=== PATIENT | female | born 1995 | race Caucasian/White ===

== ENCOUNTER 2020-03-05 17:43 | Emergency (ER) | payer OTHER, SELFPAY ==
[2020-03-05 18:19] VITALS: BP 173/94; PULSE 113; RESP 18; TEMP 36.6; O2SAT 99; BMI 39.9
--- NOTE | 2020-03-05 20:12 | US_ITS ---
EXAMINATION: US ABDOMEN LIMITED CLINICAL INFORMATION: Right upper quadrant pain. COMPARISON: 05/07/2019. TECHNIQUE: Real-time imaging of the right upper quadrant abdominal viscera. FINDINGS: PANCREAS: Normal. LIVER: Normal. The liver is normal in size. The liver contour is normal. Parenchymal echogenicity is normal. No focal hepatic lesion. There is no intrahepatic biliary duct dilatation seen. GALLBLADDER: Normal. The gallbladder is physiologically distended without evidence of stones, sludge, polyps, wall thickening or pericholecystic fluid. Sonographic Raphael sign is positive. COMMON BILE DUCT: Normal in caliber measuring 0.4-0.6 cm in diameter. RIGHT KIDNEY: Normal. No hydronephrosis. No renal calculi or focal parenchymal lesions. The kidney measures 10.4 cm in maximum dimension. FREE FLUID: None. US/US abdomen limited IMPRESSION: No acute findings evident within the right upper quadrant. The presence of a positive sonographic Raphael sign in the absence of additional sonographic findings of cholecystitis is nonspecific.
--- NOTE | 2020-03-05 20:12 | XR_ITS ---
EXAMINATION: XR CHEST CLINICAL INFORMATION: Right upper quadrant pain COMPARISON: 12/23/2016 TECHNIQUE: Frontal view of the chest was obtained. FINDINGS: No significant abnormality is noted involving the heart, lungs, mediastinum, bony thorax or soft tissues. Again noted is a mild thoracic scoliosis convex to the right. XR/XR chest 1V IMPRESSION: No acute intrathoracic disease
--- NOTE | 2020-03-05 20:12 | ECG_ITS ---
Test Reason : ABD PAIN Blood Pressure : / mmHG Vent. Rate : 090 BPM Atrial Rate : 090 BPM P-R Int : 158 ms QRS Dur : 094 ms QT Int : 376 ms P-R-T Axes : 069 020 046 degrees QTc Int : 459 ms Normal sinus rhythm Normal ECG No previous ECGs available Referred By: Wanda Fonseca Electronically Signed By:JUAN C TOWNSEND
[2020-03-05 20:23] VITALS: BP 108/53; PULSE 91; RESP 16; O2SAT 100
[2020-03-05 20:26] LABS: MANUAL DIFF FLAG NO
[2020-03-05 20:28] LABS: Basophils Percent Auto 0.3 % (0-2); Eosinophils Absolute Auto 0.4 X10*3/uL (0.0-0.4); Eosinophils Percent Auto 4.3 % (0-4); Hematocrit 40.7 % (37-47); Hemoglobin 13.7 g/dl (12.0-16.0); Imm Gran Abs Auto 0.04 X10*3/uL (0.00-0.03); Imm Gran Pct Auto 0.4 % (0.0-0.4); Lymphocytes Absolute Auto 2.1 X10*3/uL (1.2-4.9); Mean Corpuscular HGB Conc 33.7 g/dl (31.0-35.0); Mean Corpuscular Hemoglobin 27.7 pg (27.0-33.0); Mean Corpuscular Volume 82.2 fL (80-98); Mean Platelet Volume 8.5 fL (9.4-12.3); Monocytes Absolute Auto 0.6 X10*3/uL (0.1-1.2); Monocytes Percent Auto 6.1 % (2-11); Neutrophils Absolute Auto 6.5 X10*3/uL (2.0-8.3); Neutrophils Percent Auto 66.9 % (45-73); Platelet Count 308 X10*3/uL (160-400); Red Blood Count 4.95 X10*6/uL (4.20-5.50); Red Cell Distribution Width 12.8 % (11.0-16.0); White Blood Count 9.7 X10*3/uL (4.8-10.8)
[2020-03-05] MEDS: Morphine Sulfate 4 MG/ML CARTRIDGE IVPUSH (20:40)
[2020-03-05] MEDS: ondansetron HCL 4 MG/2 ML VIAL IVPUSH (20:40)
[2020-03-05] MEDS: 0.9 % Sodium Chloride 1,000 ML 999 ML IVCONT (20:41)
[2020-03-05 20:46] LABS: Lactic Acid 1.3 mmol/L (0.5-2.0)
--- NOTE | 2020-03-05 20:46 | PC.NURSE ---
patient a&ox3, iv inserted, labs drawn, vss, urine obtained, pt medicated per order, will continue to monitor.
[2020-03-05 20:47] LABS: Glucose Urine UA NEG (NEG); Leukocyte Esterase Urine TRACE (NEG); Nitrite Urine NEG (NEG); PH 6.5 (5.0-8.0); Specific Gravity - Urine <= 1.005 (1.005-1.025); Urine Blood NEG (NEG); Urine Ketones NEG (NEG); Urine Protein NEG (NEG-TRACE)
[2020-03-05 20:49] LABS: Appearance Urine CLEAR; Color Urine YELLOW; UPreg QC Valid YES; Urine Pregnancy NEGATIVE (NEGATIVE)
[2020-03-05 20:54] LABS: Bacteria Urine TRACE /LPF; RBC Urine 0 /HPF (0); Squamous Epithelial Cell Urine 2+ /LPF
[2020-03-05 20:54] LABS: Alanine Aminotransferase 26 U/L (0-31); Albumin Level 4.4 g/dL (3.5-5.0); Alkaline Phosphatase 74 U/L (39-117); Anion Gap 16 (12-20); Aspartate Amino Transferase 15 U/L (5-31); Bilirubin Total 0.3 mg/dL (0.0-1.0); Blood Urea Nitrogen 11 mg/dL (9-16); Calcium 8.9 mg/dL (8.4-10.2); Carbon Dioxide 22 mmol/L (22-29); Chloride 105 mmol/L (96-108); Creatinine Clr Calc Pharmacy 142.5; Estimated Glomerular Filt Rate > 60; Glucose Random 88 mg/dL (60-115); Lipase 27 U/L (8-78); Sodium 139 mmol/L (135-145); Total Protein 7.3 g/dL (6.5-8.0)
[2020-03-05 20:57] LABS: Magnesium 1.9 mg/dL (1.6-2.6)
--- NOTE | 2020-03-05 21:25 | ED.ABDPAIN ---
HPI - Abdominal Pain General Chief Complaint: Abdominal Pain Stated Complaint: ABD PAIN Time Seen by Provider: 03/05/20 20:12 Source: patient Mode of arrival: ambulatory Limitations: no limitations History of Present Illness HPI narrative: 24-year-old with no significant past medical history presents with 11 days of right upper quadrant abdominal pain. States that the pain started right after Thanksgiving dinner, and has not been alleviated. She has had light orange diarrhea, pain after eating, and abdominal tenderness. She does not report any chest pain or pressure, palpitations, shortness breath, abdominal distention, fevers or chills. MD elicited complaint: abdominal pain Onset (ago): day(s) (11) Pain Consistency: constant Location: RUQ Severity: severe Pain scale (0-10): 10 Quality: stabbing and aching Exacerbating factors: eating Relieving factors: nothing Associated symptoms: nausea Treatments prior to arrival: NSAIDs Related Data Previous Rx's Medication Instructions Recorded ondansetron HCl [Zofran] 4 mg PO Q8H PRN #14 tab 03/06/20 Allergies Allergy/AdvReac Type Severity Reaction Status Date / Time No Known Allergies Allergy Verified 03/05/20 18:19 [No Known Allergies*] Review of Systems Review of Systems Constitutional: No Weight loss, No Fever, No Chills, No Night Sweats, No Fatigue, No Malaise ENT/Mouth: No Hearing loss, No Ear Pain, No Nasal Congestion, No Sinus Pain, No Hoarseness, No sore throat, No Rhinorrhea, No Swallowing Difficulty Eyes: No Eye Pain, No Swelling, No Redness, No Foreign Body, No Discharge, No Vision Changes Cardiovascular: No Chest Pain, No SOB, No Dyspnea on Exertion, No Orthopnea, No Edema, No Palpitations Respiratory: No Cough, No Sputum, No Wheezing, No Smoke Exposure, No Dyspnea Gastrointestinal: Positive Nausea, Positive Vomiting, positive Diarrhea, positive abdominal Pain, No Hematochezia, No Melena Genitourinary: no irregular bleeding, No Dysuria, No Urinary Frequency, No Hematuria, No Urinary Incontinence, No Urgency, No Flank Pain, No Urinary Flow Changes, No Hesitancy Musculoskeletal: No joint pain, No Myalgias, No Joint Swelling Skin: No Skin Lesions, No rash Neuro: No Weakness, No Numbness, No Paresthesias, No Loss of Consciousness, No Dizziness, No Headache Psych: No Anxiety/Panic, No Depression, No SI/HI/AH/VH, No Social Issues Heme/Lymph: No Bruising, No Bleeding,No Lymphadenopathy Endocrine: No Polyuria, No Polydipsia, No Temperature Intolerance Yes all other systems are reviewed and are negative Physical Exam Vital Signs: Vital Signs: Last Vital Signs Temp 97.9 F 03/05/20 18:19 Pulse 85 03/06/20 00:40 Resp 16 03/06/20 01:32 BP 110/40 L 03/06/20 00:40 Pulse Ox 94 03/06/20 00:40 Body Mass Index 39.9 Appearance: Alert. Oriented X3. Moderate distress. Eyes: Pupils equal, round and reactive to light. ENT: Pharynx normal. Neck: Normal inspection. Neck supple. CVS: tachycardic heart rate and rhythm. Pulses normal. Respiratory: No respiratory distress. Breath sounds normal. Abdomen: Soft and positive Raphael's. Skin: Skin warm and dry. Normal skin color. Normal skin turgor. Extremities: No lower extremity edema. Neuro: No motor deficit. No sensory deficit. Course Course Course Narrative: 24-year-old female presents with 11 days of right upper quadrant pain. Started after Thanksgiving dinner, worsens when she eats, and has had diarrhea since. She does have a positive Raphael sign on physical exam. We will order abdominal ultrasound, CBC, Chem 7, lactic and cultures as she is mildly at 109, and has had this ailment for 11 days. We will treat with fluids and pain management. Ultrasound shows enlarged gallbladder, discussion with surgical PA at 10:00 p.m.. Requests HIDA scan however it is not available at this time, we will order CT scan of the abdomen to rule out other abdominal concerns. CT scan negative. Attempted to reach on-call PA, he could possibly be in surgery at this time. Consult with surgical PA, at 2:04 a.m. patient likely has biliary dyskinesia plan is for her to follow-up with him in the office later this week. Detailed description with patient regarding plan of care, patient verbalized understanding of and agrees to plan of care to discharge home and follow-up with surgery. Consultations Consultation #1: Hema Time: 20:00 MDM - Abdominal Pain Differential Diagnosis Differential diagnosis: Likely abdominal pain, acute appendicitis, calculus of kidney, diverticulitis, gastroenteritis, mesenteric ischemia, pancreatitis, peptic ulcer disease and small bowel obstruction Medical Records Attestation: I reviewed the patient's medical records. Lab Data Attestation: I reviewed the patient's lab results. Result diagrams: 03/05/20 20:13 03/05/20 20:13 Labs: Lab Results 03/05/20 03/05/20 03/05/20 Range/Units 20:13 20:13 20:13 WBC 9.7 (4.8-10.8) X10*3/uL RBC 4.95 (4.20-5.50) X10*6/uL Hgb 13.7 (12.0-16.0) g/dl Hct 40.7 (37-47) % MCV 82.2 (80-98) fL MCH 27.7 (27.0-33.0) pg MCHC 33.7 (31.0-35.0) g/dl RDW 12.8 (11.0-16.0) % Plt Count 308 (160-400) X10*3/uL MPV 8.5 L (9.4-12.3) fL Immature Gran % (Auto) 0.4 (0.0-0.4) % Neut % (Auto) 66.9 (45-73) % Lymph % (Auto) 22.0 (20-40) % [place] % (Auto) 6.1 (2-11) % Eos % (Auto) 4.3 H (0-4) % Baso % (Auto) 0.3 (0-2) % Lymph # (Auto) 2.1 (1.2-4.9) X10*3/uL [place] # (Auto) 0.6 (0.1-1.2) X10*3/uL Eos # (Auto) 0.4 (0.0-0.4) X10*3/uL Baso # (Auto) 0.0 (0.0-0.2) X10*3/uL Abs Immat Gran (auto) 0.04 H (0.00-0.03) X10*3/uL Absolute Neuts (auto) 6.5 (2.0-8.3) X10*3/uL Absolute Nucleated RBC 0.000 (0.0-0.012) X10*3/uL Nucleated RBC % (auto) 0.0 (0.0-0.2) /100WBC Hold Blue Top SEE NOTE Sodium 139 (135-145) mmol/L Potassium 4.0 (3.3-5.1) mmol/l Chloride 105 (96-108) mmol/L Carbon Dioxide 22 (22-29) mmol/L Anion Gap 16 (12-20) BUN 11 (9-16) mg/dL Creatinine 0.68 (0.5-1.4) mg/dL Estim Creat Clear Calc 142.5 Estimated GFR > 60 Random Glucose 88 (60-115) mg/dL Lactic Acid (0.5-2.0) mmol/L Calcium 8.9 (8.4-10.2) mg/dL Magnesium 1.9 (1.6-2.6) mg/dL Total Bilirubin 0.3 (0.0-1.0) mg/dL AST 15 (5-31) U/L ALT 26 (0-31) U/L Alkaline Phosphatase 74 (39-117) U/L Total Protein 7.3 (6.5-8.0) g/dL Albumin 4.4 (3.5-5.0) g/dL Lipase 27 (8-78) U/L Urine Color Urine Appearance Urine pH (5.0-8.0) Ur Specific Mcallen (1.005-1.025) Urine Protein (NEG-TRACE) MG/DL Urine Glucose (UA) (NEG) MG/DL Urine Ketones (NEG) MG/DL Urine Blood (NEG) Urine Nitrite (NEG) Ur Leukocyte Esterase (NEG) Urine RBC (0) /HPF Urine WBC (0-4) /HPF Ur Squamous Epith Cells /LPF Urine Bacteria /LPF Urine Test (NEGATIVE) 03/05/20 03/05/20 03/05/20 Range/Units 20:22 20:38 20:38 WBC (4.8-10.8) X10*3/uL RBC (4.20-5.50) X10*6/uL Hgb (12.0-16.0) g/dl Hct (37-47) % MCV (80-98) fL MCH (27.0-33.0) pg MCHC (31.0-35.0) g/dl RDW (11.0-16.0) % Plt Count (160-400) X10*3/uL MPV (9.4-12.3) fL Immature Gran % (Auto) (0.0-0.4) % Neut % (Auto) (45-73) % Lymph % (Auto) (20-40) % [place] % (Auto) (2-11) % Eos % (Auto) (0-4) % Baso % (Auto) (0-2) % Lymph # (Auto) (1.2-4.9) X10*3/uL [place] # (Auto) (0.1-1.2) X10*3/uL Eos # (Auto) (0.0-0.4) X10*3/uL Baso # (Auto) (0.0-0.2) X10*3/uL Abs Immat Gran (auto) (0.00-0.03) X10*3/uL Absolute Neuts (auto) (2.0-8.3) X10*3/uL Absolute Nucleated RBC (0.0-0.012) X10*3/uL Nucleated RBC % (auto) (0.0-0.2) /100WBC Hold Blue Top Sodium (135-145) mmol/L Potassium (3.3-5.1) mmol/l Chloride (96-108) mmol/L Carbon Dioxide (22-29) mmol/L Anion Gap (12-20) BUN (9-16) mg/dL Creatinine (0.5-1.4) mg/dL Estim Creat Clear Calc Estimated GFR Random Glucose (60-115) mg/dL Lactic Acid 1.3 (0.5-2.0) mmol/L Calcium (8.4-10.2) mg/dL Magnesium (1.6-2.6) mg/dL Total Bilirubin (0.0-1.0) mg/dL AST (5-31) U/L ALT (0-31) U/L Alkaline Phosphatase (39-117) U/L Total Protein (6.5-8.0) g/dL Albumin (3.5-5.0) g/dL Lipase (8-78) U/L Urine Color YELLOW Urine Appearance CLEAR Urine pH 6.5 (5.0-8.0) Ur Specific Mc[place]en <= 1.005 (1.005-1.025) Urine Protein NEG (NEG-TRACE) MG/DL Urine Glucose (UA) NEG (NEG) MG/DL Urine Ketones NEG (NEG) MG/DL Urine Blood NEG (NEG) Urine Nitrite NEG (NEG) Ur Leukocyte Esterase TRACE H (NEG) Urine RBC 0 (0) /HPF Urine WBC 10-14 H (0-4) /HPF Ur Squamous Epith Cells 2+ /LPF Urine Bacteria TRACE /LPF Urine Test NEGATIVE (NEGATIVE) Imaging Data CT scan - abdomen: Attestation: I personally reviewed and interpreted this imaging study as follows: Radiologist's impression: EXAMINATION: CT ABDOMEN AND PELVIS WITH CONTRAST CLINICAL INFORMATION: Distended gallbladder on ultrasound COMPARISON: Ultrasound from earlier today TECHNIQUE: Multidetector volumetric images were obtained from the superior aspect of the liver through the pubic symphysis following administration 85 mL of Omnipaque 350 intravenous contrast. Sagittal and coronal reformatted images were obtained on the technologist's workstation. Oral contrast: No This CT examination was performed using dose optimization techniques as appropriate, variously including the following: *Automated exposure control *Adjustment of mA and/or kV according to patient size (this includes techniques or standardized protocols for targeted exams where dose is matched to indication/reason for exam; i.e. extremities or head) *Use of iterative reconstruction technique DLP: 842 mGy-cm FINDINGS: LUNG BASES: The visualized lung bases are unremarkable. LIVER, GALLBLADDER, AND BILIARY TREE: The liver is normal in size, shape, and attenuation. No focal hepatic lesion or biliary ductal dilatation is present. The gallbladder is unremarkable with no evidence of radiopaque gallstones, gallbladder wall thickening, or obvious pericholecystic inflammatory changes. PANCREAS: Unremarkable. SPLEEN: Borderline enlarged, measuring approximately 13.7 cm in craniocaudal dimension. ADRENAL GLANDS: Unremarkable. KIDNEYS AND URETERS: The kidneys are normal in size, shape, and attenuation. No hydronephrosis, hydroureter, or obstructing calculi seen. No perinephric stranding. BLADDER: Unremarkable. GASTROINTESTINAL TRACT: The small and large bowel are unremarkable. The appendix is unremarkable. No free air is seen. ABDOMINAL WALL: No significant hernia is appreciated. LYMPH NODES: Normal. VASCULAR: Unremarkable. PELVIC VISCERA: Unremarkable. Trace nonspecific pelvic free fluid. OSSEOUS STRUCTURES: Unremarkable. CT/CT abdomen pelvis w con IMPRESSION: Trace nonspecific pelvic free fluid, which may be physiologic. Borderline splenomegaly. No additional acute findings identified in the abdomen/pelvis. US - abdomen: Attestation: I personally reviewed and interpreted this imaging study as follows: Radiologist's impression: EXAMINATION: US ABDOMEN LIMITED CLINICAL INFORMATION: Right upper quadrant pain. COMPARISON: 05/07/2019. TECHNIQUE: Real-time imaging of the right upper quadrant abdominal viscera. FINDINGS: PANCREAS: Normal. LIVER: Normal. The liver is normal in size. The liver contour is normal. Parenchymal echogenicity is normal. No focal hepatic lesion. There is no intrahepatic biliary duct dilatation seen. GALLBLADDER: Normal. The gallbladder is physiologically distended without evidence of stones, sludge, polyps, wall thickening or pericholecystic fluid. Sonographic Rahpael sign is positive. COMMON BILE DUCT: Normal in caliber measuring 0.4-0.6 cm in diameter. RIGHT KIDNEY: Normal. No hydronephrosis. No renal calculi or focal parenchymal lesions. The kidney measures 10.4 cm in maximum dimension. FREE FLUID: None. US/US abdomen limited IMPRESSION: No acute findings evident within the right upper quadrant. The presence of a positive sonographic Raphael sign in the absence of additional sonographic findings of cholecystitis is nonspecific. Chest x-ray: Attestation: I personally reviewed and interpreted this imaging study as follows: Radiologist's impression: EXAMINATION: XR CHEST CLINICAL INFORMATION: Right upper quadrant pain COMPARISON: 12/23/2016 TECHNIQUE: Frontal view of the chest was obtained. FINDINGS: No significant abnormality is noted involving the heart, lungs, mediastinum, bony thorax or soft tissues. Again noted is a mild thoracic scoliosis convex to the right. XR/XR chest 1V IMPRESSION: No acute intrathoracic disease ECG Data Attestation: I personally reviewed and interpreted this ECG as follows: ECG interpretation date: 03/05/20 ECG interpretation time: 20:27 Prior ECG tracings: not available for review Interpretation: Vent. Rate : 090 BPM Atrial Rate : 090 BPM P-R Int : 158 ms QRS Dur : 094 ms QT Int : 376 ms P-R-T Axes : 069 020 046 degrees QTc Int : 459 ms Normal sinus rhythm Normal ECG No previous ECGs available Critical Care Time Critical Care Time Critical Care Time: Yes Total Critical Care Time: 60 Attestation: I have personally provided critical care time exclusive of time spent on separately billable procedures. Time includes review of laboratory data, radiology results, discussion with consultants, and monitoring for potential decompensation. Interventions were performed as documented. Discharge Plan Discharge Clinical Impression: Biliary dyskinesia Patient Disposition: Home, Self-Care Instructions: Biliary Dyskinesia (DC) Additional Instructions: you were evaluated for right upper quadrant abdominal pain. Abdominal ultrasound shows enlarged gallbladder, does not show any indication of infection. CT scan of the abdomen was normal. Lab values are within normal limits. Please call surgeon for appointment for follow-up. If pain persists or get worse please return to the emergency department. you may take Tylenol and Motrin as needed for pain management. Thank you for choosing this emergency department for evaluation. Please follow-up with primary care physician as needed. Return to the emergency department for any new, concerning, or worsening symptoms. Prescriptions: New ondansetron HCl [Zofran] 4 mg tablet 4 mg PO Q8H PRN (Reason: nausea and vomiting) Qty: 14 RF: 0 Referrals: Josh Thayer MD [Physician] - 2 days ( biliary dyskinesia) [facility] Past Medical History Attestation statement: The following information was validated with the patient. Medical History Asthma Social History Social History Alcohol intake: never Smoked in Last 30 Days: No Use of substances other than those prescribed or required for medical reasons: No Advance Directives: No Advance Directives Information Provided: Yes
--- NOTE | 2020-03-05 22:15 | CT_ITS ---
EXAMINATION: CT ABDOMEN AND PELVIS WITH CONTRAST CLINICAL INFORMATION: Distended gallbladder on ultrasound COMPARISON: Ultrasound from earlier today TECHNIQUE: Multidetector volumetric images were obtained from the superior aspect of the liver through the pubic symphysis following administration 85 mL of Omnipaque 350 intravenous contrast. Sagittal and coronal reformatted images were obtained on the technologist's workstation. Oral contrast: No This CT examination was performed using dose optimization techniques as appropriate, variously including the following: *Automated exposure control *Adjustment of mA and/or kV according to patient size (this includes techniques or standardized protocols for targeted exams where dose is matched to indication/reason for exam; i.e. extremities or head) *Use of iterative reconstruction technique DLP: 842 mGy-cm FINDINGS: LUNG BASES: The visualized lung bases are unremarkable. LIVER, GALLBLADDER, AND BILIARY TREE: The liver is normal in size, shape, and attenuation. No focal hepatic lesion or biliary ductal dilatation is present. The gallbladder is unremarkable with no evidence of radiopaque gallstones, gallbladder wall thickening, or obvious pericholecystic inflammatory changes. PANCREAS: Unremarkable. SPLEEN: Borderline enlarged, measuring approximately 13.7 cm in craniocaudal dimension. ADRENAL GLANDS: Unremarkable. KIDNEYS AND URETERS: The kidneys are normal in size, shape, and attenuation. No hydronephrosis, hydroureter, or obstructing calculi seen. No perinephric stranding. BLADDER: Unremarkable. GASTROINTESTINAL TRACT: The small and large bowel are unremarkable. The appendix is unremarkable. No free air is seen. ABDOMINAL WALL: No significant hernia is appreciated. LYMPH NODES: Normal. VASCULAR: Unremarkable. PELVIC VISCERA: Unremarkable. Trace nonspecific pelvic free fluid. OSSEOUS STRUCTURES: Unremarkable. CT/CT abdomen pelvis w con IMPRESSION: Trace nonspecific pelvic free fluid, which may be physiologic. Borderline splenomegaly. No additional acute findings identified in the abdomen/pelvis.
[2020-03-05 22:30] VITALS: BP 121/54; PULSE 85; RESP 16; O2SAT 99
[2020-03-05] MEDS: iohexoL 350 MG/ML 100 ML INFUS..BTL 85 ML IV (23:22)
[2020-03-06 00:40] VITALS: BP 110/40; PULSE 85; RESP 16; O2SAT 94
--- NOTE | 2020-03-06 00:41 | PC.NURSE ---
pt awake, resting and reports that her pain is starting to return. pt understands that the provider will be in soon for an update on what the plan will be.
[2020-03-06 01:32] VITALS: RESP 16
[2020-03-06] MEDS: Morphine Sulfate 4 MG/ML CARTRIDGE IVPUSH (01:32)
[2020-03-06 02:00] VITALS: BP 115/62; PULSE 82; RESP 18; TEMP 36.6; O2SAT 98
[2020-03-06 02:18] VITALS: BP 115/50; PULSE 82; RESP 18; O2SAT 98
== END 2020-03-06 02:44 | disposition home or self-care (01) ==
PROVIDERS: Nurse Practitioner Family; Emergency Provider Emergency Medicine; PCP Nurse Practitioner Family
DX: K82.8 Other specified diseases of gallbladder (principal); R10.11 Right upper quadrant pain; Z79.899 Other long term (current) drug therapy
CPT/HCPCS: 36415; 71045; 74177; 76705; 80053; 81001; 81025; 83605; 83690; 83735; 85025; 87040; 87086; 93005; 96361; 96374; 96375; 96376; 99284; 99291; J2270; J2405; Q9967

== ENCOUNTER → 2020-03-06 09:44 | Outpatient (BNVA) | payer OTHER, SELFPAY | PROVIDERS: PCP Nurse Practitioner Family; Visit Provider Surgery | DX: R10.11 Right upper quadrant pain (principal) | CPT/HCPCS: 99202 ==

== ENCOUNTER → 2020-03-07 08:25 | Outpatient (REF) | payer OTHER, SELFPAY ==
--- NOTE | 2020-03-07 | NM_ITS ---
EXAMINATION: BILIARY TRACT IMAGING STUDY WITH CCK CLINICAL INFORMATION: Right upper quadrant pain.. COMPARISON: No previous biliary scan is available for comparison. Abdominal ultrasound and CT scan of the abdomen and pelvis, both dated 03/05/2020 are available for comparison.. TECHNIQUE: Serial gamma scintillation camera images were obtained over the abdomen for a total observation period of 96 minutes following the intravenous administration of 5.0 mCi Tc-99m Mebrofenin. FINDINGS: There is good concentration of activity in the liver by 5 minutes post injection. Biliary activity is visualized by 20 minutes. The gallbladder is well visualized by 30 minutes. Small bowel is well visualized by 70 minutes. At 60 minutes post radiopharmaceutical injection, a 30-minute infusion of 1.9 micrograms Sincalide was then begun and an additional 40 minutes of images were obtained. There is good emptying of the gallbladder. By the end of the study there is good clearance of activity from the liver and visualization of diffuse small bowel activity. The calculated gallbladder ejection fraction is 82% (normal gallbladder ejection fraction is greater than 35%). NM/NM hepatobiliary wo pharm IMPRESSION: Visualization of the gallbladder is evidence of a patent cystic duct and strong evidence against the diagnosis of acute cholecystitis. The common bile duct is patent. Gallbladder emptying and ejection fraction are normal. Liver function appears normal.
--- NOTE | 2020-03-07 16:29 | P.EN_ITS ---
Event Note Date of Service: 03/07/20 Event Note: talked to pt about her HIDA scan- no signs of cholecystitis - cys tic duct patent good ejection fraction I had prescribed her Bactrim as her UA in the ED suggested a UTI She has not picked this up she says she feels better, but says she has not eaten much as she was anxious about getting the pain again I advised her to take her Bactrim She has a scheduled ffup on - she will will again if she decides not to ffup, as her imaging studies do not suggest a GB pathology
== END ==
LOC: HO.NUCMED 08:25
PROVIDERS: PCP Nurse Practitioner Family; Visit Provider Surgery
DX: R10.11 Right upper quadrant pain (principal)
CPT/HCPCS: 78226; A9537; J2805

== ENCOUNTER 2020-06-08 08:18 | Outpatient (REF) | payer OTHER, SELFPAY ==
[2020-06-08 14:20] LABS: CT PCR NOT DETECTED (Not Detect.); NG PCR NOT DETECTED (Not Detect.)
== END 2020-06-08 08:19 | disposition home or self-care (01) ==
LOC: HO.LAB 08:18
PROVIDERS: PCP Nurse Practitioner Family; Visit Provider Advanced Practice Midwife
DX: Z01.419 Encounter for gynecological examination (general) (routine) without abnormal findings (principal); Z20.2 Contact with and (suspected) exposure to infections with a predominantly sexual mode of transmission
CPT/HCPCS: 87491; 87591

== ENCOUNTER 2020-12-14 16:24 | Emergency (ER) | payer OTHER, SELFPAY ==
--- NOTE | ~2020-12-14 | XR_ITS ---
EXAMINATION: RIGHT HAND CLINICAL INFORMATION: Right hand swelling COMPARISON: None TECHNIQUE: 4 views right hand FINDINGS: No bone, joint or soft tissue abnormality is seen XR/XR hand wrist RT IMPRESSION: Negative radiographs
[2020-12-14 16:58] VITALS: BP 156/79; PULSE 98; RESP 18; TEMP 36; O2SAT 100; BMI 39.4
--- NOTE | 2020-12-14 20:31 | ED_ITS ---
HPI - Extremity Problem General Chief complaint: Extremity Injury, Upper Stated complaint: wrist inj due to boxing Time Seen by Provider: 12/14/20 20:13 Source: patient Mode of arrival: ambulatory Limitations: no limitations History of Present Illness HPI Narrative: 25-year-old female who has right hand pain after punching a punching bag 10 days ago. The pain is not resolving. Patient is right handed. She has tingling on the tips of all of her fingertips. She has been using a Velcro splint, she is concerned because the pain is not resolving. MD Complaint: extremity pain Onset (ago): day(s) (10) Pain Consistency: constant Location: right Severity scale (1-10): 3 Quality: aching Radiation: none Relieving factors: immobilization Exacerbating factors: range of motion Associated symptoms: denies other symptoms Related Data Home Medications Medication Instructions Recorded Confirmed levonorgestrel-ethinyl estradiol 1 tab PO DAILY 03/06/20 06/08/20 0.1 mg-20 mcg tablet (Lutera (28)) Previous Rx's Medication Instructions Recorded prednisone 20 mg tablet 40 mg PO DAILY 5 Days #10 tab 12/14/20 Allergies Allergy/AdvReac Type Severity Reaction Status Date / Time No Known Allergies Allergy Verified 12/14/20 16:57 [No Known Allergies*] Review of Systems Review of Systems: Constitutional : No Weight loss, No Fever, No Chills, No Ni ght Sweats,No Fatigue, No Malaise ENT/Mouth : No Hearing loss, No Ear Pain, No Nasal Congestion, NoSinus Pain, No Hoarseness, No sore throat, No Rhinorrhea, NoSwallowing Difficulty Eyes: No Eye Pain, No Swelling, No Redness, No Foreign Body, NoDischarge, No Vision Changes Cardiovascular : No Chest Pain, No SOB, No Dyspnea on Exertion, NoOrthopnea, No Edema, No Palpitations Respiratory : No Cough, No Sputum, No Wheezing, No Smoke Exposure, No Dyspnea Musculoskeletal : right hand pain Skin : No Skin Lesions, No rash Neuro : No Weakness, No Numbness, No Paresthesias, No Loss ofConsciousness, No D izziness, No Headache PMFSH Past Medical History Medical History Asthma RUQ pain Surgical History History of wisdom tooth extraction Family History Family History Paternal Grandmother History of ovarian cancer Paternal Grandfather History of melanoma Social History Social History (Updated 06/08/20 @ 08:34 by XENA Bui) Alcohol intake: never Advance Directives: No Advance Directives Information Provided: No Patient : No Gender identity: Female Physical Exam Vital Signs: Vital Signs: Last Vital Signs Temp 96.8 F 12/14/20 16:58 Pulse 98 12/14/20 16:58 Resp 18 12/14/20 16:58 BP 156/79 H 12/14/20 16:58 Pulse Ox 100 12/14/20 16:58 Body Mass Index 39.4 Const: General: cooperative, no acute distress, well developed, alert and awake Nutritional Appearance: well nourished Orientation/consciousness: patient oriented x3 Limitations: no limitations Eyes: Conjunctivae: conjunctivae normal Pupils: Equal, round and reactive pupils present EOM: EOMs intact bilaterally Neck: Neck: Yes full ROM, Yes no lymphadenopathy and Yes supple Resp: Effort & Inspection: normal respiratory effort and able to speak in com plete sentences Auscultation: clear to auscultation bilaterally, no crackles, no rales, no rhonchi and no wheezes Cardio: Rate: regular rate Rhythm: regular rhythm Heart sounds: S1 normal heart sound present and S2 normal heart sound present Skin: General skin exam: no rashes or lesions noted Neuro: General: patient oriented x3, tone normal and moves all extremities Cranial nerves: Yes Equal, round and reactive pupils present Extrem: Right upper extremity: full ROM, normal capillary refill and Extremity exam: right hand Details: normal to inspection, normal capillary refill, neuromotor exam normal, neurosensory exam normal, tendon exam normal and normal ROM of fingers; No no edema and joint enlargement noted Psych: Appearance: grossly normal Affect: normal affect Attitude: cooperative Thought process: Normal thought process present Course Course Course Narrative: 25-year-old female presents for right hand pain after punching a punching bag 10 days ago. Patient has tenderness when she flexes her rest, is very tender when she flexes against the resistance of my hand. I suspected tendonitis. Will give patient volar splint, prednisone, follow up with Orthopedics. Discharge Plan Discharge Clinical Impression: Right wrist tendinitis Patient Disposition: Home, Self-Care Instructions: Splint Care (ED), Tendinitis (ED) Additional Instructions: Please call Orthopedics. I have referred you to them but if you do not hear from them by tomorrow afternoon please call them at the number [phone] Please fill your prescription for prednisone. Please leave the wrist splint on until you are seen and released by Orthopedics. Prescriptions: New prednisone 20 mg tablet 40 mg PO DAILY 5 Days Qty: 10 RF: 0 No Action levonorgestrel-ethinyl estrad [Lutera (28)] 0.1-20 mg-mcg tablet 1 tab PO DAILY RF: 0 Referrals: Joi Gallego MD [Physician] - 2 days (pain in forearm with right wrist flexion s/p 10 days of using a punching bag)
--- NOTE | 2020-12-14 20:51 | PC.NURSE ---
ANASTACIO FULLER PLACED TO [facility] THAND/WRIST AREA +CMS CHECKED BY RAUL MENDES.
== END 2020-12-14 21:09 | disposition home or self-care (01) ==
PROVIDERS: Emergency Provider Emergency Medicine; PCP Nurse Practitioner Family
DX: M65.231 Calcific tendinitis, right forearm (principal); M79.641 Pain in right hand; Z79.899 Other long term (current) drug therapy
CPT/HCPCS: 29125; 73110; 73130; 99283

== ENCOUNTER 2020-12-25 08:50 | Outpatient (REF) | payer OTHER, SELFPAY ==
--- NOTE | ~2020-12-25 | XR_ITS ---
EXAMINATION: XR WRIST, RIGHT CLINICAL INFORMATION: Pain in the right wrist. COMPARISON: None TECHNIQUE: Four views of the right wrist. FINDINGS: The bones and soft tissues are normal. No fracture. Alignment is anatomic with normal joint spaces. No erosions or abnormal soft tissue calcifications. XR/XR wrist RT min 3V IMPRESSION: Normal right wrist.
== END 2020-12-25 08:51 | disposition home or self-care (01) ==
LOC: HO.HOSX 08:50
PROVIDERS: PCP Nurse Practitioner Family; Visit Provider Physician Assistant
DX: S63.511A Sprain of carpal joint of right wrist, initial encounter (principal)
CPT/HCPCS: 73110; 99202

== ENCOUNTER 2021-01-15 08:49 | Outpatient (REF) | payer OTHER, SELFPAY ==
--- NOTE | ~2021-01-15 | XR_ITS ---
EXAMINATION: XR WRIST, RIGHT CLINICAL INFORMATION: Right wrist pain. COMPARISON: None TECHNIQUE: PA, lateral, and oblique views of the right wrist. An arrow points to the distal ulna. FINDINGS: The bones and soft tissues are normal. No fracture. Alignment is anatomic with normal joint spaces. No erosions or abnormal soft tissue calcifications. XR/XR wrist RT min 3V IMPRESSION: Unremarkable right wrist.
== END 2021-01-15 08:50 | disposition home or self-care (01) ==
LOC: HO.HOSX 08:49
PROVIDERS: Visit Provider Physician Assistant
DX: S63.519 Sprain of carpal joint of unspecified wrist (principal)
CPT/HCPCS: 73110; 99212

== ENCOUNTER 2021-01-30 11:01 | Outpatient (REF) | payer OTHER, SELFPAY ==
--- NOTE | ~2021-01-30 | FL_ITS ---
EXAMINATION: FL FLUOROSCOPIC GUIDED WRIST ARTHROGRAM, RIGHT CLINICAL INFORMATION: Chronic right wrist pain. Arthrogram for MR. COMPARISON: Radiographs right breast 01/15/2021 TECHNIQUE: Proper informed consent is obtained from the patient after discussion of the procedure, potential risks and complications, and alternatives including declining the procedure today. Patient was given an opportunity for questions. The patient appeared to understand. The patient consented to the procedure and signed the consent form. Skin is prepped and draped. Local anesthesia is provided using 1 mL 1% lidocaine. Under fluoroscopic guidance, a 23-gauge butterfly needle was positioned into the radiocarpal compartment from a dorsal approach at the level of the mid navicular. Needle tip position is validated with injection of 0.5 mL Omnipaque 300. Subsequently, the patient received a 2.5 mL injection of diluted gadolinium (0.08 mL Gadavist in 10 mL saline). The patient tolerated the procedure well and had no immediate complication. Sterile dressing was placed and home instructions reviewed with the patient. Fluoroscopy time: 0.8 minutes DAP: 0.286 Gycm2 Images: 6 FL/FL arthrogram wrist RT IMPRESSION: 1. Status post fluoroscopic guided right wrist injection dilute gadolinium contrast. 2. See post-arthrography MRI report for further information.
--- NOTE | ~2021-01-30 | MR_ITS ---
EXAMINATION: MR WRIST WITH CONTRAST, RIGHT CLINICAL INFORMATION: Right wrist pain and numbness. Ulnar-sided numbness and tingling. Weakness and stiffness. COMPARISON: Fluoroscopic arthrography done earlier the same day. Most recent right wrist radiographs dated 01/15/2021. TECHNIQUE: MRI of the wrist was performed following the intra-articular administration of a dilute gadolinium-containing solution (arthrogram) on a high-field scanner. FINDINGS: TRIANGULAR FIBROCARTILAGE: Intact. No contrast extending through the triangular fibrocartilage complex into the distal radioulnar joint to suggest full-thickness tearing. INTRINSIC LIGAMENTS: There is contrast extending into the intrasubstance of the scapholunate ligament with mild widening of the scapholunate articulation, consistent with incomplete full-thickness partial tearing. TENDONS/MEDIAN NERVE: Mild extensor carpi ulnaris tendinosis without a measurable tendon defect. ARTICULAR CARTILAGE/BONE: Intact articular cartilage. No evidence of acute osseous injury. JOINT FLUID/SOFT TISSUES: No abnormal soft tissue mass or fluid collection. MR/MR wrist RT w con IMPRESSION: 1. Full-thickness partial tearing of the scapholunate ligament with mild widening of the scapholunate articulation. 2. No measurable triangular fibrocartilage complex defect. 3. Mild extensor carpi ulnaris tendinosis without a measurable tendon defect.
== END 2021-01-30 11:02 | disposition home or self-care (01) ==
LOC: HO.XRAY 11:01
PROVIDERS: Visit Provider Physician Assistant
DX: S63.511A Sprain of carpal joint of right wrist, initial encounter (principal); X58.XXXA Exposure to other specified factors, initial encounter; Y93.9 Activity, unspecified; Y92.9 Unspecified place or not applicable; Y99.9 Unspecified external cause status
CPT/HCPCS: 25246; 73115; 73222; A9585

== ENCOUNTER 2021-02-09 14:00 | Outpatient (RCR) | payer OTHER, SELFPAY ==
--- NOTE | 2021-01-23 15:22 | MHC.OT.OEV ---
[address] [phone] F: [phone] Occupational Therapy Evaluation Diagnosis: Left Wrist Strain Date of Onset: 12/14/20 Attending Provider: Noe Dawn PA-C Prescribed Treatment: Eval and Treat MD Follow Up Appointment: History of Current Condition: Pt with history of pain and tingling in both hands over the past two years, she was seen in the ED and noted it may have been related to a boxing injury, but also reports increase in symtpoms w/ driving, moreso in right hand. She was seen by Noe at [facility] and placed in short arm cast for three weeks for management of possible SL ligament strain, just removed 01/15/21 and referred to OT to progress ROM. MRI scheduled 01/31/21. 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 Enjoys [employer] Living Situation, Family and/or Social Support: Lives w/ fiance and dog Current Level of Function and Occupation Self Care, Employment, Leisure: Difficulty opening doors and jars, not jewerly making Using non-dom left hand for most activities Sleep: Increased pain at night if overused during the day Trying to sleep on her back with arms resting on chest Driving: Uses left hand for driving Vision: Balance: Pain Assessment Pain Score: 3 Pain Scale Used: Numeric (0 - 10) Pain Location and Description: Numbness and tingling D4-D5 radiates to elbow Burning and stabbing over mid dorsal wrist Burning and pulling in mid volar wrist radiating Tenderness to palpate volar wrist and dorsal wrist -> mid dorsal forearm Pain to palpate over radial tunnel Aggravating Factors: Gripping, over use Alleviating Factors: NSAIDS PRN, no significant relief Skin and Soft Tissue Assessment Skin and Soft Tissue: Comments: Nerve assessment Ulnar Nerve: B/L Impaired Median Nerve: Right Impaired Radial Nerve: WFL Comments: Sensory Assessment Temperature: WFL Light Touch: B/L Impaired Proprioception: WFL Vibration: Comments: Diminished light touch B/L volar and dorsal hands Edema Assessment Upper Extremity: WNL Lower Extremity: Comments: Dexterity Assessment Dexterity: Comments: Nine Hole Peg Right 25 sec Left 18 sec Special Tests Comments: (-) Froment's (-) [place] (-) Phalen's (-) Scaphoid shift test Pain to palpate over radial and cubital tunnels (+) Tinels over ulnar nerve at elbow AROM(PROM) Strength Cervical Cervical Flexion: Cervical Extension: Cervical Lateral Flexion: Cervical Rotation: Comments: WFL Shoulder Flexion: Extension: Abduction: Internal Rotation: External Rotation: Comments: WFL Flexion: Extension: Abduction: Internal Rotation: External Rotation: Comments: Elbow Flexion: Extension: Pronation: Supination: Comments: WFL Flexion: Extension: Pronation: Supination: Comments: Wrist Flexion: R 70 L 76 Extension: R 60 L 60 Ulnar Deviation: Radial Deviation: Comments: Flexion: R 4-/5 L 4/5 Extension: R 4-/5 L 4/5 Ulnar Deviation: Radial Deviation: Comments: Thumb Thumb CMC Flexion: Thumb MCP Flexion: Thumb IP Flexion: Radial Abduction: Palmar Abduction: [place] (Kapandji 0-10): Comments: WFL Digits Index MCP: PIP: DIP: Long MCP: PIP: DIP: Ring MCP: PIP: DIP: Small MCP: PIP: DIP: Comments: WFL Gross Grasp: Lateral Pinch: Two-Point Pinch: Three-Jaw Alon: Comments: Patient Education Primary Language: German Magnetic Locater Required: No Current Knowledge: Understands information with skills for self-management Teaching Method: Demonstration Handouts Verbal Education Needs Identified on Evaluation: ADL's Disease Information Equipment Use Exercise Pain Safety How did patient/family demonstrate learning? Patient demonstrates Patient verbalizes Barriers to Learning: None Readiness for Learning: Accepting Who was educated? Patient Comments: Plan of Care Assessment: 25 yo female presents w/ persistent numbness and tingling in right hand at ulnar nerve distribution, also tender and painful at mid dorsal wrist radiating to forearm and mid volar wrist w/ less radiation into forearm. She was originally seen in ED after thinking it was an injury from boxing, but during this OT assessment, it seems her ulnar nerve symptoms have been fluctuating over the past couple years, she has altered the way she drives and sleeps. Further assessment shows ulnar and radial nerve weakness, with pain over radial tunnel and tinel's at cubital tunnel. She has diminished light touch both palms and dorsal hands. Assessment of carpal bones is (-) for scaphoid shift test and x-rays have been (-), but she is awaiting MRI 01/31/21 for further imaging of soft tissues and does have tenderness over mid-volar wrist. We will continue OT for education and exercise for treatment of ulnar nerve dysfunction and possible radial nerve or extensor overuse injury, and continue assessment for possible SL injury w/ focus on wrist stability and pain management. May benefit from EMG to rule out/in nerve compressions. STG Duration: 1 weeks Short Term Goals: Ind w/ isometric wrist exercises Pt to report nighttime ease w/ sleep modifications Ind w/ nighttime resting wrist orthosis wear 1/10 daytime pain w/ light use of right hand Pt to identify possible irritating factors of work station LTG Duration: 4 weeks Jail Goals: Pt to report decrease in right hand numbness and tingling w/ activity and sleep modifications B/L gross grasp >40lb Pt to report pain free in right wrist at rest Pt to report <3/10 pain w/ moderate bimanual daily activities Frequency and Duration: The patient will be seen 2x/wk for 4 weeks Treatment Plan: Therapeutic Exercise Therapeutic Activity Home Exercise Program Splinting Patient Education ADL Training Ultrasound Iontophoresis Paraffin Fluidotherapy MHP Cold Packs Soft Tissue Mobilization Kinesiotaping Electronically Signed By: Milagro Hanson OTR/L Reviewed/agree with student documentation: Yes Therapist: Please sign and return to therapist, Thank you for your referral.
--- NOTE | 2021-03-19 13:43 | MHC.OT.DC ---
[address] [phone] F: [phone] Occupational Therapy Discharge Note Provider: Noe Dawn PA-C Diagnosis: Right Wrist Strain; SL Tear Date of Evaluation: 01/23/21 Date of Discharge: 03/19/21 Treatments to Date: 4 Discharge Summary: Dimple was referred to OT for management s/p wrist injury w/ SL strain. She continued to have moderate pain and was referred to Dr Gallego 02/20. She is now post-op Right wrist scapholunate intercarpal ligament repair, 03/19/21 w/ Dr Gallego. Pt will likely require further OT, please re-order as appropriate for post-op management and therapy. Electronically Signed By: JESUS Lucas/Elise CHT Reviewed/agree with student documentation: Yes Therapist: Please Sign and return to therapist, thank you for your referral.
== END 2021-03-19 13:44 | disposition home or self-care (01) ==
LOC: HO.OT 14:00
PROVIDERS: PCP Nurse Practitioner Family; Visit Provider Physician Assistant
DX: S63.512D Sprain of carpal joint of left wrist, subsequent encounter (principal)
CPT/HCPCS: 97033; 97110; 97166

== ENCOUNTER → 2021-02-20 09:41 | Outpatient (BNVA) | payer OTHER, SELFPAY | PROVIDERS: PCP Nurse Practitioner Family; Visit Provider Orthopaedic Surgery | DX: S63.8X1D Sprain of other part of right wrist and hand, subsequent encounter (principal) | CPT/HCPCS: 99202 ==

== ENCOUNTER 2021-03-19 06:02 | Day surgery (SDC) | payer OTHER, SELFPAY ==
[2021-03-12 12:43] VITALS: BMI 39.4
[2021-03-19] VITALS (10 sets, daily range): BP systolic 107–141; BP diastolic 54–78; PULSE 74–103; RESP 16–22; TEMP 36.3; O2SAT 95–97
--- NOTE | ~2021-03-19 | FL_ITS ---
EXAMINATION: XR FLUOROSCOPY WITH IMAGES CLINICAL INFORMATION: Right wrist ligament repair. COMPARISON: Previous x-ray December 2020. TECHNIQUE: Fluoroscopy performed by Dr. Joi Gallego Fluoroscopy time: 1 minutes Dose: [id number] uGy-cm2 Images: 5 FINDINGS: Images demonstrate K wires or pins across the scapholunate and scaphocapitate regions. The scapholunate joint appears widened. No fracture is seen. FL/FL guidance in OR IMPRESSION: Fluoroscopy guidance for right wrist procedure.
[2021-03-19 06:36] LABS: UPreg QC Valid YES; Urine Pregnancy NEGATIVE (NEGATIVE)
--- NOTE | 2021-03-19 07:59 | MHC.SHP ---
Pre-Procedural Eval Section A Date of Service: 03/19/21 The patient is an INPATIENT: No Changes since office visit: No Cold of Flu in the past 2 weeks, No New Medical Problems, No Changes in Medication and No Patient answered all questions The History & Physical has been completed within 30 days and I have reviewed it.: Yes Section B Chief Complaint: right wrist ligament injury Allergies: Allergies Allergy/AdvReac Type Severity Reaction Status Date / Time No Known Allergies Allergy Verified 03/12/21 12:43 [No Known Allergies*] Plan I have reviewed the history and physical and performed a pertinent physical examination on my patient. No changes have occurred unless specified.
--- NOTE | 2021-03-19 08:00 | P.OP_ITS ---
Operative Note Operative Note Date of Service: 03/19/21 Narrative: Operative Note Narrative: Preop diagnosis: 1. Right wrist scapholunate intercarpal ligament tear Postop diagnosis: Same Procedure: Right wrist scapholunate intercarpal ligament repair Surgeon: Joi Gallego MD Anesthesia: General plus regional block Findings: Some widening of scapholunate interval seen on fluoroscopic images with axial loading. visually, this was a partial scapholunate intercarpal ligament tear Implants: none Tourniquet time: 60 minutes EBL: 5.0 ml Specimen: none Drains: None Complications: None Disposition: Brought to the recovery room in stable condition Plan: Follow-up in 10-14 days for wound check, suture removal and placement in a short-arm thumb spica cast anticipate K-wire removal at between 6 and 8 weeks. Casting until at least 8 weeks, with wrist gauntlet splint and limited use until 12 weeks. Indications: The patient is a 25 year old woman with a right wrist scapholunate intercarpal ligament injury . The risks and benefits of operative treatment, including but not limited to risk of damage to blood vessels, nerves, tendons, infection, recurrence, persistent pain or numbness, incomplete resolution of preoperative symptoms, or need for further surgery were discussed with the patient and they wished to proceed with surgery. Procedure: Once consent was obtained patient was brought back to the operating suite and placed in the operating table in a supine position. A regional block was performed by the anesthesia team. Perioperative antibiotics and anesthesia was administered by the anesthesia team. A tourniquet was applied to the proximal aspect of the right upper extremity and the limb was prepped and draped in a standard surgical fashion. The limb was elevated exsanguinated with Esmarch bandage and the tourniquet inflated to 250 mm of mercury for a total tourniquet time of 16 minutes. the FluoroScan was used during the case to assess the ligamentous injury and then to assess reduction and implant placement. Prior to making our incision I evaluated the scapholunate interval with tension and then compression across the wrist joint. We did see some widening Of the scapholunate interval with axial loading, but no scaphoid ring sign. An 8 cm dorsal longitudinal incision was made centered over the right wrist using a 15. Blade through the skin to the subcutaneous tissues. Tenotomy scissors were used to dissect down to the level of the extensor retinaculum. The extensor retinaculum was opened longitudinally over the radial aspect of the 4th dorsal compartment. The tendons of the 4th dorsal compartment were retracted ulnarly. a longitudinal incision in the dorsal right wrist capsule was made carefully using a 15. Blade and in line with the 3rd metacarpal from approximately the dorsal aspect of the capitate extending onto the dorsal aspect of the distal radius in the floor of the 4th dorsal compartment. Care was taken not to injure the underlying intercarpal ligaments. I was then able to evaluate our wrist joint. There was a partial injury of the scapholunate ligament. The more proximal aspect of the dorsal skin aspect of the scapholunate ligament was intact. At this point the scapholunate interval was reduced by applying some traction across the joint. I then placed a 0.054 K-wire transversely through the scaphoid, across the scapholunate interval and into the body of the lunate While holding the scapholunate interval in a reduced position. I was satisfied with the reduction and placement of this implant on fluoroscopic images. I then placed a 2nd K- wire, a 0.045 K-wire, through the scaphoid and into the capitate, thus preventing flexion of the scaphoid. Once satisfied with the placement of these K-wires under fluoroscopic images the pins were bent cut short had pin caps applied. The scapholunate intercarpal ligament was then repaired using some 3-0 Ethibond suture. The dorsal capsuloligamentous layer was repaired with 3-0 Vicryl suture. The tendons of the 4th dorsal compartment were then placed back within the 4th dorsal compartment and the extensor retinaculum was repaired using 3-0 Vicryl suture. At this point the tourniquet was deflated and hemostasis obtained with a brief period of local pressure and bipolar electrocautery. The wound was copiously irrigated with normal saline. The subcutaneous layer was closed with 4-0 Vicryl suture, and the skin edges were reapproximated A running 4-0 Monocryl subcuticular closure. Steri-Strips and Mastisol were applied. The wound was infiltrated with some 1% lidocaine with epinephrine for postop pain control and a sterile dressing And thumb spica splint was applied. The patient appears to have tolerated the procedure well and with no complications. All digits were well vascularized conclusion of the case.
--- NOTE | 2021-03-19 08:39 | P.CONAN_ITS ---
[facility] Active Problems Active Problems: All Active Problems (Updated 03/12/21 @ 14:24 by Leah hernandez, UZMA) Well woman exam with routine gynecological exam (Acute) Potential exposure to STD (Acute) Surveillance for control, oral contraceptives (Acute) Sprain of scapholunate ligament (Acute) Right scapholunate ligament tear (Acute) RUQ pain (Acute) Past Medical History Medical History (Updated 03/12/21 @ 14:24 by Leah Page RN) Asthma History of cardiac murmur as a child RUQ pain Family History Family History Paternal Grandmother History of ovarian cancer Paternal Grandfather History of melanoma Family history of problems with anesthesia: No Surgical History Surgical History History of wisdom tooth extraction History of Problems with Anesthesia: No Social History Social History Alcohol intake: never Patient Tobacco Use Status: Never used Tobacco Use of substances other than those prescribed or required for medical reasons: No Are you DNR?: No Advance Directives: No Advance Directives Information Provided: Yes Advance Directives on File: No Patient : No FDLMP: 02/20/2021 : No Poor oral hygiene: No Current occupational status: employed 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 Gender identity: Female Meds Allergies Allergy/AdvReac Type Severity Reaction Status Date / Time No Known Allergies Allergy Verified 03/12/21 12:43 [No Known Allergies*] Home Medications Medication Instructions Recorded Confirmed Last Taken Type levonorgestrel-ethinyl estradiol 1 tab PO DAILY 03/06/20 03/12/21 Unknown Histor y 0.1 mg-20 mcg tablet (Lutera (28)) acetaminophen 325 mg tablet 650 mg PO Q6H PRN 03/12/21 03/12/21 Unknown History albuterol sulfate 90 mcg/actuation 2 puff INHALATION Q4-6H PRN 03/12/21 03/12/21 Unknown History aerosol inhaler ibuprofen 200 mg tablet 400 mg PO Q8H PRN 03/12/21 03/12/21 Unknown History Exam Exam Date and Time: March 19, 2021 0839 Height,Weight and Vital Signs: Height 5 ft 2 in Weight 97.976 kg Last Vital Signs Temp 97.4 F 03/19/21 06:17 Pulse 74 03/19/21 06:17 Resp 16 03/19/21 06:17 BP 141/68 H 03/19/21 06:17 Pulse Ox 97 03/19/21 06:17 Pertinent Lab Results Pertinent Lab Results: Laboratory Tests 03/19/21 06:16 Urine Test NEGATIVE Airway Mallampati Class: II TM Dist: >3cm Neck ROM: Full Assessment and Plan Final Anesthetic Review Family History of Problems with Anesthesia: No History of Problems with Anesthesia: No NPO: Yes ASA Class: II Final Preanesthetic Review: No Changes in Pt Med Stat, Meds/Allgs Chart Reviewed, Consent Obtained/Reviewed and Anes Risks/Benef Reviewed Patient Risk: Low Procedure Risk: Low Anesthetic Plan Anesthetic Plan: GA and Regional Block Disposition: Standard PACU
[2021-03-19] MEDS: ondansetron HCL 4 MG/2 ML VIAL IVPUSH (10:50)
== END 2021-03-19 12:20 | disposition home or self-care (01) ==
PROVIDERS: Anesthesiology; PCP Nurse Practitioner Family; Visit Provider Orthopaedic Surgery
PROC: (CPT 25320; principal; 2021-03-19 07:30)
DX: S63.8X1A Sprain of other part of right wrist and hand, initial encounter (principal); M67.833 Other specified disorders of tendon, right wrist; X58.XXXA Exposure to other specified factors, initial encounter; Y93.9 Activity, unspecified; Y92.9 Unspecified place or not applicable; Y99.8 Other external cause status; J45.909 Unspecified asthma, uncomplicated; Z79.899 Other long term (current) drug therapy
CPT/HCPCS: 25320; 81025; J0690; J1100; J2250; J2405; J2765; J3010

== ENCOUNTER 2021-04-03 08:46 | Outpatient (REF) | payer OTHER, SELFPAY ==
--- NOTE | ~2021-04-03 | XR_ITS ---
EXAMINATION: XR WRIST, RIGHT CLINICAL INFORMATION: Pain COMPARISON: Previous x-ray most recent December 2020 and intraoperative fluoroscopic images February 2021 TECHNIQUE: 3 views of the right wrist. FINDINGS: There are 2 K wires or pins across the scapholunate and scaphocapitate joints. These appear unchanged from intraoperative images. No fracture or dislocation is seen. Joint spaces and soft tissues are normal. XR/XR wrist RT min 3V IMPRESSION: Stable appearance of the wrist from intraoperative images February 2021
== END 2021-04-03 08:47 | disposition home or self-care (01) ==
LOC: HO.HOSX 08:46
PROVIDERS: PCP Nurse Practitioner Family; Visit Provider Orthopaedic Surgery
DX: S63.8X1A Sprain of other part of right wrist and hand, initial encounter (principal); X58.XXXA Exposure to other specified factors, initial encounter; Y93.9 Activity, unspecified; Y92.9 Unspecified place or not applicable; Y99.9 Unspecified external cause status
CPT/HCPCS: 73110; 99212

== ENCOUNTER 2021-05-01 09:02 | Outpatient (REF) | payer OTHER, SELFPAY ==
--- NOTE | ~2021-05-01 | XR_ITS ---
EXAMINATION: XR WRIST, RIGHT CLINICAL INFORMATION: Pain COMPARISON: 04/03/2021 TECHNIQUE: PA, lateral, and oblique views of the right wrist. XR/XR wrist RT min 3V FINDINGS/IMPRESSION: Again seen are 2 Riki wires transfixing the scapholunate and scaphocapitate articulations from a lateral to medial approach. Alignment of both the wires in the osseous structures is unchanged from prior. 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
== END 2021-05-01 09:03 | disposition home or self-care (01) ==
LOC: HO.HOSX 09:02
PROVIDERS: Visit Provider Orthopaedic Surgery
DX: S63.8X1D Sprain of other part of right wrist and hand, subsequent encounter (principal)
CPT/HCPCS: 73110; 99212

== ENCOUNTER 2021-05-15 12:49 | Outpatient (REF) | payer OTHER, SELFPAY | END 2021-05-15 12:50 | disposition home or self-care (01) | LOC: HO.HOSX 12:49 | PROVIDERS: Visit Provider Physician Assistant | DX: S63.8X1D Sprain of other part of right wrist and hand, subsequent encounter (principal); X58.XXXD Exposure to other specified factors, subsequent encounter | CPT/HCPCS: 99212 ==

== ENCOUNTER → 2021-05-29 15:38 | Outpatient (BNVA) | payer OTHER, SELFPAY | PROVIDERS: Visit Provider Orthopaedic Surgery | DX: M25.532 Pain in left wrist (principal); S63.8X1D Sprain of other part of right wrist and hand, subsequent encounter | CPT/HCPCS: 99212 ==

== ENCOUNTER → 2021-06-12 11:16 | Outpatient (BNVA) | payer OTHER, SELFPAY | PROVIDERS: PCP Nurse Practitioner Family; Visit Provider Physician Assistant | DX: S63.8X1D Sprain of other part of right wrist and hand, subsequent encounter (principal) | CPT/HCPCS: 99212 ==

== ENCOUNTER → 2021-07-24 13:37 | Outpatient (BNVA) | payer OTHER, SELFPAY | PROVIDERS: PCP Nurse Practitioner Family; Visit Provider Physician Assistant | DX: S63.8X1D Sprain of other part of right wrist and hand, subsequent encounter (principal) | CPT/HCPCS: 99212 ==

== ENCOUNTER 2021-08-29 15:30 | Outpatient (RCR) | payer OTHER, SELFPAY ==
--- NOTE | 2021-08-29 16:19 | MHC.OT.DC ---
[address] [phone] F: [phone] Occupational Therapy Discharge Note Provider: Joi Gallego Diagnosis: Right SL ligament repair Date of Surgery: 03/19/21 Date of Evaluation: 05/31/21 Date of Discharge: 08/29/21 Treatments to Date: 9 Cancellations to Date: 0 No Shows to Date: 0 Discharge Status: Achieved Goals Improved Function Independent with HEP Discharge Summary: Pt 24 wks po. Inc wrist ROM . Wrist ext 50 deg at a plateau over the past two weeks. Passive ext with prolonged stretch to 60 deg. She may benefit from con't use of the dynamic ext orthosis fabricated today. Right wrist flex 55 deg and rad dev ,ulnar dev WFL Feed Weigher R 45 lb and lifting strength improving. Pt continuing 5 lb isotonic wrist ex and progressed to 8 lb biceps ex. She plans to return to the gym in two wks. Skilled OT is not needed at this time. Electronically Signed By: Susan Darby OT CHT CLT Reviewed/agree with student documentation: N/A Therapist: Please Sign and return to therapist, thank you for your referral.
== END 2021-08-29 16:19 | disposition home or self-care (01) ==
LOC: HO.OT 15:30
PROVIDERS: PCP Nurse Practitioner Family; Visit Provider Physician Assistant
DX: S63.8X1D Sprain of other part of right wrist and hand, subsequent encounter (principal)
CPT/HCPCS: 29126; 97110; 97140; 97166; 97530; 97760

== ENCOUNTER → 2021-09-04 15:28 | Outpatient (BNVA) | payer SELFPAY | PROVIDERS: PCP Nurse Practitioner Family; Visit Provider Orthopaedic Surgery | DX: Z09 Encounter for follow-up examination after completed treatment for conditions other than malignant neoplasm (principal); S63.8X1D Sprain of other part of right wrist and hand, subsequent encounter | CPT/HCPCS: 99212 ==

== ENCOUNTER 2022-04-24 12:10 | Outpatient (REF) | payer BC, SELFPAY ==
[2022-04-24 13:49] LABS: Appearance Urine Clear; Color Urine Yellow; Glucose Urine UA Negative (Negative); Leukocyte Esterase Urine Trace (Negative); Nitrite Urine Negative (Negative); UMIC TRIGGER UACC YES; Urine Blood Negative (Negative); Urine Ketones Negative (Negative); Urine Protein Negative (Neg-Trace)
[2022-04-24 13:52] LABS: Bacteria Urine None Seen (None Seen); Hyaline Casts Urine 0-2 /LPF (0-2); RBC Urine 0-2 /HPF (0-2); Squamous Epithelial Cell Urine 0-2 /HPF (0-2); WBC Urine 0-5 /HPF (0-5)
[2022-04-24 16:34] LABS: MANUAL DIFF FLAG NO
[2022-04-24 16:44] LABS: Basophils Percent Auto 0.4 % (0-2); Eosinophils Absolute Auto 0.1 X10*3/uL (0.0-0.4); Eosinophils Percent Auto 2.1 % (0-4); Hematocrit 40.7 % (37.0-47.0); Hemoglobin 13.6 g/dl (12.0-16.0); Imm Gran Abs Auto 0.02 X10*3/uL (0.00-0.03); Imm Gran Pct Auto 0.4 % (0.0-0.4); Lymphocytes Absolute Auto 1.7 X10*3/uL (1.2-4.9); Lymphocytes Percent Auto 32.6 % (20-40); Mean Corpuscular HGB Conc 33.4 g/dl (31.0-35.0); Mean Corpuscular Volume 83.7 fL (80.0-98.0); Mean Platelet Volume 8.8 fL (9.4-12.3); Monocytes Absolute Auto 0.3 X10*3/uL (0.1-1.2); Monocytes Percent Auto 6.4 % (2-11); Neutrophils Percent Auto 58.1 % (45-73); Platelet Count 318 X10*3/uL (160-400); Red Blood Count 4.86 X10*6/uL (4.20-5.50); Red Cell Distribution Width 12.8 % (11.0-16.0); White Blood Count 5.2 X10*3/uL (4.8-10.8)
[2022-04-24 17:00] LABS: Alanine Aminotransferase 31 U/L (0-31); Albumin Level 4.4 g/dL (3.5-5.0); Alkaline Phosphatase 79 U/L (39-117); Anion Gap 15 (12-20); Aspartate Amino Transferase 24 U/L (5-31); Bilirubin Total 0.6 mg/dL (0.0-1.0); Blood Urea Nitrogen 8 mg/dL (9-16); Calcium 9.2 mg/dL (8.4-10.2); Carbon Dioxide 23 mmol/L (22-29); Chloride 107 mmol/L (96-108); Cholesterol 142 mg/dL; Estimated Glomerular Filt Rate > 60; Glucose Fasting 94 mg/dL (60-99); HDL Cholesterol 36 mg/dL; LDL Cholesterol Calculated 88 mg/dl; Potassium 3.7 mmol/L (3.3-5.1); Sodium 141 mmol/L (135-145); Total Protein 7.3 g/dL (6.5-8.0); Triglycerides 93 mg/dL
[2022-04-24 17:16] LABS: TSH reflex Free T4 1.11 uIU/mL (0.32-4.0)
== END 2022-04-24 12:11 | disposition home or self-care (01) ==
LOC: HO.HMGCLDS 12:10
PROVIDERS: PCP Nurse Practitioner Family; Visit Provider Nurse Practitioner Family
DX: Z00.00 Encounter for general adult medical examination without abnormal findings (principal)
CPT/HCPCS: 36415; 80053; 80061; 81001; 84443; 85025

== ENCOUNTER 2022-11-19 12:33 | Outpatient (REF) | payer BC, SELFPAY ==
[2022-11-19 16:10] LABS: MANUAL DIFF FLAG NO
[2022-11-19 16:17] LABS: Basophils Percent Auto 0.5 % (0-2); Eosinophils Absolute Auto 0.4 X10*3/uL (0.0-0.4); Eosinophils Percent Auto 4.9 % (0-4); Hematocrit 44.5 % (37.0-47.0); Hemoglobin 14.8 g/dl (12.0-16.0); Imm Gran Abs Auto 0.03 X10*3/uL (0.00-0.03); Imm Gran Pct Auto 0.4 % (0.0-0.4); Lymphocytes Absolute Auto 1.9 X10*3/uL (1.2-4.9); Lymphocytes Percent Auto 24.2 % (20-40); Mean Corpuscular HGB Conc 33.3 g/dl (31.0-35.0); Mean Corpuscular Hemoglobin 27.8 pg (27.0-33.0); Mean Corpuscular Volume 83.5 fL (80.0-98.0); Mean Platelet Volume 8.9 fL (9.4-12.3); Monocytes Absolute Auto 0.4 X10*3/uL (0.1-1.2); Monocytes Percent Auto 4.6 % (2-11); Neutrophils Absolute Auto 5.1 x10*3/uL (2.0-8.3); Neutrophils Percent Auto 65.4 % (45-73); Platelet Count 330 X10*3/uL (160-400); Red Blood Count 5.33 X10*6/uL (4.20-5.50); White Blood Count 7.8 X10*3/uL (4.8-10.8)
[2022-11-19 17:01] LABS: Alanine Aminotransferase 17 U/L (0-31); Albumin Level 4.6 g/dL (3.5-5.0); Alkaline Phosphatase 86 U/L (39-117); Anion Gap 11 (12-20); Aspartate Amino Transferase 16 U/L (5-31); Bilirubin Total 0.4 mg/dL (0.0-1.0); Blood Urea Nitrogen 7 mg/dL (9-16); C Reactive Protein 1.54 mg/dL (< or = 0.50); Carbon Dioxide 23 mmol/L (22-29); Chloride 107 mmol/L (96-108); Estimated Glomerular Filt Rate > 60; Glucose Random 117 mg/dL (60-115); Potassium 3.3 mmol/L (3.3-5.1); Rheumatoid Factor < 13.0 IU/mL (<15.0); Sodium 138 mmol/L (135-145); Total Protein 7.9 g/dL (6.5-8.0)
[2022-11-19 17:18] LABS: TSH reflex Free T4 1.17 uIU/mL (0.32-4.0)
[2022-11-19 17:21] LABS: Erythrocyte Sedimentation Rate 10 MM/HR (0-20)
[2022-11-20 14:13] LABS: Cyclic Citrullinated Peptide <16 UNITS
[2022-11-20 23:04] LABS: Anti DNA DS Antibody 3 IU/mL; Antibody to SS-A Antigen <1.0 NEG AI (<1.0 NEG); Antibody to SS-B Antigen <1.0 NEG AI (<1.0 NEG)
[2022-11-21 00:24] LABS: A. Phagocytphilium DNA,RT-PCR NOT DETECTED (NOT DETECTED); Babesia Microti DNA, RT-PCR NOT DETECTED (NOT DETECTED); Borrelia Miyamotoi,DNA RT-PCR NOT DETECTED (NOT DETECTED); E.Chaffeensis DNA RT-PCR NOT DETECTED (NOT DETECTED); Lyme(Borrelia ssp)DNA RT-PCR NOT DETECTED (NOT DETECTED)
[2022-11-21 15:48] LABS: Anti Nuclear Antibody Screen NEGATIVE (NEGATIVE)
== END 2022-11-19 12:34 | disposition home or self-care (01) ==
LOC: HO.HMGCLDS 12:33
PROVIDERS: PCP Nurse Practitioner Family; Visit Provider Nurse Practitioner Family
DX: M25.50 Pain in unspecified joint (principal); R53.83 Other fatigue; R60.0 Localized edema; L30.9 Dermatitis, unspecified
CPT/HCPCS: 36415; 80053; 82550; 84443; 85025; 85652; 86038; 86140; 86200; 86225; 86235; 86431; 87798; 87801

== ENCOUNTER → 2022-12-24 13:23 | Outpatient (REF) | payer BC, SELFPAY ==
--- NOTE | 2022-12-24 13:27 | HM_ITS ---
Conclusion: 1. Patient was monitored for total period of 3 days 2. Baseline was normal sinus with average heart of 78 beats per minute 3. No significant pauses noted 4. Rare PACs noted 5. Patient reported total of 151 events with right if symptoms including headache, sweating, palpitations, dizziness, lightheadedness, shortness of breath, chest pain, pounding all of which correlated with sinus rhythm MTDD
== END ==
LOC: HO.CARD 13:23
PROVIDERS: PCP Nurse Practitioner Family; Visit Provider Nurse Practitioner Family
DX: R00.0 Tachycardia, unspecified (principal); R00.2 Palpitations; R42 Dizziness and giddiness
CPT/HCPCS: 93242

== ENCOUNTER → 2022-12-24 13:27 | Outpatient (BNV) | payer SELFPAY | PROVIDERS: PCP Nurse Practitioner Family; Visit Provider Internal Medicine Cardiovascular Disease | DX: I49.1 Atrial premature depolarization (principal) | CPT/HCPCS: 93244 ==

== ENCOUNTER 2022-12-27 20:33 | Emergency (ER) | payer BC, SELFPAY ==
--- NOTE | 2022-12-27 | ECG_ITS ---
Test Reason : CHEST TIGHTNESS Blood Pressure : / mmHG Vent. Rate : 134 BPM Atrial Rate : 134 BPM P-R Int : 128 ms QRS Dur : 092 ms QT Int : 376 ms P-R-T Axes : 060 064 079 degrees QTc Int : 561 ms Sinus tachycardia Nonspecific ST and T wave abnormality Abnormal ECG When compared with ECG of 05-MAR-2020 20:27, Vent. rate has increased BY [address] now depressed in Inferior leads Nonspecific T wave abnormality now evident in Inferior leads Nonspecific T wave abnormality now evident in Lateral leads Referred By: Generic ED Physician Electronically Signed By:PARKER FONSECA
--- NOTE | ~2022-12-27 | XR_ITS ---
EXAMINATION: XR CHEST CLINICAL INFORMATION: Chest pain COMPARISON: None available. TECHNIQUE: Frontal view of the chest was obtained. FINDINGS: The lungs are well-expanded and clear of acute process. The heart size and pulmonary vascularity is normal. There is mild dextroscoliosis of dorsal spine. No aggressive lytic or sclerotic process seen. XR/XR chest 1V IMPRESSION: No acute cardiopulmonary process seen. Mild dextroscoliosis dorsal spine.
[2022-12-27 20:48] VITALS: BP 145/89; PULSE 135; RESP 22; TEMP 37.3; O2SAT 96; BMI 39.0
[2022-12-27 20:58] VITALS: PULSE 116
--- NOTE | 2022-12-27 21:00 | PC.NURSE ---
Pt ambulated into room with steady gait, AOx3, pt speaking in full sentences, reporting intermittent sub-sternal chest pain, that radiates to left breast, and back, pt reports N/V/diaphoresis, Pt states i feel like i cant take a full breath. SpO2: 96, RR:22. IV placed, labs drawn and sent to lab, meds given per MAY. Pt aware of plan of care.
--- NOTE | 2022-12-27 21:12 | ED.CHESTPAIN ---
HPI - Chest Pain General Chief Complaint: Chest Pain Stated Complaint: Chest tightness Time Seen by Provider: 12/27/22 20:41 Source: patient and old records reviewed Mode of arrival: ambulatory Limitations: no limitations History of Present Illness HPI narrative: 27 yo female with PMH of anxiety/depression, tachycardia just handed in her holter monitor today, possible POTS here with c/o chest tightness all day today with dyspnea and feeling she cannot breathe. She is on progesterone only pill. No travel/procedures. She has no hx of clots. States a great grandfather of a heart attack in his 20s but no other fam hx of early CAD. She has had a recent URI but no vaccines. She has had this before in the past but the pain is usually when she stands today the pain is when she lays down complaint: chest pain Onset (ago): day(s) (all day) Timing of current episode: constant Prior episodes: Yes Onset: during rest Pain location: substernal Pain radiation: none Severity: moderate Quality: aching Relieving factors: nothing Exacerbating factors: inspiration and movement Context: recent illness Associated symptoms: dyspnea Treatment prior to arrival: none Related Data Home Medications Medication Instructions Recorded Confirmed levonorgestrel-ethinyl estradiol 1 tab PO DAILY 03/06/20 04/24/22 0.1 mg-20 mcg tablet (Lutera (28)) loratadine 10 mg tablet (Allergy 10 mg PO DAILY 04/24/22 04/24/22 Relief (loratadine)) multivitamin (Daily Multi-Vitamin 1 tab PO DAILY 04/24/22 04/24/22 tablet) Previous Rx's Medication Instructions Recorded prednisolone acetate 1 % eye 1 drp ophthalmic (eye) BID 20 days 04/24/22 drops,suspension #10 mL fluoxetine 10 mg tablet 10 mg PO DAILY #90 tabs 07/25/22 prednisone 50 mg tablet 50 mg PO DAILY 6 days #6 tabs 11/21/22 Allergies Allergy/AdvReac Type Severity Reaction Status Date / Time No Known Allergies Allergy Verified 12/27/22 20:48 [No Known Allergies*] Review of Systems Review of Systems: Constitutional : No Weight loss, No Fever, No Chills ENT/Mouth : No sore throat, No Rhinorrhea Eyes: No Eye Pain, No Swelling Cardiovascular : pos Chest Pain, pos SOB, no Dyspnea on Exertion, No Orthopnea, No Edema, No Palpitations Respiratory : No Cough, No Sputum Gastrointestinal : pos Nausea, No Vomiting, No Diarrhea, No abdominal Pain, No Hematochezia, No Melena Genitourinary : No Dysuria, No Urinary Frequency Musculoskeletal : No joint pain, No Myalgias, No Joint Swelling Skin : No Skin Lesions, No rash Neuro : No Weakness, No Numbness, No Dizziness, No Headache Psych : No Anxiety/Panic, No Depression Heme/Lymph: No Bruising, No Lymphadenopathy Endocrine : No Polyuria, No Polydipsia All other systems reviewed and are negative [facility] Past Medical History Attestation statement: The following information was validated with the patient. Source: old records reviewed Medical History History of cardiac murmur as a child RUQ pain Asthma Surgical History History of wisdom tooth extraction Family History Family History Paternal Grandmother History of ovarian cancer Mental health disorder Paternal Grandfather History of melanoma Father Mental health disorder Mother Mental health disorder Sister Mental health disorder Social History Social History Housing: Condominium Alcohol intake: never Patient Tobacco Use Status: Never used Tobacco Smoked in Last 30 Days: No e-Cigarette/Vaping Use: Never Used Second Hand Smoke Exposure: No Use of substances other than those prescribed or required for medical reasons: Yes Substance Use Type: Marijuana Advance Directives: No Advance Directives Information Provided: Yes Patient : No service: No Current occupational status: employed Current occupation: [employer] Current occupational exposures/hazards: No Gender identity: Female Cognitive needs: No Hearing needs: No Vision needs: No Physical Exam Vital Signs: Vital Signs: Last Vital Signs Temp 98.2 F 12/27/22 22:56 Pulse 96 12/27/22 22:56 Resp 13 12/27/22 22:56 BP 122/66 12/27/22 22:56 Pulse Ox 92 12/27/22 22:56 O2 Del Method Room Air 12/27/22 22:56 BMI result Body Mass Index 39.0 Appearance: Alert. Oriented X3. No acute distress. Anxious Eyes: Pupils equal, round and reactive to light. ENT: Pharynx normal. Neck: Normal inspection. Neck supple. CVS: tachycardic heart rate and rhythm. Pulses normal. Respiratory: No respiratory distress. Breath sounds normal. Abdomen: Soft and nontender. Skin: Skin warm and dry. Normal skin color. Normal skin turgor. Extremities: No lower extremity edema. No calf ttp Neuro: Oriented X 3. No motor deficit. No sensory deficit. Course Course Course Narrative: VS improved feels better stable for DC Medications Administered Generic Name Dose Route Start Last Admin Trade Name Freq PRN Reason Stop Dose Admin Potassium Chloride 10 meq in 100 mls @ 100 mls/hr 12/27/22 21:45 12/27/22 22:55 Potassium Chloride/H20 IV 12/27/22 23:44 100 mls/hr Q1H ARUN Administration Discontinued Medications Generic Name Dose Route Start Last Admin Trade Name Freq PRN Reason Stop Dose Admin Sodium Chloride 1,000 mls @ 999 mls/hr 12/27/22 21:15 12/27/22 22:43 Ns IVCONT 12/27/22 22:15 Infused .Q1H1M ARUN Infusion Lorazepam 1 mg 12/27/22 21:03 12/27/22 21:18 Lorazepam 2 Mg/Ml Vial IVPUSH 12/27/22 21:04 1 mg STAT STA Administration Potassium Chloride 40 meq 12/27/22 21:34 12/27/22 21:52 Potassium Chloride Packet 20 Meq Packet PO 12/27/22 21:35 40 meq ONCE ONE Administration Procedures Procedure Narrative Procedure Narrative: limited bedside cardiac US - apical subxiphoid parasternal no effusion and no GWMA Medical Decision Making Medical Decision Making [facility] Narrative: 27 yo female with PMH of anxiety/depression, tachycardia just handed in her holter monitor today, possible POTS here with atypical chest pain and appearing anxious at this time given tachycardia will obtain ddimer though only on progesterone pills. troponin x 1 given pain all day, COVID swab and CXR - bedside ECHO no obvious GWMA and no effusion. I have ordered lytes and she notes recent TSH normal. I have ordered fluids and IV ativan Differential Diagnosis Differential Diagnoses: The differential diagnosis associated with the presentation includes VTE, anxiety, dehydration, POTS Admission/Observation Consideration of admission/observation: Escalation of care including admission/observation considered repleted negative workup stable for DC Lab Data [facility] Lab Attestation statement: I reviewed the patient's lab results. 12/27/22 21:11 12/27/22 21:11 Labs: Lab Results 12/27/22 Range/Units 21:11 WBC 9.9 (4.8-10.8) X10*3/uL RBC 5.12 (4.20-5.50) X10*6/uL Hgb 14.6 (12.0-16.0) g/dl Hct 41.4 (37.0-47.0) % MCV 80.9 (80.0-98.0) fL MCH 28.5 (27.0-33.0) pg MCHC 35.3 H (31.0-35.0) g/dl RDW 13.5 (11.0-16.0) % Plt Count 282 (160-400) X10*3/uL MPV 8.5 L (9.4-12.3) fL Immature Gran % (Auto) 0.3 (0.0-0.4) % Neut % (Auto) 77.0 H (45-73) % Lymph % (Auto) 8.9 L (20-40) % [place] % (Auto) 8.1 (2-11) % Eos % (Auto) 5.2 H (0-4) % Baso % (Auto) 0.5 (0-2) % Lymph # (Auto) 0.9 L (1.2-4.9) X10*3/uL [place] # (Auto) 0.8 (0.1-1.2) X10*3/uL Eos # (Auto) 0.5 H (0.0-0.4) X10*3/uL Baso # (Auto) 0.1 (0.0-0.2) X10*3/uL Abs Immat Gran (auto) 0.03 (0.00-0.03) X10*3/uL Absolute Neuts (auto) 7.7 (2.0-8.3) x10*3/uL Absolute Nucleated RBC 0.000 (0.0-0.012) X10*3/uL Nucleated RBC % (auto) 0.0 (0.0-0.2) /100WBC D-Dimer High Sensitivty < 150 NG/ML Sodium 141 (135-145) mmol/L Potassium 2.9 L (3.3-5.1) mmol/L Chloride 106 (96-108) mmol/L Carbon Dioxide 19 L (22-29) mmol/L Anion Gap 19 (12-20) BUN 3 L (9-16) mg/dL Creatinine 0.70 (0.5-1.4) mg/dL Estim Creat Clear Calc 133.4 Estimated GFR > 60 Random Glucose 153 H (60-115) mg/dL Calcium 9.7 (8.4-10.2) mg/dL Magnesium 2.0 (1.6-2.6) mg/dL Total Bilirubin 0.8 (0.0-1.0) mg/dL Direct Bilirubin 0.4 (0.0-0.5) mg/dL AST 25 (5-31) U/L ALT 45 H (0-31) U/L Alkaline Phosphatase 88 (39-117) U/L Troponin I High Sens < 2.7 (<3.5-17.0) ng/L B-Natriuretic Peptide < 10 (<100) pg/mL Total Protein 8.2 H (6.5-8.0) g/dL Albumin 4.9 (3.5-5.0) g/dL COVID-19 (JAMEY) Negative (Negative) COVID-19 Clin Com See Note Independent Interpretation I performed an independent interpretation of an: EKG and Plain X-Ray (normal ) Interpretation: Rate: 134 Rhythm: sinus tachycardia [place]: normal Normal P waves. Normal JASMINA. Normal QRS complex. ST T wave : no ANGELIQUE, nonspecific ST T wave changes inf and lateral leads qTC: prolonged prior studies: The study has been interpreted contemporaneously by me. EKG #2 Rate: 100 Rhythm: NSR [place]: normal Normal P waves. Normal JASMINA. incomplete RBBB ST T wave : normal no ANGELIQUE, inverted t wave V1-2 qTC: normal prior studies: no acute ischemia The study has been interpreted contemporaneously by me. . Radiology Impression Discussion of test interpretation with radiology: I have reviewed the radiologist's reading. Independent Historian Clinical information obtained from an independent historian. History obtained from or confirmed by: Spouse External Record Review External record reviewed: Inpatient record Critical Care Time Critical Care Time Critical Care Time: Yes Total Critical Care Time: 35 Attestation: 2 runs of IV potassium for hypokalemia to prevent arrythmia I attest to this time spent taking care of the patient Discharge Plan Discharge Clinical Impression: Atypical chest pain, Acute hypokalemia Patient Disposition: Home, Self-Care Instructions: Chest Pain (ED), Hypokalemia (ED) Additional Instructions: return for worsening symptoms, fevers, increased pain, swelling, fainting, or any other concerns. follow up with your doctor as planned. Chest xray and covid swab normal labs normal, heart test and congestive heart failure test normal, blood clot test negative repleted your potassium in ED have your doctor recheck it by Friday or Friday Prescriptions: No Action fluoxetine 10 mg tablet 10 mg PO DAILY Qty: 90 2RF prednisone 50 mg tablet 50 mg PO DAILY 6 Days Qty: 6 0RF multivitamin [Daily Multi-Vitamin] Tablet 1 tab PO DAILY loratadine [Allergy Relief (loratadine)] 10 mg tablet 10 mg PO DAILY prednisolone acetate 1 % drops,suspension 1 drp ophthalmic (eye) BID 20 Days Qty: 10 0RF Rx Instructions: route: not eye but use for ear itching levonorgestrel-ethinyl estrad [Lutera (28)] 0.1-20 mg-mcg tablet 1 tab PO DAILY
[2022-12-27 21:15] LABS: MANUAL DIFF FLAG NO
[2022-12-27 21:17] LABS: Basophils Absolute Auto 0.1 X10*3/uL (0.0-0.2); Basophils Percent Auto 0.5 % (0-2); Eosinophils Absolute Auto 0.5 X10*3/uL (0.0-0.4); Eosinophils Percent Auto 5.2 % (0-4); Hematocrit 41.4 % (37.0-47.0); Hemoglobin 14.6 g/dl (12.0-16.0); Imm Gran Abs Auto 0.03 X10*3/uL (0.00-0.03); Imm Gran Pct Auto 0.3 % (0.0-0.4); Lymphocytes Absolute Auto 0.9 X10*3/uL (1.2-4.9); Lymphocytes Percent Auto 8.9 % (20-40); Mean Corpuscular HGB Conc 35.3 g/dl (31.0-35.0); Mean Corpuscular Hemoglobin 28.5 pg (27.0-33.0); Mean Corpuscular Volume 80.9 fL (80.0-98.0); Mean Platelet Volume 8.5 fL (9.4-12.3); Monocytes Absolute Auto 0.8 X10*3/uL (0.1-1.2); Monocytes Percent Auto 8.1 % (2-11); Neutrophils Absolute Auto 7.7 x10*3/uL (2.0-8.3); Platelet Count 282 X10*3/uL (160-400); Red Blood Count 5.12 X10*6/uL (4.20-5.50); Red Cell Distribution Width 13.5 % (11.0-16.0); White Blood Count 9.9 X10*3/uL (4.8-10.8)
[2022-12-27] MEDS: LORazepam 2 MG/ML VIAL 1 MG IVPUSH (21:18)
[2022-12-27 21:19] VITALS: BP 113/81; PULSE 103; RESP 14
[2022-12-27] MEDS: 0.9 % Sodium Chloride 1,000 ML 999 ML IVCONT (21:19)
[2022-12-27 21:30] LABS: COVID-19 Test Negative (Negative); IDNOW Serial# BCCEAD1C
[2022-12-27 21:31] LABS: Alanine Aminotransferase 45 U/L (0-31); Albumin Level 4.9 g/dL (3.5-5.0); Alkaline Phosphatase 88 U/L (39-117); Anion Gap 19 (12-20); Aspartate Amino Transferase 25 U/L (5-31); Bilirubin Direct 0.4 mg/dL (0.0-0.5); Bilirubin Total 0.8 mg/dL (0.0-1.0); Blood Urea Nitrogen 3 mg/dL (9-16); Calcium 9.7 mg/dL (8.4-10.2); Carbon Dioxide 19 mmol/L (22-29); Chloride 106 mmol/L (96-108); Creatinine Clr Calc Pharmacy 133.4; Estimated Glomerular Filt Rate > 60; Glucose Random 153 mg/dL (60-115); Potassium 2.9 mmol/L (3.3-5.1); Sodium 141 mmol/L (135-145); Total Protein 8.2 g/dL (6.5-8.0)
[2022-12-27 21:35] LABS: B Type Natriuretic Peptide < 10 pg/mL (<100)
[2022-12-27 21:36] LABS: D Dimer High Sensitivity < 150 NG/ML
[2022-12-27 21:38] LABS: Troponin-I High Sensitivity < 2.7 ng/L (<3.5-17.0)
[2022-12-27] MEDS: Potassium Chloride/H20 10 MEQ/100 ML PIGGYBACK 100 MEQ IV ×2 (21:52→22:55)
[2022-12-27] MEDS: Potassium Chloride Packet 20 MEQ PACKET 40 MEQ PO (21:52)
[2022-12-27 22:56] VITALS: BP 122/66; PULSE 96; RESP 13; TEMP 36.8; O2SAT 92
[2022-12-28] VITALS: BP 175/96; PULSE 114; RESP 18; TEMP 36.6; O2SAT 97
--- NOTE | 2022-12-28 | ECG_ITS ---
Test Reason : REPEAT Blood Pressure : / mmHG Vent. Rate : 100 BPM Atrial Rate : 100 BPM P-R Int : 158 ms QRS Dur : 096 ms QT Int : 368 ms P-R-T Axes : 068 047 065 degrees QTc Int : 474 ms Normal sinus rhythm Incomplete right bundle branch block Nonspecific T wave abnormality Abnormal ECG When compared with ECG of 27-DEC-2022 20:40, Nonspecific T wave abnormality now evident in Anterior leads Nonspecific T wave abnormality no longer evident in Lateral leads Heart rate has decreased Referred By: Yuly Dennis Electronically Signed By:PARKER FONSECA
== END 2022-12-28 00:24 | disposition home or self-care (01) ==
PROVIDERS: Emergency Provider Emergency Medicine; PCP Nurse Practitioner Family
DX: R07.89 Other chest pain (principal); R00.0 Tachycardia, unspecified; E87.6 Hypokalemia; R06.02 Shortness of breath; R11.2 Nausea with vomiting, unspecified; Z20.822 Contact with and (suspected) exposure to COVID-19; Z20.828 Contact with and (suspected) exposure to other viral communicable diseases; Z79.899 Other long term (current) drug therapy
CPT/HCPCS: 71045; 80048; 80076; 83735; 83880; 84484; 85025; 85379; 87635; 93005; 96361; 96365; 96374; 99284; 99285; J2060

== ENCOUNTER 2023-01-16 12:38 | Outpatient (REF) | payer BC, SELFPAY ==
--- NOTE | ~2023-01-16 | XR_ITS ---
STUDY: Lumbar spine and SI joints INDICATION: Low back and bilateral SI pain, right greater than left COMPARISON: None TECHNIQUE: 5 view lumbar spine and three-view SI series FINDINGS: Lumbar spine: Mild levoscoliosis. 5 lumbar type vertebral bodies are identified and are maintained in height. Disc spaces are preserved. No spondylolisthesis or lysis or listhesis. Pedicles are intact. No significant hip joint narrowings. SI series: SI joints are normal and symmetrical in appearance. XR/XR sacroiliac joint min 3V IMPRESSION: Mild levoscoliosis. No acute bony pathology lumbar spine and SI joints.
--- NOTE | ~2023-01-16 | XR_ITS ---
STUDY: Lumbar spine and SI joints INDICATION: Low back and bilateral SI pain, right greater than left COMPARISON: None TECHNIQUE: 5 view lumbar spine and three-view SI series FINDINGS: Lumbar spine: Mild levoscoliosis. 5 lumbar type vertebral bodies are identified and are maintained in height. Disc spaces are preserved. No spondylolisthesis or lysis or listhesis. Pedicles are intact. No significant hip joint narrowings. SI series: SI joints are normal and symmetrical in appearance. XR/XR lumbar spine 4V min IMPRESSION: Mild levoscoliosis. No acute bony pathology lumbar spine and SI joints.
[2023-01-16 14:05] LABS: MANUAL DIFF FLAG NO
[2023-01-16 14:28] LABS: Basophils Percent Auto 0.5 % (0-2); Eosinophils Absolute Auto 0.4 X10*3/uL (0.0-0.4); Hematocrit 40.4 % (37.0-47.0); Hemoglobin 13.7 g/dl (12.0-16.0); Imm Gran Abs Auto 0.02 X10*3/uL (0.00-0.03); Imm Gran Pct Auto 0.3 % (0.0-0.4); Lymphocytes Absolute Auto 1.7 X10*3/uL (1.2-4.9); Lymphocytes Percent Auto 29.1 % (20-40); Mean Corpuscular HGB Conc 33.9 g/dl (31.0-35.0); Mean Corpuscular Hemoglobin 28.2 pg (27.0-33.0); Mean Corpuscular Volume 83.3 fL (80.0-98.0); Mean Platelet Volume 8.7 fL (9.4-12.3); Monocytes Absolute Auto 0.4 X10*3/uL (0.1-1.2); Monocytes Percent Auto 6.7 % (2-11); Neutrophils Absolute Auto 3.4 x10*3/uL (2.0-8.3); Neutrophils Percent Auto 57.4 % (45-73); Platelet Count 293 X10*3/uL (160-400); Red Blood Count 4.85 X10*6/uL (4.20-5.50); Red Cell Distribution Width 13.3 % (11.0-16.0)
[2023-01-16 15:09] LABS: Erythrocyte Sedimentation Rate 8 MM/HR (0-20)
[2023-01-16 15:22] LABS: Alanine Aminotransferase 24 U/L (0-31); Albumin Level 4.3 g/dL (3.5-5.0); Alkaline Phosphatase 72 U/L (39-117); Anion Gap 11 (12-20); Aspartate Amino Transferase 15 U/L (5-31); Bilirubin Total 0.5 mg/dL (0.0-1.0); Blood Urea Nitrogen 8 mg/dL (9-16); C Reactive Protein 0.96 mg/dL (< or = 0.50); Calcium 9.4 mg/dL (8.4-10.2); Carbon Dioxide 23 mmol/L (22-29); Chloride 109 mmol/L (96-108); Estimated Glomerular Filt Rate > 60; Glucose Random 94 mg/dL (60-115); Potassium 3.4 mmol/L (3.3-5.1); Sodium 140 mmol/L (135-145); Total Protein 7.1 g/dL (6.5-8.0)
[2023-01-16 15:27] LABS: Appearance Urine Hazy; Glucose Urine UA Negative (Negative); Leukocyte Esterase Urine Small (1+) (Negative); Nitrite Urine Positive (Negative); UMIC TRIGGER UA YES; Urine Blood Large (3+) (Negative); Urine Ketones Negative (Negative); Urine Protein 100 (2+) mg/dL (Neg-Trace)
[2023-01-16 15:28] LABS: Color Urine RED
[2023-01-16 15:41] LABS: Bacteria Urine Trace (None Seen); Hyaline Casts Urine 0-2 /LPF (0-2); RBC Urine >20 /HPF (0-2); Squamous Epithelial Cell Urine 0-2 /HPF (0-2); WBC Urine 21-50 /HPF (0-5)
[2023-01-16 16:02] LABS: Creatinine Urine 50.48 mg/dL; Protein/Creatinine Ratio, Ur 0.97 (<0.2); Total Protein Urine Random 49 mg/dL (<12)
[2023-01-17 07:25] LABS: HBS Num1 0.29 mIU/mL (0-7.99); HBc Num1 0.07 S/CO (0.00-0.79); HBsAGNum1 0.35 S/CO (0.00-0.99); Hepatitis B Core Antibody Nonreactive (Nonreactive); Hepatitis B Surface Antigen Negative (Negative); ~HepC Num1 0.07 S/CO (0.00-0.79); ~Hepatitis A Antibody IgM Nonreactive (Nonreactive); ~Hepatitis B Surface Antibody NONREACTIVE (Nonreactive); ~Hepatitis C Antibody Nonreactive (Nonreactive)
[2023-01-17 12:54] LABS: Complement C3 141 mg/dL (83-193)
[2023-01-17 13:33] LABS: Anti DNA DS Antibody 4 IU/mL; Antibody to SS-A Antigen <1.0 NEG AI (<1.0 NEG); Antibody to SS-B Antigen <1.0 NEG AI (<1.0 NEG); SM/Ribonucleoprotein Ab <1.0 NEG AI (<1.0 NEG); Smith Protein <1.0 NEG AI (<1.0 NEG)
[2023-01-20 13:18] LABS: Prot Elec - Albumin 4.2 g/dL (3.8-4.8); Prot Elec - Alpha1 0.3 g/dL (0.2-0.3); Prot Elec - Alpha2 0.7 g/dL (0.5-0.9); Prot Elec - Beta 1 0.5 g/dL (0.4-0.6); Prot Elec - Beta 2 0.3 g/dL (0.2-0.5); Prot Elec - Gamma 0.8 g/dL (0.8-1.7); Prot Elec - Total Protein 6.8 g/dL (6.1-8.1)
[2023-01-21 11:02] LABS: HLA B27 Negative (Negative)
[2023-01-22 14:44] LABS: DNAds, Crithidia Antibody Negative (Negative)
[2023-01-25 10:13] LABS: IgA 220 mg/dL (47-310); IgG 936 mg/dL (600-1640); IgM 138 mg/dL (50-300)
== END 2023-01-16 12:39 | disposition home or self-care (01) ==
LOC: HO.LAB 12:38
PROVIDERS: PCP Nurse Practitioner Family; Referring Provider Nurse Practitioner Family; Visit Provider Student in an Organized Health Care Education/Training Program
DX: Z11.59 Encounter for screening for other viral diseases (principal); Z72.89 Other problems related to lifestyle; M41.86 Other forms of scoliosis, lumbar region
CPT/HCPCS: 36415; 72110; 72202; 80053; 81001; 82570; 82784; 84156; 84165; 85025; 85652; 86140; 86160; 86225; 86235; 86255; 86334; 86704; 86706; 86709; 86803; 86812; 87340

== ENCOUNTER 2023-01-16 12:38 | Outpatient (AMB) | payer BC, SELFPAY ==
--- NOTE | 2023-01-16 13:00 | A.OFFVIS_ITS ---
Intake Vital Signs 01/16/23 13:01 Height 5 ft 2 in Weight 213 lb 13.574 oz BMI 39.1 BP 126/72 Blood Pressure Location Rt brachial Position Sitting Pulse 94 Pulse Source Pulse Oximeter Temp 97.9 F Temp Source Skin Pulse Oximetry (%) 99 Intake Visit Reasons: Abnormal lab/Rash Intake Note: New pt presents today for consult to discuss abnormal lab. C/o pain in different sites, has fm hx of autoimmune disorders [employer] Worker Required: No Accompanied by: Spouse Allergies No Known Allergies [No Known Allergies*] Allergy (Verified 01/16/23 13:03) Medication List - Last Reconciled 01/16/23 by Aaron Mckeon MD cetirizine 10 mg PO DAILY PRN fluoxetine 10 mg PO DAILY norethindrone (contraceptive) 0.35 mg PO DAILY prednisolone acetate 1% 1 drp ophthalmic (eye) BID 20 days HPI HPI Comments History of Present Illness Details This is a 27-year-old female who presents for evaluation of diffuse pain. Per patient, since her teens she has had multiple joint pain. States that she had an episode of left knee pain and swelling, according to patient there was no inciting factor. She does not recall any joint arthrocentesis in the past. In 2020 patient was doing punching bag exercises, she developed right scapholunate ligament tear, she had surgical repair. States that she gets flare-ups of joint pain in different spots, hips, back, ankles, hands. States that her ankles sometimes swell up. Gets intermittent rashes on her arms. States that her mother has lupus paternal grandmother has RA. States that her symptoms improved by at least 50% with prednisone. She denies any history of DVT/PE. States that her fingers change color to pale and blue in the cold, she never developed any digital ulcers. Recently she has been getting evaluated by Cardiology, she had a tilt-table test done recently and was told she has POTS. [facility] Medical History History of cardiac murmur as a child RUQ pain Asthma Surgical History H/O hand surgery History of wisdom tooth extraction Family History Paternal Grandmother History of ovarian cancer Mental health disorder Paternal Grandfather History of melanoma Father Mental health disorder Mother Mental health disorder Sister Mental health disorder Other Family history of autoimmune disorder Social History Housing: Condominium Alcohol intake: never Patient Tobacco Use Status: Never used Tobacco e-Cigarette/Vaping Use: Never Used Second Hand Smoke Exposure: No Substance Use Type: Marijuana service: No Current occupational status: employed 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 Current occupational exposures/hazards: No Gender identity: Female Cognitive needs: No Hearing needs: No Vision needs: No Female Reproductive History Menstrual Age of Menarche: 13 Total pregnancies: 0 Review of Systems Const Reports fatigue, Reports fever(s), Reports headache(s), Reports weakness and Reports weight loss Eyes Reports blurry vision and Reports dry eyes ENT Details: mouth sores Reports dysphagia, Reports dizziness, Reports headache(s), Reports hoarseness and Reports tinnitus Card Reports chest pain and Reports dyspnea Resp Reports cough, Reports dyspnea and Reports wheezing GI Reports constipation, Reports dysphagia and Reports nausea Reports difficulty voiding Musc Reports back pain, Reports arthralgias, Reports joint swelling and Reports stiffness Skin/Breast Reports pruritus, Reports rash and Reports unusual bruising Neuro Reports dizziness, Reports headache(s), Reports memory loss and Reports weakness Psych Reports abnormal sleep pattern, Reports anxiety, Reports depression and Reports memory loss Endo Reports fatigue and Reports polydipsia Aller/Immun Reports wheezing Physical Exam Vital Signs: Last Vital Signs Temp 97.9 F 01/16/23 13:01 Pulse 94 01/16/23 13:01 BP 126/72 01/16/23 13:01 Pulse Ox 99 01/16/23 13:01 BMI result Body Mass Index 39.1 Const General: cooperative, healthy appearing and comfortable Nutritional Appearance: obese morbidly obese Orientation/consciousness: patient oriented x3 Limitations: no limitations HEENT Head: Yes normocephalic and Yes atraumatic Mouth: moist mucous membranes Resp Effort & Inspection: normal respiratory effort and able to speak in complete sentences Auscultation: clear to auscultation bilaterally Cardio Rate: regular rate Rhythm: regular rhythm GI Inspection: No distended Palpation (GI): Soft to palpation and nontender Skin Rashes: no rashes Neuro General: patient oriented x3 Extrem Other: No swollen joints on exam Left wrist pain with full flexion Multiple tender joints without a specific distribution, including few MCPs, PIP is in the DIPs bilaterally. Normal range of motion of both elbows and shoulders without pain Normal range of motion of both knees without pain No knee swelling warmth or tenderness Bilateral trochanteric bursa area tenderness with negative Sophie's test No ankle swelling warmth or tenderness Left 1st through 5th MTP tenderness Right 1st MTP tenderness Negative MTP squeeze test bilateral Anais test 10-15 cm Negative Fabere test bilaterally Assessment & Plan Assessment & Plan (1) Joint pain: Code(s): M25.50 - Pain in unspecified joint Qualifiers: Joint pain location: unspecified Qualified Code(s): M25.50 - Pain in unspecified joint Plan: This is a 27-year-old female who presents for evaluation of multiple joint pain. Starting since her teens, labs showed negative serologies with elevated inflammatory markers. Symptoms improved with prednisone. Will order comprehensive serology to screen for underlying autoimmune rheumatic disease Plan I spent 46 minutes reviewing patient's chart, evaluating patient, ordering diagnostic workup, counseling patient and documenting in the chart Orders: Orders Comprehensive Met. Panel Today M25.50 - Pain in unspecified joint Erythrocyte Sedimentation Rate Today M25.50 - Pain in unspecified joint Protein Electrophoresis, Serum Today M25.50 - Pain in unspecified joint Anti Extractable Nuclear Ag Today M25.50 - Pain in unspecified joint Anti DNA DS Antibody Today M25.50 - Pain in unspecified joint Complement C3 Today M25.50 - Pain in unspecified joint Protein Creatinine Ratio, Ur Today M25.50 - Pain in unspecified joint XR lumbar spine 4V min Today M25.50 - Pain in unspecified joint Complete Blood Count Auto Diff Today M25.50 - Pain in unspecified joint C Reactive Protein Today M25.50 - Pain in unspecified joint Hepatitis A,B,C Profile Today Z11.59 - Encounter for screening for other viral diseases Immunofixation Pnl, Serum Today M25.50 - Pain in unspecified joint DNA Double Stranded-Crithidia Today M25.50 - Pain in unspecified joint Sjogren's Antibodies Today M25.50 - Pain in unspecified joint UA w Microscopic Today M25.50 - Pain in unspecified joint XR sacroiliac joint min 3V Today M25.50 - Pain in unspecified joint HLA B27 Today M25.50 - Pain in unspecified joint Coding Level of Care Code Est Pt Level 4 (88589) Diagnoses Arthralgia, unspecified joint M25.50 Joint pain location: unspecified
[2023-01-16 13:01] VITALS: BP 126/72; PULSE 94; TEMP 36.6; O2SAT 99; BMI 39.1
== END 2023-01-16 13:40 | disposition home or self-care (01) ==
PROVIDERS: PCP Nurse Practitioner Family; Referring Provider Nurse Practitioner Family; Visit Provider Student in an Organized Health Care Education/Training Program
DX: M25.50 Pain in unspecified joint (principal)
CPT/HCPCS: 99214

== ENCOUNTER 2023-01-29 07:34 | Outpatient (AMB) | payer BC, SELFPAY ==
--- NOTE | 2023-01-29 07:11 | MHC.OFFVIS ---
Intake Intake Visit Reasons: FMLA paperwork Allergies No Known Allergies [No Known Allergies*] Allergy (Verified 01/16/23 13:03) Medication List - Last Reconciled 01/29/23 by Ian Bell [facility] cetirizine 10 mg PO DAILY PRN fluoxetine 10 mg PO DAILY 90 days metoprolol tartrate 12.5 mg (1/2 x 25 mg) PO BID 30 days montelukast 10 mg PO BEDTIME 90 days norethindrone (contraceptive) 0.35 mg PO DAILY prednisolone acetate 1% 1 drp ophthalmic (eye) BID 20 days HPI FMLA paperwork HPI Details Patient needs FMLA paperwork filled out. I will gladly do this. She was recently diagnosed with POTS, and started metoprolol 12.5 mg last week. She reports that this medication is starting to help a little bit. She does have a follow-up with cardiolog, and she is further being worked up by Rheumatology for possible autoimmune/rheumatological illnesses. He denies any recent shortness of breath, chest pain, fevers, chills. She still has joint pains and ongoing fatigue. I will continue to monitor documents from specialists. [facility] Medical History (Updated 01/22/23 @ 14:36 by [facility] Fibromyalgia History of cardiac murmur as a child RUQ pain Asthma Surgical History H/O hand surgery History of wisdom tooth extraction Family History Paternal Grandmother History of ovarian cancer Mental health disorder Paternal Grandfather History of melanoma Father Mental health disorder Mother Mental health disorder Sister Mental health disorder Other Family history of autoimmune disorder Social History Housing: Condominium Alcohol intake: never Patient Tobacco Use Status: Never used Tobacco e-Cigarette/Vaping Use: Never Used Second Hand Smoke Exposure: No Substance Use Type: Marijuana service: No Current occupational status: employed 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 Current occupational exposures/hazards: No Gender identity: Female Cognitive needs: No Hearing needs: No Vision needs: No Female Reproductive History Menstrual Age of Menarche: 13 Assessment & Plan Assessment & Plan (1) POTS (postural orthostatic tachycardia syndrome): Code(s): G90.A - Postural orthostatic tachycardia syndrome [POTS] Plan: started beta joao, follow up with cardiology (2) Elevated C-reactive protein (CRP): Code(s): R79.82 - Elevated C-reactive protein (CRP) (3) Joint pain: Code(s): M25.50 - Pain in unspecified joint Qualifiers: Joint pain location: unspecified Qualified Code(s): M25.50 - Pain in unspecified joint Plan: follow up with rheum (4) Fatigue: Code(s): R53.83 - Other fatigue Plan: follow up with rheum Telehealth Telehealth Location of provider rendering services: practice address Location of patient: address on file Patient Identification confirmed using: Name, : Yes Telehealth method: video Patient verbally consented to treatment: Yes Patient verbally consented to billing insurance company: Yes Patient informed of any privacy concerns related to visit: Yes Minutes spent on Phone/Video with Pt.: 15 Coding Level of Care Code Tele Est Pt Level 3 (79710) Diagnoses POTS (postural orthostatic tachycardia syndrome) G90.A Elevated C-reactive protein (CRP) R79.82 Arthralgia, unspecified joint M25.50 Joint pain location: unspecified Fatigue R53.83
== END 2023-01-29 09:47 | disposition home or self-care (01) ==
LOC: HO.HMGC 07:34
PROVIDERS: PCP Nurse Practitioner Family; Visit Provider Nurse Practitioner Family
DX: G90.A Postural orthostatic tachycardia syndrome [POTS] (principal); R79.82 Elevated C-reactive protein (CRP); M25.50 Pain in unspecified joint; R53.83 Other fatigue
CPT/HCPCS: 99213

== ENCOUNTER 2023-02-05 13:03 | Outpatient (AMB) | payer BC, SELFPAY ==
[2023-02-05 13:12] VITALS: BP 124/72; PULSE 95; TEMP 36.7; O2SAT 99; BMI 39.7
--- NOTE | 2023-02-05 13:12 | MHC.OFFVIS ---
Intake Vital Signs 02/05/23 13:12 Height 5 ft 2 in Weight 216 lb 14.958 oz BMI 39.7 BP 124/72 Blood Pressure Location Rt brachial Position Sitting Pulse 95 Pulse Source Pulse Oximeter Temp 98.1 F Temp Source Skin Pulse Oximetry (%) 99 Intake Visit Reasons: Intake Note: Pt last seen 01/16/23, presents today for follow up and test results. 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 Continues to feel about the same. Initial history: This is a 27-year-old female who presents for evaluation of diffuse pain. Per patient, since her teens she has had multiple joint pain. States that she had an episode of left knee pain and swelling, according to patient there was no inciting factor. She does not recall any joint arthrocentesis in the past. In 2020 patient was doing punching bag exercises, she developed right scapholunate ligament tear, she had surgical repair. States that she gets flare-ups of joint pain in different spots, hips, back, ankles, hands. States that her ankles sometimes swell up. Gets intermittent rashes on her arms. States that her mother has lupus paternal grandmother has RA. States that her symptoms improved by at least 50% with prednisone. She denies any history of DVT/PE. States that her fingers change color to pale and blue in the cold, she never developed any digital ulcers. Recently she has been getting evaluated by Cardiology, she had a tilt-table test done recently and was told she has POTS. [facility] Medical History (Updated 02/05/23 @ 13:36 by Aaron Mckeon MD) Fibromyalgia History of cardiac murmur as a child RUQ pain Asthma Surgical History H/O hand surgery History of wisdom tooth extraction Family History Paternal Grandmother History of ovarian cancer Mental health disorder Paternal Grandfather History of melanoma Father Mental health disorder Mother Mental health disorder Sister Mental health disorder Other Family history of autoimmune disorder Social History Housing: Condominium Alcohol intake: never Patient Tobacco Use Status: Never used Tobacco e-Cigarette/Vaping Use: Never Used Second Hand Smoke Exposure: No Substance Use Type: Marijuana service: No Current occupational status: employed 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 Current occupational exposures/hazards: No Gender identity: Female Cognitive needs: No Hearing needs: No Vision needs: No Female Reproductive History Menstrual Age of Menarche: 13 Review of Systems Const Reports weakness Musc Reports back pain, Reports arthralgias, Reports joint swelling and Reports stiffness Neuro Reports weakness Physical Exam Vital Signs: Last Vital Signs Temp 98.1 F 02/05/23 13:12 Pulse 95 02/05/23 13:12 BP 124/72 02/05/23 13:12 Pulse Ox 99 02/05/23 13:12 BMI result Body Mass Index 39.7 Const General: cooperative, healthy appearing and comfortable Nutritional Appearance: obese morbidly obese Orientation/consciousness: patient oriented x3 Limitations: no limitations HEENT Head: Yes normocephalic and Yes atraumatic Resp Effort & Inspection: normal respiratory effort and able to speak in complete sentences Skin Rashes: no rashes Neuro General: patient oriented x3 Extrem Other: Multiple fibromyalgia tender points Multiple tender joints without a specific distribution, including few MCPs, PIPs & DIPs bilaterally. Normal range of motion of both elbows and shoulders without pain Normal range of motion of both knees without pain No knee swelling warmth or tenderness Bilateral trochanteric bursa area tenderness with negative Sophie's test No ankle swelling warmth or tenderness Assessment & Plan Assessment & Plan (1) Joint pain: Code(s): M25.50 - Pain in unspecified joint Qualifiers: Joint pain location: unspecified Qualified Code(s): M25.50 - Pain in unspecified joint Plan: This is a 27-year-old female who presents for evaluation of multiple joint pain. Comprehensive serology is negative for underlying autoimmune rheumatic disease. I do not see any active synovitis on exam. She has elevated CRP which can be related to her weight. She has multiple myofascial tender points. Bilateral SI joint x-rays did not show any evidence of sacroiliitis. Follow-up as needed (2) Proteinuria: Code(s): R80.9 - Proteinuria, unspecified Qualifiers: Proteinuria type: other Qualified Code(s): R80.8 - Other proteinuria Plan: Incidentally urinalysis showed proteinuria. Patient was on her period and might have had a concurrent UTI. Advised patient to repeat urinalysis at a time when she is not menstruating and not having any symptoms of UTI. (3) Scoliosis: Code(s): M41.9 - Scoliosis, unspecified Plan: I suggested PT. patient stated that she has done PT since age 16, also goes to chiropractor. She is not interested in another PT referral (4) Trochanteric bursitis of both hips: Code(s): M70.61 - Trochanteric bursitis, right hip; M70.62 - Trochanteric bursitis, left hip Plan: I suggested PT referral. Patient was not interested at this point Plan I spent 26 minutes reviewing patient's chart, evaluating patient, counseling patient and documenting in the chart Orders: Orders Protein Creatinine Ratio, Ur Today R80.9 - Proteinuria, unspecified UA w Microscopic Today R80.9 - Proteinuria, unspecified Coding Level of Care Code Est Pt Level 4 (93312) Diagnoses Arthralgia, unspecified joint M25.50 Joint pain location: unspecified Other proteinuria R80.8 Proteinuria type: other Scoliosis M41.9 Trochanteric bursitis of both hips M70.61; M70.62
== END 2023-02-05 13:32 | disposition home or self-care (01) ==
PROVIDERS: PCP Nurse Practitioner Family; Visit Provider Student in an Organized Health Care Education/Training Program
DX: M25.50 Pain in unspecified joint (principal); R80.8 Other proteinuria; M41.9 Scoliosis, unspecified; M70.61 Trochanteric bursitis, right hip; M70.62 Trochanteric bursitis, left hip
CPT/HCPCS: 99214

== ENCOUNTER → 2023-02-05 13:03 | Outpatient (BNVA) | payer BC, SELFPAY | PROVIDERS: PCP Nurse Practitioner Family; Visit Provider Student in an Organized Health Care Education/Training Program ==

== ENCOUNTER 2023-04-25 10:18 | Outpatient (AMB) | payer BC, SELFPAY ==
[2023-04-25 10:25] VITALS: BP 144/69; PULSE 75; BMI 38.3
--- NOTE | 2023-04-25 10:25 | A.OFFVIS_ITS ---
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 Intake Note: New patient POTS was dx at [facility] c/o dizziness Applied Exercise Physiologist Required: No Benefits Processor: Benefits Processor Present Accompanied by: Spouse Allergies No Known Allergies [No Known Allergies*] Allergy (Verified 02/05/23 13:16) Medication List - Last Reconciled 04/25/23 by Atul Alcaraz MD cetirizine 10 mg PO DAILY PRN fluoxetine 10 mg PO DAILY 90 days metoprolol tartrate 12.5 mg PO BID montelukast 10 mg PO BEDTIME 90 days norethindrone (contraceptive) 0.35 mg PO DAILY prednisolone acetate 1% 1 drp ophthalmic (eye) BID 20 days HPI HPI Comments History of Present Illness Details Thank you for referring [facility] in cardiology consultation today for orthostatic tachycardia syndrome. Patient is a 28-year-old female, accompanied by her . Patient says she has had ever since childhood symptoms of passing out while she was in the shower. She consider this normal. They did not pursue any further workup. Patient would get feeling of lightheadedness and blurry/starting vision and would then seek sitting or supine position with improvement in symptoms. When she would pass out in the shower, she would then be awake and just go about her life. However the last 2 years since her risk surgery she says syndrome has accentuated. She continues to have symptoms where she notices the heart rate going fast and she would get dizzy unless she would sit down or lie down. Recently she had a tilt-table test done at [facility] which actually showed orthostatic tachycardia but also showed orthostatic hypertension. She was started on metoprolol therapy since then and says she has not tolerated this well and actually has had hypotension with blood pressure in the 80s. She would prefer to discontinue this. She drinks a lot of fluid about 128 oz and also drinks salt solution. She says she is while with us salt solution and the symptoms have been more pronounced. She is very frustrated and has very affected quality of life. She denies any exertional chest pain or shortness of breath. No orthopnea PND. She is wearing stockings up to the knee. [facility] Medical History Fibromyalgia History of cardiac murmur as a child RUQ pain Asthma Surgical History H/O hand surgery History of wisdom tooth extraction Family History Paternal Grandmother History of ovarian cancer Mental health disorder Paternal Grandfather History of melanoma Father Mental health disorder Mother Mental health disorder Sister Mental health disorder Other Family history of autoimmune disorder Social History Housing: Condominium Alcohol intake: never Patient Tobacco Use Status: Never used Tobacco e-Cigarette/Vaping Use: Never Used Second Hand Smoke Exposure: No Substance Use Type: Marijuana service: No Current occupational status: employed 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 Current occupational exposures/hazards: No Gender identity: Female Cognitive needs: No Hearing needs: No Vision needs: No Female Reproductive History Menstrual Age of Menarche: 13 Review of Systems Const Denies chills, Denies daytime sleepiness, Denies fatigue, Denies fever(s), Den ies frequent falls, Denies poor appetite, Denies snoring, Denies stops breathing during sleep, Denies weakness, Denies weight gain and Denies weight loss Eyes Denies loss of vision ENT Denies dizziness and Denies hearing loss Card Denies chest pain, Denies claudication, Denies leg edema, Denies lightheadedness, Denies palpitations, Denies dyspnea, Denies dyspnea on exertion and Denies orthopnea Resp Denies cough, Denies excessive phlegm production, Denies dyspnea, Denies dyspnea on exertion, Denies snoring and Denies wheezing GI Denies abdominal pain, Denies hematochezia, Denies change in bowel habits, Denies nausea and Denies vomiting Denies urinary frequency and Denies dysuria Musc Denies arthralgias, Denies muscle weakness, Denies numbness and Denies other (frequent falls) Skin/Breast Denies nail changes and Denies rash Neuro Denies Abnormal speech present, Denies dizziness, Denies frequent falls, Denies loss of vision, Denies memory loss, Denies numbness and Denies weakness Psych Denies depression and Denies memory loss Endo Denies fatigue and Denies palpitations Cj/Lymph Reports easy bruising and Reports other (anemia) Aller/Immun Denies wheezing Physical Exam Vital Signs: Last Vital Signs Pulse 107 H 04/25/23 10:39 BP 135/84 04/25/23 10:39 BMI result Body Mass Index 38.3 Const General: cooperative, comfortable, no acute distress, alert, awake and anxious Nutritional Appearance: obese Orientation/consciousness: patient oriented x3 Limitations: no limitations HEENT Head: Yes normocephalic and Yes atraumatic Neck Neck: Yes trachea midline, Yes supple and Yes no JVD Resp Effort & Inspection: normal respiratory effort Auscultation: clear to auscultation bilaterally Cardio Jugular venous distension: no JVD Palpation: normal PMI Rate: regular rate Rhythm: regular rhythm Heart sounds: S1 normal heart sound present, S2 normal heart sound present, no click, no gallops, no murmurs and no rubs GI Auscultation: normal bowel sounds Skin General skin exam: no rashes or lesions noted Neuro General: patient oriented x3 and no focal motor deficits Speech: No Abnormal speech present Extrem General: Yes no clubbing, cyanosis or edema Assessment & Plan Assessment & Plan (1) POTS (postural orthostatic tachycardia syndrome): Code(s): G90.A - Postural orthostatic tachycardia syndrome [POTS] Plan: Patient definitely has orthostatic tachycardia but surprisingly on tilt-table t est she had hypertensive blood pressure response which is unusual. However she is also has history of syncope and at home has had low blood pressure recorded on her machine. She has not tolerated metoprolol therapy. Whether this represents hormonal issues needs to be pursued. Would suggest a plasma metanephrine level as well as cortisol and aldosterone level to assess for any endocrine abnormality to explain her symptoms. A TSH was within normal limits. Will also suggest an echocardiogram to assess for cardiac structural abnormality. In absence of this I have advised her to continue maintain adequate hydration, and she likes her salt intake as well at this point time. Advised to maintain a detailed written log of her blood pressures including orthostatic blood pressure and blood pressure recording during her symptoms. I have advised her to bring this record at the next visit with her blood pressure monitoring to see if blood pressure monitor giving her accurate data. Further treatment based on the finding of the data and guidance will be provided. Meanwhile I have taken the liberty to prescribe with high length 15 mm compression stockings to be worn at all times especially when she is up and about 2 help with her symptoms. Difficult treatment and resolution of symptoms with medical therapy was discussed with her. Will follow up with her in 4 weeks time Orders: Orders Aldost/Renin Today G90.A - Postural orthostatic tachycardia syndrome [POTS] Metanephrines, Plasma Today G90.A - Postural orthostatic tachycardia syndrome [POTS] CA echo transthoracic complete Today G90.A - Postural orthostatic tachycardia syndrome [POTS] Cortisol Random Today G90.A - Postural orthostatic tachycardia syndrome [POTS] Aldosterone Today G90.A - Postural orthostatic tachycardia syndrome [POTS] Medications: New comp.stocking,thigh,long,large As directed 2 ea 0RF POTS Coding Level of Care Code New Pt Level 4 (73974) Diagnoses POTS (postural orthostatic tachycardia syndrome) G90.A
[2023-04-25 10:38] VITALS: BP 155/83; PULSE 73
[2023-04-25 10:39] VITALS: BP 135/84; PULSE 107
== END 2023-04-25 11:13 | disposition home or self-care (01) ==
PROVIDERS: PCP Nurse Practitioner Family; Visit Provider Internal Medicine Cardiovascular Disease
DX: G90.A Postural orthostatic tachycardia syndrome [POTS] (principal)
CPT/HCPCS: 99204

== ENCOUNTER → 2023-04-25 10:18 | Outpatient (BNVA) | payer BC, SELFPAY | PROVIDERS: PCP Nurse Practitioner Family; Visit Provider Internal Medicine Cardiovascular Disease ==

== ENCOUNTER 2023-04-30 07:28 | Outpatient (AMB) | payer BC, SELFPAY ==
[2023-04-30 07:35] VITALS: BP 138/66; PULSE 98; O2SAT 100; BMI 39.0
--- NOTE | 2023-04-30 07:35 | MHC.PC.OV ---
Vital Signs 04/30/23 07:35 Height 5 ft 2 in Weight 213 lb BMI 39.0 BP 138/66 Blood Pressure Location Lt brachial Position Sitting Pulse 98 Pulse Source Pulse Oximeter Pulse Oximetry (%) 100 Oxygen Delivery Method Room Air Intake Visit Reasons: Annual PE Intake Note: Pt is here today for her PE Is last menstrual period known: Yes Last menstrual period: 04/16/23 Allergies No Known Allergies [No Known Allergies*] Allergy (Verified 04/30/23 07:35) Medication List - Last Reconciled 04/30/23 by KARY Friend cetirizine 10 mg PO DAILY PRN comp.stocking,thigh,long,large As directed fluoxetine 10 mg PO DAILY 90 days montelukast 10 mg PO BEDTIME 90 days norethindrone (contraceptive) 0.35 mg PO DAILY prednisolone acetate 1% 1 drp ophthalmic (eye) BID 20 days Tobacco use date assessed: 04/30/23 Dental Screening Dental Screen Date: 04/30/23 Did you have a dental visit in the last 12 months?: No Was dental information given to patient?: Yes HPI Annual PE HPI Details Pt is here for a PE. Will order labs. pt sees cardiology, rheumatology, and an program eligibility specialist. Pt has a hx of TMJ. She reports popping and clicking of her jaw with some pain. Will refer to PT. Pt reports alternating constipation and diarrhea. Recommended OTC citrucel. Will refer to GI. [facility] Medical History Fibromyalgia History of cardiac murmur as a child RUQ pain Asthma Surgical History H/O hand surgery History of wisdom tooth extraction Family History Paternal Grandmother History of ovarian cancer Mental health disorder Paternal Grandfather History of melanoma Father Mental health disorder Mother Mental health disorder Sister Mental health disorder Other Family history of autoimmune disorder Social History Housing: Condominium Alcohol intake: never Patient Tobacco Use Status: Never used Tobacco e-Cigarette/Vaping Use: Never Used Second Hand Smoke Exposure: No Substance Use Type: Marijuana service: No Current occupational status: employed 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 1. Little interest or pleasure in doing things: several days 2. Feeling down, depressed, or hopeless: not at all 3. Trouble falling or staying asleep, or sleeping too much: nearly every day 4. Feeling tired or having little energy: more than half the days 5. Poor appetite or overeating: more than half the days 6. Feeling bad about yourself - or that you are a failure or have let yourself or your family down: not at all 7. Trouble concentrating on things, such as reading the newspaper or watching television: nearly every day 8. Moving or speaking so slowly that other people could have noticed. Or the opposite - being so fidgety or restless that you have been moving around a lot more than usual: more than half the days 9. Thoughts that you would be better off or of hurting yourself in some way: not at all Total score: 13 Depression Screening Interpretation: Positive Depression Screening Follow-up: Existing condition and Declines treatment Depression Screening Done: Yes 26080 - PHQ-9 Billing: Yes Source: Developed by Drs. Abel Muhammad, America Davies, Vini Esquivel and colleagues, with an educational jabari from [employer]. Thrive Questionnaire Date Thrive assessed: 04/30/23 I am a: Patient What is your living situation today?: I have a place to live, but I am worried about losing it in the future Within the past 12 months, did the food you bought not last and you didn't have the money to get more?: Sometimes True Within the past 12 months, did you worry whether your food would run out before you got money to buy more?: Sometimes True Do you have trouble paying for medicines?: Yes Do you have trouble getting transportation to medical appointments?: No Do you have trouble paying your heating and electricity bill?: No Do you have trouble taking care of your child, family member or friend?: No Do you have trouble with day-to-day activities such as bathing, preparing meals, shopping, managing finances, etc.?: Yes Are you currently unemployed and looking for a job?: No Are you interested in more education?: No Currently or been in a relationship where the following occur: no concerns reported THRIVE Score: 3 AUDIT C Alcohol Use Questionnaire (AUDIT-C) 1. How often do you have a drink containing alcohol?: Never Total Score: 0 Score Reviewed/Action Taken: Yes SEBASTIAN-7 AMB Questionnaire SEBASTIAN-7 Date SEBASTIAN - 7 assessed: 04/30/23 Feeling nervous, anxious, or on edge: 1 = Several days Not being able to stop or control worryin = Not at all Worrying too much about different things: 0 = Not at all Trouble relaxin = More than half the days Being so restless that it is hard to sit still: 2 = More than half the days Becoming easily annoyed or irritable: 1 = Several days Feeling afraid as if something awful might happen: 0 = Not at all Total SEBASTIAN-7 score (0-4 normal; 5-9 mild; 10-14 moderate; 15-21 severe): 6 Source: Developed by Drs. Abel Muhammad, America Davies, Vini Esquivel and colleagues, with an educational jabari from [employer]. SEBASTIAN-7 Assessment Billing SEBASTIAN-7 Assessment Tool: SEBASTIAN-7 Assessment 74084 Review of Systems Const Denies chills and Denies fever(s) Eyes Denies blurry vision ENT Denies vertigo, Denies dizziness and Denies sore throat Card Denies chest pain at rest, Denies chest pain with activity, Denies diaphoresis, Denies dyspnea and Denies dyspnea on exertion Resp Denies cough, Denies dyspnea, Denies dyspnea on exertion and Denies wheezing GI Denies abdominal pain, Denies melena, Denies hematochezia, Reports constipation, Reports diarrhea and Reports loose stools Denies hematuria Musc Denies numbness and Denies tingling Skin/Breast Denies lesions Neuro Denies vertigo, Denies dizziness, Denies numbness and Denies tingling Psych Denies anxiety, Denies depression, Denies homicidal ideation, Denies suicidal ideation and Denies other (substance abuse) Aller/Immun Denies wheezing Physical exam (Primary Care) Vital Signs: Last Vital Signs Pulse 98 04/30/23 07:35 BP 138/66 04/30/23 07:35 Pulse Ox 100 04/30/23 07:35 Oxygen Delivery Method Room Air 04/30/23 07:35 BMI result Body Mass Index 39.0 Tobacco/Smoking Status: Tobacco use Status Tobacco use date assessed 04/30/23 04/30/23 07:38 Patient Tobacco Use Status Never used Tobacco 04/30/23 07:38 e-Cigarette/Vaping Use Never Used 04/30/23 07:38 PHQ-9: PHQ-9 Score PHQ-9: Total score 13 04/30/23 07:47 Depression Screening Interpretation: Positive Depression Screening Follow-up: Existing condition and Declines treatment Thrive Assessment: Date of Thrive Assessment Date Thrive assessed 04/30/23 04/30/23 07:46 Currently or been in a relationship where the following occur: no concerns reported Const General: cooperative Nutritional Appearance: well nourished Orientation/consciousness: patient oriented x3 HENMT Other: right TMJ with severe popping and clicking with manipulation of mandible Head: Yes normal to inspection, Yes normocephalic and Yes atraumatic Ears: TM's normal bilaterally Eyes General: appearance normal, both eyes and all related structures Alignment and Position: alignment normal and position normal Neck Neck: Yes normal visual inspection and Yes no lymphadenopathy Thyroid: Thyroid normal Resp Effort & Inspection: normal respiratory effort Auscultation: clear to auscultation bilaterally Cardio Rate: tachycardic Rhythm: regular rhythm Heart sounds: S1 normal heart sound present, S2 normal heart sound present and no murmurs GI Palpation (GI): Soft to palpation and nontender Auscultation: normal bowel sounds Skin Rashes: no rashes Neuro General: patient oriented x3, moves all extremities, no focal motor deficits and deep tendon reflexes 2+ bilaterally Romberg Test: Negative Psych Appearance: grossly normal Mental Status: mental status grossly normal Speech and movement: Normal speech and movement present Affect: normal affect Attitude: cooperative Thought process: Normal thought process present Thought content: Normal thought content present Insight: Good insight present (Psych) Judgement: Good judgement present (Psych) Assessment and Plan Assessment & Plan (1) Physical exam: Code(s): Z00.00 - Encounter for general adult medical examination without abnormal findings Plan: Labs ordered (2) Alternating constipation and diarrhea: Code(s): R19.8 - Other specified symptoms and signs involving the digestive system and abdomen Plan: Referred to GI (3) TMJ (dislocation of temporomandibular joint): Code(s): S03.00XA - Dislocation of jaw, unspecified side, initial encounter Plan: Referred to PT Plan The patient agreed to the use of a medical services manager for this encounter. Scribed for CHYNA Iverson-ROSARIO by Olivia Zheng medical services manager, on 04/30/2023 at 07:55 EST. Orders: Orders Complete Blood Count Auto Diff Today Z00.00 - Encounter for general adult medical examination without abnormal findings Comprehensive [place]. Panel Fast Today Z00.00 - Encounter for general adult medical examination without abnormal findings UA CC w/rflx Micro + Cult Today Z00.00 - Encounter for general adult medical examination without abnormal findings Lipid Panel Today Z00.00 - Encounter for general adult medical examination without abnormal findings TSH reflex Free T4 Today Z00.00 - Encounter for general adult medical examination without abnormal findings PT Evaluation and Treatment Today S03.00XA - Dislocation of jaw, unspecified side, initial encounter Referrals Gastroenterology Referral R19.8 - Other specified symptoms and signs involving the digestive system and abdomen Coding Level of Care Code Est Pt Prev Care 18-39y(81456) Diagnoses Physical exam Z00.00 Alternating constipation and diarrhea R19.8 TMJ (dislocation of temporomandibular joint) S03.00XA Additional Codes SEBASTIAN-7 Assessment Billing - SEBASTIAN-7 Assessment Tool: SEBASTIAN-7 Assessment [id number] ([id number])
== END 2023-04-30 08:16 | disposition home or self-care (01) ==
PROVIDERS: Visit Provider Nurse Practitioner Family
DX: Z00.00 Encounter for general adult medical examination without abnormal findings (principal); R19.8 Other specified symptoms and signs involving the digestive system and abdomen; S03.00XA Dislocation of jaw, unspecified side, initial encounter
CPT/HCPCS: 99395

== ENCOUNTER → 2023-05-13 14:45 | Outpatient (REF) | payer BC, SELFPAY ==
--- NOTE | 2023-05-13 14:48 | CA_ITS ---
Transthoracic Echocardiogram Patient (Last, First, Middle): Dimple Stewart, Gender: Female Date of : 1995 Age: 28 Procedure Date: 05/13/2023 Procedure Type: Transthoracic Echocardiogram Location: OP Height: 157. cm Weight: 92.08 kg BSA: 1.92 m2 Heart Rate: 64 bpm BP: 140 / 80 mmHg Manager Business Process: MEKA Referring MD: Atul Alcaraz MD Symptoms: G90.A - Postural orthostatic tachycardia syndrome [POTS] Study Quality: Fair ECG Rhythm: Sinus Conclusions: - The left ventricular systolic function is normal. The calculated ejection fraction is 65% by biplane method. - No obvious valvular pathology seen on this study. Findings Left Ventricle Normal left ventricular cavity size. There is normal left ventricular wall thickness. The left ventricular systolic function is normal. The calculated ejection fraction is 65% by biplane method. There is no evidence of regional wall motion abnormalities. Diastolic function is normal for age. LV peak GLS -21.3%. Right Ventricle Normal right ventricular cavity size and systolic function. Atria Both atria are normal in size. Aortic Valve There is a normal trileaflet aortic valve. There is no aortic valve stenosis. There is no aortic valve regurgitation. Mitral Valve The mitral valve appears normal. There is trace mitral valve regurgitation. There is no mitral valve stenosis. Pulmonic Valve The pulmonic valve is likely normal. Tricuspid Valve Normal tricuspid valve structure. There is trace tricuspid valve regurgitation. There is no evidence of pulmonary hypertension. Great Vessels The asc aorta is normal in size. Venous The inferior vena cava is normal in size and collapses greater than 50% with inspiration. Pericardium/Pleural There is no evidence of pericardial effusion. Prior Study Comparison No prior study available for comparison. Recommendations, Care & Conclusions No obvious valvular pathology seen on this study. Measurements 2D Linear Measurements IVSd: 0.60 0.6-0.9/0.6-1.0 cm LVIDd: 4.40 3.9-5.3/4.2-5.9 cm LVIDd Index: 2.29 2.4-3.2/2.2-3.1 cm/m2 LVIDs: 2.49 2.0-3.6 cm LVPWd: 0.71 0.7-1.1 cm LA Diam: 3.30 2.7-3.8/3.0-4.0 cm LAIDs Index: 1.72 1.5-2.3 cm/m2 LV Mass: 105.33 67-162/88-224 g LV Mass Index: 54.86 43-95/49-115 g/m2 LVOT Diam: 2.00 3.0+(-)1.3 cm 2D Systolic Function EF 4C: 69.20 >55% EF 2C: 61.30 >55% EF BiP: 64.50 >55% Mitral Valve MV Pk E: 1.02 MV PK A: 0.90 MV Decel Time: 254.00 E/A: 1.10 E'Lateral: 18.60 E'Medial: 14.30 E/E' Med: 7.10 E/E' Lat: 5.50 PHT: 74.00 MVA PHT: 2.97 Decel [place]: 4.04 Aortic Valve AoV Pk Bill: 1.39 AoV Mn Bill: 0.97 AoV VTI: 0.28 AoV Pk Grad: 8.00 Aov Mn Grad: 4.00 MARYANN Cont.VTI: 2.63 LVOT LVOT Pk Bill: 1.17 LVOT Mn Bill: 0.80 LVOT VTI: 0.24 LVOT Pk Grad: 5.00 LVOT Mn Grad: 3.00 LVOT Diam: 2.00 LVOT Area: 3.14 Diastolic Function MV Pk E: 1.02 MV Pk A: 0.90 E/A: 1.10 E'Medial: 14.30 E/E' Med: 7.10 E' Laterial: 18.60 E/E' Lat: 5.50 Right Ventricle TAPSE (mm): 32.10 TVS' Bill: 16.10 Tricuspid Valve TR Pk Bill: 2.39 TR Pk Grad: 23.00 RA Press: 3.00 RVSP: 26.00 Great Vessels Aorta Sinus of Valsalva: 3.30 2.0-3.5 cm Ao Asc: 2.80 2.1-3.4 cm Pulmonary Valve PV Pk Bill: 1.07 Peak PV Grad: 5.00 Updated in Other Vendor System with Status of Final Billy Bose MD electronically signed on 05/14/2023 7:19:13 AM with status of Final
[2023-05-13 19:17] LABS: Cortisol Random 9.6 ug/dL
[2023-05-16 19:08] LABS: Metanephrine, Free 29 pg/mL (<=57); Normetanephrines, Free 65 pg/mL (<=148); Total Metanephrine, Free 94 pg/mL (<=205)
[2023-05-23 17:04] LABS: Plasma Renin Activity 0.31 ng/mL/h (0.25-5.82)
== END ==
LOC: HO.CARD 14:45
PROVIDERS: PCP Nurse Practitioner Family; Visit Provider Internal Medicine Cardiovascular Disease
DX: G90.A Postural orthostatic tachycardia syndrome [POTS] (principal)
CPT/HCPCS: 36415; 82088; 82533; 83835; 93306; 93356

== ENCOUNTER → 2023-05-13 14:48 | Outpatient (BNV) | payer BC, SELFPAY | PROVIDERS: PCP Nurse Practitioner Family; Visit Provider Internal Medicine | DX: G90.A Postural orthostatic tachycardia syndrome [POTS] (principal) | CPT/HCPCS: 93306 ==

== ENCOUNTER 2023-06-30 14:19 | Outpatient (AMB) | payer BC, SELFPAY ==
--- NOTE | 2023-06-30 14:23 | A.OFFVIS_ITS ---
Intake Vital Signs 06/30/23 14:24 Height 5 ft 2 in Weight 205 lb 0.478 oz BMI 37.5 BP 140/68 H Blood Pressure Location Lt brachial Position Sitting Pulse 78 Pulse Source Monitor Intake Visit Reasons: 4 week fu after echo & bw Intake Note: PT OV FOR FOLLOW UP AFTER ECHO AND BW PT FEELS CHEST PRESSURE Accompanied by: Spouse Allergies No Known Allergies [No Known Allergies*] Allergy (Verified 04/30/23 07:35) Medication List - Last Reconciled 06/30/23 by Atul Alcaraz MD cetirizine 10 mg PO DAILY PRN comp.stocking,thigh,long,large As directed fluoxetine 10 mg PO DAILY 90 days montelukast 10 mg PO BEDTIME 90 days norethindrone (contraceptive) 0.35 mg PO DAILY prednisolone acetate 1% 1 drp ophthalmic (eye) BID 20 days HPI HPI Comments History of Present Illness Details Dimple comes for follow-up. She underwent a recent echocardiogram which is within normal limits. Her endocrine/hormonal workup was within normal limits. She continues to have episodes of syncope as per the significant other she has had 2 syncopal episode both when she got up from a lying position. She was noted to be pale and then took about 5-15 seconds for her to come around with her phase color returning to normal. She continues to exercise although she continues to have symptoms. She also notices that heart rates are highly variable and can go up to 160 beats per minute sometimes without doing much and sometimes with exercise. She is very bothered by her symptoms. Most of her blood pressure recording which have been done objectively have been in the higher range although her blood pressure monitor at home gives highly variable blood pressure readings. She has been drinking a lot of water up to 120 oz. She has cut down her salt intake and says she feels weird about it. Her symptoms have increased since she is reduced her salt intake. She has not been able to get compression lead stockings as yet. [facility] Medical History Fibromyalgia History of cardiac murmur as a child RUQ pain Asthma Surgical History H/O hand surgery History of wisdom tooth extraction Family History Paternal Grandmother History of ovarian cancer Mental health disorder Paternal Grandfather History of melanoma Father Mental health disorder Mother Mental health disorder Sister Mental health disorder Other Family history of autoimmune disorder Social History Housing: Condominium Alcohol intake: never Patient Tobacco Use Status: Never used Tobacco e-Cigarette/Vaping Use: Never Used Second Hand Smoke Exposure: No Substance Use Type: Marijuana service: No Current occupational status: employed 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 Current occupational exposures/hazards: No Gender identity: Female Cognitive needs: No Hearing needs: No Vision needs: Yes Female Reproductive History Menstrual Age of Menarche: 13 Review of Systems Const Denies weakness ENT Denies dizziness Card Denies chest pain, Denies chest pain with activity, Denies syncope, Denies rapid heart rate, Denies pedal edema, Denies edema, Denies leg edema, Denies lightheadedness, Reports palpitations, Denies dyspnea, Denies dyspnea on exertion and Denies orthopnea Resp Denies cough, Denies dyspnea and Denies dyspnea on exertion GI Denies hematochezia and Denies change in stool character Musc Denies abnormal gait, Denies muscle cramps, Denies muscle weakness, Denies numbness, Denies radiating pain into limb and Denies tingling Neuro Denies Abnormal speech present, Denies abnormal gait, Denies dizziness, Denies syncope, Denies numbness, Denies tingling and Denies weakness Endo Reports palpitations Physical Exam Vital Signs: Last Vital Signs Pulse 78 06/30/23 14:24 BP 140/68 H 06/30/23 14:24 BMI result Body Mass Index 37.5 Const General: cooperative, comfortable, no acute distress, alert, awake and anxious Nutritional Appearance: obese Orientation/consciousness: patient oriented x3 Limitations: no limitations HEENT Head: Yes normocephalic and Yes atraumatic Neck Neck: Yes trachea midline, Yes supple and Yes no JVD Resp Effort & Inspection: normal respiratory effort Auscultation: clear to auscultation bilaterally Cardio Jugular venous distension: no JVD Palpation: normal PMI Rate: regular rate Rhythm: regular rhythm Heart sounds: S1 normal heart sound present, S2 normal heart sound present, no click, no gallops, no murmurs and no rubs GI Auscultation: normal bowel sounds Skin General skin exam: no rashes or lesions noted Neuro General: patient oriented x3 and no focal motor deficits Speech: No Abnormal speech present Extrem General: Yes no clubbing, cyanosis or edema Assessment & Plan Assessment & Plan (1) Dysautonomia: Code(s): 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 Patient has continued symptoms. She has cut down his salt intake due to elevated blood pressure. She continues to have episodes of syncope which are not explain. No blood pressure readings during those time. Her structural workup for the heart is within normal limits. Endocrine workup is within normal limits. We discussed about potentially long-term harmful effects of elevated blood pressure readings. Have therefore taken the liberty to start on verapamil 120 mg long-acting to be taken at suppertime. Continue maintain elevated water intake. Continue with compression venous stockings. Continue orthostatic precautions. Some her symptoms may be related to underlying anxiety. Discussed about anxiety management with stress mitigation strategies. Advised to invest in a new blood pressure monitor as her blood pressure reading on her machine and our manual blood pressure exam were different. Advised to calibrate with over office machine. Follow up in the clinic in 3 months time, sooner p.r.n.. Medications: New verapamil ER 120 mg PO QPM 30 tabs 5RF Coding Level of Care Code Est Pt Level 4 (99368) Diagnoses Dysautonomia G90.1
[2023-06-30 14:24] VITALS: BP 140/68; PULSE 78; BMI 37.5
== END 2023-06-30 15:02 | disposition home or self-care (01) ==
PROVIDERS: PCP Nurse Practitioner Family; Visit Provider Internal Medicine Cardiovascular Disease
DX: G90.1 Familial dysautonomia [Riley-Day] (principal)
CPT/HCPCS: 99214

== ENCOUNTER → 2023-06-30 14:19 | Outpatient (BNVA) | payer BC, SELFPAY | PROVIDERS: PCP Nurse Practitioner Family; Visit Provider Internal Medicine Cardiovascular Disease ==

== ENCOUNTER 2023-11-06 12:37 | Emergency (ER) | payer BC, SELFPAY ==
--- NOTE | ~2023-11-06 | US_ITS ---
EXAMINATION: US ABDOMEN LIMITED CLINICAL INFORMATION: Right upper quadrant pain. COMPARISON: Ultrasound abdomen 03/05/2020 TECHNIQUE: Real-time imaging of the right upper quadrant abdominal viscera. FINDINGS: PANCREAS: The visualized portions of pancreas appear unremarkable. LIVER: The liver is normal in size. The liver contour is normal. Parenchymal echogenicity is normal. No focal hepatic lesion. There is no intrahepatic biliary duct dilatation seen. GALLBLADDER: The gallbladder is physiologically distended without evidence of stones, sludge, polyps, wall thickening or pericholecystic fluid. Of note, sonographic Raphael's sign is positive. COMMON BILE DUCT: Normal in caliber measuring 0.3 cm in diameter. RIGHT KIDNEY: No hydronephrosis. No renal calculi or focal parenchymal lesions. The kidney measures 10.6 cm in maximum dimension. FREE FLUID: None. US/US abdomen limited IMPRESSION: As per technologist notes, positive sonographic Raphael's sign was noted. No cholelithiasis or sonographic evidence of acute cholecystitis.
[2023-11-06 12:40] VITALS: BP 156/76; PULSE 86; RESP 18; TEMP 36.8; O2SAT 100; BMI 33.9
--- NOTE | 2023-11-06 12:42 | ED.GENADULT ---
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 States she has seen her PCP with same complaint but was not prescribed any medications. She was referred to GI but they are scheduling a year out. States she has only been able to tolerate small bites of food and small sips of fluids. Has been trying to drink fluids with electrolytes. She has used omeprazole, Tums and Zofran without relief. States recently her symptoms have caused convulsions, of which she has video on her phone. Admits to daily cannabis use but denies other drugs or alcohol. MD complaint: abdominal pain, nausea, vomiting Onset (ago): year(s) Location: abdomen Quality: burning Pain Consistency: colicky Associated symptoms: nausea/vomiting Treatments prior to arrival: other Related Data Home Medications ?Medication ?Instructions ?Recorded ?Confirmed cetirizine 10 mg tablet 10 mg PO DAILY PRN 01/16/23 06/30/23 norethindrone (contraceptive) 0.35 0.35 mg PO DAILY 01/16/23 06/30/23 mg tablet Previous Rx's ?Medication ?Instructions ?Recorded prednisolone acetate 1 % eye 1 drp ophthalmic (eye) BID 20 days 04/24/22 drops,suspension #10 mL comp.stocking,thigh,long,large #2 ea 04/25/23 verapamil 120 mg tablet,extended 120 mg PO QPM #30 tabs 06/30/23 release fluoxetine 10 mg capsule 10 mg PO DAILY 90 days #90 caps 07/18/23 montelukast 10 mg tablet 10 mg PO BEDTIME 90 days #90 tabs 10/17/23 pantoprazole 20 mg tablet,delayed 20 mg PO DAILY #14 tabs 11/06/23 release sucralfate 1 gram tablet 1 g PO TID #15 tabs 11/06/23 Allergies Allergy/AdvReac Type Severity Reaction Status Date / Time No Known Allergies Allergy Verified 11/06/23 12:41 [No Known Allergies*] Review of Systems Review of Systems: As per HPI. Yes all other systems are reviewed and are negative Constitutional: Constitutional: Reports as per HPI [facility] Past Medical History Medical History Fibromyalgia History of cardiac murmur as a child RUQ pain Asthma Surgical History H/O hand surgery History of wisdom tooth extraction Family History Family History Paternal Grandmother History of ovarian cancer Mental health disorder Paternal Grandfather History of melanoma Father Mental health disorder Mother Mental health disorder Sister Mental health disorder Other Family history of autoimmune disorder Social History Social History Housing: Condominium Alcohol intake: never Patient Tobacco Use Status: Never used Tobacco Smoked in Last 30 Days: No e-Cigarette/Vaping Use: Never Used Second Hand Smoke Exposure: No Use of substances other than those prescribed or required for medical reasons: Yes Substance Use Type: Marijuana Advance Directives: No Do you have a plan to hurt others: No Plan Patient : No service: No Current occupational status: employed 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 Blood pressure normal. Heart rate normal. Respiratory rate normal. Temperature normal. Oxygen saturation normal. Const General: cooperative, healthy appearing and no acute distress Orientation/consciousness: oriented to person, oriented to place, oriented to time and patient oriented x3 Limitations: no limitations HENMT Head: Yes normocephalic and Yes atraumatic Ears: external ears normal General nose exam: Normal external nose present Face and sinus: Yes face symmetric Mouth: oropharynx normal and moist mucous membranes Throat: Yes uvula midline Eyes Pupils: Equal, round and reactive pupils present Neck Neck: Yes normal visual inspection and Yes supple Resp Effort & Inspection: normal respiratory effort and able to speak in complete sentences Auscultation: clear to auscultation bilaterally Cardio Rate: regular rate Rhythm: regular rhythm Heart sounds: S1 normal heart sound present and S2 normal heart sound present GI Palpation (GI): Soft to palpation and nontender Auscultation: normoactive bowel sounds General: Yes no CVA tenderness Back/Spine/Pelvis Back: no CVA tenderness Skin General skin exam: elasticity normal and turgor normal Neuro General: oriented to person, oriented to place, oriented to time, patient oriented x3, moves all extremities, no focal motor deficits and CN's II-XI intact bilaterally Cranial nerves: Yes Equal, round and reactive pupils present Cognition (Neuro): normal cognition Extrem General: Yes full ROM, Yes no pedal edema and Yes no calf tenderness Psych Mental Status: mental status grossly normal Affect: normal affect Thought process: Normal thought process present Course Course Course Narrative: This is a Rapid Medical Examination (RME) performed by Viet Cain PA-C in triage. Full HPI, ROS, assessment and treatment plan per primary provider in the Main ED. 28 yo female here for eval of RUQ abdominal pain radiating to epigastric region x5 days. assoc N/V/D, chills, decreased PO intake. PCP referred to GI. has not receive call to schedule appointment yet. no known sick contacts,. + odor of marijuana. ttp of RUQ. no rebound/ guarding. Plan: labs, viral serology, US Medications Administered Generic Name Dose Route Start Last Admin Trade Name Freq PRN Reason Stop Dose Admin Sodium Chloride 1,000 mls @ 999 mls/hr 11/06/23 22:15 11/06/23 22:16 Ns IV 11/06/23 23:15 999 mls/hr .Q1H1M ARUN Administration Discontinued Medications Generic Name Dose Route Start Last Admin Trade Name Freq PRN Reason Stop Dose Admin Haloperidol Lactate 2.5 mg 11/06/23 22:07 11/06/23 22:31 Haloperidol Lactate 5 Mg/Ml Vial IVPUSH 11/06/23 22:08 2.5 mg ONCE ONE Administration Medical Decision Making Medical Decision Making MDM Narrative: Patient is a 28-year-old female with history of POTS, 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 On exam patient is awake, A+Ox3, VS WNL, afebrile, normal neurological exam without focal deficits, physical exam findings as above. Given reported symptoms and physical exam findings, initial differential includes GERD, PUD, gastritis, cannabinoid hyperemesis syndrome, cholecystitis, choledocolithiasis. Labs unremarkable. Urine is without evidence of infection, negative . U/S RUQ notable for no evidence of cholecystitis, cholelithiasis, positive Raphael's sign. My interpretation is in agreement with the radiologist's interpretation. Video convulsive episode viewed on phone. Patient states during these episodes she has severe pain and she remembers the episodes and is aware when they are occurring. Feel these are likely related to pain/anxiety, do not appear seizure-like. Patient medicated in the emergency department with IV fluids and IV Haldol. Patient reports significant improvement in symptoms after these medications. Discussed with patient that her cannabis use may be a contributing factor to her symptoms and advised slowly decreasing her use if possible. Instructed patient to follow-up with PCP. Will send prescriptions for sucralfate and pantoprazole. Return precautions discussed at bedside. Patient verbalized understanding of and agreement plan. Differential Diagnosis Differential Diagnoses: The differential diagnosis associated with the presentation includes As per [facility] Admission/Observation Consideration of admission/observation: Escalation of care including admission/observation considered Patient would have been admitted to the hospital had their work up had any findings where hospital admission was appropriate and their clinical presentation warranted hospital admission. Lab Data [facility] Lab Attestation statement: I reviewed the patient's lab results. As per [facility] 11/06/23 13:50 11/06/23 13:50 Labs: Lab Results 11/06/23 11/06/23 Range/Units 13:47 13:50 WBC 8.7 (4.8-10.8) X10*3/uL RBC 4.97 (4.20-5.50) X10*6/uL Hgb 14.5 (12.0-16.0) g/dl Hct 43.3 (37.0-47.0) % MCV 87.1 (80.0-98.0) fL MCH 29.2 (27.0-33.0) pg MCHC 33.5 (31.0-35.0) g/dl RDW 13.3 (11.0-16.0) % Plt Count 322 (160-400) X10*3/uL MPV 8.5 L (9.4-12.3) fL Immature Gran % (Auto) 0.2 (0.0-0.4) % Neut % (Auto) 65.1 (45-73) % Lymph % (Auto) 18.9 L (20-40) % [place] % (Auto) 7.0 (2-11) % Eos % (Auto) 8.1 H (0-4) % Baso % (Auto) 0.7 (0-2) % Lymph # (Auto) 1.6 (1.2-4.9) X10*3/uL [place] # (Auto) 0.6 (0.1-1.2) X10*3/uL Eos # (Auto) 0.7 H (0.0-0.4) X10*3/uL Baso # (Auto) 0.1 (0.0-0.2) X10*3/uL Abs Immat Gran (auto) 0.02 (0.00-0.03) X10*3/uL Absolute Neuts (auto) 5.7 (2.0-8.3) x10*3/uL Absolute Nucleated RBC 0.000 (0.0-0.012) X10*3/uL Nucleated RBC % (auto) 0.0 (0.0-0.2) /100WBC Sodium 140 (135-145) mmol/L Potassium 3.7 (3.3-5.1) mmol/L Chloride 107 (96-108) mmol/L Carbon Dioxide 23 (22-29) mmol/L Anion Gap 14 (12-20) BUN 8 L (9-16) mg/dL Creatinine 0.72 (0.5-1.4) mg/dL Estim Creat Clear Calc 119.0 Estimated GFR > 60 Random Glucose 95 (60-115) mg/dL Calcium 9.5 (8.4-10.2) mg/dL Magnesium 2.1 (1.6-2.6) mg/dL Total Bilirubin 0.4 (0.0-1.0) mg/dL AST 12 (5-31) U/L ALT 12 (0-31) U/L Alkaline Phosphatase 68 (39-117) U/L Total Protein 7.3 (6.5-8.0) g/dL Albumin 4.5 (3.5-5.0) g/dL Lipase 23 (8-78) U/L Urine Color Yellow Urine Appearance Clear Urine pH 8.0 (5.0-9.0) Ur Specific [place] 1.020 (1.005-1.025) Urine Protein Trace (Neg-Trace) mg/dL Urine Glucose (UA) Negative (Negative) mg/dL Urine Ketones Negative (Negative) mg/dL Urine Blood Negative (Negative) Urine Nitrite Negative (Negative) Ur Leukocyte Esterase Trace H (Negative) Urine RBC 0-2 (0-2) /HPF Urine WBC 0-5 (0-5) /HPF Ur Squamous Epith Cells 0-2 (0-2) /HPF Urine Bacteria None Seen (None Seen) Hyaline Casts 0-2 (0-2) /LPF Urine Test NEGATIVE (NEGATIVE) Urine Opiates Screen Not Detected (Not Detect) Ur Buprenorphine Scrn Not Detected (Not Detect) ng/mL Ur Oxycodone Screen Not Detected (Not Detect) ng/mL Urine Methadone Screen Not Detected (Not Detect) ng/mL Urine Fentanyl Screen Not Detected (Not Detect) Ur Barbiturates Screen Not Detected (Not Detect) Ur Phencyclidine Scrn Not Detected (Not Detect) Ur Amphetamines Screen Not Detected (Not Detect) U Benzodiazepines Scrn Not Detected (Not Detect) Urine Cocaine Screen Not Detected (Not Detect) U Marijuana (THC) Screen POSITIVE H (Not Detect) Influenza Type A (PCR) NEGATIVE (Negative) Influenza Type B (PCR) NEGATIVE (Negative) RSV RNA Qual (PCR) NEGATIVE (Negative) SARS-CoV-2 RNA (RT-PCR) NEGATIVE (Negative) Independent Interpretation I performed an independent interpretation of an: Ultrasound Interpretation: U/S RUQ notable for no evidence of cholecystitis, cholelithiasis, positive Raphael's sign. Radiology Impression Discussion of test interpretation with radiology: I have reviewed the radiologist's reading. Radiologist Impression: US/US abdomen limited IMPRESSION: As per technologist notes, positive sonographic Raphael's sign was noted. No cholelithiasis or sonographic evidence of acute cholecystitis. External Record Review External record reviewed: Inpatient record, Office record and Outpatient record Prescription Management I considered prescription management with: Other Discharge Plan Discharge Clinical Impression: Abdominal pain, Nausea & vomiting Patient Disposition: Home, Self-Care Instructions: Acute Nausea and Vomiting (ED), Abdominal Pain (ED) Additional Instructions: You have been evaluated in the emergency department today for abdominal pain, nausea and vomiting. Your evaluation did not show evidence of medical conditions requiring emergent intervention at this time. You are being prescribed medications for your symptoms, take these as prescribed. Please schedule an appointment with your primary care physician within the next 2 days. Return to the emergency department if you experience worsening or uncontrolled pain, fevers 100.4? F or greater, recurrent vomiting, inability to tolerate food or fluids by mouth, bloody stools or vomit, black or tarry stools, or any other concerning symptoms. Prescriptions: New sucralfate 1 gram tablet 1 g PO TID Qty: 15 0RF Rx Instructions: Take one hour before meals pantoprazole 20 mg tablet,delayed release (DR/EC) 20 mg PO DAILY Qty: 14 0RF No Action fluoxetine 10 mg capsule 10 mg PO DAILY 90 Days Qty: 90 1RF montelukast 10 mg tablet 10 mg PO BEDTIME 90 Days Qty: 90 1RF prednisolone acetate 1 % drops,suspension 1 drp ophthalmic (eye) BID 20 Days Qty: 10 0RF Rx Instructions: route: not eye but use for ear itching cetirizine 10 mg tablet 10 mg PO DAILY PRN norethindrone (contraceptive) 0.35 mg tablet 0.35 mg PO DAILY verapamil 120 mg tablet extended release 120 mg PO QPM Qty: 30 5RF (DME) comp.stocking,thigh,long,large Misc See Rx Instructions .Route Qty: 2 0RF Rx Instructions: As directed Print Language: Yoruba
[2023-11-06 13:57] LABS: MANUAL DIFF FLAG NO
[2023-11-06 14:01] LABS: Basophils Absolute Auto 0.1 X10*3/uL (0.0-0.2); Basophils Percent Auto 0.7 % (0-2); Eosinophils Absolute Auto 0.7 X10*3/uL (0.0-0.4); Eosinophils Percent Auto 8.1 % (0-4); Hematocrit 43.3 % (37.0-47.0); Hemoglobin 14.5 g/dl (12.0-16.0); Imm Gran Abs Auto 0.02 X10*3/uL (0.00-0.03); Imm Gran Pct Auto 0.2 % (0.0-0.4); Lymphocytes Absolute Auto 1.6 X10*3/uL (1.2-4.9); Lymphocytes Percent Auto 18.9 % (20-40); Mean Corpuscular HGB Conc 33.5 g/dl (31.0-35.0); Mean Corpuscular Hemoglobin 29.2 pg (27.0-33.0); Mean Corpuscular Volume 87.1 fL (80.0-98.0); Mean Platelet Volume 8.5 fL (9.4-12.3); Monocytes Absolute Auto 0.6 X10*3/uL (0.1-1.2); Neutrophils Absolute Auto 5.7 x10*3/uL (2.0-8.3); Neutrophils Percent Auto 65.1 % (45-73); Platelet Count 322 X10*3/uL (160-400); Red Blood Count 4.97 X10*6/uL (4.20-5.50); Red Cell Distribution Width 13.3 % (11.0-16.0); White Blood Count 8.7 X10*3/uL (4.8-10.8)
[2023-11-06 14:01] LABS: Appearance Urine Clear; Color Urine Yellow; Glucose Urine UA Negative (Negative); Leukocyte Esterase Urine Trace (Negative); Nitrite Urine Negative (Negative); UMIC TRIGGER UACC YES; Urine Blood Negative (Negative); Urine Ketones Negative (Negative); Urine Protein Trace mg/dL (Neg-Trace)
[2023-11-06 14:03] LABS: Bacteria Urine None Seen (None Seen); Hyaline Casts Urine 0-2 /LPF (0-2); RBC Urine 0-2 /HPF (0-2); Squamous Epithelial Cell Urine 0-2 /HPF (0-2); UPreg QC Valid YES; Urine Pregnancy NEGATIVE (NEGATIVE); WBC Urine 0-5 /HPF (0-5)
[2023-11-06 14:10] LABS: Amphetamine Screen Urine Not Detected (Not Detect); Barbiturates, Urine Not Detected (Not Detect); Benzodiazepines Screen Urine Not Detected (Not Detect); Buprenorphine Scr Not Detected (Not Detect); Cannabinoid Screen Urine POSITIVE (Not Detect); Cocaine Screen Urine Not Detected (Not Detect); Fentanyl, urine Not Detected (Not Detect); Methadone Screen, Urine Not Detected (Not Detect); Opiate Screen Urine Not Detected (Not Detect); Oxycodone Screen Urine Not Detected (Not Detect); Phencyclidine Screen Urine Not Detected (Not Detect)
[2023-11-06 14:16] LABS: Alanine Aminotransferase 12 U/L (0-31); Albumin Level 4.5 g/dL (3.5-5.0); Alkaline Phosphatase 68 U/L (39-117); Anion Gap 14 (12-20); Aspartate Amino Transferase 12 U/L (5-31); Bilirubin Total 0.4 mg/dL (0.0-1.0); Blood Urea Nitrogen 8 mg/dL (9-16); Calcium 9.5 mg/dL (8.4-10.2); Carbon Dioxide 23 mmol/L (22-29); Chloride 107 mmol/L (96-108); Estimated Glomerular Filt Rate > 60; Glucose Random 95 mg/dL (60-115); Lipase 23 U/L (8-78); Magnesium 2.1 mg/dL (1.6-2.6); Potassium 3.7 mmol/L (3.3-5.1); Sodium 140 mmol/L (135-145); Total Protein 7.3 g/dL (6.5-8.0)
[2023-11-06 14:43] LABS: Influenza A PCR NEGATIVE (Negative); Influenza B PCR NEGATIVE (Negative); Resp Syncy Virus RNA Qual PCR NEGATIVE (Negative); SARS COV2 PCR INHOUSE NEGATIVE (Negative)
[2023-11-06 20:11] VITALS: BP 137/77; PULSE 64; RESP 20; TEMP 36.7; O2SAT 98
[2023-11-06] MEDS: 0.9 % Sodium Chloride 1,000 ML 999 ML IV (22:16)
[2023-11-06] MEDS: Haloperidol Lactate 5 MG/ML VIAL 2.5 MG IVPUSH (22:31)
--- NOTE | 2023-11-06 22:48 | PC.NURSE ---
pt medicated per MAR
--- NOTE | 2023-11-06 22:48 | PC.NURSE ---
20g IV placed in L-AC IVF infusing order - haldol given awaiting provider
[2023-11-06 23:23] VITALS: BP 118/76; PULSE 68; RESP 18; TEMP 36.8; O2SAT 98
== END 2023-11-06 23:24 | disposition home or self-care (01) ==
PROVIDERS: Physician Assistant Medical; Emergency Provider Emergency Medicine; PCP Nurse Practitioner Family
DX: R10.11 Right upper quadrant pain (principal); R11.2 Nausea with vomiting, unspecified; Z03.818 Encounter for observation for suspected exposure to other biological agents ruled out; G90.A Postural orthostatic tachycardia syndrome [POTS]; J45.909 Unspecified asthma, uncomplicated; F12.90 Cannabis use, unspecified, uncomplicated; Z79.899 Other long term (current) drug therapy
CPT/HCPCS: 0241U; 36415; 76705; 80053; 80307; 81001; 81003; 81025; 83690; 83735; 85025; 99284; 99285; J1630

== ENCOUNTER 2023-11-10 13:47 | Outpatient (AMB) | payer BC, SELFPAY ==
[2023-11-10 13:48] VITALS: BP 160/80; PULSE 101; O2SAT 100; BMI 34.4
--- NOTE | 2023-11-10 13:48 | A.OFFPC_ITS ---
Vital Signs 11/10/23 13:48 11/10/23 14:34 Height 5 ft 2 in Weight 188 lb 4 oz BMI 34.4 BP 160/80 H 120/70 Blood Pressure Location Lt brachial Lt brachial Position Sitting Sitting Pulse 101 H Pulse Source Pulse Oximeter Pulse Oximetry (%) 100 Oxygen Delivery Method Room Air Intake Visit Reasons: ED follow up - convulsions at [facility] Intake Note: pt is here for ED follow up Allergies No Known Allergies [No Known Allergies*] Allergy (Verified 11/10/23 13:49) Tobacco use date assessed: 04/30/23 Dental Screening Dental Screen Date: 04/30/23 HPI ED follow up - convulsions at [facility] HPI Details Pt was seen in the ER on 11/05 c/o abdominal pain and N/V. Pt reported that her symptoms were causing convulsions. Labs were unremarkable. Urine without evidence of infection, negative . US of RUQ showed no evidence of cholecystitis, cholelithiasis, though positive Raphael's sign. Differential diagnoses include cannabinoid hyperemesis syndrome as pt uses marijuana regularly. She was d/c with sucralfate and pantoprazole. Pt reports ongoing daily vomiting (undigested food) without smoking cannabis. She reports difficulty keeping food down. She also reports alternating constipation and diarrhea. Will order gastric emptying study and HIDA scan. She has been referred to GI, will resubmit this. There is possible EDS which has not been confirmed as of yet (hypermobility, gi issues). Pt also has a hx of POTS. She is taking verapamil. She reports that her blood pressure ranges from low to high. Denies fever, chills, and dizziness. Pt is requesting a different cardiologists who specializes with POTS [facility] Medical History Fibromyalgia History of cardiac murmur as a child RUQ pain Asthma Surgical History H/O hand surgery History of wisdom tooth extraction Family History Paternal Grandmother History of ovarian cancer Mental health disorder Paternal Grandfather History of melanoma Father Mental health disorder Mother Mental health disorder Sister Mental health disorder Other Family history of autoimmune disorder Social History Housing: Condominium Alcohol intake: never Patient Tobacco Use Status: Never used Tobacco e-Cigarette/Vaping Use: Never Used Second Hand Smoke Exposure: No Substance Use Type: Marijuana service: No Current occupational status: employed 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 [id number] - PHQ-9 Billing: Patient declined-do not bill Source: Developed by Drs. Abel Muhammad, America Davies, Vini Esquivel and colleagues, with an educational jabari from [employer]. Thrive Questionnaire Date Thrive assessed: 04/30/23 SEBASTIAN-7 AMB Questionnaire SEBASTIAN-7 Date SEBASTIAN - 7 assessed: 04/30/23 Source: Developed by Drs. Abel Muhammad, America Davies, Vini Esquivel and colleagues, with an educational jabari from [employer]. Review of Systems Const Reports as per HPI Physical exam (Primary Care) Vital Signs: Last Vital Signs Pulse 101 H 11/10/23 13:48 BP 120/70 11/10/23 14:34 Pulse Ox 100 11/10/23 13:48 Oxygen Delivery Method Room Air 11/10/23 13:48 BMI result Body Mass Index 34.4 Tobacco/Smoking Status: Tobacco use Status Tobacco use date assessed 04/30/23 11/10/23 13:55 Patient Tobacco Use Status Never used Tobacco 11/10/23 13:55 e-Cigarette/Vaping Use Never Used 11/10/23 13:55 Thrive Assessment: Date of Thrive Assessment Date Thrive assessed 04/30/23 11/10/23 13:55 Const General: cooperative Nutritional Appearance: obese Orientation/consciousness: patient oriented x3 Resp Effort & Inspection: normal respiratory effort Auscultation: clear to auscultation bilaterally Cardio Rate: tachycardic Rhythm: regular rhythm Heart sounds: S1 normal heart sound present and S2 normal heart sound present GI Palpation (GI): Tenderness to palpation present (GI) in the RUQ Neuro General: patient oriented x3 Psych Appearance: grossly normal Mental Status: mental status grossly normal Speech and movement: Normal speech and movement present Affect: normal affect Attitude: cooperative Thought process: Normal thought process present Thought content: Normal thought content present Insight: Good insight present (Psych) Judgement: Good judgement present (Psych) Assessment and Plan Assessment & Plan (1) Vomiting: Code(s): R11.10 - Vomiting, unspecified Plan: Gastric emptying study and HIDA scan ordered (2) Dysautonomia: Code(s): G90.1 - Familial dysautonomia [Chris-Day] Plan: Labs ordered (3) RUQ discomfort: Code(s): R10.11 - Right upper quadrant pain Plan: Gastric emptying study and HIDA scan ordered Plan The patient agreed to the use of a quality engineer medical device for this encounter. Scribed for KARY Iverson by Olivia Zheng quality engineer medical device, on 11/10/2023 at 14:10 EST. Orders: Orders NM gastric emptying study Today R11.10 - Vomiting, unspecified Complete Blood Count Auto Diff Today G90.1 - Familial dysautonomia [Chris-Day], R11.10 - Vomiting, unspecified Comprehensive Met. Panel Today G90.1 - Familial dysautonomia [Chris-Day], R11.10 - Vomiting, unspecified TSH reflex Free T4 Today G90.1 - Familial dysautonomia [Chris-Day], R11.10 - Vomiting, unspecified Magnesium Today G90.1 - Familial dysautonomia [Chris-Day], R11.10 - Vomiting, unspecified NM hepatobiliary w pharm Today R10.11 - Right upper quadrant pain Medications: New metoclopramide HCl (Reglan) 5 mg PO QIDACHS 20 tabs 0RF 5 days Coding Level of Care Code Est Pt Level 3 (15941) Diagnoses Vomiting R11.10 Dysautonomia G90.1 RUQ discomfort R10.11
[2023-11-10 14:34] VITALS: BP 120/70
== END 2023-11-10 14:41 | disposition home or self-care (01) ==
PROVIDERS: PCP Nurse Practitioner Family; Visit Provider Nurse Practitioner Family
DX: R11.10 Vomiting, unspecified (principal); G90.1 Familial dysautonomia [Riley-Day]; R10.11 Right upper quadrant pain
CPT/HCPCS: 99213

== ENCOUNTER → 2023-11-19 08:23 | Outpatient (REF) | payer BC, SELFPAY ==
--- NOTE | ~2023-11-19 | NM_ITS ---
EXAMINATION: MD RADIONUCLIDE SOLID FOOD GASTRIC EMPTYING 4-HOUR STUDY CLINICAL INFORMATION: Vomiting, unspecified. COMPARISON: None TECHNIQUE: A standard meal consisting of 4 oz of Egg Beaters brand tagged with 1000 microcuries Tc-99m Sulfur Colloid, 8 oz water and one slice of toast with jelly was administered orally to the patient. Images were obtained using a dual head gamma camera in the anterior and posterior projections over of the stomach immediately post ingestion and at hourly intervals up to 4 hours post ingestion. The anterior and posterior counts at each time interval were averaged using the geometric mean and expressed as percentage of the immediate post ingestion counts. FINDINGS: There is good visualization of activity in the stomach immediately post ingestion. As the study progresses, there is good clearance of activity from the stomach and visualization of progressively increasing small bowel activity. By the end of the study, there is almost no retention noted in the stomach. Retention in the stomach at each time interval was: 1 hour 80% (normal 37%-90%) 2 hours 35% (normal 30%-60%) 3 hours 18% 4 hours 5% (normal 0%-10%) MD/MD gastric emptying study IMPRESSION: Normal 4-hour solid food gastric emptying study. For solid meal, rapid gastric emptying is less than 30% at 60 minutes. Delayed gastric emptying criteria is more than 60% remaining at 120 minutes or more than 10% at 240 minutes. The 4-hour value is the best discriminator of a normal or abnormal result). Gastric emptying study grading per JNMT Consensus Recommendations in 2008 (https://tech.snmjournals.org/content/36/1/44) Grade 1 (mild retention): 11-20% at 4h Grade 2 (moderate retention): 21-35% at 4h Grade 3 (severe retention): 36-50% at 4h Grade 4 (very severe retention): >50% retention at 4h Electronically signed by: Barbie Peres MD 11/24/2023 08:45 AM EDT
== END ==
LOC: HO.NUCMED 08:23
PROVIDERS: PCP Nurse Practitioner Family; Visit Provider Nurse Practitioner Family
DX: R11.10 Vomiting, unspecified (principal)
CPT/HCPCS: 78264; A9541

== ENCOUNTER → 2023-11-28 11:06 | Outpatient (REF) | payer BC, SELFPAY ==
--- NOTE | ~2023-11-28 | NM_ITS ---
EXAMINATION: CELIA BILIARY TRACT HEPATOBILIARY IMAGING - CCK PREPARATION CLINICAL HISTORY: 28 years old Female with RUQ discomfort TECHNIQUE: 1.6 mcg Sincalide (CCK) was infused intravenously over 30 minutes due to fasting greater than 24 hours. 40 minutes later, 5 mCi Tc-99m Mebrofenin was injected intravenously, dynamic planar images of the abdomen were obtained in the anterior view for 60 minutes. (---) COMPARISON: None FINDINGS: There is prompt liver uptake of radiotracer and prompt excretion of radiotracer into bile ducts and small bowel. The gallbladder is visualized. The ejection fraction is 31%. NM/NM hepatobiliary w pharm IMPRESSION: Slightly low ejection fracture may indicate chronic cholecystitis. Electronically signed by: Iva Atkins MD 11/29/2023 08:47 AM EDT
== END ==
LOC: HO.NUCMED 11:06
PROVIDERS: PCP Nurse Practitioner Family; Visit Provider Nurse Practitioner Family
DX: R10.11 Right upper quadrant pain (principal)
CPT/HCPCS: 78227; A9537; J2805

== ENCOUNTER 2023-12-09 13:43 | Outpatient (AMB) | payer BC, SELFPAY ==
--- NOTE | 2023-12-09 13:45 | A.OFFVIS_ITS ---
Vital Signs 12/09/23 13:49 Height 5 ft 2 in Intake Visit Reasons: Chronic cholecystitis, RUQ pain Intake Note: Patient referred by pcp Ian CLEMENTE for chronic cholecystitis, RUQ pain. Patient c/o: reports RUQ pain, reports nausea, vomiting, reports constipation and diarrhea. NM Hepatobiliary w/pharm~ 11-28-2023. Psychologist Educational Required: No Accompanied by: Other Relationship Allergies No Known Allergies [No Known Allergies*] Allergy (Verified 12/09/23 13:50) HPI Comments Details: Patient presents here because of longstanding history of epigastric/right upper quadrant pain radiating around to her back after meals. Because of progression of symptoms, she presents here for further evaluation. Patient has had an extensive and exhaustive workup for this including a variety of scans, ultrasound, nuclear studies and HIDA scan of the latter of which is highly suggestive of biliary dyskinesia. Patient otherwise is having regular bowel habits. Never been jet yellow or jaundiced before. Because of her fear of eating secondary to the right upper quadrant pain, patient has lost a moderate amount of weight (25 lb) because of Chart was reviewed and patient evaluated; patient has a collection of comorbidities [facility] Medical History Fibromyalgia History of cardiac murmur as a child RUQ pain Asthma Surgical History H/O hand surgery History of wisdom tooth extraction Family History Paternal Grandmother History of ovarian cancer Mental health disorder Paternal Grandfather History of melanoma Father Mental health disorder Mother Mental health disorder Sister Mental health disorder Other Family history of autoimmune disorder Social History Housing: Condominium Alcohol intake: never Patient Tobacco Use Status: Never used Tobacco e-Cigarette/Vaping Use: Never Used Second Hand Smoke Exposure: No Substance Use Type: Marijuana service: No Current occupational status: employed 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 Current occupational exposures/hazards: No Gender identity: Female Cognitive needs: No Hearing needs: No Vision needs: Yes Female Reproductive History Menstrual Age of Menarche: 13 Physical Exam Eyes Other: Anicteric Chest Other: Chest breath sounds bilaterally, HS 1 in 2 GI Other: Abdomen moderately corpulent, soft, benign Assessment & Plan Assessment & Plan (1) Chronic cholecystitis: Code(s): K81.1 - Chronic cholecystitis Category: Surgical (2) Biliary dyskinesia: Code(s): K82.8 - Other specified diseases of gallbladder Category: Surgical Plan A lengthy discussion was had with the patient regarding the risks, benefits, and alternatives laparoscopic possible open cholecystectomy which included but not limited to bleeding, infection, recurrence of symptoms, numbness, pain, scarring and the patient wishes to proceed. All questions answered. Arrangements were made for this. Coding Level of Care Code New Pt Level 5 (86951) Diagnoses Chronic cholecystitis K81.1 Biliary dyskinesia K82.8
== END 2023-12-09 14:19 | disposition home or self-care (01) ==
PROVIDERS: PCP Nurse Practitioner Family; Visit Provider Surgery
DX: K81.1 Chronic cholecystitis (principal); K82.8 Other specified diseases of gallbladder
CPT/HCPCS: 99204

== ENCOUNTER → 2023-12-09 13:43 | Outpatient (BNVA) | payer BC, SELFPAY | PROVIDERS: PCP Nurse Practitioner Family; Visit Provider Surgery ==

== ENCOUNTER 2024-01-08 08:07 | Day surgery (SDC) | payer BC, SELFPAY ==
[2023-12-30 13:24] VITALS: BP 127/77; PULSE 62; RESP 18; O2SAT 97; BMI 33.8
--- NOTE | 2023-12-30 13:40 | HO.ANESPROP2 ---
Documented by User: Karlie Reno NP 01/07/24 08:41 HPI - Anesthesia Eval Consult details Narrative: 28yo F for Cholecystectomy Laparoscopic, possible open, 01/08/24 Pt reports vague episodes of convulsions/twitching. Pt states sometimes remembers episodes. Partner states whole body twitching. No incontinence. Started approx 6 months ago. Happens 1-3 x's weekly. Hasn't happened in ~ 3 weeks. Likely some psychosomatic involvement. EEG scheduled 01/22/24, MRI pending date POTS - propanolol BID (recent change by movement education specialist) Reports some nausea after hand surgery, no vomiting. Will avoid scop patch d/t side effect profile and pt conditions. Discussed unknown yolanda-op risk for exacerbation of convulsion/twitching without further work up. Pt and partner verbalized understanding and stated that priority is gallbladder. Willing to assume unknown risk. Case reviewed with Dr Blevins. [facility] Active Problems Active Problems: All Active Problems Seizure-like activity (Acute) Biliary dyskinesia (Acute) Chronic cholecystitis (Acute) RUQ discomfort (Acute) Vomiting (Acute) Dysautonomia (Acute) TMJ (dislocation of temporomandibular joint) (Acute) Alternating constipation and diarrhea (Acute) Trochanteric bursitis of both hips (Acute) Scoliosis (Acute) Proteinuria (Acute) POTS (postural orthostatic tachycardia syndrome) (Acute) Environmental allergies (Acute) Palpitations (Acute) Feeling faint (Acute) Tachycardia (Acute) Rash (Acute) Elevated C-reactive protein (CRP) (Acute) Joint pain (Acute) Fatigue (Acute) Mixed anxiety depressive disorder (Acute) Chest pain (Acute) Physical exam (Acute) Left wrist pain (Acute) Right scapholunate ligament tear (Acute) Sprain of scapholunate ligament (Acute) Surveillance for control, oral contraceptives (Acute) Potential exposure to STD (Acute) Well woman exam with routine gynecological exam (Acute) RUQ pain (Acute) Past Medical History Medical History COVID-19 Back pain Difficulty swallowing Vomiting and diarrhea History of headache Weakness Numbness Witnessed seizure-like activity Cough Chest pain HTN (hypertension) POTS (postural orthostatic tachycardia syndrome) Fibromyalgia History of cardiac murmur as a child RUQ pain Asthma Family History Family History Paternal Grandmother History of ovarian cancer Mental health disorder Paternal Grandfather History of melanoma Father Mental health disorder Mother Mental health disorder Sister Mental health disorder Other Family history of autoimmune disorder Family history of problems with anesthesia: No Surgical History Surgical History H/O hand surgery History of wisdom tooth extraction History of Problems with Anesthesia: No Social History Social History [facility] Are you a primary field care coordinator to a significant other at home: No Do you presently have visiting nurse or other home services: No Alcohol intake: never Patient Tobacco Use Status: Never used Tobacco e-Cigarette/Vaping Use: Never Used Second Hand Smoke Exposure: No Substance Use Type: Marijuana Substance Use Frequency: Daily Have you been hit, kicked, punched, or otherwise hurt by someone within the past year? 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 Current occupational exposures/hazards: No Gender identity: Female Cognitive needs: No Hearing needs: No Vision needs: Yes Meds Allergies Allergy/AdvReac Type Severity Reaction Status Date / Time No Known Allergies Allergy Verified 01/08/24 08:50 [No Known Allergies*] Home Medications ?Medication ?Instructions ?Recorded ?Confirmed ?Last Taken ?Type cetirizine 10 mg tablet 10 mg PO BEDTIME 01/16/23 01/08/24 Unknown History norethindrone (contraceptive) 0.35 0.35 mg PO DAILY 01/16/23 01/08/24 Unknown History mg tablet fluoxetine 10 mg capsule 10 mg PO BEDTIME 12/30/23 01/08/24 Unknown History propranolol 10 mg tablet 10 mg PO BID 12/30/23 01/08/24 01/08/24 History Exam Height,Weight and Vital Signs: Height 5 ft 2 in Weight 83.915 kg Last Vital Signs Pulse 62 12/30/23 13:24 Resp 18 12/30/23 13:24 BP 127/77 12/30/23 13:24 Pulse Ox 97 12/30/23 13:24 O2 Del Method Room Air 12/30/23 13:24 Pertinent Lab Results Pertinent Lab Results: Laboratory Tests 11/06/23 13:50 WBC 8.7 Hgb 14.5 Hct 43.3 Plt Count 322 Sodium 140 Potassium 3.7 Chloride 107 Carbon Dioxide 23 BUN 8 L Creatinine 0.72 Airway Mallampati Class: II TM Dist: >3cm Neck ROM: Full Heart: RRR Lungs: CTAB Assessment and Plan Assessment Anesthesia Assessment: Anesthesia Plan Discussed and PAT Visit Final Anesthetic Review Family History of Problems with Anesthesia: No History of Problems with Anesthesia: No Documented by User: Rosanna Blevins MD 01/08/24 09:44 PMFSH Past Medical History Medical History COVID-19 Back pain Difficulty swallowing Vomiting and diarrhea History of headache Weakness Numbness Witnessed seizure-like activity Cough Chest pain HTN (hypertension) POTS (postural orthostatic tachycardia syndrome) Fibromyalgia History of cardiac murmur as a child RUQ pain Asthma Family History Family History Paternal Grandmother History of ovarian cancer Mental health disorder Paternal Grandfather History of melanoma Father Mental health disorder Mother Mental health disorder Sister Mental health disorder Other Family history of autoimmune disorder Surgical History Surgical History H/O hand surgery History of wisdom tooth extraction Social History [facility] Are you a primary field care coordinator to a significant other at home: No Do you presently have visiting nurse or other home services: No Alcohol intake: never Patient Tobacco Use Status: Never used Tobacco e-Cigarette/Vaping Use: Never Used Second Hand Smoke Exposure: No Substance Use Type: Marijuana Substance Use Frequency: Daily Have you been hit, kicked, punched, or otherwise hurt by someone within the past year? 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 Current occupational exposures/hazards: No Gender identity: Female Cognitive needs: No Hearing needs: No Vision needs: Yes Meds Allergies Allergy/AdvReac Type Severity Reaction Status Date / Time No Known Allergies Allergy Verified 01/08/24 08:50 [No Known Allergies*] Home Medications ?Medication ?Instructions ?Recorded ?Confirmed ?Last Taken ?Type cetirizine 10 mg tablet 10 mg PO BEDTIME 01/16/23 01/08/24 Unknown History norethindrone (contraceptive) 0.35 0.35 mg PO DAILY 01/16/23 01/08/24 Unknown History mg tablet fluoxetine 10 mg capsule 10 mg PO BEDTIME 12/30/23 01/08/24 Unknown History propranolol 10 mg tablet 10 mg PO BID 12/30/23 01/08/24 01/08/24 History Assessment and Plan Final Anesthetic Review NPO: Yes ASA Class: III Final Preanesthetic Review: No Changes in Pt Med Stat, Meds/Allgs Chart Reviewed, Consent Obtained/Reviewed and Anes Risks/Benef Reviewed Patient Risk: Intermediate Procedure Risk: Intermediate Anesthetic Plan Anesthetic Plan: GA Disposition: Standard PACU
--- NOTE | 2024-01-07 09:23 | MHC.SHP ---
Pre-Procedural Eval Section A - 24 Hr Update-Section A only Date of Service: 01/08/24 The patient is an INPATIENT: No Changes since office visit: No Cold of Flu in the past 2 weeks, No New Medical Problems, No Changes in Medication and No Patient answered all questions Section B - Complete if H&P > 30 days Chief Complaint: Other specified diseases of gallbladder Allergies: Allergies Allergy/AdvReac Type Severity Reaction Status Date / Time No Known Allergies Allergy Verified 12/09/23 13:50 [No Known Allergies*] Review of Systems Sugical H&P ROS: Negative: Constitution, Cardiovascular, Respiratory, Neurological, Psychiatric, Hem-Onc, Allergic/Immunologic, Gastrointestinal, Genitourinary, Musculoskeletal, Integumentary, Endocrine and Eyes/Ears/Nose/Throat Exam Surgical H&P Exam: Normal: HEENT, Normal: Heart, Normal: Lungs, Normal: Extremities, Normal: Abdomen, Normal: Skin and Normal: Neurological Plan I have reviewed the history and physical and performed a pertinent physical examination on my patient. No changes have occurred unless specified. Time Spent With Patient Time: Total time managing care of this patient today ____ minutes.
[2024-01-08] VITALS (9 sets, daily range): BP systolic 102–156; BP diastolic 53–75; PULSE 49–72; RESP 14–18; TEMP 36.1–36.3; O2SAT 97–100; BMI 32.9
[2024-01-08 09:06] LABS: UPreg QC Valid YES; Urine Pregnancy NEGATIVE (NEGATIVE)
--- NOTE | 2024-01-08 11:33 | P.OP_ITS ---
Operative Note Operative Note Date of Service: 01/08/24 Narrative: Preoperative diagnosis: [] Symptomatic gallbladder Postop diagnosis: [] The same Procedure [] laparoscopic cholecystectomy Surgeon: [] Jeff Director Of Event Management: [] Rajiv Type of Anesthesia: [] General Indication for surgery: [] Gallbladder with omental adhesions to it. Moderately intrahepatic gallbladder. Very corpulent abdomen Findings: [] Patient brought to the operating room, placed on operative table supine position, after an adequate level of general anesthesia was induced, the patient's abdomen was prepped and draped in usual sterile fashion. Using a supraumbilical curvilinear incision, Healy technique was used to insufflate abdominal cavity to 15 mm of CO2. Upper midline and right subcostal ports were placed under direct laparoscopic view, and the patient placed in reverse Trendelenburg position, and tilted to the left. Findings were as noted above. Gallbladder was grasped using laparoscopic graspers and retracted superiorly and laterally. Soft omental adhesions were swept off the gallbladder and the hilum was approached. Cystic artery and cystic duct were each identified, circumferentially skeletonized, traced directly into the gallbladder, and critical view obtained. Each was clipped proximally x2, distally x1, and transected . The gallbladder which was moderately intrahepatic was then cauterized from the gallbladder fossa using Bovie. Specimen was placed in an Endo-Catch bag, and retrieved through the umbilical port. Abdominal cavity was copiously irrigated and secured for hemostasis. All ports removed under direct laparoscopic view. Wounds were closed in the following manner; umbilical wound its fascia reapproximated using interrupted 0 Vicryl sutures. Skin wounds were closed using subcuticular 4-0 Vicryl sutures followed by Steri-Strips and sterile dressings. Wounds were infiltrated 0.5% Marcaine at completion. Sponge, needle, and instrument counts reported correct. Patient tolerated the procedure well and emerged from anesthesia stable condition. EBL minimal
[2024-01-08] MEDS: ondansetron HCL 4 MG/2 ML VIAL IVPUSH (12:02)
[2024-01-08] MEDS: HYDROmorphone HCl 0.5 MG/0.5 ML SYRINGE 0.25 MG IVPUSH (12:23)
== END 2024-01-08 14:05 | disposition home or self-care (01) ==
PROVIDERS: Nurse Practitioner; PCP Nurse Practitioner Family; Visit Provider Surgery
PROC: 0FT44ZZ Resection of Gallbladder, Percutaneous Endoscopic Approach (ICD-10-PCS; CPT 47562; principal; 2024-01-08 10:50)
DX: K80.10 Calculus of gallbladder with chronic cholecystitis without obstruction (principal); K82.8 Other specified diseases of gallbladder; E65 Localized adiposity; Q44.1 Other congenital malformations of gallbladder
CPT/HCPCS: 47562; 81025; 88304; J0131; J0690; J1171; J1885; J2003; J2250; J2405; J2704; J2795; J3010

== ENCOUNTER → 2024-01-08 08:07 | Outpatient (BNV) | payer BC, SELFPAY | PROVIDERS: PCP Nurse Practitioner Family; Visit Provider Surgery | DX: K80.10 Calculus of gallbladder with chronic cholecystitis without obstruction (principal) | CPT/HCPCS: 47562 ==

== ENCOUNTER 2024-01-11 12:15 | Emergency (ER) | payer BC, SELFPAY ==
[2024-01-11 12:34] VITALS: BP 134/80; PULSE 77; RESP 18; TEMP 36.4; O2SAT 98; BMI 32.3
--- NOTE | 2024-01-11 12:38 | ED_ITS ---
HPI - General Adult General Chief complaint: Abdominal Pain Stated complaint: vaginal bleeding-abd discharge-surgery prior Time Seen by Provider: 01/11/24 16:05 Source: patient, RN notes reviewed and old records reviewed Mode of arrival: ambulatory Limitations: no limitations History of Present Illness ED Provider: Raquel SPAULDING narrative: 28 year old female who is postop day 3 after laparoscopic cholecystectomy with Dr. Aguilar presenting for evaluation of vaginal bleeding and abdominal pain Patient reports mostly left upper abdominal pain that started after her surgery. Her pain is dull, 5/10. She also reports that she had mild vaginal bleeding initially after surgery but today had some heavier bleeding with clots She is on control and has been compliant. She has no pelvic pain Denies any weakness, lightheadedness, dizziness. The patient is able to tolerate her clear liquid diet that she has been recommended by surgery thus far She is passing gas and having bowel movements Denies any fevers, chills She does report that she has had some clear drainage from her periumbilical surgical site Related Data Home Medications ?Medication ?Instructions ?Recorded ?Confirmed cetirizine 10 mg tablet 10 mg PO BEDTIME 01/16/23 01/08/24 norethindrone (contraceptive) 0.35 0.35 mg PO DAILY 01/16/23 01/08/24 mg tablet fluoxetine 10 mg capsule 10 mg PO BEDTIME 12/30/23 01/08/24 propranolol 10 mg tablet 10 mg PO BID 12/30/23 01/08/24 Previous Rx's ?Medication ?Instructions ?Recorded comp.stocking,thigh,long,large #2 ea 04/25/23 montelukast 10 mg tablet 10 mg PO BEDTIME 90 days #90 tabs 10/17/23 hydrocodone 5 mg-acetaminophen 325 1 tab PO Q4-6H PRN pain #30 tabs 01/08/24 mg tablet Allergies Allergy/AdvReac Type Severity Reaction Status Date / Time No Known Allergies Allergy Verified 01/11/24 12:39 [No Known Allergies*] Review of Systems 2 Constitutional: Constitutional: Denies body ache(s), Denies chills, Denies fever(s) and Denies headache(s) Eyes: Eyes: Denies blurry vision ENT: Denies headache(s), Denies sinus pain and Denies sore throat Cardiovascular: Cardiovascular: Denies chest pain and Denies dyspnea Respiratory: Respiratory: Denies cough and Denies dyspnea Gastrointestinal: Gastrointestinal: Reports abdominal pain, Denies constipation, Denies nausea and Denies vomiting Genitourinary: Genitourinary: Denies pelvic pain and Denies vaginal discharge Comments: Reports increased vaginal bleeding Musculoskeletal: Musculoskeletal: Denies back pain Integumentary/Breasts: Skin/Breast: Denies rash Neurologic: Denies headache(s) [facility] Past Medical History Medical History COVID-19 Back pain Difficulty swallowing Vomiting and diarrhea History of headache Weakness Numbness Witnessed seizure-like activity Cough Chest pain HTN (hypertension) POTS (postural orthostatic tachycardia syndrome) Fibromyalgia History of cardiac murmur as a child RUQ pain Asthma Surgical History H/O hand surgery History of wisdom tooth extraction Family History Family History Paternal Grandmother History of ovarian cancer Mental health disorder Paternal Grandfather History of melanoma Father Mental health disorder Mother Mental health disorder Sister Mental health disorder Other Family history of autoimmune disorder Social History Social History Housing: Condominium Are you a primary care transitions manager to a significant other at home: No Do you presently have visiting nurse or other home services: No Alcohol intake: never Patient Tobacco Use Status: Never used Tobacco Smoked in Last 30 Days: No e-Cigarette/Vaping Use: Never Used Second Hand Smoke Exposure: No Use of substances other than those prescribed or required for medical reasons: Yes Substance Use Type: Marijuana Advance Directives: No Advance Directives Information Provided: Yes Patient : No service: No Current occupational status: employed 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 Current occupational exposures/hazards: No Gender identity: Female Cognitive needs: No Hearing needs: No Vision needs: Yes Physical Exam ED Vital Signs: Vital Signs - 24 hr 01/11/24 12:34 01/11/24 15:43 01/11/24 16:36 Temperature 97.6 F 98.4 F 98.4 F Pulse Rate 77 71 71 Respiratory Rate 18 16 16 Blood Pressure 134/80 126/72 126/72 Pulse Oximetry 98 100 100 Oxygen Delivery Method Room Air Room Air Room Air BMI result Body Mass Index 32.3 Const General: healthy appearing, comfortable, no acute distress, alert and awake Nutritional Appearance: well nourished Orientation/consciousness: patient oriented x3 HENMT Head: Yes normocephalic and Yes atraumatic Eyes Eyelids: Yes eyelids normal Conjunctivae: conjunctivae normal Sclerae: sclerae normal Corneas: corneas normal Pupils: Equal, round and reactive pupils present EOM: EOMs intact bilaterally Neck Neck: Yes full ROM Resp Effort & Inspection: normal respiratory effort, able to speak in complete sentences and not labored Cardio Rate: regular rate Rhythm: regular rhythm GI Other: Patient's surgical wounds appear to be healing well, there is no surrounding erythema, no purulent drainage. The abdomen is soft, nondistended, nontender. Inspection: No distended Palpation (GI): Soft to palpation, not firm, nontender, no guarding and not rigid Skin General skin exam: elasticity normal Neuro General: patient oriented x3 Cranial nerves: Yes Equal, round and reactive pupils present and Yes Bilaterally intact EOM present Cognition (Neuro): normal cognition Extrem Other: Moving all extremities well without any obvious deformities Course Course Course Narrative: RME: DOne by RAUL Chambers. Recent year old female status post cholecystectomy done by Dr. Harvey 3 days ago presents to ED for generalized abdominal pain and also heavy vaginal bleeding and vaginal clots. Patient states also slight clear discharge from incision site. Generalized abdominal tenderness. Positive for mild serosanguineous discharge from incision wounds no erythema. Labs ordered. Medical Decision Making Medical Decision Making [facility] Narrative: 28-year-old female presents for evaluation abdominal pain and vaginal bleeding. She is quite well appearing, her vital signs are within normal limits, her abdomen is soft, nondistended, nontender, she is still passing gas and having bowel movements, she is able to tolerate p.o. intake. There is no evidence to suggest a complication of history injury such as infection or abscess. She has no leukocytosis in his afebrile. There was no evidence of bowel obstruction, the patient is not nauseous or vomiting in his still passing gas. Her vaginal bleeding is likely related to the stress of going through a surgery. The patient has not started or stopped control, she has no concerns for sexually transmitted infections. She is not . I did discuss with Dr. Stinson who is covering for Dr. Aguilar who agrees the patient is stable for discharge at this time. No imaging warranted at time. 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 01/11/24 12:49 01/11/24 12:49 Labs: Lab Results 01/11/24 01/11/24 Range/Units 12:49 13:35 WBC 8.7 (4.8-10.8) X10*3/uL RBC 5.11 (4.20-5.50) X10*6/uL Hgb 15.0 (12.0-16.0) g/dl Hct 42.9 (37.0-47.0) % MCV 84.0 (80.0-98.0) fL MCH 29.4 (27.0-33.0) pg MCHC 35.0 (31.0-35.0) g/dl RDW 13.1 (11.0-16.0) % Plt Count 330 (160-400) X10*3/uL MPV 8.3 L (9.4-12.3) fL Immature Gran % (Auto) 0.5 H (0.0-0.4) % Neut % (Auto) 65.9 (45-73) % Lymph % (Auto) 17.7 L (20-40) % [place]imble % (Auto) 8.9 (2-11) % Eos % (Auto) 6.4 H (0-4) % Baso % (Auto) 0.6 (0-2) % Lymph # (Auto) 1.5 (1.2-4.9) X10*3/uL [place]ble # (Auto) 0.8 (0.1-1.2) X10*3/uL Eos # (Auto) 0.6 H (0.0-0.4) X10*3/uL Baso # (Auto) 0.1 (0.0-0.2) X10*3/uL Abs Immat Gran (auto) 0.04 H (0.00-0.03) X10*3/uL Absolute Neuts (auto) 5.7 (2.0-8.3) x10*3/uL Absolute Nucleated RBC 0.000 (0.0-0.012) X10*3/uL Nucleated RBC % (auto) 0.0 (0.0-0.2) /100WBC PT 13.6 H (10.9-12.4) SEC INR 1.2 H (0.9-1.1) APTT 34.1 (26.0-36.8) SEC Sodium 141 (135-145) mmol/L Potassium 4.3 (3.3-5.1) mmol/L Chloride 105 (96-108) mmol/L Carbon Dioxide 23 (22-29) mmol/L Anion Gap 17 (12-20) BUN 7 L (9-16) mg/dL Creatinine 0.60 (0.5-1.4) mg/dL Estim Creat Clear Calc 139.2 Estimated GFR > 60 Random Glucose 98 (60-115) mg/dL Calcium 9.5 (8.4-10.2) mg/dL Total Bilirubin 0.8 (0.0-1.0) mg/dL AST 17 (5-31) U/L ALT 34 H (0-31) U/L Alkaline Phosphatase 74 (39-117) U/L Total Protein 7.5 (6.5-8.0) g/dL Albumin 4.5 (3.5-5.0) g/dL Beta HCG, Quant < 2 mIU/mL Urine Color Dark Yellow Urine Appearance Cloudy Urine pH 6.0 (5.0-9.0) Ur Specific Stuart 1.025 (1.005-1.025) Urine Protein 30 (1+) H (Neg-Trace) mg/dL Urine Glucose (UA) Negative (Negative) mg/dL Urine Ketones >=160 (Negative) mg/dL Urine Blood Large (3+) H (Negative) Urine Nitrite Negative (Negative) Ur Leukocyte Esterase Trace H (Negative) Urine RBC >20 H (0-2) /HPF Urine WBC 0-5 (0-5) /HPF Ur Squamous Epith Cells 0-2 (0-2) /HPF Urine Bacteria None Seen (None Seen) Hyaline Casts 0-2 (0-2) /LPF Discharge Plan Discharge Clinical Impression: Post-op pain, Dysmenorrhea Patient Disposition: Home, Self-Care Instructions: Dysmenorrhea (ED), Pain Management After Surgery (DC) Additional Instructions: Your workup in the ER today was reassuring. You have no obvious signs of infection. Your pain is most likely postop pain related to your surgery. The vaginal bleeding is not directly related to the surgery, but may be a result of the stress placed on your body. Your blood counts are within normal limits and reassuring Follow-up with your outpatient providers Return for new or worsening symptoms, especially fever, severe, intractable abdominal pain, inability to eat or drink anything, or if you stop passing gas/having bowel movements Prescriptions: No Action montelukast 10 mg tablet 10 mg PO BEDTIME 90 Days Qty: 90 1RF propranolol 10 mg Tablet 10 mg PO BID fluoxetine 10 mg capsule 10 mg PO BEDTIME hydrocodone-acetaminophen 5-325 mg tablet 1 tab PO Q4-6H PRN (Reason: pain) Qty: 30 0RF Rx Instructions: Partial Fill upon patient request. cetirizine 10 mg tablet 10 mg PO BEDTIME norethindrone (contraceptive) 0.35 mg tablet 0.35 mg PO DAILY (DME) comp.stocking,thigh,long,large Misc See Rx Instructions .Route Qty: 2 0RF Rx Instructions: As directed Interventions: ED Discharge Assessment Last Done: 01/11/24 16:36 Discharge Date/Time: 01/11/24 16:42 Print Language: Turkish
[2024-01-11 12:54] LABS: MANUAL DIFF FLAG NO
[2024-01-11 12:56] LABS: Basophils Absolute Auto 0.1 X10*3/uL (0.0-0.2); Basophils Percent Auto 0.6 % (0-2); Eosinophils Absolute Auto 0.6 X10*3/uL (0.0-0.4); Eosinophils Percent Auto 6.4 % (0-4); Hematocrit 42.9 % (37.0-47.0); Imm Gran Abs Auto 0.04 X10*3/uL (0.00-0.03); Imm Gran Pct Auto 0.5 % (0.0-0.4); Lymphocytes Absolute Auto 1.5 X10*3/uL (1.2-4.9); Lymphocytes Percent Auto 17.7 % (20-40); Mean Corpuscular Hemoglobin 29.4 pg (27.0-33.0); Mean Platelet Volume 8.3 fL (9.4-12.3); Monocytes Absolute Auto 0.8 X10*3/uL (0.1-1.2); Monocytes Percent Auto 8.9 % (2-11); Neutrophils Absolute Auto 5.7 x10*3/uL (2.0-8.3); Neutrophils Percent Auto 65.9 % (45-73); Platelet Count 330 X10*3/uL (160-400); Red Blood Count 5.11 X10*6/uL (4.20-5.50); Red Cell Distribution Width 13.1 % (11.0-16.0); White Blood Count 8.7 X10*3/uL (4.8-10.8)
[2024-01-11 13:01] LABS: INTERNATIONAL NORM RATIO 1.2 (0.9-1.1); Prothrombin Time 13.6 SEC (10.9-12.4)
[2024-01-11 13:04] LABS: Partial Thromboplastin Time 34.1 SEC (26.0-36.8)
[2024-01-11 13:48] LABS: Glucose Urine UA Negative (Negative); Leukocyte Esterase Urine Trace (Negative); Nitrite Urine Negative (Negative); Specific Gravity - Urine 1.025 (1.005-1.025); UMIC TRIGGER UACC YES; Urine Blood Large (3+) (Negative); Urine Ketones >=160 mg/dL (Negative); Urine Protein 30 (1+) mg/dL (Neg-Trace)
[2024-01-11 13:49] LABS: Appearance Urine Cloudy; Bacteria Urine None Seen (None Seen); Color Urine Dark Yellow; Hyaline Casts Urine 0-2 /LPF (0-2); RBC Urine >20 /HPF (0-2); Squamous Epithelial Cell Urine 0-2 /HPF (0-2); WBC Urine 0-5 /HPF (0-5)
[2024-01-11 13:52] LABS: Alanine Aminotransferase 34 U/L (0-31); Albumin Level 4.5 g/dL (3.5-5.0); Alkaline Phosphatase 74 U/L (39-117); Anion Gap 17 (12-20); Aspartate Amino Transferase 17 U/L (5-31); Bilirubin Total 0.8 mg/dL (0.0-1.0); Blood Urea Nitrogen 7 mg/dL (9-16); Calcium 9.5 mg/dL (8.4-10.2); Carbon Dioxide 23 mmol/L (22-29); Chloride 105 mmol/L (96-108); Creatinine Clr Calc Pharmacy 139.2; Estimated Glomerular Filt Rate > 60; Glucose Random 98 mg/dL (60-115); Potassium 4.3 mmol/L (3.3-5.1); Sodium 141 mmol/L (135-145); Total Protein 7.5 g/dL (6.5-8.0)
[2024-01-11 13:55] LABS: HCG Quantitative < 2 mIU/mL
[2024-01-11 15:43] VITALS: BP 126/72; PULSE 71; RESP 16; TEMP 36.9; O2SAT 100
[2024-01-11 16:36] VITALS: BP 126/72; PULSE 71; RESP 16; TEMP 36.9; O2SAT 100
== END 2024-01-11 16:42 | disposition home or self-care (01) ==
PROVIDERS: Physician Assistant; Emergency Provider Emergency Medicine; PCP Nurse Practitioner Family
DX: N94.4 Primary dysmenorrhea (principal); R10.2 Pelvic and perineal pain; Z79.899 Other long term (current) drug therapy
CPT/HCPCS: 36415; 80053; 81001; 84702; 85025; 85610; 85730; 99284

== ENCOUNTER 2024-01-15 16:30 | Outpatient (REF) | payer BC, SELFPAY ==
--- NOTE | ~2024-01-15 | MR_ITS ---
EXAMINATION: MR BRAIN WITHOUT CONTRAST CLINICAL INFORMATION: Convulsions. COMPARISON: CT head from 12/31/2011. TECHNIQUE: MRI of the brain was obtained using routine sequences without contrast. FINDINGS: Mildly motion degraded exam. No focal restricted diffusion is demonstrated to suggest acute or subacute cerebral ischemia. No evidence of acute or chronic hemorrhagic products on heme-sensitive imaging. Few nonspecific scattered foci of T2 FLAIR hyperintensity within the bifrontal lobes. No additional parenchymal signal abnormalities. The ventricles are normal in morphology and size. No abnormal mass effect. No midline shift. The hippocampi are symmetric in size, contour, and signal intensity. The temporal horns appear symmetric. Normal appearance of the pituitary gland. The cerebellar tonsils are mildly low lying, positioned 0.5 cm below the foramen magnum. Partial effacement of the CSF space of the foramen magnum. Normal arterial and venous vascular flow voids are present. Normal, homogeneous marrow signal. Mild mucosal thickening of the paranasal sinuses. No signal abnormalities within the mastoids. MR/MR head/brain wo con IMPRESSION: 1. No acute intracranial abnormalities. 2. Minimal nonspecific white matter changes. 3. Borderline Chiari I mild formation. 4. No additional MRI abnormalities to explain the patient's symptoms. Electronically signed by: Jacky Cunningham DO 03/10/2024 04:32 AM EST
== END 2024-01-15 16:31 | disposition home or self-care (01) ==
LOC: HO.MRI 16:30
PROVIDERS: PCP Nurse Practitioner Family; Visit Provider Nurse Practitioner Family
DX: R56.9 Unspecified convulsions (principal)
CPT/HCPCS: 70551

== ENCOUNTER 2024-01-19 09:17 | Outpatient (AMB) | payer BC, SELFPAY ==
--- NOTE | 2024-01-19 09:26 | A.OFFVIS_ITS ---
Intake Visit Reasons: S/P lap eben, poss open Intake Note: Patient here s/p lap eben. Reports incisions healing well. Patient c/o: thinks she developed an umbilical hernia. Feels pressure at umbilicus. SX: 01-08-24. 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 She is tolerating a diet. Having regular bowel habits. She is increasing her activity level. She has incisional discomfort of the umbilicus and is concerned that maybe there was a hernia here. [facility] Medical History (Updated 01/12/24 @ 00:01 by Sunita Judd) COVID-19 Back pain Difficulty swallowing Vomiting and diarrhea History of headache Weakness Numbness Witnessed seizure-like activity Cough Chest pain HTN (hypertension) POTS (postural orthostatic tachycardia syndrome) Fibromyalgia History of cardiac murmur as a child RUQ pain Asthma Surgical History (Updated 01/19/24 @ 09:40 by Ronald Aguilar MD) Hx laparoscopic cholecystectomy (01/08/24) H/O hand surgery History of wisdom tooth extraction Family History Paternal Grandmother History of ovarian cancer Mental health disorder Paternal Grandfather History of melanoma Father Mental health disorder Mother Mental health disorder Sister Mental health disorder Other Family history of autoimmune disorder Social History Housing: Condominium Are you a primary respiratory care faculty to a significant other at home: No Do you presently have visiting nurse or other home services: No Alcohol intake: never Patient Tobacco Use Status: Never used Tobacco e-Cigarette/Vaping Use: Never Used Second Hand Smoke Exposure: No Substance Use Type: Marijuana service: No Current occupational status: employed 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 All wounds clean dry and intact healing uneventfully. No evidence of umbilical hernia. Patient was reassured. Assessment & Plan Assessment & Plan (1) Status post laparoscopic cholecystectomy: Code(s): Z90.49 - Acquired absence of other specified parts of digestive tract Category: Medical Plan Patient was been given local instructions including avoiding strenuous activities next few weeks time, and otherwise follow-up p.r.n.. All questions answered. Coding Level of Care Code Global (55842) Diagnoses Status post laparoscopic cholecystectomy Z90.49
== END 2024-01-19 09:54 | disposition home or self-care (01) ==
PROVIDERS: PCP Nurse Practitioner Family; Visit Provider Surgery
DX: Z90.49 Acquired absence of other specified parts of digestive tract (principal)
CPT/HCPCS: 99024

== ENCOUNTER → 2024-01-19 09:17 | Outpatient (BNVA) | payer BC, SELFPAY | PROVIDERS: PCP Nurse Practitioner Family; Visit Provider Surgery ==

== ENCOUNTER 2024-01-22 07:52 | Outpatient (REF) | payer BC, SELFPAY ==
--- NOTE | 2024-01-22 07:54 | EEG_ITS ---
This is a 16-channel EEG with an EKG lead. The patient is reported awake during the tracing. Background EEG rhythm is low to medium amplitude, fast alpha to beta. Intermittently periods of sometime right and sometime left, brief sharply contoured theta range discharges were noted. Photic stimulation did not produce any significant driving and hyperventilation was not performed. Cardiac lead did not reveal any significant abnormality. IMPRESSION: Abnormal EEG suggestive of underlying tendency for partial to complex partial seizure disorder. MD MARÍA Crane/CLEMENCIA / [id number]
== END 2024-01-22 07:53 | disposition home or self-care (01) ==
LOC: HO.NEURO 07:52
PROVIDERS: PCP Nurse Practitioner Family; Visit Provider Nurse Practitioner Family
DX: R56.9 Unspecified convulsions (principal)
CPT/HCPCS: 95816

== ENCOUNTER 2024-03-16 08:04 | Outpatient (REF) | payer BC, OTHER, SELFPAY ==
--- NOTE | ~2024-03-16 | XR_ITS ---
EXAMINATION: XR TEMPOROMANDIBULAR JOINT BILATERAL CLINICAL INFORMATION: Dislocation of jaw, unspecified side, initial encounter S03.00XA. Pain. COMPARISON: None available TECHNIQUE: Five images of the bilateral temporomandibular joint. FINDINGS: Open and closed lateral radiographs of the mandible demonstrate grossly normal positioning of the mandibular condyles in both the open mouth and closed mouth radiographs without left/right asymmetry in condylar positioning. No mandibular fractures or erosive osseous lesions identified. Minimal visualization of the lung apices is obtained which are clear. XR/XR TMJ BI IMPRESSION: Normal mandibular radiographs. Electronically signed by: Thomas Nance MD 04/29/2024 10:10 AM ANDREWS
[2024-03-16 13:16] LABS: MANUAL DIFF FLAG NO
[2024-03-16 13:21] LABS: Basophils Absolute Auto 0.1 X10*3/uL (0.0-0.2); Basophils Percent Auto 0.8 % (0-2); Eosinophils Absolute Auto 1.5 X10*3/uL (0.0-0.4); Eosinophils Percent Auto 19.1 % (0-4); Hematocrit 43.7 % (37.0-47.0); Hemoglobin 14.7 g/dl (12.0-16.0); Imm Gran Abs Auto 0.02 X10*3/uL (0.00-0.03); Imm Gran Pct Auto 0.3 % (0.0-0.4); Lymphocytes Absolute Auto 1.8 X10*3/uL (1.2-4.9); Lymphocytes Percent Auto 22.7 % (20-40); Mean Corpuscular HGB Conc 33.6 g/dl (31.0-35.0); Mean Corpuscular Hemoglobin 29.8 pg (27.0-33.0); Mean Corpuscular Volume 88.6 fL (80.0-98.0); Mean Platelet Volume 8.9 fL (9.4-12.3); Monocytes Absolute Auto 0.6 X10*3/uL (0.1-1.2); Monocytes Percent Auto 7.8 % (2-11); Neutrophils Absolute Auto 3.9 x10*3/uL (2.0-8.3); Neutrophils Percent Auto 49.3 % (45-73); Platelet Count 320 X10*3/uL (160-400); Red Blood Count 4.93 X10*6/uL (4.20-5.50); Red Cell Distribution Width 13.1 % (11.0-16.0); White Blood Count 7.8 X10*3/uL (4.8-10.8)
[2024-03-16 14:02] LABS: Albumin Level 4.6 g/dL (3.5-5.0); Alkaline Phosphatase 61 U/L (39-117); Anion Gap 9 (12-20); Aspartate Amino Transferase 17 U/L (5-31); Bilirubin Total 0.4 mg/dL (0.0-1.0); Blood Urea Nitrogen 8 mg/dL (9-16); Calcium 8.9 mg/dL (8.4-10.2); Carbon Dioxide 28 mmol/L (22-29); Chloride 106 mmol/L (96-108); Estimated Glomerular Filt Rate > 60; Glucose Random 117 mg/dL (60-115); Magnesium 2.1 mg/dL (1.6-2.6); Potassium 3.8 mmol/L (3.3-5.1); Sodium 139 mmol/L (135-145); TSH reflex Free T4 1.06 uIU/mL (0.32-4.0); Total Protein 7.5 g/dL (6.5-8.0)
[2024-03-16 14:20] LABS: Alanine Aminotransferase 16 U/L (0-31)
== END 2024-03-16 08:05 | disposition home or self-care (01) ==
LOC: HO.HMGCX 08:04
PROVIDERS: PCP Nurse Practitioner Family; Visit Provider Nurse Practitioner Family
DX: R10.33 Periumbilical pain (principal); R11.10 Vomiting, unspecified; G90.1 Familial dysautonomia [Riley-Day]; S03.00XA Dislocation of jaw, unspecified side, initial encounter; X58.XXXA Exposure to other specified factors, initial encounter; Y93.9 Activity, unspecified; Y92.9 Unspecified place or not applicable; Y99.9 Unspecified external cause status
CPT/HCPCS: 36415; 70330; 80053; 83735; 84443; 85025; 96127

== ENCOUNTER 2024-03-16 08:04 | Outpatient (AMB) | payer BC, SELFPAY ==
--- OUTSIDE RECORDS SUMMARY | 2024-03-16 08:08 | XMS_ITS ---
Author Name [facility] Organization Unknown History of Medication Use Medication Directions Dispensed Refills Start Date End Date Stat us propranolol (INDERAL) 20 MG tablet Take 1 tablet (20 mg total) by mouth 2 (two) times a day. As discussed at last visit 01/21/2024 active propranolol (INDERAL) 10 MG tablet Take 1 tablet (10 mg total) by mouth 2 (two) times a day. Dose 1 upon waking and dose 2 8 hours after 01/21/2024 aborted midodrine (ProAmatine) 5 MG tablet Take 1 tablet (5 mg total) by mouth 3 (three) times a day. Take during daytime hours upon waking then every 4 hours. 3 doses per day. 01/13/2024 03/30/9999 active prednisoLONE acetate (PRED FORTE) 1 % ophthalmic suspension 1 drop 4 (four) times a day. 12/14/2023 active FLUoxetine (PROzac) 10 MG capsule Take 1 capsule (10 mg total) by mouth daily. 12/14/2023 active PANTOprazole (PROTONIX) 20 MG tablet Take 1 tablet (20 mg total) by mouth every morning before breakfast. 12/14/2023 active metoCLOPRAMIDE (REGLAN) 5 mg/5 mL oral solution Take by mouth. 12/14/2023 active cetirizine (ZyrTEC) 10 MG chewable tablet Chew 1 tablet (10 mg total) daily. 12/14/2023 active verapamil (CALAN) 120 MG tablet Take 1 tablet (120 mg total) by mouth 3 (three) times a day. 12/14/2023 active norethindrone (MICRONOR) 0.35 MG tablet Take 1 tablet (0.35 mg total) by mouth daily. 12/14/2023 active montelukast (SINGULAIR) 10 MG tablet Take 1 tablet (10 mg total) by mouth nightly. 12/14/2023 active sucralfate (CARAFATE) 1 g tablet Take 1 tablet (1 g total) by mouth 4 (four) times a day before meals and nightly. On an empty stomach. 12/14/2023 active Problems Problem Status Onset Date Problem Type Date of Resoluti on Source Orthostatic intolerance active [facility]
--- NOTE | 2024-03-16 08:18 | A.OFFPC_ITS ---
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 Accompanied by: Self / Same As Patient Allergies No Known Allergies [No Known Allergies*] Allergy (Verified 03/16/24 09:10) Medication List - Last Reconciled 03/16/24 by CHYNA Friend- cetirizine 10 mg PO BEDTIME comp.stocking,thigh,long,large As directed fluoxetine 10 mg PO DAILY midodrine 5 mg PO TID montelukast 10 mg PO BEDTIME 90 days norethindrone (contraceptive) 0.35 mg PO DAILY propranolol 20 mg PO BID Tobacco use date assessed: 04/30/23 Dental Screening Dental Screen Date: 04/30/23 HPI 4 mon f/u HPI Details Chief Complaint Persistent headache, decreased appetite, and abdominal pain related to an umbilical hernia History of Present Illness The patient is a 28-year-old female presenting with persistent headache and decreased appetite, compounded by an umbilical hernia. Denies any pans after eating. The patient reports undergoing cholecystectomy in December, initially experiencing symptomatic relief for five weeks, followed by a recurrence of symptoms including a significant decrease in appetite. Her symptoms have been further complicated by severe headaches, which she attributes to a previously diagnosed Chiari malformation. Additionally, the patient self-diagnosed an umbilical hernia post-surgery, which was confirmed by urgent care four weeks postoperatively despite an initial misdiagnosis by the original surgeon (according to pt). She reports constant tenderness and occasional sharp pains around the umbilicus. 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 She reports an unresolved umbilical tenderness and sharp abdominal pains that she believes affect her appetite, potentially due to intestinal malalignment. Social History - Reports difficulty with daily function ing due to persistent pain and discomfort - Actively seeking comprehensive diagnos is and management for chronic conditions - References involvement in peer support groups for health issues Health Maintenance Review of Systems - Neurological: Reports persistent heada emmett. - Gastrointestinal: Reports decreased ap petite and tenderness around the umbilicus. - Cardiovascular: Reports difficulty paul ntaining upright posture due to POTS. - Respiratory: History of sleep apnea. Physical Exam General: Cooperative, healthy appearing, comfortable, no acute distress and well developed, obese Orientation: Patient oriented x3 Limitations: No limitations Head: Normal to inspection Ears: Hearing grossly normal bilaterally Nose: Normal external nose present Face and sinus: Normal facial exam Eyes: Appearance normal, both eyes and all related structures Neck: Normal visual inspection and Yes full ROM Respiratory: Normal respiratory effort and able to speak in complete sentences. Clear to auscultation bilaterally Cardiovascular: Regular rate and rhythm. Normal S1 and S2 GI: Tenderness around the umbilicus noted, with reports of sharp pains and constant tenderness. No active umbilical protrusion noted. Use of otoscope without signs of a Umbilical hernia, slight tenderness noted during exam, no erythema or signs of infection noted. Bs + Skin: No rashes or lesions noted Neuro: Patient oriented x3 Extremities: Normal to inspection Results Plan - Obtain CT scan of the abdomen to confi rm diagnosis of umbilical hernia. - Referral to general surgery for the ma nagement and potential repair of umbilical hernia post-diagnostic confirmation. - Follow up with the neurologist nelli cohen Chiari malformation and associated headaches. - Continue exploring hypermobile Kat- Danlos syndrome; coordinate consultation with a real estate rental agent or appropriate specialist. - Re-address gastroenterology referral t o evaluate symptoms of decreased a ppetite and digestive health concerns. - Monitor and manage POTS symptoms with ongoing assessment and support. Patient was informed and verbally consented to the use of an ambient scribe for clinic note documentation during this visit. Discussion Notes During this visit, I discussed with the patient the diagnosis of her umbilical hernia and the plan for CT imaging to confirm this, followed by appropriate referral to a general surgeon. We also reviewed her current symptoms and the need to assess them further due to their ongoing impact on her quality of life. I emphasized the importance of following up with the neurologist concerning the Chiari malformation and the associated persistent headaches. We discussed the challenge of diagnosing hypermobile Kat-Danlos syndrome and the potential for consultations with a real estate rental agent or statistical geneticist. I acknowledged the referrals for gastroenterological evaluation that were previously lost and committed to ensuring follow-up. Patient Instructions - Schedule and undergo CT scan of the ab domen. - Contact and schedule an appointment wi a general surgeon after receiving the CT results. - Arrange appointment with neurologist hernan mistry early March. - Consider seeking a second opinion from a real estate rental agent for hypermobile Kat-Danlos syndrome. - Wait for a new gastroenterology referr al and ensure communication for obtaining an appointment. - Monitor symptoms and report any signif icant changes in condition or new symptoms promptly. [facility] Medical History COVID-19 Back pain Difficulty swallowing Vomiting and diarrhea History of headache Weakness Numbness Witnessed seizure-like activity Cough Chest pain HTN (hypertension) POTS (postural orthostatic tachycardia syndrome) Fibromyalgia History of cardiac murmur as a child RUQ pain Asthma Surgical History Hx laparoscopic cholecystectomy (01/08/24) H/O hand surgery History of wisdom tooth extraction Family History Paternal Grandmother History of ovarian cancer Mental health disorder Paternal Grandfather History of melanoma Father Mental health disorder Mother Mental health disorder Sister Mental health disorder Other Family history of autoimmune disorder Social History Housing: Condominium Are you a primary healthcare or medical to a significant other at home: No Do you presently have visiting nurse or other home services: No Alcohol intake: never Patient Tobacco Use Status: Never used Tobacco e-Cigarette/Vaping Use: Never Used Second Hand Smoke Exposure: No Substance Use Type: Marijuana service: No Current occupational status: employed 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 1. Little interest or pleasure in doing things: nearly every day 2. Feeling down, depressed, or hopeless: several days 3. Trouble falling or staying asleep, or sleeping too much: nearly every day 4. Feeling tired or having little energy: nearly every day 5. Poor appetite or overeating: nearly every day 6. Feeling bad about yourself - or that you are a failure or have let yourself or your family down: not at all 7. Trouble concentrating on things, such as reading the newspaper or watching television: nearly every day 8. Moving or speaking so slowly that other people could have noticed. Or the opposite - being so fidgety or restless that you have been moving around a lot more than usual: nearly every day 9. Thoughts that you would be better off or of hurting yourself in some way: not at all Total score: 19 Depression Screening Interpretation: Positive Depression Screening Done: Yes 32199 - PHQ-9 Billing: Yes Source: Developed by Drs. Abel Muhammad, America Davies, Vini Esquivel and colleagues, with an educational jabari from [employer]. Thrive Questionnaire Date Thrive assessed: 03/16/24 I am a: Patient What is your living situation today?: I have a steady place to live Within the past 12 months, did the food you bought not last and you didn't have the money to get more?: I choose not to answer this question Within the past 12 months, did you worry whether your food would run out before you got money to buy more?: I choose not to answer this question Do you have trouble paying for medicines?: No Do you have trouble getting transportation to medical appointments?: No Do you have trouble paying your heating and electricity bill?: No Do you have trouble taking care of your child, family member or friend?: I choose not to answer this question Do you have trouble with day-to-day activities such as bathing, preparing meals, shopping, managing finances, etc.?: Yes Are you currently unemployed and looking for a job?: No Are you interested in more education?: No Please select the resources that you would like help with: None Currently or been in a relationship where the following occur: No concerns reported and I choose not to answer THRIVE Score: 0 AUDIT C Alcohol Use Questionnaire (AUDIT-C) 1. How often do you have a drink containing alcohol?: Never 3. How often do you have six or more drinks on one occasion?: Never Total Score: 0 Score Reviewed/Action Taken: Yes SEBASTIAN-7 AMB Questionnaire SEBASTIAN-7 Date SEBASTIAN - 7 assessed: 03/16/24 Feeling nervous, anxious, or on edge: 1 = Several days Not being able to stop or control worryin = Several days Worrying too much about different things: 0 = Not at all Trouble relaxin = Nearly every day Being so restless that it is hard to sit still: 3 = Nearly every day Becoming easily annoyed or irritable: 3 = Nearly every day Feeling afraid as if something awful might happen: 3 = Nearly every day Total SEBASTIAN-7 score (0-4 normal; 5-9 mild; 10-14 moderate; 15-21 severe): 14 Source: Developed by Drs. Abel Muhammad, America Davies, Vini Esquivel and colleagues, with an educational jabari from [employer]. SEBASTIAN-7 Assessment Billing SEBASTIAN-7 Assessment Tool: SEBASTIAN-7 Assessment 57075 Physical exam (Primary Care) Vital Signs: Last Vital Signs Pulse 64 03/16/24 08:20 BP 122/70 03/16/24 08:20 Pulse Ox 99 03/16/24 08:20 BMI result Body Mass Index 32.9 Tobacco/Smoking Status: Tobacco use Status Tobacco use date assessed 04/30/23 03/16/24 08:19 Patient Tobacco Use Status Never used Tobacco 03/16/24 08:19 e-Cigarette/Vaping Use Never Used 03/16/24 08:19 PHQ-9: PHQ-9 Score PHQ-9: Total score 19 03/16/24 08:21 Depression Screening Interpretation: Positive Thrive Assessment: Date of Thrive Assessment Date Thrive assessed 03/16/24 03/16/24 08:21 Currently or been in a relationship where the following occur: No concerns reported and I choose not to answer Coding Level of Care Code Est Pt Level 3 (11776) Diagnoses Umbilical pain R10.33 Additional Codes SEBASTIAN-7 Assessment Billing - SEBASTIAN-7 Assessment Tool: SEBASTIAN-7 Assessment 38726 ([id number]) PHQ-9 - 49830 - PHQ-9 Billing: Yes ([id number]) Assessment & Plan Assessment & Plan (1) Umbilical pain: Code(s): R10.33 - Periumbilical pain Category: Medical Plan . Orders: Orders CT abdomen pelvis wo IV con Today R10.33 - Periumbilical pain
[2024-03-16 08:20] VITALS: BP 122/70; PULSE 64; O2SAT 99; BMI 32.9
== END 2024-03-16 09:20 | disposition home or self-care (01) ==
PROVIDERS: PCP Nurse Practitioner Family; Visit Provider Nurse Practitioner Family
DX: R10.33 Periumbilical pain (principal)

== ENCOUNTER 2024-04-08 08:14 | Outpatient (AMB) | payer OTHER, SELFPAY ==
--- NOTE | 2024-04-08 07:23 | A.OFFVIS_ITS ---
Intake Visit Reasons: referral change Allergies No Known Allergies [No Known Allergies*] Allergy (Verified 03/16/24 09:10) HPI HPI referral change: Details: History of Present Illness The patient is a 28-year-old female presenting with a request for a new referral to a neurosurgeon specializing in Chiari malformations. She has a known history of complex partial seizure disorder, for which she was recently initiated on Depakote. The neurologist overseeing her seizure management is Dr. Merrill, with a scheduled follow-up in five weeks. Despite the initiation of medication, she reports ongoing headaches and episodes of zoning out. Additionally, she has a diagnosis of dysautonomia, specifically Postural Orthostatic Tachycardia Syndrome (POTS). An MRI conducted in December revealed borderline Chiari Malformation Type I and nonspecific white matter changes. The patient requests a referral to [place] Chato [place] [facility] [place] of her Chiari malformation. Review of Systems - Neurological: Reports headaches and episodes of zoning out. -denies cp, sob Plan - Place referral for neurosurgical evaluation with Dr. Chato [place] [facility] [place] Chiari Malformation Type I. - Continue Depakote for complex partial seizure disorder with neurologist follow-up scheduled in five weeks. - Monitor dysautonomia symptoms, particularly POTS, and coordinate care as needed. Patient was informed and verbally consented to the use of an ambient scribe for clinic note documentation during this visit. Discussion Notes During our discussion, the patient expressed a desire to have her Chiari malformation further evaluated by Dr. Chato Sears, a specialist she identified. We reviewed her current management of complex partial seizures and the recent initiation of Depakote, acknowledging that further assessment by her neurologist would occur in five weeks. I explained the referral process and its purpose in evaluating her Chiari malformation further. We discussed the ongoing symptoms she is experiencing despite medication. I provided assurance that a neurosurgical opinion would be integral in determining the next steps for her Chiari malformation. Patient Instructions - Follow up with neurologist Dr. Merrill in five weeks as scheduled. - Attend the appointment with Dr. Chato Sears as arranged for specialized evaluation. - Continue taking Depakote as prescribed, noting any new symptoms or changes. - Seek medical attention if symptoms worsen or become concerning. [facility] Medical History COVID-19 Back pain Difficulty swallowing Vomiting and diarrhea History of headache Weakness Numbness Witnessed seizure-like activity Cough Chest pain HTN (hypertension) POTS (postural orthostatic tachycardia syndrome) Fibromyalgia History of cardiac murmur as a child RUQ pain Asthma Surgical History Hx laparoscopic cholecystectomy (01/08/24) H/O hand surgery History of wisdom tooth extraction Family History Paternal Grandmother History of ovarian cancer Mental health disorder Paternal Grandfather History of melanoma Father Mental health disorder Mother Mental health disorder Sister Mental health disorder Other Family history of autoimmune disorder Social 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 Current occupational exposures/hazards: No Gender identity: Female Cognitive needs: No Hearing needs: No Vision needs: Yes Female Reproductive History Menstrual Age of Menarche: 13 Telehealth Telehealth Telehealth Platform: [employer] Location of provider rendering services: practice address Location of patient: address on file Patient Identification confirmed using: Name, : Yes Telehealth method: video Patient verbally consented to treatment: Yes Patient verbally consented to billing insurance company: Yes Patient informed of any privacy concerns related to visit: Yes Minutes spent on Phone/Video with Pt.: 12 Assessment & Plan Assessment & Plan (1) Chiari malformation type I: Code(s): G93.5 - Compression of brain Category: Medical (2) Dysautonomia: Code(s): G90.1 - Familial dysautonomia [Chris-Day] Category: Medical (3) POTS (postural orthostatic tachycardia syndrome): Code(s): G90.A - Postural orthostatic tachycardia syndrome [POTS] Category: Medical (4) Complex partial seizure disorder: Code(s): G40.209 - Localization-related (focal) (partial) symptomatic epilepsy and epileptic syndromes with complex partial seizures, not intractable, without stat us epilepticus Category: Medical Plan . Orders: Referrals Neurosurgery Referral G93.5 - Compression of brain Coding Level of Care Code Tele Est Pt Level 3 (37991) Diagnoses Chiari malformation type I G93.5 Dysautonomia G90.1 POTS (postural orthostatic tachycardia syndrome) G90.A Complex partial seizure disorder G40.209
== END 2024-04-08 08:15 | disposition home or self-care (01) ==
LOC: HO.HMCC 08:14
PROVIDERS: PCP Nurse Practitioner Family; Visit Provider Nurse Practitioner Family
DX: G93.5 Compression of brain (principal); G90.1 Familial dysautonomia [Riley-Day]; G90.A Postural orthostatic tachycardia syndrome [POTS]; G40.209 Localization-related (focal) (partial) symptomatic epilepsy and epileptic syndromes with complex partial seizures, not intractable, without status epilepticus

== ENCOUNTER → 2024-04-08 08:14 | Outpatient (BNVA) | payer OTHER, SELFPAY | PROVIDERS: PCP Nurse Practitioner Family; Visit Provider Nurse Practitioner Family | DX: G93.5 Compression of brain (principal); G90.1 Familial dysautonomia [Riley-Day]; G90.A Postural orthostatic tachycardia syndrome [POTS]; G40.209 Localization-related (focal) (partial) symptomatic epilepsy and epileptic syndromes with complex partial seizures, not intractable, without status epilepticus ==

== ENCOUNTER 2024-04-29 13:42 | Outpatient (REF) | payer OTHER, SELFPAY ==
--- NOTE | ~2024-04-29 | CT_ITS ---
EXAMINATION: CT ABDOMEN PELVIS WITHOUT IV CONTRAST HISTORY: R10.33 - Periumbilical pain COMPARISON: Comparison is made with the prior examination dated 03/05/2020. TECHNIQUE: CT scan of the abdomen and pelvis was performed without contrast using standard departmental protocol. Coronal and sagittal reformatted images were generated and reviewed. Oral contrast material was not administered at the request of the referring physician. This CT exam was performed with one or more of the following dose reduction techniques: automated exposure control, adjustment of the mA and/or kV according to patient size, use of iterative reconstruction technique. DLP: 480 mGy-cm FINDINGS: LOWER CHEST: There is subsegmental atelectasis at the left lung base. The visualized right lung base is clear.. There is no pleural effusion. CARDIOVASCULATURE: The heart is normal in size. There is no pericardial effusion. LIVER: The liver is normal in size and contour. The liver has an unremarkable unenhanced appearance. GALLBLADDER / BILE DUCTS: The gallbladder is surgically absent. There is no intra or extrahepatic biliary ductal dilatation. SPLEEN: The spleen is normal in size and has an unremarkable unenhanced appearance. PANCREAS: The pancreas has an unremarkable unenhanced appearance. ADRENAL GLANDS: Unremarkable. KIDNEYS/RETROPERITONEUM: No renal calculi are identified. There is no hydronephrosis. LYMPH NODES: No retroperitoneal lymphadenopathy is identified in the abdomen or pelvis. VASCULATURE: The abdominal aorta is normal in caliber. MESENTERY/PERITONEUM: There is trace free fluid in the cul-de-sac. No masses. There is no free intraperitoneal gas. STOMACH: The stomach is collapsed, limiting evaluation. SMALL BOWEL: The small bowel is normal in caliber. COLON: The colon is unremarkable. APPENDIX: Normal. URINARY BLADDER/PELVIC ORGANS: The urinary bladder is collapsed, limiting evaluation. The uterus has an unremarkable unenhanced appearance. BONES / SOFT TISSUES: There is a probable tiny fat-containing umbilical hernia. The bones are intact. CT/CT abdomen pelvis wo IV con IMPRESSION: Probable tiny fat-containing umbilical hernia. Electronically signed by: Abel Alonzo MD 04/29/2024 03:07 PM [facility]
--- OUTSIDE RECORDS SUMMARY | 2024-04-29 17:33 | XMS_ITS | Encounter Summary ---
Author Organization [facility] Address [address] [place] [address] Phone Care Team Providers Care Administrative Asst Name Role Phone Nick Lauren Primary Care Provider [phone] Encounter Details Date Type Department Care Team (Late st Contact Info) Description 11/14/2016 Conversion Encounter [facility] - [address] [address] Social History Tobacco Use Types Packs/Day Years Used Date Smoking Tobacco: Never Assessed Comments Unknown Sex and Gender Information Value Date Recorded Sex Assigned at Not on file Legal Sex Female 4:26 PM EDT Gender Identity Not on file Sexual Orientation Not on file documented as of this encounter Plan of Treatment Not on file documented as of this encounter Visit Diagnoses Not on filedocumented in this encounter Care Teams Administrative Asst Relationship Specialty Start Date End Date Nick Lauren [address] [place] [address] PCP - General 11/08/16 documented as of this encounter
--- OUTSIDE RECORDS SUMMARY | 2024-04-29 17:34 | XMS_ITS | Encounter Summary ---
Author Organization [facility] Address [address] [place] [address] Care Team Providers Care Rehab/Pre Vocational Counselor Name Role Phone Ian Bell Primary Care Provider Encounter Details Date Type Department Care Team (Late st Contact Info) Description 01/15/2024 Orders Only [facility] - External Imaging [address] [place] [address] Radiology, External [address] [place] [address] Social History Tobacco Use Types Packs/Day Years Used Date Smoking Tobacco: Never Assessed Comments Unknown Sex and Gender Information Value Date Recorded Sex Assigned at Female 2024 1:19 PM EST Legal Sex Female 8:24 AM EST Gender Identity Female 04/26/2024 7:17 PM EST Sexual Orientation Bisexual 04/26/2024 7: 17 PM EST documented as of this encounter Plan of Treatment Pending Results Name Type Priority Associated Diagnoses Date /Time MRI Transfer of Outside Films Head Imaging Lacy Routine 04/27/2024 2: 56 PM EST Scheduled Orders Name Type Priority Associated Diagnoses Orde r Schedule MRI Transfer of Outside Films Head Imaging Lacy Routine 1 Occurrences starting 04/27/2024 until 05/28/2025 documented as of this encounter Visit Diagnoses Not on filedocumented in this encounter Care Teams Rehab/Pre Vocational Counselor Relationship Specialty Start Date End Date Ian Bell [address] [place] [address] PCP - General 04/22/24 documented as of this encounter
--- OUTSIDE RECORDS SUMMARY | 2024-04-29 17:34 | XMS_ITS | Clinical Summary ---
Author Organization [facility] Address [address] [place] [address] Care Team Providers Care Electric Repair Supervisor Name Role Phone Ian Bell Primary Care Provider Encounters Date Type Department Care Team Description 04/27/2024 2:30 PM EST Office Visit [facility] [address] [place] [address] Pro Mendoza MD Chiari malformation type I (CMS/HCC) (HCC) (Primary Dx) 04/23/2024 Orders Only [facility] [address] [place] [address] Ian Bell from Last 3 Months Social History Tobacco Use Types Packs/Day Years Used Date Smoking Tobacco: Never Assessed Comments Unknown Sex and Gender Information Value Date Recorded Sex Assigned at Female 2024 1:19 PM EST Legal Sex Female 8:24 AM EST Gender Identity Female 04/26/2024 7:17 PM EST Sexual Orientation Bisexual 04/26/2024 7: 17 PM EST Last Filed Vital Signs Vital Sign Reading Time Taken Comments Blood Pressure 170/100 04/27/2024 2:11 PM EST Pulse 60 04/27/2024 2:11 PM EST Temperature - - Respiratory Rate 18 04/27/2024 2:11 PM EST Oxygen Saturation 100% 04/27/2024 2:11 PM EST Inhaled Oxygen Concentration - - Weight - - Height - - Body Mass Index - - Plan of Treatment Health Maintenance Due Date Last Done Comments HIV Screening 1997 Hepatitis C Screening 1997 Pap Smear 1997 Varicella Vaccines (1 of 2 - 13+ 2-dose series) 2010 Hepatitis B Vaccines (1 of 3 - 19+ 3-dose series) 2016 DTaP,Tdap,and Td Vaccines (1 - Tdap) 2019 COVID-19 Vaccine (3 - 2023-2 5 season) 2023 08/02/2020, 07/05/2020 Influenza Vaccine (#1) 2023 02/15/2019 Alcohol/Substance Use Screening 03/31/2024 Depression Screening and Follow-Up 03/31/2024 Social Drivers of Health Annual Screening 03/31/2024 RSV Vaccine (60+ years old and patients) (1 - 1-dose 75+ series) 2072 Pneumococcal Vaccine: Pediatric (0-5 Years) and At-Risk Patients (6-64 Years) Aged Out No longer eligible based on patient's age to complete this topic Procedures * Due to [place] [employer] law, this organization might not be sharing negative HIV tests. Procedure Name Priority Date/Time Associated Diagnosis Comments AMB EXTERNAL MRI BRAIN, OUTSIDE RESULT Routine 03/10/2024 3:01 PM EST from Last 3 Months Results * Due to [place] [employer] law, this organization might not be sharing negative HIV tests. * MRI Brain, Outside Result (03/10/2024 3:01 PM EST) Anatomical Region Laterality Modality Other Ian Bell AMB EXTERNAL RESULT PROCEDU RES Final Result from Last 3 Months Insurance [facility] Care Teams Electric Repair Supervisor Relationship Specialty Start Date End Date Ian Bell [address] [place] [address] PCP - General 04/22/24
--- OUTSIDE RECORDS SUMMARY | 2024-04-29 17:34 | XMS_ITS | Referral Summary ---
Author Organization [facility] Address [address] [place] [address] Care Team Providers Care Hadoop Admin Name Role Phone Ian Bell Primary Care Provider Encounters Date Type Department Care Team Description 04/27/2024 2:30 PM EST Office Visit [facility] [address] [place] [address] Pro Mendoza MD Chiari malformation type I (CMS/HCC) (HCC) (Primary Dx) 04/23/2024 Orders Only [facility] [address] [place] [address] Ian Bell from Last 3 Months Social [...] Mass Index - - Plan of Treatment Not on file Procedures * Due to [place] state law, this organization might not be sharing negative HIV tests. Procedure Name Priority Date/Time Associated Diagnosis Comments AMB EXTERNAL MRI BRAIN, OUTSIDE RESULT Routine 03/10/2024 3:01 PM EST from Last 3 Months Results * Due to [place] state law, this organization might not be sharing negative HIV tests. * MRI Brain, Outside Result (03/10/2024 3:01 PM EST) Anatomical Region Laterality Modality Other Ian Bell AMB EXTERNAL RESULT PROCEDU RES Final Result from Last 3 Months Insurance [address] [place] [address] [facility] Care Teams Hadoop Admin Relationship Specialty Start Date End Date Ian Bell [facility] [place] [address] PCP - General 04/22/24
--- OUTSIDE RECORDS SUMMARY | 2024-04-29 17:34 | XMS_ITS | Encounter Summary ---
Author Organization [facility] Address [address] [place] [address] Care Team Providers Care Collar Setter Name Role Phone Ian Bell Primary Care Provider [phone] Encounter Details Date Type Department Care Team (Late st Contact Info) Description 04/23/2024 Orders Only [facility] [address] [place] [address] Ian Bell [address] [place] [address] Social History Tobacco Use Types Packs/Day Years [...] on file documented as of this encounter Procedures * Due to [place] [employer] law, this organization might not be sharing negative HIV tests. Procedure Name Priority Date/Time Associated Diagnosis Comments AMB EXTERNAL MRI BRAIN, OUTSIDE RESULT Routine 03/10/2024 3:01 PM EST documented in this encounter Results * Due to [place] [employer] law, this organization might not be sharing negative HIV tests. * MRI Brain, Outside Result (03/10/2024 3:01 PM EST) Anatomical Region Laterality Modality Other us Ian Bell AMB EXTERNAL RESULT PROCEDU RES Final Result documented in this encounter Visit Diagnoses Not on filedocumented in this encounter Care Teams Collar Setter Relationship Specialty Start Date End Date Ian Bell [address] [place] [address] PCP - General 04/22/24 documented as of this encounter
--- OUTSIDE RECORDS SUMMARY | 2024-04-29 17:34 | XMS_ITS | Clinical Summary ---
Author Organization [facility] Address [address] [place] [address] Phone Care Team Providers Care Head Animal Keeper Name Role Phone Nick Lauren Primary Care Provider [phone] Family History Relation Name Status Comments Father Father: Asthma Other Family history of Diabetes mellitus Sister Sister: Asthma Social History Tobacco Use Types Packs/Day Years Used Date Smoking Tobacco: Never Assessed Comments Unknown Sex and Gender Information Value Date Recorded Sex Assigned at Not on file Legal Sex Female 4:26 PM EDT Gender Identity Not on file Sexual Orientation Not on file Plan of Treatment Health Maintenance Due Date Last Done Comments MMR Vaccines (1 of 1 - Stand hannah series) 1998 Varicella Vaccines (1 of 2 - 13+ 2-dose series) 2010 DTaP,Tdap,and Td Vaccines (1 - Tdap) 2015 Hepatitis B Vaccines (1 of 3 - 19+ 3-dose series) 2016 Influenza Vaccines (#1) 2023 COVID-19 Vaccine ( - 2023-2 5 season) 2023 HIB Vaccines Aged Out No longer eligi ble based on patient's age to complete this topic HPV Vaccines Aged Out No longer eligi ble based on patient's age to complete this topic Hepatitis A Vaccines Aged Out No long er eligible based on patient's age to complete this topic IPV Vaccines Aged Out No longer eligi ble based on patient's age to complete this topic Men B Vaccine Aged Out No longer elig ible based on patient's age to complete this topic Meningococcal Vaccine Aged Out No erik sebastián eligible based on patient's age to complete this topic Pneumococcal Vaccine Aged Out No long er eligible based on patient's age to complete this topic Care Teams Head Animal Keeper Relationship Specialty Start Date End Date Nick Lauren [address] [place] [address] PCP - General 11/08/16
--- OUTSIDE RECORDS SUMMARY | 2024-04-29 17:34 | XMS_ITS | Encounter Summary ---
Author Organization [facility] Address [address] [place] [address] Care Team Providers Care River Captain Name Role Phone Ian Bell Primary Care Provider [phone] Reason for Visit * Consultation (Routine) - Authorized Specialty Diagnoses / Procedures Referred By Contac t Referred To Contact Neurosurgery Diagnoses Compression of brain (CMS/HCC) (HCC) [facility] [address] [place] [address] Phone: tel: fax: Referral ID Status Reason Start Date Expiration Date V isits Requested Visits Authorized [id number] Authorized 04/21/2024 10/21/2025 6 6 Encounter Details Date Type Department Care Team (Latest Contact Info) Description 04/27/2024 2:30 PM EST Office Visit [facility] [address] [address] Pro Mendoza MD [address] [place] [address] [phone] Chiari malformation type I (CMS/HCC) (HCC) (Primary Dx) Social History Tobacco Use Types Packs/Day Years Used Date Smoking Tobacco: Never Assessed Comments Unknown Sex and Gender Information Value Date Recorded Sex Assigned at Female 2024 1:19 PM EST Legal Sex Female 8:24 AM EST Gender Identity Female 04/26/2024 7:17 PM EST Sexual Orientation Bisexual 04/26/2024 7: 17 PM EST documented as of this encounter Last Filed Vital Signs Vital Sign Reading Time Taken Comments Blood Pressure 170/100 04/27/2024 2:11 PM EST Pulse 60 04/27/2024 2:11 PM EST Temperature - - Respiratory Rate 18 04/27/2024 2:11 PM EST Oxygen Saturation 100% 04/27/2024 2:11 PM EST Inhaled Oxygen Concentration - - Weight - - Height - - Body Mass Index - - documented in this encounter Progress Notes * Pro Mendoza MD - 04/27/2024 2:28 PM EST HISTORY OF PRESENT ILLNESS: Ms. Stewart is a 29yo female who presents with a history of multiple nonspecific neurological symptoms. She particularly complains of significant mood swings throughout the day. She underwent an MRI that questioned a Chiari I malformation. REVIEW OF SYSTEM: EYES: No visual complaints HEENT: Normocephallic Cardiovascular: No Chest pain, dyspnea, dyspnea on exertion, paroxysmal nocturnal dyspnea, orthopnea Respiratory: No cough, wheezing, or shortness of breath Gastrointestinal: No nausea, vomiting, diarrhea, or abdominal pain Urinary: No hematuria, dysuria, urgency, frequency, or nocturia Musculoskeletal: No musculoskeletal pain, weakness, or stiffness Neurologic: Multiple nonspecific neurologic complaints, particularly mood swings Skin: No lesions or rashes Psychiatric: No depression, anxiety, or sleep disturbance All other systems are negative. NEURO: On examination the patient is a well-nourished female in no acute distress. Awake alert and oriented. Speech is fluent. Pupils equal round reactive to light. Extraocular muscles intact. Visual diaz full to confrontation. Facial sensation intact. Face symmetric. Palate elevates symmetrically. Uvula midline. Symmetric shoulder shrug. Tongue midline. Moves all extremities to command. Full strength. No drift. Sensation intact to light touch. No dysmetria. ASSESSMENT AND RECOMMENDATIONS: This is a 29y.o. female who presents with with an MRI questioning Chiari I malformation. I personally viewed the imaging. The right cerebellar tonsil approximates the foramen magnum on a single sagittal slice on the MRI. There is no evidence of Chiari I malformation. There is no evidence of brainstem compression. There is no evidence of syringobulbia. There is no structural abnormality to explainthe patient's multiple symptoms. There is no need for neurosurgical intervention. The patient tellsme that she was recently diagnosed with epilepsy on a spot EEG. I have referred her for a 24-hour EEG and formal evaluation by neurology. No need for neurosurgical follow-up. I am happy to see the patient in the future should questions or concerns arise. I spent a total of 30 minutes on the date of encounter, which included: ?? Preparing to see the patient (e.g., review of test results) ?? Obtaining and/or reviewing separately obtained history ?? Performing a medically appropriate exam and/or evaluation ?? Counseling and educating the patient/family/caregiver ?? Ordering medications, tests, procedures ?? Documenting clinical information in the health record ?? Independently interpreting results (not separately reported) and communicating results to the patient/family/caregiver Pro Mendoza MD [facility] Department of Neurological Surgery documented in this encounter Plan of Treatment Not on file documented as of this encounter Visit Diagnoses Diagnosis Chiari malformation type I (CMS/HCC) (HCC)- Primary Compression of brain documented in this encounter Care Teams River Captain Relationship Specialty Start Date End Date Ian Bell [place] [address] PCP - General 04/22/24 documented as of this encounter
--- OUTSIDE RECORDS SUMMARY | 2024-04-29 17:34 | XMS_ITS | Clinical Summary ---
Author Organization [facility] Address [address] [place] [address] Care Team Providers Care High School Professional Name Role Phone Ian Bell MD Primary Care Provider [phone] Kerwin Joyce PA-C Unavailable [phone] Allergies No known active allergies Medications Medication Sig Dispensed Refills Start Date End Date Status cetirizine (ZyrTEC) 10 MG chewable tablet Chew 1 tablet (10 mg total) daily. Active FLUoxetine (PROzac) 10 MG capsule Take 1 capsule (10 mg total) by mouth daily. Active metoCLOPRAMIDE (REGLAN) 5 mg/5 mL oral solution Take by mouth. Active norethindrone (MICRONOR) 0.35 MG tablet Take 1 tablet (0.35 mg total) by mouth daily. Active PANTOprazole (PROTONIX) 20 MG tablet Take 1 tablet (20 mg total) by mouth every morning before breakfast. Active prednisoLONE acetate (PRED FORTE) 1 % ophthalmic suspension 1 drop 4 (four) times a day. Active sucralfate (CARAFATE) 1 g tablet Take 1 tablet (1 g total) by mouth 4 (four) times a day before meals and nightly. On an empty stomach. Active verapamil (CALAN) 120 MG tablet Take 1 tablet (120 mg total) by mouth 3 (three) times a day. Active montelukast (SINGULAIR) 10 MG tablet Take 1 tablet (10 mg total) by mouth nightly. Active midodrine (ProAmatine) 5 MG tabletIndications:O rthostatic intolerance Take 1 tablet (5 mg total) by mouth 3 (three) times a day. Take during daytime hours upon waking then every 4 hours. 3 doses per day. 90 tablet 5 01/09/2024 07/07/2024 Active propranolol (INDERAL) 20 MG tabletIndications:O rthostatic intolerance Take 1 tablet (20 mg total) by mouth 2 (two) times a day. As discussed at last visit 60 tablet 5 01/09/2024 07/07/2024 Active Social History Tobacco Use Types Packs/Day Years Used Date Smoking Tobacco: Never Assessed Sex and Gender Information Value Date Recorded Sex Assigned at Female 01/08/2024 8:17 PM EDT Gender Identity Not on file Sexual Orientation Bisexual 01/08/2024 8: 17 PM EDT Last Filed Vital Signs Vital Sign Reading Time Taken Comments Blood Pressure 138/80 12/10/2023 1:47 PM EDT Pulse 106 12/10/2023 1:46 PM EDT Temperature - - Respiratory Rate - - Oxygen Saturation 96% 12/10/2023 1:46 PM EDT Inhaled Oxygen Concentration - - Weight 84.5 kg (186 lb 3.2 oz) 12/10/2023 1:46 P M EDT Height - - Body Mass Index - - Plan of Treatment Upcoming Encounters Date Type Department Care Team (Late st Contact Info) Description 05/25/2024 3:00 PM EST Appointment [facility] [place] [facility] - Cardiology [address] [place] [address] Kerwin Joyce PA-C [address] [place] [address] Health Maintenance Due Date Last Done Comments Hepatitis C Virus Screening 1997 HIV Screening 2010 DTaP/Tdap/Td Vaccines (1 - Tdap) 2016 Hepatitis B Vaccines (1 of 3 - 19+ 3-dose series) 2016 Pap Smear (Ages 21-65) 2018 Influenza Vaccine 10/30/2023 COVID-19 Vaccine ( - 2023-2 5 season) 2023 HPV Vaccines Aged Out No longer eligi ble based on patient's age to complete this topic Pneumococcal Vaccine: Pediat farhat (0-5 Years) and At-Risk Patients (6 to 49 Years) Aged Out No longer eligible b ased on patient's age to complete this topic Care Teams High School Professional Relationship Specialty Start Date End Date Ian Bell MD [address] [place] [address] [place] [address] PCP - General Family Medicine 11/13/23 Kerwin Joyce PA-C [address] [place] [address] Physician Multimedia Teacher Cardiac Electrophysiology 04/21/24
== END 2024-04-29 13:43 | disposition home or self-care (01) ==
LOC: HO.CT 13:42
PROVIDERS: PCP Nurse Practitioner Family; Visit Provider Nurse Practitioner Family
DX: R10.33 Periumbilical pain (principal)
CPT/HCPCS: 74176

== ENCOUNTER → 2024-04-29 13:44 | Outpatient (BNV) | payer OTHER, SELFPAY | PROVIDERS: PCP Nurse Practitioner Family; Visit Provider Radiology Diagnostic Radiology | DX: R10.33 Periumbilical pain (principal) | CPT/HCPCS: 74176 ==

== ENCOUNTER 2024-05-19 13:23 | Outpatient (AMB) | payer OTHER, SELFPAY ==
[2024-05-19 13:25] VITALS: BMI 30.6
--- NOTE | 2024-05-19 13:25 | A.OFFVIS_ITS ---
Vital Signs 05/19/24 13:25 Height 5 ft 2 in Weight 167 lb 4 oz BMI 30.6 Intake Visit Reasons: Periumbilical pain Intake Note: This patient presents for Periumbilical pain. Pt c/o; thumb size lump periumbilical region, felt more when standing upright, pain, she has loss significant amount of weight; excessive skin. Imagin04/29/2024- Abd/pelvis CT Investigator Claims Required: No Accompanied by: Life Partner Allergies No Known Allergies [No Known Allergies*] Allergy (Verified 05/19/24 13:35) HPI HPI Periumbilical pain: Details: 29 year old female here for periumbilical pain She had undergone laparoscopic cholecystectomy for biliary dyskinesia with Dr. Aguilar last year. She says that she has had pain to the left of umbilicus since that time. She says that sometimes this is severe especially when she is moving. She also has multiple other medical issues including Chiari malformation, seizure disorder, unexplained weight loss and poor appetite. She admits to anxiety and depression. She denies GI complaints. She denies any mass on the umbilicus. [facility] Medical History (Updated 05/19/24 @ 13:52 by Josh Thayer MD) Periumbilical pain COVID-19 Back pain Difficulty swallowing Vomiting and diarrhea History of headache Weakness Numbness Witnessed seizure-like activity Cough Chest pain HTN (hypertension) POTS (postural orthostatic tachycardia syndrome) Fibromyalgia History of cardiac murmur as a child RUQ pain Asthma Surgical History Hx laparoscopic cholecystectomy (01/08/24) H/O hand surgery History of wisdom tooth extraction Family History Paternal Grandmother History of ovarian cancer Mental health disorder Paternal Grandfather History of melanoma Father Mental health disorder Mother Mental health disorder Sister Mental health disorder Other Family history of autoimmune disorder Social History Housing: Condominium Are you a primary childcare center director to a significant other at home: No Do you presently have visiting nurse or other home services: No Alcohol intake: never Patient Tobacco Use Status: Never used Tobacco e-Cigarette/Vaping Use: Never Used Second Hand Smoke Exposure: No Substance Use Type: Marijuana service: No Current occupational status: employed 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 Current occupational exposures/hazards: No Gender identity: Female Cognitive needs: No Hearing needs: No Vision needs: Yes Female Reproductive History Menstrual Age of Menarche: 13 Review of Systems Const Denies chills and Denies fever(s) Card Denies chest pain, Denies dyspnea and Denies dyspnea on exertion Resp Denies cough, Denies dyspnea and Denies dyspnea on exertion GI Denies hematochezia and Denies change in bowel habits Denies hematuria Musc Denies back pain and Denies limited range of motion Neuro Denies focal weakness and Denies convulsions Psych Reports depression and Denies mood swings Physical Exam Vital Signs: BMI result Body Mass Index 30.6 Const General: comfortable and no acute distress Orientation/consciousness: patient oriented x3 Neck Neck: Yes no lymphadenopathy Resp Auscultation: clear to auscultation bilaterally Cardio Rhythm: regular rhythm GI Other: No palpable hernia on the umbilicus even with Valsalva, she points to some tenderness to the left of the umbilical area, no palpable mass Palpation (GI): Soft to palpation, nontender and no guarding Neuro General: patient oriented x3 Assessment & Plan Assessment & Plan (1) Periumbilical pain: Code(s): R10.33 - Periumbilical pain Category: Medical Plan: She describes pain on the left side of her umbilicus as above. I have reviewed her CAT scan done last month. I do not see any hernia. There was note of some inflammatory changes to the left of the umbilicus on the rectus. However I do not see any mass. There were no intra-abdominal pathology that I can see I told her that it does not appear that she has any surgical issue at this time. I would not recommend doing any hernia repair either She can take some pain medications and do some warm compresses on the area in view of the presence of some inflammatory changes. I can see her again in the office for a follow up in about a month to see how she is doing. She and her were comfortable with the plan above. Coding Level of Care Code New Pt Level 3 (81578) Diagnoses Periumbilical pain R10.33
--- OUTSIDE RECORDS SUMMARY | 2024-05-19 13:41 | XMS_ITS | Encounter Summary ---
Author Organization [facility] Address [address] [place] [address] Phone Care Team Providers Care Breaker Machine Tender Name Role Phone Nick Lauren Primary Care Provider [phone] Encounter Details Date Type Department Care Team (Late st Contact Info) Description 11/14/2016 Conversion Encounter [place] - [address] [address] Social History Tobacco Use Types Packs/Day Years [...] on filedocumented in this encounter Care Teams Breaker Machine Tender Relationship Specialty Start Date End Date Nick Lauren [address] [place] [address] PCP - General 11/08/16 documented as of this encounter
--- OUTSIDE RECORDS SUMMARY | 2024-05-19 13:41 | XMS_ITS | Encounter Summary ---
Author Organization [facility] Address [address] [place] [address] Care Team Providers Care Clinical Documentation Improvement Specialist Name Role Phone Ian Bell Primary Care Provider [phone] Reason for Visit * Consultation (Routine) - Authorized Specialty Diagnoses / Procedures Referred By Contac t Referred To Contact Neurosurgery Diagnoses Compression of brain (CMS/HCC) (HCC) [facility] [address] [place] [address] Phone: tel: fax: Referral ID Status Reason Start Date Expiration Date V isits Requested Visits Authorized [id number] Authorized 04/21/2024 10/21/2025 6 6 Encounter Details Date Type Department Care Team (Latest Contact Info) Description 04/27/2024 2:30 PM EST Office Visit [facility] Neurosurgery [address] [address] Pro Mendoza MD [address] [place] [address] [phone] Chiari malformation type I (CMS/HCC) (HCC) (Primary [...] the patient/family/caregiver Pro Mendoza MD [facility] Department of Neurological Surgery documented in this encounter Plan of Treatment Not on file documented as of this encounter Visit Diagnoses Diagnosis Chiari malformation type I (CMS/HCC) (HCC)- Primary Compression of brain documented in this encounter Care Teams Clinical Documentation Improvement Specialist Relationship Specialty Start Date End Date Ian Bell [facility] [place] [address] PCP - General 04/22/24 documented as of this encounter
--- OUTSIDE RECORDS SUMMARY | 2024-05-19 13:41 | XMS_ITS | Encounter Summary ---
Author Organization [facility] Address [address] [place] [address] Care Team Providers Care It Compliance Analyst Name Role Phone Ian Bell Primary Care Provider Encounter Details Date Type Department Care Team (Late st Contact Info) Description 01/15/2024 Orders Only [facility] - External Imaging [address] [place] [address] Radiology, External [address] [place] [address] Social History Tobacco Use Types Packs/Day Years [...] on filedocumented in this encounter Care Teams It Compliance Analyst Relationship Specialty Start Date End Date Ian Bell [address] [place] [address] PCP - General 04/22/24 documented as of this encounter
--- OUTSIDE RECORDS SUMMARY | 2024-05-19 13:41 | XMS_ITS | Clinical Summary ---
Author Organization [facility] Address [address] [place] [address] Care Team Providers Care Courier Driver Name Role Phone Ian Bell Primary Care Provider Encounters Date Type Department Care Team Description 04/27/2024 2:30 PM EST Office Visit [facility] [address] [place] [address] Pro Mendoza MD Chiari malformation type I (CMS/HCC) (HCC) (Primary Dx) 04/23/2024 Orders Only [facility] [address] [place] [address] Ian Bell from Last 3 Months Social [...] Vaccine: Pediatric (0-5 Years) and At-Risk Patients (6-50 Years) Aged Out No longer eligible based on patient's age to complete this topic Procedures * Due to [facility] law, this organization might not be sharing negative HIV tests. Procedure Name Priority Date/Time Associated Diagnosis Comments AMB EXTERNAL MRI BRAIN, OUTSIDE RESULT Routine 03/10/2024 3:01 PM EST from Last 3 Months Results * Due to [facility] law, this organization might not be sharing negative HIV tests. * MRI Brain, Outside Result (03/10/2024 3:01 PM EST) Anatomical Region Laterality Modality Other Ian Bell AMB EXTERNAL RESULT PROCEDU RES Final Result from Last 3 Months Insurance [facility] Care Teams Courier Driver Relationship Specialty Start Date End Date Ian Bell [address] [place] [address] PCP - General 04/22/24
--- OUTSIDE RECORDS SUMMARY | 2024-05-19 13:41 | XMS_ITS | Clinical Summary ---
Author Organization [facility] Address [address] [place] [address] Phone Care Team Providers Care Fire Department Battalion Chief Name Role Phone Nick Lauren Primary Care Provider [phone] Family History Relation Name Status Comments Father [...] age to complete this topic Care Teams Fire Department Battalion Chief Relationship Specialty Start Date End Date Nick Lauren [address] [place] [address] PCP - General 11/08/16
--- OUTSIDE RECORDS SUMMARY | 2024-05-19 13:41 | XMS_ITS | Encounter Summary ---
Author Organization [facility] Address [address] [place] [address] Care Team Providers Care Laborer Carpentry Dock Name Role Phone Ian Bell Primary Care Provider Encounter Details Date Type Department Care Team (Late st Contact Info) Description 04/23/2024 Orders Only [facility] Neurosurgery Clinic [address] [place] [address] Ian Bell [address] [place] [address] Social History Tobacco Use Types Packs/Day Years [...] of this encounter Procedures * Due to [place] [employer] law, this organization might not be sharing negative HIV tests. Procedure Name Priority Date/Time Associated Diagnosis Comments AMB EXTERNAL MRI BRAIN, OUTSIDE RESULT Routine 03/10/2024 3:01 PM EST documented in this encounter Results * Due to [place] [employer] law, this organization might not be sharing negative HIV tests. * MRI Brain, Outside Result (03/10/2024 3:01 PM EST) Anatomical Region Laterality Modality Other us Ian Bell AMB EXTERNAL RESULT PROCEDU RES Final Result documented in this encounter Visit Diagnoses Not on filedocumented in this encounter Care Teams Laborer Carpentry Dock Relationship Specialty Start Date End Date Ian Bell [address] [place] [address] PCP - General 04/22/24 documented as of this encounter
--- OUTSIDE RECORDS SUMMARY | 2024-05-19 13:41 | XMS_ITS | Referral Summary ---
Author Organization [facility] Address [address] [place] [address] Care Team Providers Care Roll Line Operator Name Role Phone Ian Bell Primary Care Provider Encounters Date Type Department Care Team Description 04/27/2024 2:30 PM EST Office Visit [facility] [address] [place] [address] Pro Mendoza MD Chiari malformation type I (CMS/HCC) (HCC) (Primary Dx) 04/23/2024 Orders Only [facility] Neurosurgery [facility] [address] [place] [address] Ian Bell from Last 3 Months Social [...] Not on file Procedures * Due to [place] state law, this organization might not be sharing negative HIV tests. Procedure Name Priority Date/Time Associated Diagnosis Comments AMB EXTERNAL MRI BRAIN, OUTSIDE RESULT Routine 03/10/2024 3:01 PM EST from Last 3 Months Results * Due to [place] state law, this organization might not be sharing negative HIV tests. * MRI Brain, Outside Result (03/10/2024 3:01 PM EST) Anatomical Region Laterality Modality Other Ian Bell AMB EXTERNAL RESULT PROCEDU RES Final Result from Last 3 Months Insurance [address] [place] [address] [facility] Care Teams Roll Line Operator Relationship Specialty Start Date End Date Ian Bell [facility] [place] [address] PCP - General 04/22/24
--- OUTSIDE RECORDS SUMMARY | 2024-05-19 13:41 | XMS_ITS | Clinical Summary ---
Author Organization [facility] Address [address] [place] [address] Care Team Providers Care Boilermaker Helper Name Role Phone Ian Bell MD Primary Care Provider [phone] Kerwin Joyce PA-C Unavailable [phone] Allergies No known active allergies Medications Medication [...] Info) Description 05/25/2024 3:00 PM EST Appointment [facility] Heart & Vascular [place] [facility] - Cardiology [address] [place] [address] Kerwin Joyce PA-C [address] [place] [address] Health Maintenance Due Date Last Done Comments [...] age to complete this topic Care Teams Boilermaker Helper Relationship Specialty Start Date End Date Ian Bell MD [address] [place] [address] [place] [address] PCP - General Family Medicine 11/13/23 Kerwin Joyce PA-C [address] [place] [address] Physician Manager House Cardiac Electrophysiology 04/21/24
== END 2024-05-19 13:48 | disposition home or self-care (01) ==
PROVIDERS: PCP Nurse Practitioner Family; Visit Provider Surgery
DX: R10.33 Periumbilical pain (principal)
CPT/HCPCS: 99203

== ENCOUNTER → 2024-05-19 13:23 | Outpatient (BNVA) | payer OTHER, SELFPAY | PROVIDERS: PCP Nurse Practitioner Family; Visit Provider Surgery ==

== ENCOUNTER 2024-05-27 07:37 | Outpatient (AMB) | payer OTHER, SELFPAY ==
--- OUTSIDE RECORDS SUMMARY | 2024-05-27 07:41 | XMS_ITS | Clinical Summary ---
Author Organization [facility] Address [address] [place] [address] Phone Care Team Providers Care Diversity Intern Name Role Phone Nick Lauren Primary Care Provider [phone] Family History Relation Name Status Comments Father [...] age to complete this topic Care Teams Diversity Intern Relationship Specialty Start Date End Date Nick Lauren [address] [place] [address] PCP - General 11/08/16
--- OUTSIDE RECORDS SUMMARY | 2024-05-27 07:41 | XMS_ITS | Encounter Summary ---
Author Organization [facility] Address [address] [place] [address] Care Team Providers Care Sex Worker Or Escort Name Role Phone aIn Bell Primary Care Provider [phone] Reason for Visit * Consultation (Routine) - Authorized Specialty Diagnoses / Procedures Referred By Contac t Referred To Contact Neurosurgery Diagnoses Compression of brain (CMS/HCC) (HCC) [facility] Neurosurgery Clinic [address] [place] [address] Phone: tel: fax: Referral ID Status Reason Start Date Expiration Date V isits Requested Visits Authorized [id number] Authorized 04/21/2024 10/21/2025 6 6 Encounter Details Date Type Department Care Team (Latest Contact Info) Description 04/27/2024 2:30 PM EST Office Visit [facility] Neurosurgery [address] [address] Pro Mendoza MD [address] [place] [address] [phone] Chiari malformation type I (CMS/HCC) (HCC) (Primary [...] the patient/family/caregiver Pro Mendoza MD [facility] Department of Neurological Surgery documented in this encounter Plan of Treatment Not on file documented as of this encounter Visit Diagnoses Diagnosis Chiari malformation type I (CMS/HCC) (HCC)- Primary Compression of brain documented in this encounter Care Teams Sex Worker Or Escort Relationship Specialty Start Date End Date Ian Bell [facility] [place] [address] PCP - General 04/22/24 documented as of this encounter
--- OUTSIDE RECORDS SUMMARY | 2024-05-27 07:41 | XMS_ITS | Encounter Summary ---
Author Organization [facility] Address [address] [place] [address] Care Team Providers Care Car Coupler Name Role Phone Ian Bell MD Primary Care Provider [phone] Kerwin Joyce PA-C Unavailable + [phone] Encounter Details Date Type Department Care Team (Latest Contact Info) Description 05/25/2024 Travel Social History Tobacco Use Types Packs/Day Years Used Date Smoking Tobacco: Unknown Sex and Gender Information Value Date Recorded Sex Assigned at Female 01/08/2024 8:17 PM EDT Gender Identity Not on file Sexual Orientation Bisexual 01/08/2024 8: 17 PM EDT documented as of this encounter Plan of Treatment Upcoming Encounters Date Type Department Care Team (Late st Contact Info) Description 06/01/2025 2:30 PM EST Appointment [facility] Heart & Vascular [place] [facility] - Cardiology [address] [place] [address] Kerwin Joyce PA-C [address] [place] [address] documented as of this encounter Visit Diagnoses Not on filedocumented in this encounter Care Teams Car Coupler Relationship Specialty Start Date End Date Ian Bell MD [address] [facility] [address] [place] [address] PCP - General Family Medicine 11/13/23 Kerwin Joyce PA-C [address] [place] [address] Physician Ladler Cardiac Electrophysiology 04/21/24 documented as of this encounter
--- OUTSIDE RECORDS SUMMARY | 2024-05-27 07:41 | XMS_ITS | Clinical Summary ---
Author Organization [facility] Address [address] [place] [address] Care Team Providers Care Oven Dauber Name Role Phone Ian Bell Primary Care Provider Encounters Date Type Department Care Team Description 04/27/2024 2:30 PM EST Office Visit [facility] Neurosurgery Clinic [address] [place] [address] Pro Mendoza MD Chiari malformation type I (CMS/HCC) (HCC) (Primary Dx) 04/23/2024 Orders Only [facility] Neurosurgery Clinic [address] [place] [address] Ian Bell from Last 3 Months Social [...] complete this topic Procedures * Due to [place] [employer] law, this organization might not be sharing negative HIV tests. Procedure Name Priority Date/Time Associated Diagnosis Comments AMB EXTERNAL MRI BRAIN, OUTSIDE RESULT Routine 03/10/2024 3:01 PM EST from Last 3 Months Results * Due to [place] [employer] law, this organization might not be sharing negative HIV tests. * MRI Brain, Outside Result (03/10/2024 3:01 PM EST) Anatomical Region Laterality Modality Other Ian Bell AMB EXTERNAL RESULT PROCEDU RES Final Result from Last 3 Months Insurance [facility] Care Teams Oven Dauber Relationship Specialty Start Date End Date Ian Bell [address] [place] [address] PCP - General 04/22/24
--- OUTSIDE RECORDS SUMMARY | 2024-05-27 07:41 | XMS_ITS | Referral Summary ---
Author Organization [facility] Address [address] [place] [address] Care Team Providers Care Metal Sprayer Machined Parts Name Role Phone Ian Bell Primary Care Provider [phone] Encounters Date Type Department Care Team Description 04/27/2024 2:30 PM EST Office Visit [facility] Neurosurgery Clinic [address] [place] [address] Pro Mendoza MD Chiari malformation type I (CMS/HCC) (HCC) (Primary Dx) 04/23/2024 Orders Only [facility] Neurosurgery Clinic [address] [place] [address] Ian Bell from Last 3 Months Social [...] Not on file Procedures * Due to [place] state law, this organization might not be sharing negative HIV tests. Procedure Name Priority Date/Time Associated Diagnosis Comments AMB EXTERNAL MRI BRAIN, OUTSIDE RESULT Routine 03/10/2024 3:01 PM EST from Last 3 Months Results * Due to [place] state law, this organization might not be sharing negative HIV tests. * MRI Brain, Outside Result (03/10/2024 3:01 PM EST) Anatomical Region Laterality Modality Other Ian Bell AMB EXTERNAL RESULT PROCEDU RES Final Result from Last 3 Months Insurance [address] [place] [address] [facility] Care Teams Metal Sprayer Machined Parts Relationship Specialty Start Date End Date Ian Bell [facility] [place] [address] PCP - General 04/22/24
--- OUTSIDE RECORDS SUMMARY | 2024-05-27 07:41 | XMS_ITS | Clinical Summary ---
Author Organization [facility] Address [address] [place] [address] Care Team Providers Care Breaker Up Name Role Phone Ian Bell MD Primary Care Provider + [phone] Kerwin Joyce PA-C Unavailable [phone] Allergies No known active allergies Medications Medication [...] visit 60 tablet 5 01/09/2024 07/07/2024 Active divalproex er (DEPAKOTE ER) 250 MG 24 hr tablet 1 tablet (250 mg total) by Mouth/Oral Cavity route every 12 hours. 04/01/2024 Active triamcinolone (NASACORT AQ) 55 MCG/ACT Aerosol nasal spray 1 spray into each nostril 2 times a day. 04/19/2024 Active Encounters Date Type Department Care Team Description 05/25/2024 2:58 PM EST - 05/25/2024 11:59 PM EST Hospital Encounter [facility] Heart & Vascular [place] at [address] [phone] Kerwin Joyce PA-C Follow-up Discharge Disposition: Home or Self Care 05/25/2024 Travel from Last 3 Months Social History Tobacco Use Types Packs/Day Years Used Date Smoking Tobacco: Unknown Sex and Gender Information Value Date Recorded Sex Assigned at Female 01/08/2024 8:17 PM EDT Gender Identity Not on file Sexual Orientation Bisexual 01/08/2024 8: 17 PM EDT Last Filed Vital Signs Vital Sign Reading Time Taken Comments Blood Pressure 141/76 05/25/2024 3:06 PM EST Pulse 68 05/25/2024 3:06 PM EST Temperature - - Respiratory Rate - - Oxygen Saturation 99% 05/25/2024 3:06 PM EST Inhaled Oxygen Concentration - - Weight 78.9 kg (174 lb) 05/25/2024 3:06 PM EST Height - - Body Mass Index - - Plan of Treatment Upcoming Encounters Date Type Department Care Team (Late st Contact Info) Description 06/01/2025 2:30 PM EST Appointment [facility] Heart & Vascular [place] [facility] Cardiology [address] [place] [address] Kerwin Joyce PA-C [address] [place] [address] Health Maintenance Due Date Last Done Comments Hepatitis C Virus Screening 1997 HIV Screening 2010 DTaP/Tdap/Td Vaccines (1 - Tdap) 2016 Hepatitis B Vaccines (1 of 3 - 19+ 3-dose series) 2016 Pap Smear (Ages 21-65) 2018 Influenza Vaccine 10/30/2023 COVID-19 Vaccine (1 - 2023-2 5 season) 2023 HPV Vaccines Aged Out No longer eligi ble based on patient's age to complete this topic Pneumococcal Vaccine: Pediat farhat (0-5 Years) and At-Risk Patients (6 to 49 Years) Aged Out No longer eligible b ased on patient's age to complete this topic Care Teams Breaker Up Relationship Specialty Start Date End Date Ian Bell MD [address] [facility] [place] [address] PCP - General Family Medicine 11/13/23 Kerwin Joyce PA-C [address] [place] [address] Physician Senior Marketing Engineer Cardiac Electrophysiology 04/21/24
--- OUTSIDE RECORDS SUMMARY | 2024-05-27 07:41 | XMS_ITS | Encounter Summary ---
Author Organization [facility] Address [address] [place] [id number] Care Team Providers Care Nightclub Manager Name Role Phone Ian Bell MD Primary Care Provider + [phone] Kerwin Joyce PA-C Unavailable + [phone] Reason for Visit * Reason Comments Follow-up Encounter Details Date Type Department Care Team (Latest Contact Info) Description 05/25/2024 2:58 PM EST - 05/25/2024 11:59 PM EST Hospital Encounter [facility] Heart & Vascular [place] at [facility] - Cardiology [address] [place] [address] Kerwin Joyce PA-C [address] [place] [address] Follow-up Discharge Disposition: Home or Self Care Social History Tobacco Use Types Packs/Day Years Used Date Smoking Tobacco: Unknown Sex and Gender Information Value Date Recorded Sex Assigned at Female 01/08/2024 8:17 PM EDT Gender Identity Not on file Sexual Orientation Bisexual 01/08/2024 8: 17 PM EDT documented as of this encounter Last Filed [...] Index - - documented in this encounter Medications at Time of Discharge Medication Sig Dispensed Refills Start Date End Date cetirizine (ZyrTEC) 10 MG chewable tablet Chew 1 tablet (10 mg total) daily. divalproex er (DEPAKOTE ER) 250 MG 24 hr tablet 1 tablet (250 mg total) by Mouth/Oral Cavity route every 12 hours. 04/01/2024 FLUoxetine (PROzac) 10 MG capsule Take 1 capsule (10 mg total) by mouth daily. metoCLOPRAMIDE (REGLAN) 5 mg/5 mL oral solution Take by mouth. midodrine (ProAmatine) 5 MG tabletIndications:Ortho static intolerance Take 1 tablet (5 mg total) by mouth 3 (three) times a day. Take during daytime hours upon waking then every 4 hours. 3 doses per day. 90 tablet 5 01/09/2024 07/07/2024 montelukast (SINGULAIR) 10 MG tablet Take 1 tablet (10 mg total) by mouth nightly. norethindrone (MICRONOR) 0.35 MG tablet Take 1 tablet (0.35 mg total) by mouth daily. PANTOprazole (PROTONIX) 20 MG tablet Take 1 tablet (20 mg total) by mouth every morning before breakfast. prednisoLONE acetate (PRED FORTE) 1 % ophthalmic suspension 1 drop 4 (four) times a day. propranolol (INDERAL) 20 MG tabletIndications:Ortho static intolerance Take 1 tablet (20 mg total) by mouth 2 (two) times a day. As discussed at last visit 60 tablet 5 01/09/2024 07/07/2024 sucralfate (CARAFATE) 1 g tablet Take 1 tablet (1 g total) by mouth 4 (four) times a day before meals and nightly. On an empty stomach. triamcinolone (NASACORT AQ) 55 MCG/ACT Aerosol nasal spray 1 spray into each nostril 2 times a day. 04/19/2024 verapamil (CALAN) 120 MG tablet Take 1 tablet (120 mg total) by mouth 3 (three) times a day. documented as of this encounter Progress Notes * Kerwin Joyce PA-C - 05/25/2024 3:00 PM EST Images from the original note were not included. [facility] Cardiac Electrophysiology Office Visit Patient Name Dimple Stewart Date of 1995 Gender female Age 29 y.o. Encounter Date 05/25/2024 Ballet Master/Mistress: Primary Care Physician: Ian Bell MD Referring Physician: Ian Bell MD Reason for Visit Follow-up on management of POTS Assessment & Plan Impression Today, Dimple reports that she had a excellent response to both the increase in propranolol to 20 mg twice daily and initiation of midodrine at 5 mg 3 times daily and reports that she rarely experiences upright dizziness lightheadedness and heart rate has been under excellent control. In office today heart rate is 68 bpm. She recently diagnosed with gastroparesis and will be undergoing diagnostictesting in the near future. She was seen by neurology and neurosurgery for potential Chiari malformation type I and is looking for neurologic specialist for further management. She reports that she has been struggling with appropriate fluid intake, however, based on her report of clinical symptoms,I suspect her current fluid intake is sufficient is supplemental salt and as such did not recommendher changes Recommendations I did not recommend any changes today and will plan on continuing follow-up annually with as neededappointments in between. 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 In brief, she was first diagnosed with POTS in December 2022 soon after surgery of the right upper extremityand approximately 1 to 2 months after kj COVID-19. 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 She has trialed at least 1 beta-joao, metoprolol with whic h she developed significant hypotension and currently is managed with the use of verapamil 120 mg daily with which she tells me that symptoms are not all that improved with the use of verapamil. ECG: SR at 82 bpm; NH interval 144 ms; QRS duration 90 ms; RSR prime in V1/V2 Echocardiogram performed 05/13/2023 revealed normal biventricular structure and function with LVEF of 65% without significant valvulopathy. Left ventricular size in systole 2.49 cm At her first visit that she discontinue verapamil and start propranolol 10 mg twice daily with monitoring of BP and HR. at subsequent visit 01/09/2024 she reported significant improvement in resting HR and palpitations after initiation of propranolol IR 10 mg twice daily. She did note breakthrough palpitations approximately 45 minutes prior to second dose of propranolol and ultimately I recommended she take her second dose 1 hour earlier and to increase to 20 mg per dose. At her last visit I recommended that she increase propranolol to 20 mg twice daily and to start midodrine 5 mg 3 times daily Review of Systems General: negative for fatigue and weight gain HEENT: negative Respiratory: Denies cough, dyspnea on exertion, orthopnea and PND Cor: No exertional chest pain or dyspnea. No palpitations, LH, or syncope GI: No nausea, vomiting, melena, or hematochezia. Heme: No report of bleeding and easy bruising MSK: negative for muscle cramps and myalgias All other systems were reviewed and are negative other than noted in HPI. Home Medications Prior to Admission medications Medication Sig Start Date End Date Taking? Authorizing Provider cetirizine (ZyrTEC) 10 MG chewable tablet Chew 1 tablet (10 mg total) daily. External Provider, FLUoxetine (PROzac) 10 MG capsule Take 1 capsule (10 mg total) by mouth daily. External Provider, metoCLOPRAMIDE (REGLAN) 5 mg/5 mL oral solution Take by mouth. External Provider, midodrine (ProAmatine) 5 MG tablet Take 1 tablet (5 mg total) by mouth 3 (three) times a day. Take during daytime hours upon waking then every 4 hours. 3 doses per day. 01/09/24 07/07/24 Kerwin Joyce PA-C montelukast (SINGULAIR) 10 MG tablet Take 1 tablet (10 mg total) by mouth nightly. External Provider, norethindrone (MICRONOR) 0.35 MG tablet Take 1 tablet (0.35 mg total) by mouth daily. External Provider, PANTOprazole (PROTONIX) 20 MG tablet Take 1 tablet (20 mg total) by mouth every morning before breakfast. External Provider, prednisoLONE acetate (PRED FORTE) 1 % ophthalmic suspension 1 drop 4 (four) times a day. External Provider, propranolol (INDERAL) 20 MG tablet Take 1 tablet (20 mg total) by mouth 2 (two) times a day. As discussed at last visit 01/09/24 07/07/24 Kerwin Joyce PA-C sucralfate (CARAFATE) 1 g tablet Take 1 tablet (1 g total) by mouth 4 (four) times a day before meals and nightly. On an empty stomach. External Provider, verapamil (CALAN) 120 MG tablet Take 1 tablet (120 mg total) by mouth 3 (three) times a day. External Provider, Medical History No past medical history on file. Surgical History No past surgical history on file. Family History No family history on file. Allergies No Known Allergies Objective Vitals No data found. There is no height or weight on file to calculate BMI. Physical Exam General: A, A and O x3; in NAD HEENT: NC/AT; EOMi; no nasal discharge Cor: Regular; +s1/s2; no appreciable extra heart sounds Pulmonary: Good air movement; no rales or rhonchi appreciated GI: Soft, NT, ND Extremities: DP/PT 2+; no edema noted Psych: Appropriate affect Skin: Warm and dry. LABS Relevant data reviewed No results found for: K , NA , BUN , CREAT , MG Sign: Kerwin Joyce PA-C 05/25/2024 2:28 PM documented in this encounter Plan of Treatment Upcoming Encounters Date Type Department Care Team (Late st Contact Info) Description 06/01/2025 2:30 PM EST Appointment [facility] Heart & Vascular [place] at [facility] - Cardiology [address] [place] [address] Kerwin Joyce PA-C [address] [place] [address] documented as of this encounter Visit Diagnoses Diagnosis Orthostatic intolerance- Primary documented in this encounter Care Teams Nightclub Manager Relationship Specialty Start Date End Date Ian Bell MD [address] [facility] [place] [address] PCP - General Family Medicine 11/13/23 Kerwin Joyce PA-C [address] [place] [id number] Physician Window Machine Operator Cardiac Electrophysiology 04/21/24 documented as of this encounter
--- OUTSIDE RECORDS SUMMARY | 2024-05-27 07:41 | XMS_ITS | Encounter Summary ---
Author Organization [facility] Address [address] [place] [address] Care Team Providers Care Food Service Representative Name Role Phone Ian Bell Primary Care Provider Encounter Details Date Type Department Care Team (Late st Contact Info) Description 01/15/2024 Orders Only [facility] - External Imaging [address] [place] [address] Radiology, External [address] [place] [address] Social History Tobacco Use Types Packs/Day Years [...] on filedocumented in this encounter Care Teams Food Service Representative Relationship Specialty Start Date End Date Ian Bell [address] [place] [address] PCP - General 04/22/24 documented as of this encounter
--- OUTSIDE RECORDS SUMMARY | 2024-05-27 07:41 | XMS_ITS | Encounter Summary ---
Author Organization [facility] Address [address] [place] [address] Care Team Providers Care Associate Financial Planner Name Role Phone Ian Bell Primary Care Provider Encounter Details Date Type Department Care Team (Late st Contact Info) Description 04/23/2024 Orders Only [facility] Neurosurgery [facility] [address] [place] [id number] Ian Bell [address] [place] [address] Social History Tobacco Use Types Packs/Day Years [...] of this encounter Procedures * Due to [place] [employer] law, this organization might not be sharing negative HIV tests. Procedure Name Priority Date/Time Associated Diagnosis Comments AMB EXTERNAL MRI BRAIN, OUTSIDE RESULT Routine 03/10/2024 3:01 PM EST documented in this encounter Results * Due to [place] [employer] law, this organization might not be sharing negative HIV tests. * MRI Brain, Outside Result (03/10/2024 3:01 PM EST) Anatomical Region Laterality Modality Other us Ian Bell AMB EXTERNAL RESULT PROCEDU RES Final Result documented in this encounter Visit Diagnoses Not on filedocumented in this encounter Care Teams Associate Financial Planner Relationship Specialty Start Date End Date Ian Bell [address] [place] [address] PCP - General 04/22/24 documented as of this encounter
--- OUTSIDE RECORDS SUMMARY | 2024-05-27 07:41 | XMS_ITS | Encounter Summary ---
Author Organization [facility] Address [address] [place] [address] Phone Care Team Providers Care Solutions Analyst Name Role Phone Nick Lauren Primary Care Provider [phone] Encounter Details Date Type Department Care Team (Late st Contact Info) Description 11/14/2016 Conversion Encounter [facility] - [address] [address] Social History Tobacco Use Types Packs/Day Years [...] on filedocumented in this encounter Care Teams Solutions Analyst Relationship Specialty Start Date End Date Nick Lauren [address] [place] [address] PCP - General 11/08/16 documented as of this encounter
--- NOTE | 2024-05-27 07:43 | A.OFFPC_ITS ---
Vital Signs 05/27/24 07:44 Height 5 ft 2 in Weight 175 lb BMI 32.0 BP 118/80 Blood Pressure Location Rt brachial Position Sitting Respiration 16 Pulse 59 Pulse Source Pulse Oximeter Temp 98.2 F Temp Source Oral Pulse Oximetry (%) 100 Oxygen Delivery Method Room Air Intake Visit Reasons: Annual PE Intake Note: Pt is here today for her PE Allergies No Known Allergies [No Known Allergies*] Allergy (Verified 05/27/24 07:43) Medication List - Last Reconciled 05/27/24 by CHYNA Friend- cetirizine 10 mg PO BEDTIME comp.stocking,thigh,long,large As directed fluoxetine 10 mg PO DAILY midodrine 5 mg PO TID montelukast 10 mg PO BEDTIME 90 days norethindrone (contraceptive) 0.35 mg PO DAILY propranolol 20 mg PO BID Tobacco use date assessed: 05/27/24 Dental Screening Dental Screen Date: 05/27/24 Did you have a dental visit in the last 12 months?: No Did you have a dental problem in the last 6 months where you did not have access to dental care?: No Was dental information given to patient?: No HPI Annual PE HPI Details History of Present Illness The patient is a 29-year-old female presenting for a surgical examination. She has a notable history of Postural Orthostatic Tachycardia Syndrome (POTS) and is actively receiving treatment under a kindergarten instructional assistant's supervision. She is on midodrine and propranolol, which have been assisting in managing her orthostatic hypotension and tachycardia, respectively. Recently, she has experienced positive outcomes, particularly during rigorous physical activity like exercising at the gym. Additionally, current mental health assessments indicate the presence of anxiety and depression. While her insurance situation disrupted her access to Jardiance, she is keen on discussing potential solutions. She also experiences gastrointestinal issues, aligning a referral for specialty evaluation. Health Maintenance - Referral to [facility] for management of anxiety and depression - Referral to complex care nurse practitioner for gas trointestinal complaints Social History - Reports recent gym activity for about 1.5 hours with a positive effect Review of Systems - Cardiovascular: Reports dizziness with orthostatic hypotension; taking medication for management - Psychiatric: Reports anxiety and depre ssion; denies suicidal/homicidal ideation - Gastrointestinal: Reports constipation and diarrhea - Respiratory: Denies chest pain, shortn ess of breath - General: Denies fevers, chills Physical Exam General: Cooperative, healthy appearing, comfortable, no acute distress and well developed Orientation: Patient oriented x3 Limitations: No limitations Head: Normal to inspection Ears: Hearing grossly normal bilaterally Nose: Normal external nose present Face and sinus: Normal facial exam Eyes: Appearance normal, both eyes and all related structures Neck: Normal visual inspection and Yes full ROM Respiratory: Normal respiratory effort and able to speak in complete sentences. Clear to auscultation bilaterally Cardiovascular: Regular rate and rhythm. Normal S1 and S2 GI: Normal to inspection. Soft to palpation and nontender. Reports constipation and diarrhea Skin: No rashes or lesions noted Neuro: Patient oriented x3 Extremities: Normal to inspection Results Plan The management of Postural Orthostatic Tachycardia Syndrome and orthostatic hypotension will proceed with the current medications, as they have shown efficacy. A behavioral health consultation will address her anxiety and depression. Discussion regarding her medication, Jardiance, will be addressed regarding her insurance situation. The patient has been instructed to arrange her gastroenterology referral to evaluate her gastrointestinal disturbances further. She currently denies serious symptoms, which aligns with ongoing monitoring and adjustment as needed. Discussion Notes I reviewed the patient?s current treatment outcomes and medication regimen for Postural Orthostatic Tachycardia Syndrome and orthostatic hypotension with her. We discussed the improvement in her symptoms, particularly her ability to exercise without major issues. I agreed on the importance of behavioral health follow-up for anxiety and depression management and emphasized the need to resolve the Jardiance prescription due to insurance changes. Gastroenterology follow-up was discussed for her gastrointestinal symptoms, and she was reminded to schedule the appointment for further investigation. Patient Instructions - Continue current medications as prescr ibed - Follow up with behavioral health raquel burk for anxiety and depression - Contact gastroenterology to schedule a n appointment for GI symptoms - Return for further evaluation if new s ymptoms arise or current symptoms worsen [facility] Medical History (Updated 05/27/24 @ 08:19 by CHYNA Friend-) Periumbilical pain COVID-19 Back pain Difficulty swallowing Vomiting and diarrhea History of headache Weakness Numbness Witnessed seizure-like activity Cough Chest pain HTN (hypertension) POTS (postural orthostatic tachycardia syndrome) Fibromyalgia History of cardiac murmur as a child RUQ pain Asthma Surgical History Hx laparoscopic cholecystectomy (01/08/24) H/O hand surgery History of wisdom tooth extraction Family History Paternal Grandmother History of ovarian cancer Mental health disorder Paternal Grandfather History of melanoma Father Mental health disorder Mother Mental health disorder Sister Mental health disorder Other Family history of autoimmune disorder Social History Housing: Condominium Are you a primary career development coordinator to a significant other at home: No Do you presently have visiting nurse or other home services: No Alcohol intake: never Patient Tobacco Use Status: Never used Tobacco e-Cigarette/Vaping Use: Never Used Second Hand Smoke Exposure: No Substance Use Type: Marijuana service: No Current occupational status: unemployed 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 1. Little interest or pleasure in doing things: more than half the days 2. Feeling down, depressed, or hopeless: several days 3. Trouble falling or staying asleep, or sleeping too much: nearly every day 4. Feeling tired or having little energy: nearly every day 5. Poor appetite or overeating: nearly every day 6. Feeling bad about yourself - or that you are a failure or have let yourself or your family down: not at all 7. Trouble concentrating on things, such as reading the newspaper or watching television: more than half the days 8. Moving or speaking so slowly that other people could have noticed. Or the opposite - being so fidgety or restless that you have been moving around a lot more than usual: more than half the days 9. Thoughts that you would be better off or of hurting yourself in some way: not at all Total score: 16 Depression Screening Interpretation: Positive (denies any si or hi, will send marii into see pt) Depression Screening Follow-up: Existing condition Depression Screening Done: Yes 69440 - PHQ-9 Billing: Yes Source: Developed by Drs. Abel Muhammad, America Davies, Vini Esquivel and colleagues, with an educational jabari from [employer]. Thrive Questionnaire Date Thrive assessed: 05/27/24 I am a: Patient What is your living situation today?: I have a steady place to live Within the past 12 months, did the food you bought not last and you didn't have the money to get more?: I choose not to answer this question Within the past 12 months, did you worry whether your food would run out before you got money to buy more?: I choose not to answer this question Do you have trouble paying for medicines?: No Do you have trouble getting transportation to medical appointments?: No Do you have trouble paying your heating and electricity bill?: No Do you have trouble taking care of your child, family member or friend?: No Do you have trouble with day-to-day activities such as bathing, preparing meals, shopping, managing finances, etc.?: Yes Are you currently unemployed and looking for a job?: No Are you interested in more education?: No Please select the resources that you would like help with: None Currently or been in a relationship where the following occur: No concerns reported THRIVE Score: 0 AUDIT C Alcohol Use Questionnaire (AUDIT-C) 1. How often do you have a drink containing alcohol?: Never Total Score: 0 SEBASTIAN-7 AMB Questionnaire SEBASTIAN-7 Date SEBASTIAN - 7 assessed: 05/27/24 Feeling nervous, anxious, or on edge: 0 = Not at all Not being able to stop or control worryin = Not at all Worrying too much about different things: 0 = Not at all Trouble relaxin = More than half the days Being so restless that it is hard to sit still: 2 = More than half the days Becoming easily annoyed or irritable: 2 = More than half the days Feeling afraid as if something awful might happen: 0 = Not at all Total SEBASTIAN-7 score (0-4 normal; 5-9 mild; 10-14 moderate; 15-21 severe): 6 Source: Developed by Drs. Abel Muhammad, America Davies, Vini Esquivel and colleagues, with an educational jabari from [employer]. SEBASTIAN-7 Assessment Billing SEBASTIAN-7 Assessment Tool: SEBASTIAN-7 Assessment 80286 (denies any si or hi, having provider see pt in room today) Physical exam (Primary Care) Vital Signs: Last Vital Signs Temp 98.2 F 05/27/24 07:44 Pulse 59 05/27/24 07:44 Resp 16 05/27/24 07:44 BP 118/80 05/27/24 07:44 Pulse Ox 100 05/27/24 07:44 Oxygen Delivery Method Room Air 05/27/24 07:44 BMI result Body Mass Index 32.0 Tobacco/Smoking Status: Tobacco use Status Tobacco use date assessed 05/27/24 05/27/24 07:46 Patient Tobacco Use Status Never used Tobacco 05/27/24 07:46 e-Cigarette/Vaping Use Never Used 05/27/24 07:46 PHQ-9: PHQ-9 Score PHQ-9: Total score 16 05/27/24 07:46 Depression Screening Interpretation: Positive (denies any si or hi, will send marii into see pt) Depression Screening Follow-up: Existing condition Thrive Assessment: Date of Thrive Assessment Date Thrive assessed 05/27/24 05/27/24 07:46 Currently or been in a relationship where the following occur: No concerns reported Coding Level of Care Code Est Pt Prev Care 18-39y(14385) Diagnoses Screening for cervical cancer Z12.4 Encounter for routine adult physical exam with abnormal findings Z00.01 Anxiety and depression F41.9; F32.A POTS (postural orthostatic tachycardia syndrome) G90.A Additional Codes PHQ-9 - 87574 - PHQ-9 Billing: Yes ([id number]) SEBASTIAN-7 Assessment Billing - SEBASTIAN-7 Assessment Tool: SEBASTIAN-7 Assessment 99225 ([id number]) Assessment & Plan Assessment & Plan (1) Screening for cervical cancer: Code(s): Z12.4 - Encounter for screening for malignant neoplasm of cervix Category: Medical (2) Encounter for routine adult physical exam with abnormal findings: Code(s): Z00.01 - Encounter for general adult medical examination with abnormal findings Category: Medical (3) Anxiety and depression: Code(s): F41.9 - Anxiety disorder, unspecified; F32.A - Depression, unspecified Category: Medical (4) POTS (postural orthostatic tachycardia syndrome): Code(s): G90.A - Postural orthostatic tachycardia syndrome [POTS] Category: Medical Plan . Orders: Orders Complete Blood Count Auto Diff Today Z00.01 - Encounter for general adult medical examination with abnormal findings Comprehensive [place]. Panel Fast Today Z00.01 - Encounter for general adult medical examination with abnormal findings TSH reflex Free T4 Today Z00.01 - Encounter for general adult medical examination with abnormal findings UA CC w/rflx Micro + Cult Today Z00.01 - Encounter for general adult medical examination with abnormal findings Lipid Panel Today Z00.01 - Encounter for general adult medical examination with abnormal findings Referrals PRESCHOOL ASSISTANT TEACHER Referral Z12.4 - Encounter for screening for malignant neoplasm of cervix
[2024-05-27 07:44] VITALS: BP 118/80; PULSE 59; RESP 16; TEMP 36.8; O2SAT 100; BMI 32.0
== END 2024-05-27 09:03 | disposition home or self-care (01) ==
PROVIDERS: PCP Nurse Practitioner Family; Visit Provider Nurse Practitioner Family
DX: Z12.4 Encounter for screening for malignant neoplasm of cervix (principal); Z00.01 Encounter for general adult medical examination with abnormal findings; F41.9 Anxiety disorder, unspecified; F32.A Depression, unspecified; G90.A Postural orthostatic tachycardia syndrome [POTS]

== ENCOUNTER → 2024-05-27 07:37 | Outpatient (BNVA) | payer OTHER, SELFPAY | PROVIDERS: PCP Nurse Practitioner Family; Visit Provider Nurse Practitioner Family | DX: Z00.01 Encounter for general adult medical examination with abnormal findings (principal); F41.9 Anxiety disorder, unspecified; F32.A Depression, unspecified; G90.A Postural orthostatic tachycardia syndrome [POTS] | CPT/HCPCS: 96127 ==

== ENCOUNTER 2024-06-30 15:00 | Outpatient (RCR) | payer OTHER, SELFPAY ==
--- NOTE | 2024-04-20 13:50 | MHC.PT.EP ---
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 (PT Dx) RS Assessment: Dimple is a pleasant 28 y.o. who is referred to PT by MARIO Javier with Dx of TMJ Dislocation of Jaw. 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 Patient current functional limitations are eating/chewing, talking, reaching back molars and open mouth to brush teeth. Patient will benefit from skilled PT to address aforementioned impairments and functional limitations to meet established goals. Frequency and Duration: The patient will be seen 1-2x/week for 4 weeks Short Term Goals: 2 weeks Patient demonstrates consistency and independence with HEP to self manage symptoms. Patient presents with improved head/neck posture in neutral position to reduce pain intensity to 2/10 on NPRS. Assisted Goals: 4 weeks Patient presents with increased measurement of jaw opening to within normal range of at least 35mm without clicking. Treatment Plan: Modalities to reduce pain, spasms and effusion. Manual therapy to restore motion and function. Therapeutic exercise to improve strength and flexibility. Neuromuscular re-education for posture and balance. Therapeutic activities to return to functional activities of daily living. Electronically signed by: Yvrose Hanson, PT, DPT Please sign and return to therapist. Thank you for your referral.
--- NOTE | 2024-06-30 15:56 | MHC.PT.DC ---
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 She presents with significant improvement in her symptoms, reporting no TMJ pain now. She also reports she is able to open her mouth wider without pain or clicking, eat a variety of foods and laugh that she was unable to do before. With outcome measure TMD Disability Index Questionnaire her score improved from 72.5% disability at evelaution to 17.5% scored today. She feels ready for discharge today. Electronically signed by: Yvrose Hanson, PT, DPT Please sign and return to therapist. Thank you for your referral.
== END 2024-06-30 15:57 | disposition home or self-care (01) ==
LOC: HO.PT 15:00
PROVIDERS: PCP Nurse Practitioner Family; Visit Provider Nurse Practitioner Family
DX: S03.00XD Dislocation of jaw, unspecified side, subsequent encounter (principal)
CPT/HCPCS: 97035; 97110; 97140; 97162; 97535

== ENCOUNTER 2024-09-23 07:57 | Outpatient (AMB) | payer OTHER, SELFPAY ==
[2024-09-23 08:01] VITALS: BP 120/80; PULSE 150; O2SAT 97; BMI 27.5
--- NOTE | 2024-09-23 08:01 | MHC.PC.OV ---
Vital Signs 09/23/24 08:01 Height 5 ft 2 in Weight 150 lb 2 oz BMI 27.5 BP 120/80 Blood Pressure Location Lt brachial Position Sitting Pulse 150 H Pulse Source Pulse Oximeter Pulse Oximetry (%) 97 Oxygen Delivery Method Room Air Intake Visit Reasons: 4m follow up Bookmobile Clerk Required: No Allergies No Known Allergies (No Known Allergies*) Allergy (Verified 09/23/24 08:01) Tobacco use date assessed: 05/27/24 Dental Screening Dental Screen Date: 05/27/24 HPI 4m follow up HPI Details Chief Complaint The patient presents with concerns of rapid heart rate, tremors, and recent weight loss. History of Present Illness The patient is a 29-year-old female presenting with sinus tachycardia and tremors. She was observed to have a heart rate in the 150s while sitting in the exam room, and an EKG confirmed sinus tachycardia. Her pulse rate increased to 170s to 180s with minimal activity, and she appeared tremulous during the examination. The patient reports significant weight loss recently and difficulty tolerating multiple foods. There is a suspicion of a red meat allergy and possible alpha-gal syndrome, which will be further investigated through lab testing. She is scheduled to see a social media campaign manager next month for further evaluation of her gastrointestinal symptoms (tolerating few foods, otherwise vomitting, IBS C+D). Social History - Social: Actively communicates and socializes with her despite tremors. Health Maintenance Review of Systems - Cardiovascular: Reports rapid heart rate. Denies chest pain. - Neurological: Reports tremors. - Gastrointestinal: Reports weight loss and difficulty tolerating multiple foods. Physical Exam General: Cooperative, healthy appearing, comfortable, no acute distress and well developed Orientation: Patient oriented x3 Limitations: No limitations Head: Normal to inspection Ears: Hearing grossly normal bilaterally Nose: Normal external nose present Face and sinus: Normal facial exam Eyes: Appearance normal, both eyes and all related structures Neck: Normal visual inspection and Yes full ROM Respiratory: Normal respiratory effort and able to speak in complete sentences. Clear to auscultation bilaterally Cardiovascular: Sinus tachycardia noted GI: Normal to inspection. Soft to palpation and nontender Skin: No rashes or lesions noted Neuro: Patient oriented x3, uses a little more tremulous Extremities: Normal to inspection Results Plan The patient was referred to the emergency room for further evaluation of her sinus tachycardia and tremors, with a report provided to the ER staff. Further investigation into the possibility of alpha-gal syndrome will be conducted through lab testing. She is scheduled to see a social media campaign manager next month for further evaluation of her gastrointestinal symptoms and food intolerances. Patient was informed and verbally consented to the use of an ambient scribe for clinic note documentation during this visit. Discussion Notes I discussed with the patient the need for immediate evaluation in the emergency room due to her sinus tachycardia and tremors. We also talked about the potential for alpha-gal syndrome and the need for lab testing to confirm this diagnosis. I informed her about the upcoming appointment with a social media campaign manager for further assessment of her gastrointestinal symptoms. Patient Instructions - Go to the emergency room immediately for further evaluation of rapid heart rate and tremors (report given) - Follow up with lab testing for possible alpha-gal syndrome. - Attend the social media campaign manager appointment next month for further evaluation of gastrointestinal symptoms. [facility] Medical History (Updated 09/23/24 @ 08:41 by Ian Bell, [facility]) EDS (Kat-Danlos syndrome) Periumbilical pain COVID-19 Back pain Difficulty swallowing Vomiting and diarrhea History of headache Weakness Numbness Witnessed seizure-like activity Cough Chest pain HTN (hypertension) POTS (postural orthostatic tachycardia syndrome) Fibromyalgia History of cardiac murmur as a child RUQ pain Asthma Surgical History (Reviewed 09/23/24 @ 08:02 by Lucio Mitchell [facility]) Hx laparoscopic cholecystectomy (01/08/24) H/O hand surgery History of wisdom tooth extraction Family History Paternal Grandmother History of ovarian cancer Mental health disorder Paternal Grandfather History of melanoma Father Mental health disorder Mother Mental health disorder Sister Mental health disorder Other Family history of autoimmune disorder Social History (Reviewed 09/23/24 @ 08:02 by Lucio Mitchell 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 Current occupational exposures/hazards: No Gender identity: Female Cognitive needs: No Hearing needs: No Vision needs: Yes Female Reproductive History Menstrual Age of Menarche: 13 Questionnaire Thrive Questionnaire Date Thrive assessed: 05/27/24 I am a: Patient What is your living situation today?: I have a steady place to live Within the past 12 months, did the food you bought not last and you didn't have the money to get more?: I choose not to answer this question Within the past 12 months, did you worry whether your food would run out before you got money to buy more?: I choose not to answer this question Do you have trouble paying for medicines?: No Do you have trouble getting transportation to medical appointments?: No Do you have trouble paying your heating and electricity bill?: No Do you have trouble taking care of your child, family member or friend?: No Do you have trouble with day-to-day activities such as bathing, preparing meals, shopping, managing finances, etc.?: Yes Are you currently unemployed and looking for a job?: No Are you interested in more education?: No Please select the resources that you would like help with: None Currently or been in a relationship where the following occur: No concerns reported THRIVE Score: 0 SEBASTIAN-7 AMB Questionnaire SEBASTIAN-7 Date SEBASTIAN - 7 assessed: 05/27/24 Source: Developed by Drs. Abel Muhammad, America Davies, Vini Esquivel and colleagues, with an educational jabari from [employer]. Physical exam (Primary Care) Vital Signs: Last Vital Signs Pulse 150 H 09/23/24 08:01 BP 120/80 09/23/24 08:01 Pulse Ox 97 09/23/24 08:01 Oxygen Delivery Method Room Air 09/23/24 08:01 BMI result Body Mass Index 27.5 Tobacco/Smoking Status: Tobacco use Status Tobacco use date assessed 05/27/24 09/23/24 08:02 Patient Tobacco Use Status Never used Tobacco 09/23/24 08:02 e-Cigarette/Vaping Use Never Used 09/23/24 08:02 Thrive Assessment: Date of Thrive Assessment Date Thrive assessed 05/27/24 09/23/24 08:02 Currently or been in a relationship where the following occur: No concerns reported Coding Level of Care Code Est Pt Level 4 (33236) Diagnoses Tachycardia R00.0 POTS (postural orthostatic tachycardia syndrome) G90.A Vomiting R11.10 Alternating constipation and diarrhea R19.8 Assessment & Plan Assessment & Plan (1) Tachycardia: Code(s): R00.0 - Tachycardia, unspecified Category: Medical (2) POTS (postural orthostatic tachycardia syndrome): Code(s): G90.A - Postural orthostatic tachycardia syndrome [POTS] Category: Medical (3) Vomiting: Code(s): R11.10 - Vomiting, unspecified Category: Medical (4) Alternating constipation and diarrhea: Code(s): R19.8 - Other specified symptoms and signs involving the digestive system and abdomen Category: Medical Plan . Orders: Orders AMB EKG-In Office Today R00.0 - Tachycardia, unspecified Tick-borne Disease Molecular Today R00.0 - Tachycardia, unspecified
--- OUTSIDE RECORDS SUMMARY | 2024-09-23 08:02 | XMS_ITS | Clinical Summary ---
Author Organization 175 [facility] Address [address] [place] [address] Phone Care Team Providers Care Tie Tamper Name Role Phone RatnaaimeIan green EILEEN Primary Care Provider Allergies No known active allergies Medications cetirizine (ZyrTEC) 10 mg tablet Take 1 tablet (10 mg total) by mouth 1 (one) time each day. Active FLUoxetine (PROzac) 10 mg tablet Take by mouth 1 (one) time each day. Active montelukast (SINGULAIR) 10 mg tablet Take 1 tablet (10 mg total) by mouth at bedtime. Active propranoloL (INDERAL) 20 mg tablet Take 1 tablet (20 mg total) by mouth 3 (three) times a day. Active midodrine (PROAMATINE) 5 mg tablet Take by mouth. Active norethindrone (CHARLY,JAILENE,HE ATHER,MICRONOR) 0.35 mg tablet Take 1 tablet (0.35 mg total) by mouth 1 (one) time each day. Active COMP.STOCKING,TH IGH,LONG,LARGE MISC Active Active Problems Problem Noted Date Diagnosed Date Back pain COVID-19 Difficulty swallowing Hx of headache Numbness Periumbilical pain Vomiting and diarrhea Weakness Encounters Date Type Department Care Team Description 08/26/2024 Telephone Gastroenterology [facility] 175 [facility] 175 [facility] [address] [place] [address] Shawanda Lancaster MD appintment 07/14/2024 Lab [facility] [address] [place] [address] Juanjo Merrill MD Complex partial seizure (CMS/HCC V24, CMS/HCC V28) 07/13/2024 Lab [facility] [address] [place] [phone] Juanjo Merrill MD Complex partial seizure [place] [place] [facility] [place] [place] 07/12/2024 Lab [facility] [address] [place] [phone] Juanjo Merrill MD Complex partial seizure [place] [place] [facility] [place] from Last 3 Months Surgical History Surgery Date Site/Laterality Comments WISDOM TOOTH EXTRACTION HAND SURGERY CHOLECYSTECTOMY 01/08/2024 laparoscopic Medical History Medical History Date Comments Back pain Weakness Hx of headache Difficulty swallowing Vomiting and diarrhea Numbness Covid-19 Periumbilical pain Family History Medical History Relation Name Comments Mental illness Father Mental illness Mother history of autoimmune disorder Other Melanoma Paternal Grandfather Mental illness Paternal Grandmother Ovarian cancer Paternal Grandmother Mental illness Sister Relation Name Status Comments Father Mother Other Paternal Grandfather Paternal Grandmother Sister Social History Tobacco Use Types Packs/Day Years Used Date Smoking Tobacco: Never Assessed Comments Unknown Sex and Gender Information Value Date Recorded Sex Assigned at Not on file Legal Sex Female 2:58 AM EST Gender Identity Not on file Sexual Orientation Not on file Obstetrics History Plan of Treatment Upcoming Encounters Date Type Department Care Team (Late st Contact Info) Description 10/04/2024 8:00 AM EDT Appointment [facility] [address] [place] [phone] 10/04/2024 11:00 AM EDT Consult Gastroenterology - [address] [phone] Sulema Segundo PA [address] [address] 10/05/2024 9:00 AM EDT Appointment [facility] [address] [place] [phone] 10/06/2024 9:00 AM EDT Appointment [facility] [address] [place] [phone] Health Maintenance Due Date Last Done Comments DTaP,Tdap,and Td Vaccines (1 - Tdap) 2016 Hepatitis B Vaccines (1 of 3 - 19+ 3-dose series) 2016 Cervical Cancer Screening: P ap Smear 2018 COVID-19 Vaccine (1 - 2023-2 5 season) 2023 Depression Screening 07/09/2024 HIV Screening 07/09/2024 Hepatitis C Screening 07/09/2024 Social Influencers of Health Screening 07/09/2024 Influenza Vaccine (Season Ended) 2024 HIB Vaccines Aged Out No longer eligi [...] on patient's age to complete this topic MMR Vaccines Aged Out No longer eligi ble based on patient's age to complete this topic Meningococcal ACWY Vaccine Aged Out N o longer eligible based on patient's age to complete this topic Meningococcal B Vaccine Aged Out No l onger eligible based on patient's age to complete this topic Pneumococcal Vaccine: Pediat rics (0 to 5 Years) and At-Risk Patients (6 to 64 Years) Aged Out No longer eligible b ased on patient's age to complete this topic RSV Immunization Patients Un nano 20 months Aged Out No longer eligible b ased on patient's age to complete this topic Varicella Vaccines Aged Out No longer eligible based on patient's age to complete this topic Insurance [facility] Care Teams Tie Tamper Relationship Specialty Start Date End Date Ian Bell NP PCP - General Family Medicine 08/26/24
== END 2024-09-23 08:59 | disposition home or self-care (01) ==
LOC: HO.HMCC 07:58
PROVIDERS: PCP Nurse Practitioner Family; Visit Provider Nurse Practitioner Family
DX: R00.0 Tachycardia, unspecified (principal); G90.A Postural orthostatic tachycardia syndrome [POTS]; R11.10 Vomiting, unspecified; R19.8 Other specified symptoms and signs involving the digestive system and abdomen

== ENCOUNTER → 2024-09-23 07:57 | Outpatient (BNVA) | payer OTHER, SELFPAY | PROVIDERS: PCP Nurse Practitioner Family; Visit Provider Nurse Practitioner Family | DX: Z13.89 Encounter for screening for other disorder (principal) ==

== ENCOUNTER 2024-09-23 09:02 | Emergency (ER) | payer OTHER, SELFPAY ==
--- NOTE | 2024-09-23 09:04 | ECG_ITS ---
Test Reason : chest pain Blood Pressure : */* mmHG Vent. Rate : 90 BPM Atrial Rate : 90 BPM P-R Int : 152 ms QRS Dur : 84 ms QT Int : 344 ms P-R-T Axes : 73 11 78 degrees QTcB Int : 420 ms Normal sinus rhythm Normal ECG When compared with ECG of 27-Dec-2022 23:20, Incomplete right bundle branch block is no longer Present QT has shortened Referred By: Generic ED Physician Electronically Signed By: JUAN C TOWNSEND
[2024-09-23 09:10] VITALS: BP 152/88; PULSE 98; RESP 18; TEMP 36.8; O2SAT 100; BMI 26.9
--- NOTE | 2024-09-23 09:19 | ED.GENADULT ---
HPI - General Adult General Chief complaint: Arrhythmia/Palpitations Stated complaint: CP, vomiting Time Seen by Provider: 09/23/24 09:18 Source: patient, RN notes reviewed and old records reviewed Mode of arrival: ambulatory Limitations: no limitations History of Present Illness ED Provider: Regina HPI narrative: Patient is a 29-year-old female with history of POTS, complex partial seizure disorder followed by Dr. Merrill, on depakote, Chiari malformation I, anxiety and depression, dysautonomia, s/p cholecystectomy presenting to the emergency department with drug department worker who reports majority of history for patient. He states that patient has been having more frequent episodes of tachycardia as well as increased episodes of seizures which he states he has noticed occurring 2-3 times per week. Patient states that her neurologist, Dr. Merrill, wants me admitted for a 72 hour EEG. Intelligence Officer Basic also reporting that patient has decreased appetite and has been eating 300-400 calories per day. Patient reports weight loss of 113# over the past 2 years. Presented today due to left sided chest pain associated with an episode of tachycardia which has been improving since arrival. MD complaint: chest pain, tachycardia, seizures Related Data Home Medications ?Medication ?Instructions ?Recorded ?Confirmed cetirizine 10 mg tablet 10 mg PO BEDTIME 01/16/23 05/27/24 norethindrone (contraceptive) 0.35 0.35 mg PO DAILY 01/16/23 05/27/24 mg tablet midodrine 5 mg tablet 5 mg PO TID 03/16/24 05/27/24 propranolol 20 mg tablet 20 mg PO BID 03/16/24 05/27/24 atomoxetine 40 mg capsule 40 mg PO QAM 09/23/24 hydroxyzine HCl 25 mg tablet 12.5 - 25 mg PO BID PRN anxiety 09/23/24 Previous Rx's ?Medication ?Instructions ?Recorded comp.stocking,thigh,long,large #2 ea 04/25/23 montelukast 10 mg tablet 10 mg PO BEDTIME 90 days #90 tabs 04/16/24 fluoxetine 10 mg capsule 10 mg PO DAILY #90 caps 09/15/24 divalproex 250 mg tablet,extended 250 mg PO BID #60 tabs 09/23/24 release 24 hr (Depakote ER) Allergies Allergy/AdvReac Type Severity Reaction Status Date / Time No Known Allergies (No Known Allergy Verified 09/23/24 09:12 Allergies*) Review of Systems Review of Systems: As per HPI Yes all other systems are reviewed and are negative Constitutional: Constitutional: Reports as per HPI [facility] Past Medical History Medical History (Updated 09/23/24 @ 12:56 by Iliana Tapia NP) EDS (Kat-Danlos syndrome) Periumbilical pain COVID-19 Back pain Difficulty swallowing Vomiting and diarrhea History of headache Weakness Numbness Witnessed seizure-like activity Cough Chest pain HTN (hypertension) POTS (postural orthostatic tachycardia syndrome) Fibromyalgia History of cardiac murmur as a child RUQ pain Asthma Surgical History Hx laparoscopic cholecystectomy (01/08/24) H/O hand surgery History of wisdom tooth extraction Family History Family History Paternal Grandmother History of ovarian cancer Mental health disorder Paternal Grandfather History of melanoma Father Mental health disorder Mother Mental health disorder Sister Mental health disorder Other Family history of autoimmune disorder Social History Social History Housing: Condominium Are you a primary auto care center manager to a significant other at home: No Do you presently have visiting nurse or other home services: No Alcohol intake: never Patient Tobacco Use Status: Never used Tobacco Smoked in Last 30 Days: No e-Cigarette/Vaping Use: Never Used Second Hand Smoke Exposure: No Use of substances other than those prescribed or required for medical reasons: No Substance Use Type: Marijuana Advance Directives: No Advance Directives Information Provided: Yes Do you have a plan to hurt others: No Plan Patient : No service: No Current occupational status: unemployed 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 Blood pressure normal. Heart rate normal. Respiratory rate normal. Temperature normal. Oxygen saturation normal. Const General: cooperative, healthy appearing and no acute distress Orientation/consciousness: oriented to person, oriented to place, oriented to time and patient oriented x3 Limitations: no limitations HENRI Head: Yes normocephalic and Yes atraumatic Ears: external ears normal General nose exam: Normal external nose present Face and sinus: Yes face symmetric Mouth: oropharynx normal and moist mucous membranes Throat: Yes uvula midline Eyes Pupils: Equal, round and reactive pupils present Neck Neck: Yes normal visual inspection and Yes supple Resp Effort & Inspection: normal respiratory effort and able to speak in complete sentences Auscultation: clear to auscultation bilaterally Cardio Rate: regular rate Rhythm: regular rhythm Heart sounds: S1 normal heart sound present and S2 normal heart sound present GI Palpation (GI): Soft to palpation and nontender Auscultation: normoactive bowel sounds General: Yes no CVA tenderness Back/Spine/Pelvis Back: no CVA tenderness Skin General skin exam: elasticity normal and turgor normal Neuro General: oriented to person, oriented to place, oriented to time, patient oriented x3, moves all extremities, no focal motor deficits and CN's II-XI intact bilaterally Cranial nerves: Yes Equal, round and reactive pupils present Cognition (Neuro): normal cognition Extrem General: Yes full ROM, Yes no pedal edema and Yes no calf tenderness Psych Mental Status: mental status grossly normal Affect: normal affect Thought process: Normal thought process present Medications Administered Discontinued Medications Generic Name Dose Route Start Last Admin Trade Name Freq PRN Reason Stop Dose Admin Sodium Chloride 1,000 mls @ 999 mls/hr 09/23/24 09:30 09/23/24 11:34 Ns IV 09/23/24 10:30 Infused .Q1H1M ARUN Infusion Medical Decision Making Medical Decision Making MDM Narrative: Patient is a 29-year-old female with history of POTS, complex partial seizure disorder followed by Dr. Merrill, on depakote, Chiari malformation I, anxiety and depression, dysautonomia, s/p cholecystectomy presenting to the emergency department with drug department worker who reports majority of history for patient. He states that patient has been having more frequent episodes of tachycardia as well as increased episodes of seizures which he states he has noticed occurring 2-3 times per week. On exam patient is awake, A+Ox3, VS WNL, afebrile, normal neurological exam without focal deficits, physical exam findings as above. Given reported symptoms and physical exam findings, initial differential includes but is not limited to cardiac arrhythmia, musculoskeletal pain, anxiety, seizures, subtherapeutic anticonvulsant level, electrolyte abnormality. EKG notable for normal sinus rhythm. Labs notable for subtherapeutic Depakote level, no significant electrolyte abnormalities, slightly elevated initial troponin, repeat negative. Did not attempt orthostatic VS as patient has known POTS, feel this would not provide significant information to workup. Attempted to reach Dr. Merrill via [place] Text but unable. Will increase depakote to 750mg BID as patient states she has been taking this as prescribed. No seizure-like activity while patient in the ED. results discussed with patient and all questions answered. Patient's drug department worker expressing frustration that outpatient providers felt patient required admission due to her weight loss. Discussed with patient and drug department worker that her workup does not indicate necessity for admission at this time. Recommended reaching back out to outpatient providers as well as Dr. Merrill. Return precautions discussed at bedside. Patient and drug department worker verbalized understanding of and agreement with plan. Differential Diagnosis Differential Diagnoses: The differential diagnosis associated with the presentation includes As per [facility] Admission/Observation Consideration of admission/observation: Escalation of care including admission/observation considered Patient would have been admitted to the hospital had their work up had any findings where hospital admission was appropriate and their clinical presentation warranted hospital admission. Lab Data [facility] Lab Attestation statement: I reviewed the patient's lab results. as per [facility] 09/23/24 09:36 09/23/24 09:36 Labs: Lab Results 09/23/24 09/23/24 09/23/24 Range/Units 09:36 10:12 11:12 WBC 5.3 (4.8-10.8) X10*3/uL RBC 4.39 (4.20-5.50) X10*6/uL Hgb 13.5 (12.0-16.0) g/dl Hct 38.4 (37.0-47.0) % MCV 87.5 (80.0-98.0) fL MCH 30.8 (27.0-33.0) pg MCHC 35.2 H (31.0-35.0) g/dl RDW 13.2 (11.0-16.0) % Plt Count 246 (160-400) X10*3/uL MPV 8.6 L (9.4-12.3) fL Immature Gran % (Auto) 0.2 (0.0-0.4) % Neut % (Auto) 48.7 (45-73) % Lymph % (Auto) 34.4 (20-40) % [place] % (Auto) 8.6 (2-11) % Eos % (Auto) 7.5 H (0-4) % Baso % (Auto) 0.6 (0-2) % Lymph # (Auto) 1.8 (1.2-4.9) X10*3/uL [place] # (Auto) 0.5 (0.1-1.2) X10*3/uL Eos # (Auto) 0.4 (0.0-0.4) X10*3/uL Baso # (Auto) 0.0 (0.0-0.2) X10*3/uL Abs Immat Gran (auto) 0.01 (0.00-0.03) X10*3/uL Absolute Neuts (auto) 2.6 (2.0-8.3) x10*3/uL Absolute Nucleated RBC 0.000 (0.0-0.012) X10*3/uL Nucleated RBC % (auto) 0.0 (0.0-0.2) /100WBC PT 12.4 (10.9-12.4) SEC INR 1.1 (0.9-1.1) D-Dimer High Sensitivty < 150 NG/ML Sodium 140 (135-145) mmol/L Potassium 3.9 (3.3-5.1) mmol/L Chloride 110 H (96-108) mmol/L Carbon Dioxide 22 (22-29) mmol/L Anion Gap 12 (12-20) BUN 7 L (9-16) mg/dL Creatinine 0.59 (0.5-1.4) mg/dL Estim Creat Clear Calc 128.3 Estimated GFR > 60 Random Glucose 102 (60-115) mg/dL Calcium 9.1 (8.4-10.2) mg/dL Total Bilirubin 0.4 (0.0-1.0) mg/dL AST 25 (5-31) U/L ALT 33 H (0-31) U/L Alkaline Phosphatase 49 (39-117) U/L Troponin I High Sens 13.9 D < 2.7 D (<3.5-17.0) ng/L Total Protein 7.0 (6.5-8.0) g/dL Albumin 4.6 (3.5-5.0) g/dL Beta HCG, Quant < 2 mIU/mL Valproic Acid 35.8 L (50.0-100.0) mcg/mL Independent Interpretation I performed an independent interpretation of an: EKG (normal sinus rhythm, rate 90bpm, normal PA interval and QTc) External Record Review External record reviewed: Inpatient record, Office record and Outpatient record Prescription Management I considered prescription management with: Other Discharge Plan Discharge Clinical Impression: Chest pain Qualifiers: Chest pain type: other chest pain Qualified Code(s): R07.89 - Other chest pain Patient Disposition: Home, Self-Care Instructions: Chest Pain (DC) Additional Instructions: You were evaluated in the emergency department today for chest pain, tachycardic, and increased frequency of seizures. Your EKG and labs were reassuring. Your Depakote level was noted to be subtherapeutic, and your dose is being increased today. You were previously prescribed 500mg twice daily. We are increasing your dose to 750mg twice daily, so a prescription for 250mg twice daily is being sent to your pharmacy to make a total dose 750mg twice daily when taken in combination with your 500mg dose. We recommend that you follow up with Dr. Merrill this week to discuss this. Follow-up with your primary care provider within the next week. Return to the emergency department with new or concerning symptoms. Prescriptions: New divalproex [Depakote ER] 250 mg tablet extended release 24 hr 250 mg PO BID Qty: 60 0RF No Action montelukast 10 mg tablet 10 mg PO BEDTIME 90 Days Qty: 90 1RF fluoxetine 10 mg capsule 10 mg PO DAILY Qty: 90 0RF cetirizine 10 mg tablet 10 mg PO BEDTIME norethindrone (contraceptive) 0.35 mg tablet 0.35 mg PO DAILY hydroxyzine HCl 25 mg tablet 12.5 - 25 mg PO BID PRN (Reason: anxiety) atomoxetine 40 mg capsule 40 mg PO QAM (DME) comp.stocking,thigh,long,large Misc See Rx Instructions .Route Qty: 2 0RF Rx Instructions: As directed midodrine 5 mg tablet 5 mg PO TID propranolol 20 mg tablet 20 mg PO BID Print Language: Irish
[2024-09-23] MEDS: 0.9 % Sodium Chloride 1,000 ML 999 ML IV (09:37)
[2024-09-23 09:40] LABS: MANUAL DIFF FLAG NO
[2024-09-23 09:43] LABS: Basophils Percent Auto 0.6 % (0-2); Eosinophils Absolute Auto 0.4 X10*3/uL (0.0-0.4); Eosinophils Percent Auto 7.5 % (0-4); Hematocrit 38.4 % (37.0-47.0); Hemoglobin 13.5 g/dl (12.0-16.0); Imm Gran Abs Auto 0.01 X10*3/uL (0.00-0.03); Imm Gran Pct Auto 0.2 % (0.0-0.4); Lymphocytes Absolute Auto 1.8 X10*3/uL (1.2-4.9); Lymphocytes Percent Auto 34.4 % (20-40); Mean Corpuscular HGB Conc 35.2 g/dl (31.0-35.0); Mean Corpuscular Hemoglobin 30.8 pg (27.0-33.0); Mean Corpuscular Volume 87.5 fL (80.0-98.0); Mean Platelet Volume 8.6 fL (9.4-12.3); Monocytes Absolute Auto 0.5 X10*3/uL (0.1-1.2); Monocytes Percent Auto 8.6 % (2-11); Neutrophils Absolute Auto 2.6 x10*3/uL (2.0-8.3); Neutrophils Percent Auto 48.7 % (45-73); Platelet Count 246 X10*3/uL (160-400); Red Blood Count 4.39 X10*6/uL (4.20-5.50); Red Cell Distribution Width 13.2 % (11.0-16.0); White Blood Count 5.3 X10*3/uL (4.8-10.8)
[2024-09-23 09:48] LABS: INTERNATIONAL NORM RATIO 1.1 (0.9-1.1); Prothrombin Time 12.4 SEC (10.9-12.4)
[2024-09-23 09:50] LABS: D Dimer High Sensitivity < 150 NG/ML
[2024-09-23 09:59] LABS: Alanine Aminotransferase 33 U/L (0-31); Albumin Level 4.6 g/dL (3.5-5.0); Alkaline Phosphatase 49 U/L (39-117); Anion Gap 12 (12-20); Aspartate Amino Transferase 25 U/L (5-31); Bilirubin Total 0.4 mg/dL (0.0-1.0); Blood Urea Nitrogen 7 mg/dL (9-16); Calcium 9.1 mg/dL (8.4-10.2); Carbon Dioxide 22 mmol/L (22-29); Chloride 110 mmol/L (96-108); Creatinine Clr Calc Pharmacy 128.3; Estimated Glomerular Filt Rate > 60; Glucose Random 102 mg/dL (60-115); Potassium 3.9 mmol/L (3.3-5.1); Sodium 140 mmol/L (135-145)
[2024-09-23 10:07] LABS: Troponin-I High Sensitivity 13.9 ng/L (<3.5-17.0)
[2024-09-23 10:10] LABS: HCG Quantitative < 2 mIU/mL
[2024-09-23 10:30] LABS: Valproate 35.8 mcg/mL (50.0-100.0)
[2024-09-23 11:33] VITALS: BP 133/71; PULSE 76; RESP 16; TEMP 36.9; O2SAT 100
[2024-09-23 11:42] LABS: Troponin-I High Sensitivity < 2.7 ng/L (<3.5-17.0)
[2024-09-23 13:12] VITALS: BP 141/76; PULSE 76; RESP 20; TEMP 36.9; O2SAT 100
== END 2024-09-23 13:13 | disposition home or self-care (01) ==
PROVIDERS: Registered Nurse Emergency; Emergency Provider Emergency Medicine; PCP Nurse Practitioner Family
DX: R07.89 Other chest pain (principal); R11.2 Nausea with vomiting, unspecified; R00.0 Tachycardia, unspecified; R56.9 Unspecified convulsions; R10.2 Pelvic and perineal pain; Z79.899 Other long term (current) drug therapy
CPT/HCPCS: 36415; 80053; 80164; 84484; 84702; 85025; 85379; 85610; 93005; 96360; 96361; 99284; 99285

== ENCOUNTER → 2024-09-23 09:04 | Outpatient (BNV) | payer OTHER, SELFPAY | PROVIDERS: Emergency Provider Emergency Medicine; PCP Nurse Practitioner Family; Visit Provider Internal Medicine | DX: R07.89 Other chest pain (principal) | CPT/HCPCS: 93010 ==

== ENCOUNTER 2024-09-25 10:24 | Outpatient (REF) | payer OTHER, SELFPAY ==
--- OUTSIDE RECORDS SUMMARY | 2024-09-25 10:26 | XMS_ITS | Clinical Summary ---
Author Organization 175 [facility] Address [address] [place] [address] Phone Care Team Providers Care Laser Beam Machine Operator Name Role Phone RatnaaimeIan green EILEEN Primary [...] Department Care Team Description 08/26/2024 Telephone Gastroenterology [facility] 175 [facility] 175 [facility] [address] [place] [address] Shawanda Lancaster MD appintment 07/14/2024 Lab [facility] [address] [place] [phone] Juanjo Merrill MD Complex partial seizure (CMS/HCC V24, CMS/HCC V28) 07/13/2024 Lab [facility] [address] [place] [phone] Juanjo Merrill MD Complex partial seizure ([facility] [place], [facility] [place] V28) 07/12/2024 Lab [facility] [address] [place] [phone] Juanjo Merrill MD Complex partial seizure ([facility] [place] V24, [facility] [place] V28) from Last 3 [...] Info) Description 10/04/2024 8:00 AM EDT Appointment [facility] [address] [place] [phone] 10/04/2024 11:00 AM EDT Consult Gastroenterology - [address] [phone] Sulema Segundo PA [address] [address] 10/05/2024 9:00 AM EDT Appointment [facility] [address] [place] [phone] 10/06/2024 9:00 AM EDT Appointment [facility] [address] [place] [phone] Health Maintenance Due Date Last Done [...] patient's age to complete this topic Insurance [facility] Care Teams Laser Beam Machine Operator Relationship Specialty Start Date End Date Ian Bell NP PCP - General Family Medicine 08/26/24
[2024-09-25 13:59] LABS: MANUAL DIFF FLAG NO
[2024-09-25 14:07] LABS: Basophils Percent Auto 0.5 % (0-2); Eosinophils Absolute Auto 0.5 X10*3/uL (0.0-0.4); Eosinophils Percent Auto 8.5 % (0-4); Hematocrit 37.8 % (37.0-47.0); Hemoglobin 13.2 g/dl (12.0-16.0); Imm Gran Abs Auto 0.02 X10*3/uL (0.00-0.03); Imm Gran Pct Auto 0.3 % (0.0-0.4); Lymphocytes Absolute Auto 2.2 X10*3/uL (1.2-4.9); Lymphocytes Percent Auto 36.7 % (20-40); Mean Corpuscular HGB Conc 34.9 g/dl (31.0-35.0); Mean Corpuscular Hemoglobin 30.7 pg (27.0-33.0); Mean Corpuscular Volume 87.9 fL (80.0-98.0); Mean Platelet Volume 8.9 fL (9.4-12.3); Monocytes Absolute Auto 0.5 X10*3/uL (0.1-1.2); Neutrophils Absolute Auto 2.6 x10*3/uL (2.0-8.3); Platelet Count 275 X10*3/uL (160-400); Red Cell Distribution Width 13.3 % (11.0-16.0); White Blood Count 5.9 X10*3/uL (4.8-10.8)
[2024-09-25 14:08] LABS: Appearance Urine Clear; Color Urine Dark Yellow; Glucose Urine UA Negative (Negative); Leukocyte Esterase Urine Negative (Negative); Nitrite Urine Negative (Negative); UMIC TRIGGER UACC YES; Urine Blood Trace (Negative); Urine Ketones Trace mg/dL (Negative); Urine Protein Trace mg/dL (Neg-Trace)
[2024-09-25 14:14] LABS: Bacteria Urine None Seen (None Seen); Hyaline Casts Urine 0-2 /LPF (0-2); RBC Urine 0-2 /HPF (0-2); Squamous Epithelial Cell Urine 0-2 /HPF (0-2); WBC Urine 0-5 /HPF (0-5)
[2024-09-25 18:02] LABS: Alanine Aminotransferase 40 U/L (0-31); Albumin Level 4.7 g/dL (3.5-5.0); Alkaline Phosphatase 49 U/L (39-117); Anion Gap 13 (12-20); Aspartate Amino Transferase 31 U/L (5-31); Bilirubin Total 0.5 mg/dL (0.0-1.0); Blood Urea Nitrogen 8 mg/dL (9-16); Carbon Dioxide 25 mmol/L (22-29); Chloride 107 mmol/L (96-108); Estimated Glomerular Filt Rate > 60; Glucose Random 98 mg/dL (60-115); Potassium 4.4 mmol/L (3.3-5.1); Sodium 141 mmol/L (135-145); Total Protein 7.1 g/dL (6.5-8.0)
[2024-09-27 21:43] LABS: A. Phagocytphilium DNA,RT-PCR NOT DETECTED (NOT DETECTED); Babesia Microti DNA, RT-PCR NOT DETECTED (NOT DETECTED); Borrelia Miyamotoi,DNA RT-PCR NOT DETECTED (NOT DETECTED); E.Chaffeensis DNA RT-PCR NOT DETECTED (NOT DETECTED); Lyme(Borrelia ssp)DNA RT-PCR NOT DETECTED (NOT DETECTED)
== END 2024-09-25 10:25 | disposition home or self-care (01) ==
LOC: HO.HMGCLDS 10:24
PROVIDERS: PCP Nurse Practitioner Family; Visit Provider Nurse Practitioner Family
DX: G90.A Postural orthostatic tachycardia syndrome [POTS] (principal); R00.0 Tachycardia, unspecified; R80.8 Other proteinuria; R11.10 Vomiting, unspecified
CPT/HCPCS: 36415; 80053; 81001; 85025; 86003; 87468; 87469; 87478; 87484; 87798

== ENCOUNTER → 2024-10-05 23:59 | Outpatient (BNV) | payer OTHER, SELFPAY | PROVIDERS: PCP Nurse Practitioner Family; Visit Provider Psychiatry & Neurology Neurology | DX: G40.209 Localization-related (focal) (partial) symptomatic epilepsy and epileptic syndromes with complex partial seizures, not intractable, without status epilepticus (principal) | CPT/HCPCS: 95721 ==

== ENCOUNTER 2024-11-01 07:28 | Outpatient (AMB) | payer OTHER, SELFPAY ==
--- OUTSIDE RECORDS SUMMARY | 2024-11-01 07:31 | XMS_ITS ---
Author Name [facility] Organization Unknown History of Medication Use Medication Directions Dispensed Refills Start Date End Date Stat triamcinolone (NASACORT AQ) 55 MCG/ACT Aerosol nasal spray 1 spray into each nostril 2 times a day. 04/19/2024 active divalproex er (DEPAKOTE ER) 250 MG 24 hr tablet 1 tablet (250 mg total) by Mouth/Oral Cavity route every 12 hours. 04/01/2024 active cetirizine (ZyrTEC) 10 MG chewable tablet Chew 1 tablet (10 mg total) daily. active montelukast (SINGULAIR) 10 MG tablet Take 1 tablet (10 mg total) by mouth nightly. active norethindrone (MICRONOR) 0.35 MG tablet Take 1 tablet (0.35 mg total) by mouth daily. active prednisoLONE acetate (PRED FORTE) 1 % ophthalmic suspension 1 drop 4 (four) times a day. active sucralfate (CARAFATE) 1 g tablet Take 1 tablet (1 g total) by mouth 4 (four) times a day before meals and nightly. On an empty stomach. active Problems Problem Status Onset Date Problem Type Date of Resoluti on Source Orthostatic intolerance [facility] En[facility]ters Encounter Type Encounter Reason Primary Diagnosis Location Date Ambulatory [facility] 06/02/2024 Ambulatory Orthostatic hypotension Orthostatic hypotension [facility] 05/25/2024 Ambulatory Orthostatic hypotension Orthostatic hypotension [facility] 01/09/2024 Ambulatory Other abnormalities of heart beat Other abnormalities of heart beat [facility] 12/10/2023 Care Team Organization Name Specialty Phone Email Start Date End [facility] 12/10[facility]2023 07/10/2024 [facility] 11/14/2023
--- OUTSIDE RECORDS SUMMARY | 2024-11-01 07:32 | XMS_ITS | Encounter Summary ---
Author Organization [facility] Address [address] [place] [address] Phone Care Team Providers Care Hand Almond Blancher Name Role Phone Nick Lauren Primary Care Provider [phone] Encounter Details Date Type Department Care Team (Late st Contact Info) Description 11/14/2016 Conversion Encounter [facility] - [address] [address] Social History Tobacco Use Types Packs/Day Years [...] on filedocumented in this encounter Care Teams Hand Almond Blancher Relationship Specialty Start Date End Date Nick Lauren [address] [place] [address] PCP - General 11/08/16 documented as of this encounter
--- OUTSIDE RECORDS SUMMARY | 2024-11-01 07:32 | XMS_ITS | Referral Summary ---
Author Organization [facility] Address [address] [place] [address] Care Team Providers Care Blind Escort Name Role Phone Ian Bell Primary Care Provider [phone] Social History Tobacco Use Types Packs/Day Years [...] - Plan of Treatment Not on file Insurance [employer] Care Teams Blind Escort Relationship Specialty Start Date End Date Ian Bell [address] [place], [place] [id number] PCP - General 04/22/24
--- OUTSIDE RECORDS SUMMARY | 2024-11-01 07:32 | XMS_ITS | Clinical Summary ---
Author Organization [facility] Address [address] [place] [id number] Care Team Providers Care Housetrailer Servicer Name Role Phone Ian Bell MD Primary Care Provider + [phone] Kerwin Joyce PA-C Unavailable [phone] Allergies No known active allergies Medications cetirizine (ZyrTEC) 10 MG chewable tablet Chew [...] (10 mg total) by mouth nightly. Active divalproex er (DEPAKOTE ER) 250 MG 24 hr tablet 1 tablet (250 mg total) by Mouth/Oral Cavity route every 12 hours. 5 Active triamcinolone (NASACORT AQ) 55 MCG/ACT Aerosol nasal spray 1 spray into each nostril 2 times a day. 5 Active midodrine (ProAmatine) 5 MG tabletIndication s:Orthostatic intolerance Take 1 tablet (5 mg total) by mouth 3 (three) times a day. Take during daytime hours upon waking then every 4 hours. 3 doses per day. 270 tablet 3 5 Active propranolol (INDERAL) 20 MG tabletIndication s:Orthostatic intolerance Take 1 tablet (20 mg total) by mouth 2 (two) times a day. As discussed at last visit 180 tablet 3 5 Active Social History Tobacco Use Types Packs/Day Years Used Date Smoking Tobacco: Unknown Comments No Sex and Gender Information Value Date Recorded Sex Assigned at Female 01/08/2024 8:17 PM EDT Legal Sex Female 11:12 AM EDT Gender Identity Not on file Sexual [...] Upcoming Encounters Date Type Department Care Team ([facility] st Contact Info) Description 06/01/2025 2:30 PM EST Appointment [facility] [place] [facility] - Cardiology [address] [place] [address] Kerwin Joyce PA-C [address] [place] [id number] Health Maintenance Due Date Last Done Comments Hepatitis C Virus Screening 1997 HIV Screening 2010 DTaP/Tdap/Td Vaccines (1 - Tdap) 2016 Hepatitis B Vaccines (1 of 3 - 19+ 3-dose series) 2016 Pap Smear (Ages 21-65) 2018 COVID-19 Vaccine ( - 2023-2 5 season) 2023 Influenza Vaccine 10/29/2024 HPV Vaccines Aged Out No longer eligi ble based on patient's age to complete this topic Pneumococcal Vaccine: Pediat farhat (0-5 Years) and At-Risk Patients (6 to 49 Years) Aged Out No longer eligible b ased on patient's age to complete this topic Insurance [employer] [place] [address] [facility] Care Teams Housetrailer Servicer Relationship Specialty Start Date End Date Ian Bell MD [address] [place] [address] [place] [address] PCP - General Family Medicine 11/13/23 Kerwin Joyce PA-C [address] [place] [address] Physician Adjustment Supervisor Cardiac Electrophysiology 04/21/24
--- OUTSIDE RECORDS SUMMARY | 2024-11-01 07:32 | XMS_ITS | Clinical Summary ---
Author Organization [facility] Address [address] [place] [address] Phone Care Team Providers Care Solar Design Engineer Name Role Phone Ian Bell NP Primary Care Provider [phone] Allergies Active Allergy Reactions Criticality Noted Date Comments Gelatin Itching 10/04/2024 Itchy throat Lactose Itching 10/04/2024 B/P drops if too much ice cream Medications cetirizine (ZyrTEC) 10 mg tablet Take [...] mg tablet Take by mouth. Active norethindrone (CHARLY,JAILENE,H EATHER,MICRONOR ) 0.35 mg tablet Take 1 tablet (0.35 mg total) by mouth 1 (one) time each day. Active COMP.STOCKING,T HIGH,LONG,LARGE MISC Active atomoxetine (STRATTERA) 40 mg capsule Take 1 capsule (40 mg total) by mouth 1 (one) time each day in the morning. 09/15/2024 Active divalproex (DEPAKOTE ER) 500 mg 24 hr tablet Take 1 tablet (500 mg total) by mouth 2 (two) times a day. 07/16/2024 Active divalproex (DEPAKOTE ER) 250 mg 24 hr tablet Take 1 tablet (250 mg total) by mouth 2 (two) times a day. Active hydrOXYzine HCL (ATARAX) 25 mg tablet TAKE 1/2 TO 1 TABLET BY MOUTH TWICE DAILY NEEDED FOR ANXIETY OR INSOMNIA 07/29/2024 Active Depo-subQ provera 104 104 mg/0.65 mL injection SHAKE WELL. INJECT ENTIRE SYRINGE UNDER THE SKIN OF STOMACH OR THIGH EVERY 84 DAYS 07/19/2024 Active prednisoLONE acetate (PRED FORTE) 1 % ophthalmic suspension 1 drop 4 times daily. 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 Recommend she continue to follow a soft food diet, chewing thoroughly and taking small bites. When chewing make sure to sit upright. Upper Endoscopy: Discussed with patient indications for procedure as well as risks of bleeding, infection, risk of perforation and reaction to anesthesia. Patient is aware of risk of missed lesions. Patient understands and would like to proceed. Alternatives to endoscopic evaluation discussed. Benefit of procedure for screening, diagnostic and therapeutic purposes discussed. The patient acknowledges risks, benefits and alternatives and all questions are answered. Patient is to follow up after the procedure for biopsy results General: Patient aware needs a ride home Not to have liquids for at least two hours before procedure. Hx of headache Numbness Periumbilical pain Vomiting and diarrhea Weakness Encounters Date Type Department Care Team Description 10/20/2024 Telephone Gastroenterology - [address] [facility] [address] [place] [address] Mishel Matthews MA 10/19/2024 7:43 AM EDT - 10/19/2024 11:59 PM EDT Hospital Encounter [facility] Nuclear Medicine [address] [place] [address] Nausea and vomiting, unspecified vomiting type Discharge Disposition: Home or Self Care 10/12/2024 8:20 AM EDT Anesthesia Event [facility] Endoscopy [address] [place] [address] Colby Landa MD 10/12/2024 7:13 AM EDT - 10/12/2024 11:59 PM EDT Hospital Encounter [facility] Endoscopy [address] [place] [address] Yung Son MD Chang, Daniel J, MD Nausea and vomiting, unspecified vomiting type; Gastroesophageal reflux disease, unspecified whether esophagitis present; Oropharyngeal dysphagia Discharge Disposition: Home or Self Care 10/11/2024 Telephone Gastroenterology - [address] [phone] Yung Son MD 10/06/2024 8:47 AM EDT - 10/06/2024 11:59 PM EDT Hospital Encounter [facility] Neurodiagnostic [address] [place] [phone] Discharge Disposition: Home or Self Care 10/05/2024 8:40 AM EDT - 10/05/2024 11:59 PM EDT Hospital Encounter [facility] Neurodiagnostic [address] [place] [phone] Discharge Disposition: Home or Self Care 10/04/2024 11:00 AM EDT Consult Gastroenterology - [address] [place] [phone] Sulema Segundo PA Nausea and vomiting, unspecified vomiting type (Primary Dx); Gastroesophageal reflux disease, unspecified whether esophagitis present; Oropharyngeal dysphagia 10/04/2024 7:23 AM EDT - 10/04/2024 11:59 PM EDT Hospital Encounter [facility] Neurodiagnostic [address] [place] [phone] Discharge Disposition: Home or Self Care 10/04/2024 Telephone Gastroenterology - 299 [facility] [address] [phone] Pro Mir MD 08/26/2024 Telephone Gastroenterology - [place] [address] [facility] 175 [facility] [address] [place] [address] Shawanda Lancaster MD appintment from Last 3 Months Surgical History Surgery Date Site/Laterality Comments WISDOM TOOTH EXTRACTION HAND SURGERY CHOLECYSTECTOMY 01/08/2024 laparoscopic HAND SURGERY Medical History Medical History Date Comments Back pain Weakness Hx of headache Difficulty swallowing Vomiting and diarrhea Numbness Covid-19 Periumbilical pain Anxiety Depression Adhd Scoliosis Kat-Danlos syndrome, type 5 POTS (postural orthostatic tachycardia syndrome) Family History Medical History Relation Name Comments Mental illness Father Mental illness Mother history of autoimmune disorder Other history of colon cancer Other gran dfather cousin possibly Melanoma Paternal Grandfather Mental illness Paternal Grandmother Ovarian cancer Paternal Grandmother Mental illness Sister Inflammatory bowel disease Neg Hx Relation Name Status Comments Father Mother Other Paternal Grandfather Paternal Grandmother Sister Social History Tobacco Use Types Packs/Day Years Used Date Smoking Tobacco: Former Cigarettes Smokeless Tobacco: Never Alcohol Use Standard Drinks/Week Comments Not Currently 0 (1 standard drink = 0.6 oz pur e alcohol) Interpersonal Safety Answer Date Record ed Physical Abuse 10/12/2024 Verbal Abuse 10/12/2024 Comments No Sex and Gender Information Value Date Recorded Sex Assigned at Female 10/04/2024 4:16 PM EDT Legal Sex Female 2:58 AM EST Gender Identity Female 10/04/2024 4:16 PM EDT Sexual Orientation Straight 10/04/2024 4: 16 PM EDT Travel History Travel Start Travel End [place] 10/02/2024 10/02/2024 Obstetrics History Last Filed Vital Signs Vital Sign Reading Time Taken Comments Blood Pressure 105/68 10/12/2024 8:50 AM EDT Pulse 60 10/12/2024 8:50 AM EDT Temperature 36.3 C (97.3 F) 10/12/2024 8:30 AM EDT Respiratory Rate 21 10/12/2024 8:50 AM EDT Oxygen Saturation 100% 10/12/2024 8:50 AM EDT Inhaled Oxygen Concentration - - Weight 65.3 kg (144 lb) 10/05/2024 9:00 AM EDT Height 157.5 cm (5' 2 ) 10/05/2024 9:00 AM EDT Body Mass Index 26.34 10/05/2024 9:00 AM EDT Plan of Treatment Upcoming Encounters Date Type Department Care Team (Late st Contact Info) Description 11/17/2024 11:00 AM EDT Office Visit Gastroenterology - [address] [place] [phone] Sulema Segundo PA [address] [place] [address] Health Maintenance Due Date Last Done Comments DTaP,Tdap,and Td Vaccines (1 - Tdap) 2016 Hepatitis B Vaccines (1 of 3 - 19+ 3-dose series) 2016 Cervical Cancer Screening: P ap Smear 2018 COVID-19 Vaccine (2023-2 5 season) 2023 08/02/2020, 07/05/2020 Depression Screening 03/31/2024 HIV Screening 07/09/2024 Hepatitis C Screening 07/09/2024 Social Influencers of Health Screening 07/09/2024 Influenza Vaccine (#1) 2024 02/15/2019 HPV Vaccines Completed 06/07/2018, 12/04/2017, 10/30/2017 HIB Vaccines Aged Out No longer eligi [...] age to complete this topic Pneumococcal Vaccine: Pediatrics (0 to 5 Years) and At-Risk Patients (6 to 49 Years) Aged Out No longer eligible b ased on patient's age to complete this topic RSV Immunization Patients Under 20 months Aged Out No longer eligible b ased on patient's age to complete this topic Varicella Vaccines Aged Out No longer eligible based on patient's age to complete this topic Procedures Procedure Name Priority Date/Time Associated Diagnosis Comments NM GASTRIC EMPTYING STUDY Routine 10/19/2024 12:24 PM EDT Nausea and vomiting, unspecified vomiting type EGD Routine 10/12/2024 8:29 AM EDT Nausea and vomiting, unspecified vomiting type Gastroesophageal reflux disease, unspecified whether esophagitis present Oropharyngeal dysphagia TISSUE EXAM Routine 10/12/2024 8:24 AM EDT Nausea and vomiting, unspecified vomiting type Gastroesophageal reflux disease, unspecified whether esophagitis present Oropharyngeal dysphagia POC PREGANCY, URINE SCREENING Routine 10/12/2024 7:36 AM EDT CONTINUOUS EEG Routine 10/06/2024 10:36 AM EDT Complex partial seizure (CMS/HCC V24, CMS/HCC V28) CONTINUOUS EEG Routine 10/05/2024 9:46 AM EDT Complex partial seizure (CMS/HCC V24, CMS/HCC V28) from Last 3 Months Results * NM Gastric Emptying Study (10/19/2024 12:24 PM EDT) Anatomical Region Laterality Modality Body Nuclear Medicine 10/19/2024 1:50 PM EDT Impressions 10/19/2024 1:53 PM EDT Abnormally delayed gastric emptying. -------- FINAL REPORT -------- Dictated By: Abel Sultana Dictated Date: 10/19/2024 13:50 ET Assigned Physician: Abel Sultana Reviewed and Electronically Signed By: Abel Sultana Signed Date: 10/19/2024 13:53 ET Workstation ID: [id number] Transcribed By: Self Edit Transcribed Date: 10/19/2024 13:50 ET Narrative 10/19/2024 1:53 PM EDT HISTORY: Nausea and vomiting. FINDINGS: Routine radionuclide gastric emptying study was performed following administration of 1 mCi of Tc99m sulfur colloid prepared in egg for solid food evaluation. Anterior and posterior imaging obtained. 1 hour retention 92%. Normal <90% 2 hour retention 65%. Normal <60% 3 hour retention 44%. Normal <30% 4 hour retention 14%. Normal <10% Procedure Note Abel Sultana MD - 10/19/2024 HISTORY: Nausea and vomiting. FINDINGS: Routine radionuclide gastric emptying study was performedfollowing administration of 1 mCi of Tc99m sulfur colloid prepared in eggfor solid food evaluation. Anterior and posterior imaging obtained. 1 hour retention 92%. Normal <90% 2 hour retention 65%. Normal <60% 3 hour retention 44%. Normal <30% 4 hour retention 14%. Normal <10% IMPRESSION: Abnormally delayed gastric emptying. -------- FINAL REPORT -------- Dictated By: Abel Sultana Dictated Date: 10/19/2024 13:50 ET Assigned Physician: Abel Sultana Reviewed and Electronically Signed By: Abel Sultana Signed Date: 10/19/2024 13:53 ET Workstation ID: [id number] Transcribed By: Self Edit Transcribed Date: 10/19/2024 13:50 ET [facility] Final Result * EGD Anesthesia - MAC; [facility] ENDOSCOPY (10/12/2024 8:29 AM EDT) Anatomical Region Laterality Modality Endoscopy 10/12/2024 8:11 AM EDT Impressions 10/12/2024 8:31 AM EDT - Z-line regular, 35 cm from the incisors. - Normal mucosa was found in the entire esophagus. Biopsied. - Normal stomach. - Normal examined duodenum. Biopsied. - Several biopsies were obtained in the gastric antrum. Recommendation: - Discharge patient to home. - Resume previous diet. - Continue present medications. - Await pathology results. - Return to my office as previously scheduled. Narrative 10/12/2024 8:31 AM EDT [facility] GI Patient Name: La Nena Stewart Procedure Date: 10/12/2024 8:11 AM Date of : 1995 Age: 29 Room: ROOM 17 Gender: Female Note Status: Finalized Attending MD: Yung Son MD, Procedure Date No Time: 10/12/2024 Procedure: Upper GI endoscopy Indications: Epigastric abdominal pain, Nausea with vomiting, Weight loss Providers: Yung Son MD Referring MD: Yung Son MD Medicines: Monitored Anesthesia Care Complications: No immediate complications. Estimated Blood Loss: Estimated blood loss: none. Procedure: Pre-Anesthesia Assessment: - ASA Grade Assessment: III - A patient with severe systemic disease. - After reviewing the risks and benefits, the patient was deemed in satisfactory condition to undergo the procedure. After obtaining informed consent, the endoscope was passed under direct vision. Throughout the procedure, the patient's blood pressure, pulse, and oxygen saturations were monitored continuously.The Olympus Gastroscope was introduced through the mouth, and advanced to the third part of duodenum. The upper GI endoscopy was accomplished without difficulty. The patient tolerated the procedure well. Findings: The Z-line was regular and was found 35 cm from the incisors. Normal mucosa was found in the entire esophagus. Biopsies were taken with a cold forceps for histology. Estimated blood loss was minimal. The entire examined stomach was normal. Several biopsies were obtained in the gastric antrum with cold forceps for histology. Estimated blood loss was minimal. The examined duodenum was normal. Biopsies were taken with a cold forceps for histology. Estimated blood loss was minimal. Procedure Code(s): --- Professional --- 08205, Esophagogastroduodenoscopy, flexible, transoral; with biopsy, single or multiple Diagnosis Code(s): --- Professional --- R10.13, Epigastric pain R11.2, Nausea with vomiting, unspecified R63.4, Abnormal weight loss CPT copyright 2020 [employer] [place] [employer]. All rights reserved. The codes documented in this report are preliminary and upon bearing inspector review may be revised to meet current compliance requirements. Yung Son MD 10/12/2024 8:31:15 AM This report has been signed electronically.Yung Son MD Number of Addenda: 0 Note Initiated On: 10/12/2024 8:11 AM Scope In: Scope Out: Endoscopy Department at [facility] - [address] [place] [phone] Procedure Note Yung Son MD - 10/12/2024 [facility] GI Patient Name: La Nena Stewart Procedure Date: 10/12/2024 8:11 AM Date of : 1995 Age: 29 Room: ROOM 17 Gender: Female Note Status: Finalized Attending MD: Yung Son MD, Procedure Date No Time: 10/12/2024 Procedure: Upper GI endoscopy Indications: Epigastric abdominal pain, Nausea with vomiting, Weight loss Providers: Yung Son MD Referring MD: Yung Son MD Medicines: Monitored Anesthesia Care Complications: No immediate complications. Estimated Blood Loss: Estimated blood loss: none. Procedure: Pre-Anesthesia Assessment: - ASA Grade Assessment: III - A patient with severe systemic disease. - After reviewing the risks and benefits, thepatient was deemed in satisfactory condition to undergo the procedure. After obtaining informed consent, the endoscope was passed under direct vision. Throughout theprocedure, the patient's blood pressure, pulse, and oxygen saturations were monitored continuously.The Olympus Gastroscope was introduced through the mouth, and advanced to the third part of duodenum. The upperGI endoscopy was accomplished without difficulty. The patient tolerated the procedure well. Findings: The Z-line was regular and was found 35 cm from the incisors. Normal mucosa was found in the entire esophagus. Biopsies were taken with a cold forceps forhistology. Estimated blood loss was minimal. The entire examined stomach was normal. Several biopsies were obtained in the gastric antrum withcold forceps for histology. Estimated blood loss was minimal. The examined duodenum was normal. Biopsies weretaken with a cold forceps for histology. Estimated blood loss was minimal. Procedure Code(s): --- Professional --- 46389, Esophagogastroduodenoscopy, flexible, transoral; with biopsy, single or multiple Diagnosis Code(s): --- Professional --- R10.13, Epigastric pain R11.2, Nausea with vomiting, unspecified R63.4, Abnormal weight loss CPT copyright 2020 [employer] [place] [employer]. All rights reserved. The codes documented in this report are preliminary and upon bearing inspector reviewmay be revised to meet current compliance requirements. Yung Son MD 10/12/2024 8:31:15 AM This report has been signed electronically.Yung Son MD Number of Addenda: 0 Note Initiated On: 10/12/2024 8:11 AM Scope In: Scope Out: Endoscopy Department at [facility] - [address] [place] [phone] IMPRESSION: - Z-line regular, 35 cm from the incisors. - Normal mucosa was found in the entire esophagus. Biopsied. - Normal stomach. - Normal examined duodenum. Biopsied. - Several biopsies were obtained in the gastricantrum. Recommendation: - Discharge patient to home. - Resume previous diet. - Continue present medications. - Await pathology results. - Return to my office as previously scheduled. us Yung Son MD GI~PROCEDURE ORDERABLES Final Result * Tissue exam (10/12/2024 8:24 AM EDT) Final Diagnosis A. Small Intestine, Duodenum, biopsies: - Duodenal mucosa with preserved villi and no specific pathologic changes. - Negative for increased intraepithelial lymphocytes. B. Gastric, Antrum, biopsies: - Gastric antral mucosa with active chronic gastritis. - Helicobacter pylori organisms are morphologically identified. C. Esophagus, biopsies: - Esophageal squamous mucosa with few intraepithelial eosinophils (up to 4 eosinophils per hpf). - Negative for intestinal metaplasia. 10/13/2024 9:30 AM EDT [facility] LAB Gross Description A. Small Intestine, Duodenum, biopsies: Labeled biopsies duodenum . Received in formalin are multiple soft, randolph-pink tissue fragments, aggregating to 0.5 x 0.4 x 0.1 cm, which are filtered through paper and submitted in toto in one cassette, multiple pieces, multiple levels. B. Gastric, Antrum, biopsies: Labeled biopsies gastric, ant . Received in formalin are three soft, randolph tissue fragments, ranging from 0.3 cm to 0.4 cm in greatest diameters, which are wrapped in paper and submitted in toto in one cassette, pieces, multiple levels on one slide. C. Esophagus, biopsies: Labeled biopsies esophagus . Received in formalin are multiple soft, white-red tissue fragments, aggregating to 0.6 x 0.5 x 0.1 cm, which are filtered through paper and submitted in toto in one cassette, multiple pieces, multiple levels. 10/13/2024 9:30 AM EDT [facility] Disclaimer Unless otherwise specified, all tissue is 10% NB formalin fixed and paraffin embedded. 10/13/2024 9:30 AM EDT [facility] Tissue Duodenal structure / Unknown 10/12/2024 8:24 AM EDT 10/12/2024 9:40 AM EDT Tissue specimen (specimen) Pyloric antrum structure / Unknown 10/12/2024 8:26 AM EDT 10/12/2024 9:40 AM EDT Tissue specimen (specimen) Esophageal structure / Unknown 10/12/2024 8:27 AM EDT 10/12/2024 9:40 AM EDT Yung Son MD LAB PATHOLOGY ORDERABLES Morelia l Result [facility] [address] [place] [address], * POC , urine NO CHARGE screening manually resulted (10/12/2024 7:36 AM EDT) HCG, Ur POC Negative Negative POC hCG Int QC Pass? Yes Yes Urine Urine specimen obtained by clean catch procedure / Unknown 10/12/2024 7:36 AM EDT Colby Landa MD POINT OF CARE TEST ENTER/EDIT ORDERABLES Final Result * Continuous EEG (10/06/2024 10:36 AM EDT) Narrative Juanjo Merrill MD - 10/07/2024 12:43 PM EDT Table formatting from the original result was not included. Images from the original result were not included. [facility] [address] [place] [address] Ambulatory Electroencephalogram Report Date of service: 10/06/24 Patient Name: La Nena Stewart Date of : 1995 Age: 29 y.o. Gender: female Procedure Order: Continuous EEG Ordering Provider: Juanjo Merrill MD Reason for Exam: Order Questions Answers Type of monitoring Unmonitored With video? No Diagnosis listed on Order: Complex partial seizure (CMS/HCC V24, CMS/HCC V28) This is a recurrent day study. Please see report with final results. [facility] [address] [place] [id number] Ambulatory Electroencephalogram Report Date of service: 10/06/24 Patient Name: La Nena Stewart Date of : 1995 Age: 29 y.o. Gender: female Procedure Order: Continuous EEG Ordering Provider: Juanjo Merrill MD Reason for Exam: Order Questions Answers Type of monitoring Unmonitored With video? No Diagnosis listed on Order: Complex partial seizure (CMS/HCC V24, CMS/HCC V28) This is a recurrent day study. Please see report with final results. us Juanjo Merrill MD NEUROLOGY ORDERABLES Final Result * Continuous EEG (10/05/2024 9:46 AM EDT) Narrative Juanjo Merrill MD - 10/07/2024 12:43 PM EDT Table formatting from the original result was not included. Images from the original result were not included. [facility] [address] [place] [phone] Ambulatory Electroencephalogram Report Date of service: 10/05/24 Patient Name: La Nena Stewart Date of : 1995 Age: 29 y.o. Gender: female Procedure Order: Continuous EEG Ordering Provider: Juajno Merrill MD Reason for Exam: Order Questions Answers Type of monitoring Unmonitored With video? No Diagnosis listed on Order: Complex partial seizure (CMS/HCC V24, CMS/HCC V28) Procedure Performed: 48-hour ambulatory EEG EEG Technical Description: This study was performed using the 10-20 [employer] Electrode System placement and single channel EKG electrode on Trex recorder. Settings included: low frequency filter of 1 Hz, high frequency filter of 70 Hz, sensitivity of 7 uV/mm, a display speed of 30 mm/sec, with a 60 Hz notched filter applied as appropriate. Modifications in these parameters were made as necessary for further waveform resolution. Video Recording: No Description: This is a 16 channel 48-hour ambulatory EEG. Patient kept a detailed diary of both days and reported multiple symptoms including right sided brain tingles, cold chills, confusion, feeling trapped, right leg twitch, staring spells, zoning out and dizziness. No abnormal EEG activity was noted around or during that time. HDF EEG was separately reviewed and included wakefulness and sleep. During wakefulness, background EEG rhythm was symmetric alpha posteriorly lower amplitude faster anteriorly. Patient transition into the different stages of sleep. No significant abnormality during most of the tracing. There was 1 possible spike and slow wave activity noted during drowsiness more prominent in bifrontal especially left frontal area. Impression: No EEG at abnormality was noted during patient's symptoms. 1 possible bifrontal spike was noted. Juanjo Merrill MD NEUROLOGY ORDERABLES Final Result from Last 3 Months Insurance [facility] Care Teams Solar Design Engineer Relationship Specialty Start Date End Date Ian Bell NP [address] [place], [place] PCP - General Family Medicine 10/12/24
[2024-11-01 07:41] VITALS: BP 100/74; PULSE 68; RESP 16; TEMP 36.7; O2SAT 100; BMI 26.0
--- NOTE | 2024-11-01 07:41 | MHC.PC.OV ---
Vital Signs 11/01/24 07:41 Height 5 ft 2 in Weight 142 lb BMI 26.0 BP 100/74 Blood Pressure Location Rt brachial Position Sitting Respiration 16 Pulse 68 Pulse Source Pulse Oximeter Temp 98.1 F Temp Source Oral Pulse Oximetry (%) 100 Oxygen Delivery Method Room Air Intake Visit Reasons: Follow up Per Ian Allergies No Known Allergies (No Known Allergies*) Allergy (Verified 11/01/24 08:20) Medication List - Last Reconciled 11/01/24 by ZEESHAN FriendP- atomoxetine 40 mg PO QAM cetirizine 10 mg PO BEDTIME comp.stocking,thigh,long,large As directed divalproex ER (Depakote ER) 250 mg PO BID fluoxetine 20 mg PO DAILY hydroxyzine HCl 12.5 - 25 mg PO BID PRN medroxyprogesterone (Depo-SubQ provera 104) mg subcut midodrine 5 mg PO TID montelukast 10 mg PO BEDTIME 90 days propranolol 20 mg PO BID Tobacco use date assessed: 11/01/24 Dental Screening Dental Screen Date: 11/01/24 Did you have a dental visit in the last 12 months?: No Did you have a dental problem in the last 6 months where you did not have access to dental care?: No Was dental information given to patient?: Yes HPI Follow up Per Ian HPI Details Chief Complaint The patient presents with concerns of nausea, weight loss, and joint pain. History of Present Illness The patient is a 29-year-old female presenting with follow-up for multiple complex conditions including POTS, nausea with weight loss, and joint pain. The patient has been experiencing significant nausea and weight loss, which she attributes to her inability to consume more than 40 ounces of water daily without vomiting. She has undergone an endoscopy with biopsies, which returned normal results, and a colon screening is being considered. Tolerating small amts of bland foods. The patient has a history of Kat-Danlos Syndrome (EDS), which is associated with joint pain, particularly in the knees, elbows, and right hip. She reports popping and clicking in the right hip, although this was not observed during the physical examination. Additionally, the patient has a history of seizures and is currently under the care of a neurologist for this condition. Social History Health Maintenance Review of Systems - Gastrointestinal: Reports nausea and inability to consume more than 40 ounces of water without vomiting. - Musculoskeletal: Reports joint pain in knees, elbows, and right hip with popping and clicking in the right hip. - Neurological: Reports history of seizures. Physical Exam General: Cooperative, healthy appearing, comfortable, no acute distress and well developed Orientation: Patient oriented x3, alert, answering questions, laughing, giggling a little bit Limitations: No limitations Head: Normal to inspection Ears: Hearing grossly normal bilaterally Nose: Normal external nose present Face and sinus: Normal facial exam Eyes: Appearance normal, both eyes and all related structures Neck: Normal visual inspection and Yes full ROM Respiratory: Normal respiratory effort and able to speak in complete sentences. Clear to auscultation bilaterally Cardiovascular: Regular rate and rhythm. Heart rate was around 100. Normal S1 and S2 GI: Normal to inspection. Soft to palpation and nontender Skin: No rashes or lesions noted Neuro: Patient oriented x3 Extremities: Extensive crepitus to knees with extension and flexion. Normal to inspection otherwise, no active swelling Results - Endoscopy: Normal results with biopsies taken. Plan The patient will continue to follow up with her POTS specialist and regulatory lead for management of her condition. Given the significant nausea and weight loss, further gastrointestinal evaluation is planned, including a potential colon screening. For her joint pain, x-rays of the right hip, bilateral knees, and elbows will be obtained to assess for any structural abnormalities. The patient will continue to see her neurologist for seizure management. Discussion Notes During the visit, we discussed the ongoing management of the patient's POTS and the need for continued follow-up with her specialists. We reviewed the results of her recent endoscopy and the plan for further gastrointestinal evaluation, including a potential colon screening. We also discussed obtaining x-rays for her joint pain to evaluate any underlying issues. The importance of continuing care with her neurologist for seizure management was emphasized. Patient Instructions - Continue follow-up with POTS specialist and regulatory lead. - Prepare for potential colon screening as discussed. - Attend scheduled x-ray appointments for joint evaluation. - Maintain regular appointments with neurologist for seizure management. [facility] Medical History PTSD (post-traumatic stress disorder) Anxiety and depression Chronic back pain Scoliosis Migraine without aura Complex partial seizure disorder EDS (Kat-Danlos syndrome) Periumbilical pain COVID-19 Back pain Difficulty swallowing Vomiting and diarrhea History of headache Weakness Numbness Witnessed seizure-like activity Cough Chest pain HTN (hypertension) POTS (postural orthostatic tachycardia syndrome) Fibromyalgia History of cardiac murmur as a child RUQ pain Asthma Surgical History Hx laparoscopic cholecystectomy (01/08/24) H/O hand surgery History of wisdom tooth extraction Family History Paternal Grandmother History of ovarian cancer Mental health disorder Paternal Grandfather History of melanoma Father Mental health disorder Mother Mental health disorder Sister Mental health disorder Other Family history of autoimmune disorder Social History [facility] Are you a primary career technology teacher to a significant other at home: No Do you presently have visiting nurse or other home services: No Alcohol intake: never Patient Tobacco Use Status: Never used Tobacco e-Cigarette/Vaping Use: Never Used Second Hand Smoke Exposure: No Substance Use Type: Marijuana service: No Current occupational status: unemployed 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 Current occupational exposures/hazards: No Gender identity: Female Cognitive needs: No Hearing needs: No Vision needs: Yes Female Reproductive History Menstrual Age of Menarche: 13 Questionnaire Thrive Questionnaire Date Thrive assessed: 05/27/24 I am a: Patient What is your living situation today?: I have a steady place to live Within the past 12 months, did the food you bought not last and you didn't have the money to get more?: I choose not to answer this question Within the past 12 months, did you worry whether your food would run out before you got money to buy more?: I choose not to answer this question Do you have trouble paying for medicines?: No Do you have trouble getting transportation to medical appointments?: No Do you have trouble paying your heating and electricity bill?: No Do you have trouble taking care of your child, family member or friend?: No Do you have trouble with day-to-day activities such as bathing, preparing meals, shopping, managing finances, etc.?: Yes Are you currently unemployed and looking for a job?: No Are you interested in more education?: No Please select the resources that you would like help with: None Currently or been in a relationship where the following occur: No concerns reported THRIVE Score: 0 SEBASTIAN-7 AMB Questionnaire SEBASTIAN-7 Date SEBASTIAN - 7 assessed: 05/27/24 Source: Developed by Drs. Abel Muhammad, America Davies, Vini Esquivel and colleagues, with an educational jabari from [employer]. Physical exam (Primary Care) Vital Signs: Last Vital Signs Temp 98.1 F 11/01/24 07:41 Pulse 68 11/01/24 07:41 Resp 16 11/01/24 07:41 BP 100/74 11/01/24 07:41 Pulse Ox 100 11/01/24 07:41 Oxygen Delivery Method Room Air 11/01/24 07:41 BMI result Body Mass Index 26.0 Tobacco/Smoking Status: Tobacco use Status Tobacco use date assessed 11/01/24 11/01/24 07:46 Patient Tobacco Use Status Never used Tobacco 11/01/24 07:46 e-Cigarette/Vaping Use Never Used 11/01/24 07:46 Thrive Assessment: Date of Thrive Assessment Date Thrive assessed 05/27/24 11/01/24 07:46 Currently or been in a relationship where the following occur: No concerns reported Coding Level of Care Code Est Pt Level 4 (94392) Diagnoses Arthralgia, unspecified joint M25.50 Joint pain location: unspecified Assessment & Plan Assessment & Plan (1) Joint pain: Code(s): M25.50 - Pain in unspecified joint Category: Medical Qualifiers: Joint pain location: unspecified Qualified Code(s): M25.50 - Pain in unspecified joint Plan . Orders: Orders XR Elbow Jone 2V Today M25.50 - Pain in unspecified joint XR Knee Jone 3V Today M25.50 - Pain in unspecified joint XR hip RT min 2V Today M25.50 - Pain in unspecified joint Referrals Pain Management Referral M25.50 - Pain in unspecified joint
== END 2024-11-01 09:42 | disposition home or self-care (01) ==
LOC: HO.HMCC 07:29
PROVIDERS: PCP Nurse Practitioner Family; Visit Provider Nurse Practitioner Family
DX: M25.50 Pain in unspecified joint (principal)

== ENCOUNTER 2024-11-01 07:28 | Outpatient (REF) | payer OTHER, SELFPAY ==
--- NOTE | ~2024-11-01 | XR_ITS ---
EXAMINATION: XR KNEE 3 VIEWS BILATERAL HISTORY: knee pain COMPARISON: There are no prior studies available for comparison. FINDINGS: Standing AP views of both knees and additional lateral and sunrise patellar views of the bilateral knees are submitted. Osseous mineralization is normal. There is no fracture or dislocation. The joint spaces are preserved. The soft tissues are unremarkable. There is no joint effusion. XR/XR Knee Jone 3V IMPRESSION: Unremarkable examination of the bilateral knees. Electronically signed by: Abel Alonzo MD 11/01/2024 09:20 AM EDT
--- NOTE | ~2024-11-01 | XR_ITS ---
EXAMINATION: XR HIP 2 OR MORE VIEWS RIGHT HISTORY: M25.50 - Pain in unspecified joint COMPARISON: There are no prior studies available for comparison. FINDINGS: Two views of the right hip are submitted. Osseous mineralization is normal. There is no fracture or dislocation. The joint space is maintained. The soft tissues are unremarkable. XR/XR hip RT min 2V IMPRESSION: Unremarkable examination of the right hip. Electronically signed by: Abel Alonzo MD 11/01/2024 09:14 AM EDT
--- NOTE | ~2024-11-01 | XR_ITS ---
EXAMINATION: XR ELBOW 2 VIEWS BILATERAL HISTORY: M25.50 - Pain in unspecified joint COMPARISON: There are no prior studies available for comparison. FINDINGS: Six views of the bilateral elbows are submitted. Osseous mineralization is normal. There is no fracture or dislocation. The joint spaces are preserved. The soft tissues are unremarkable. There is no joint effusion. XR/XR Elbow Jone 2V IMPRESSION: Unremarkable examination of the bilateral elbows. Electronically signed by: Abel Alonzo MD 11/01/2024 09:16 AM EDT
== END 2024-11-01 07:29 | disposition home or self-care (01) ==
LOC: HO.HMGCX 07:28
PROVIDERS: PCP Nurse Practitioner Family; Visit Provider Nurse Practitioner Family
DX: M25.561 Pain in right knee (principal); M25.562 Pain in left knee; M25.521 Pain in right elbow; M25.522 Pain in left elbow; M25.551 Pain in right hip; G90.A Postural orthostatic tachycardia syndrome [POTS]; R31.29 Other microscopic hematuria
CPT/HCPCS: 73070; 73502; 73562; 87086; 88112

== ENCOUNTER → 2024-11-01 08:43 | Outpatient (BNV) | payer OTHER, SELFPAY | PROVIDERS: PCP Nurse Practitioner Family; Visit Provider Radiology Diagnostic Radiology | DX: M25.551 Pain in right hip (principal); M25.569 Pain in unspecified knee; M25.529 Pain in unspecified elbow | CPT/HCPCS: 73070; 73502; 73562 ==

== ENCOUNTER 2024-11-04 11:12 | Outpatient (AMB) | payer OTHER, SELFPAY ==
--- NOTE | 2024-11-04 11:28 | MHC.OFFVIS ---
Intake Visit Reasons: 2 month f/u Allergies No Known Allergies (No Known Allergies*) Allergy (Verified 11/01/24 08:20) HPI Comments Details: 29 y/o RH woman with family h/o epilepsy and mental disorder, personal diagnosis of PTSD, depression and anxiety, with multiple psychiatric symptoms, and dysautonomia with a diagnosis of POTS was here for headaches and seizure disorder. She reported episodes of zoning out, impending doom feeling tingling on right side of head, shaking of body and hands, not fully there for an onlooker for seconds to a minute. She might have tears in her eyes, but no incontinence or physical trauma. This has been happening since she was a teenager and they now occur every day, multiple times a day. An EEG at [facility] suggested right temporal irritability. She was also having headaches, every day, behding the eyes, neck and all around the head, pressure type, lasting hours to all day. [facility] Medical History PTSD (post-traumatic stress disorder) Anxiety and depression Chronic back pain Scoliosis Migraine without aura Complex partial seizure disorder EDS (Kat-Danlos syndrome) Periumbilical pain COVID-19 Back pain Difficulty swallowing Vomiting and diarrhea History of headache Weakness Numbness Witnessed seizure-like activity Cough Chest pain HTN (hypertension) POTS (postural orthostatic tachycardia syndrome) Fibromyalgia History of cardiac murmur as a child RUQ pain Asthma Surgical History Hx laparoscopic cholecystectomy (01/08/24) H/O hand surgery History of wisdom tooth extraction Family History Paternal Grandmother History of ovarian cancer Mental health disorder Paternal Grandfather History of melanoma Father Mental health disorder Mother Mental health disorder Sister Mental health disorder Other Family history of autoimmune disorder Social History Housing: Condominium Are you a primary home care music therapist to a significant other at home: No Do you presently have visiting nurse or other home services: No Alcohol intake: never Patient Tobacco Use Status: Never used Tobacco e-Cigarette/Vaping Use: Never Used Second Hand Smoke Exposure: No Substance Use Type: Marijuana service: No Current occupational status: unemployed 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 - Psychiatric: Reports high stress levels; reports distress; reports ongoing psychiatric care. - Cardiovascular: Reports high heart rate incident requiring ER visit. Physical Exam Neuro Other: Mental Status: Alert and oriented to person, place, and time. Normal attention. Normal spontaneous speech, fluency, and comprehension. No obvious issues with mood and memory. Affect is appropriate. Cranial Nerves: CN II: Visual diaz full to confrontation, visual acuity intact. CN III, IV, : Pupils equal, round, reactive to light and accommodation. Extraocular movements are normal. CN V: Facial sensation is normal. CN VII: Facial movements symmetrical. CN VIII: Hearing intact to bedside conversation is normal. CN IX, X: Palate elevates symmetrically. CN XI: Shoulder shrug and head turn symmetrical. CN XII: Tongue midline without atrophy or fasciculations. Extrapyramidal: Full facial expressions and blinking. No rigidity. Movements are appropriate with no tremor or abnormality. Speech: Normal; no dysarthria or tremor. Assessment & Plan Assessment & Plan (1) Complex partial seizure disorder: Comment: Amb EEG at [facility] in September 2024: No EEG abn while symptoms, one separate possible b-frontal spike EEG at [facility] in Dec 2023: R temp sharps and generalized sharp waves. MRI brain WO at [facility] in 2023: Mild cerebellar ectopia. Code(s): G40.209 - Localization-related (focal) (partial) symptomatic epilepsy and epileptic syndromes with complex partial seizures, not intractable, without status epilepticus Category: Medical (2) Migraine without aura, intractable, without status migrainosus: Code(s): G43.019 - Migraine without aura, intractable, without status migrainosus Category: Medical (3) Psychogenic nonepileptic seizure: Code(s): F44.5 - Conversion disorder with seizures or convulsions Category: Medical Plan Impression: a: Epileptic seizure disorder b: Psychogenic non epileptic seizure like spells with diagnosis of PTSD Rec: a: Depakote 250mg, 2, bid. b: Regular counseling/therapy and psyhiatry f/u Medications: Changed From divalproex ER (Depakote ER) 250 mg PO BID 60 tabs 0RF To divalproex ER (Depakote ER) 500 mg (2 x 250 mg) PO BID 360 tabs 1RF Coding Level of Care Code Est Pt Level 5 (99653) Diagnoses Complex partial seizure disorder G40.209 Migraine without aura, intractable, without status migrainosus G43.019 Psychogenic nonepileptic seizure F44.5
--- OUTSIDE RECORDS SUMMARY | 2024-11-04 11:53 | XMS_ITS | Clinical Summary ---
Author Organization [facility] Address [address] [place] [id number] Care Team Providers Care Bench Chemist Name Role Phone Ian Bell MD Primary Care Provider [phone] Kerwin Joyce PA-C Unavailable [phone] Allergies No known active allergies Medications cetirizine [...] Upcoming Encounters Date Type Department Care Team ([facility] st Contact Info) Description 06/01/2025 2:30 PM EST Appointment [facility] Heart & V[facility] [place] [facility] - Cardiology [address] [place] [address] Kerwin Joyce PA-C [address] [place] [id number] Health Maintenance Due Date Last Done Comments [...] patient's age to complete this topic Insurance [employer] [place] [place] [address] [facility] Care Teams Bench Chemist Relationship Specialty Start Date End Date Ian Bell MD [address] [place] [address] [place] [address] PCP - General Family Medicine 11/13/23 Kerwin Joyce PA-C [address] [place] [address] Physician Wire Drawing Setter Cardiac Electrophysiology 04/21/24
--- OUTSIDE RECORDS SUMMARY | 2024-11-04 11:53 | XMS_ITS | Encounter Summary ---
Author Organization [facility] Address [address] [place] [address] Phone Care Team Providers Care Tank Truck Operator Name Role Phone Nick Lauren Primary Care Provider [phone] Encounter Details Date Type Department Care Team (Late st Contact Info) Description 11/14/2016 Conversion Encounter [facility] - [address] [address] Social History Tobacco Use Types Packs/Day Years [...] on filedocumented in this encounter Care Teams Tank Truck Operator Relationship Specialty Start Date End Date Nick Lauren [address] [place] [address] PCP - General 11/08/16 documented as of this encounter
--- OUTSIDE RECORDS SUMMARY | 2024-11-04 11:53 | XMS_ITS | Referral Summary ---
Author Organization [facility] Address [address] [place] [address] Care Team Providers Care Refrigerator Glazier Name Role Phone Ian Bell Primary Care Provider [phone] Social History Tobacco Use Types Packs/Day Years [...] Not on file Insurance [employer] Care Teams Refrigerator Glazier Relationship Specialty Start Date End Date Ian Bell [address] [place], [place] [id number] PCP - General 04/22/24
--- OUTSIDE RECORDS SUMMARY | 2024-11-04 11:53 | XMS_ITS | Clinical Summary ---
Author Organization [facility] Address [address] [place] [address] Phone Care Team Providers Care Forensic Manager Name Role Phone Ian Bell NP Primary Care Provider [phone] Allergies Active Allergy Reactions Criticality Noted Date [...] 10/20/2024 Telephone Gastroenterology - [address] [facility] [address] [place] [address] Mishel Matthews MA 10/19/2024 7:43 AM EDT - 10/19/2024 11:59 PM EDT Hospital Encounter [facility] Nuclear Medicine [address] [place] [address] Nausea and vomiting, unspecified vomiting type Discharge Disposition: Home or Self Care 10/12/2024 8:20 AM EDT Anesthesia Event [facility] Endoscopy [address] [place] [address] Colby Landa MD 10/12/2024 7:13 AM EDT - 10/12/2024 11:59 PM EDT Hospital Encounter [facility] Endoscopy [address] [place] [address] Yung Son MD Chang, Daniel J, MD Nausea and vomiting, unspecified vomiting type; Gastroesophageal reflux disease, unspecified whether esophagitis present; Oropharyngeal dysphagia Discharge Disposition: Home or Self Care 10/11/2024 Telephone Gastroenterology - [address] [address] Yung Son MD 10/06/2024 8:47 AM EDT - 10/06/2024 11:59 PM EDT Hospital Encounter [facility] Neurodiagnostic [address] [place] [phone] Discharge Disposition: Home or Self Care 10/05/2024 8:40 AM EDT - 10/05/2024 11:59 PM EDT Hospital Encounter [facility] Neurodiagnostic [address] [place] [phone] Discharge Disposition: Home or Self Care 10/04/2024 11:00 AM EDT Consult Gastroenterology - [address] [place] [phone] Sulema Segundo PA Nausea and vomiting, unspecified vomiting type (Primary Dx); Gastroesophageal reflux disease, unspecified whether esophagitis present; Oropharyngeal dysphagia 10/04/2024 7:23 AM EDT - 10/04/2024 11:59 PM EDT Hospital Encounter [facility] Neurodiagnostic [address] [place] [phone] Discharge Disposition: Home or Self Care 10/04/2024 Telephone Gastroenterology - 299 [facility] [address] [address] Pro Mir MD 08/26/2024 Telephone Gastroenterology - [place] 175 [facility] 175 [facility] 200 [place] [address] Shawanda Lancaster MD appintment from [...] Orientation Straight 10/04/2024 4: 16 PM EDT Obstetrics History Last Filed Vital Signs Vital [...] Office Visit Gastroenterology - [address] [facility] [address] [place] [phone] Sulema Segundo PA [address] [place] [address] Health Maintenance Due Date Last Done Comments DTaP,Tdap,and Td Vaccines (1 - Tdap) 2016 Hepatitis B Vaccines (1 of 3 - 19+ 3-dose series) 2016 Cervical Cancer Screening: P ap Smear 2018 COVID-19 Vaccine (3 - 2023-2 5 season) 2023 08/02/2020, 07/05/2020 Depression Screening [...] (CMS/HCC V24, CMS/HCC V28) CONTINUOUS EEG Routine 10/04/2024 10:14 AM EDT Complex partial seizure (CMS/HCC V24, [...] Signed Date: 10/19/2024 13:53 ET Workstation ID: [id number] Transcribed By: Self Edit Transcribed Date: 10/19/2024 [...] Signed Date: 10/19/2024 13:53 ET Workstation ID: [id number] Transcribed By: Self Edit Transcribed Date: 10/19/2024 13:50 ET Sulema CARTER IMG MD PROCEDURES Final Result * EGD Anesthesia - MAC; [facility] ENDOSCOPY (10/12/2024 8:29 AM EDT) Anatomical Region [...] previously scheduled. Narrative 10/12/2024 8:31 AM EDT [facility] GI Patient Name: La Nena Stewart Procedure [...] was minimal. Procedure Code(s): --- Professional --- 19314, Esophagogastroduodenoscopy, flexible, transoral; with biopsy, single or multiple Diagnosis Code(s): --- Professional --- R10.13, Epigastric pain R11.2, Nausea with vomiting, unspecified R63.4, Abnormal weight loss CPT copyright 2020 [employer]. All rights reserved. The codes documented in this report are preliminary and upon guardian family member review may be revised to meet current compliance requirements. Yung Son MD 10/12/2024 8:31:15 AM This report has been signed electronically.Yung Son MD Number of Addenda: 0 Note Initiated On: 10/12/2024 8:11 AM Scope In: Scope Out: Endoscopy Department at [facility] - [address] [place] [phone] Procedure Note Yung Son MD - 10/12/2024 [facility] GI Patient Name: La Nena Stewart Procedure [...] was minimal. Procedure Code(s): --- Professional --- 33259, Esophagogastroduodenoscopy, flexible, transoral; with biopsy, single or multiple Diagnosis Code(s): --- Professional --- R10.13, Epigastric pain R11.2, Nausea with vomiting, unspecified R63.4, Abnormal weight loss CPT copyright 2020 [employer]. All rights reserved. The codes documented in this report are preliminary and upon guardian family member reviewmay be revised to meet current compliance requirements. Yung Son MD 10/12/2024 8:31:15 AM This report has been signed electronically.Yung Son MD Number of Addenda: 0 Note Initiated On: 10/12/2024 8:11 AM Scope In: Scope Out: Endoscopy Department at [facility] - [address] [place] [phone] IMPRESSION: - Z-line regular, 35 cm from [...] for intestinal metaplasia. 10/13/2024 9:30 AM EDT [facility]) [facility] Gross Description A. Small Intestine, [...] in one cassette, multiple pieces, multiple levels. JH 10/13/2024 9:30 AM EDT [facility] [...] MD LAB PATHOLOGY ORDERABLES Morelia l Result [facility]) [facility] [address] [place] [address], * POC , urine NO CHARGE screening [...] result were not included. Neurodiagnostic Lab [address] [place] [address] Ambulatory Electroencephalogram Report Date of service: 10/06/24 [...] see report with final results. Neurodiagnostic Lab [address] [place] [address] Ambulatory Electroencephalogram Report Date of service: 10/06/24 [...] study. Please see report with final results. Juanjo Merrill MD NEUROLOGY ORDERABLES Final Result * Continuous EEG (10/05/2024 9:46 AM EDT) Narrative Juanjo Merrill MD - 10/07/2024 12:43 PM EDT Table formatting from the original result was not included. Images from the original result were not included. Neurodiagnostic Lab [address] [place] [address] Ambulatory Electroencephalogram Report Date of service: 10/05/24 [...] NEUROLOGY ORDERABLES Final Result * Continuous EEG (10/04/2024 10:14 AM EDT) Narrative Juanjo Merrill MD - 11/02/2024 4:50 PM EDT Table formatting from the original result was not included. Images from the original result were not included. Neurodiagnostic Lab [address] [place] [address] Ambulatory Electroencephalogram Report Date of service: 10/04/24 Patient Name: La Nena Stewart Date of : 1995 Age: 29 y.o. Gender: female Procedure Order: Continuous EEG Ordering Provider: Juanjo Merrill MD Reason for Exam: Order Questions Answers Type of monitoring Unmonitored With video? No Diagnosis listed on Order: Complex partial seizure (CMS/[facility] V24, CMS/HCC V28) This is a recurrent day study. Please see report with final results. Juanjo Merrill MD NEUROLOGY ORDERABLES Final Result from Last 3 Months Insurance [facility] Care Teams Forensic Manager Relationship Specialty Start Date End Date Ian Bell NP [address] [place], [place] PCP - General Family Medicine 10/12/24
== END 2024-11-04 11:45 | disposition home or self-care (01) ==
LOC: HO.HSM 11:13
PROVIDERS: PCP Nurse Practitioner Family; Visit Provider Psychiatry & Neurology Neurology
DX: G40.209 Localization-related (focal) (partial) symptomatic epilepsy and epileptic syndromes with complex partial seizures, not intractable, without status epilepticus (principal); G43.019 Migraine without aura, intractable, without status migrainosus
CPT/HCPCS: 99214

== ENCOUNTER 2024-11-10 12:31 | Outpatient (REF) | payer OTHER, SELFPAY ==
[2024-11-10 14:18] LABS: Hematocrit 38.2 % (37.0-47.0); Hemoglobin 13.3 g/dl (12.0-16.0); Mean Corpuscular HGB Conc 34.8 g/dl (31.0-35.0); Mean Corpuscular Hemoglobin 31.4 pg (27.0-33.0); Mean Corpuscular Volume 90.1 fL (80.0-98.0); NRBC Abs Auto 0.000 X10*3/uL (0.0-0.012); NRBC Pct Auto 0.0 /100WBC (0.0-0.2); Platelet Count 251 X10*3/uL (160-400); Red Blood Count 4.24 X10*6/uL (4.20-5.50); White Blood Count 6.3 X10*3/uL (4.8-10.8)
[2024-11-10 21:48] LABS: Bacterial Vaginosis PCR NEGATIVE (Negative); Candida Group PCR NOT DETECTED (Not Detect); Candida glab krusei PCR NOT DETECTED (Not Detect); Trichomonas vaginalis PCR NOT DETECTED (Not Detect)
== END 2024-11-10 12:32 | disposition home or self-care (01) ==
LOC: HO.LAB 12:31
PROVIDERS: PCP Nurse Practitioner Family; Visit Provider Obstetrics & Gynecology
DX: N93.9 Abnormal uterine and vaginal bleeding, unspecified (principal); N92.6 Irregular menstruation, unspecified; R10.2 Pelvic and perineal pain; Z32.02 Encounter for pregnancy test, result negative
CPT/HCPCS: 36415; 81025; 81515; 84443; 84702; 85027; 88175

== ENCOUNTER 2024-11-10 12:31 | Outpatient (AMB) | payer OTHER, SELFPAY ==
--- NOTE | 2024-11-10 12:55 | MHC.OFFVIS ---
Vital Signs 11/10/24 13:02 Height 5 ft 2 in Weight 142 lb BMI 26.0 Intake Visit Reasons: Abnormal vaginal bleeding/ cramping Intake Note: abnormal bleeding for about 5 weeks blackish to brownish discharge has had a few negative upt Billet Checker Required: No Information Interpreted: non-clinical & clinical Rn Hospice: Rn Hospice Present (jaime) Accompanied by: Spouse Allergies No Known Allergies (No Known Allergies*) Allergy (Verified 11/10/24 13:06) Medication List - Last Reconciled 11/10/24 by Hailee Alexandra LPN atomoxetine 40 mg PO QAM cetirizine 10 mg PO BEDTIME comp.stocking,thigh,long,large As directed divalproex ER (Depakote ER) 500 mg (2 x 250 mg) PO BID fluoxetine 20 mg PO DAILY hydroxyzine HCl 12.5 - 25 mg PO BID PRN medroxyprogesterone (Depo-SubQ provera 104) mg subcut midodrine 5 mg PO TID montelukast 10 mg PO BEDTIME 90 days propranolol 20 mg PO BID Is last menstrual period known: Yes Last menstrual period: 10/25/24 Post menopausal: No Patient : No Do you need a note to return to daycare/school/sports/work: No HPI Comments Details: Presenting complaining of irregular menstrual cycle associated with pelvic cramping and passage of blood clots since Depo-Provera 104 mg subcu initiation a little more than 3 months ago. No other associated symptoms Last Pap smear was negative in 08/17 [facility] Medical History PTSD (post-traumatic stress disorder) Anxiety and depression Chronic back pain Scoliosis Migraine without aura Complex partial seizure disorder EDS (Kat-Danlos syndrome) Periumbilical pain COVID-19 Back pain Difficulty swallowing Vomiting and diarrhea History of headache Weakness Numbness Witnessed seizure-like activity Cough Chest pain HTN (hypertension) POTS (postural orthostatic tachycardia syndrome) Fibromyalgia History of cardiac murmur as a child RUQ pain Asthma Surgical History Hx laparoscopic cholecystectomy (01/08/24) H/O hand surgery History of wisdom tooth extraction Family History Paternal Grandmother History of ovarian cancer Mental health disorder Paternal Grandfather History of melanoma Father Mental health disorder Mother Mental health disorder Sister Mental health disorder Other Family history of autoimmune disorder Social History Housing: Condominium Are you a primary manager intensive care to a significant other at home: No Do you presently have visiting nurse or other home services: No Alcohol intake: never Patient Tobacco Use Status: Never used Tobacco e-Cigarette/Vaping Use: Never Used Second Hand Smoke Exposure: No Substance Use Type: Marijuana service: No Current occupational status: unemployed 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 Current occupational exposures/hazards: No Gender identity: Female Cognitive needs: No Hearing needs: No Vision needs: Yes Female Reproductive History Menstrual Age of Menarche: 13 Date of last menstrual period: 10/25/24 control method: progesterone injection (depo for 6 months) Physical Exam Vital Signs: BMI result Body Mass Index 26.0 Results AMB Test Urine AMB Test Urine Negative Last Edit by Hailee Alexandra LPN on 11/10/24 13:12 Assessment & Plan Assessment & Plan (1) Abnormal uterine bleeding (AUB): Comment: On Depo-Provera and valproic acid (Depakote) Code(s): N93.9 - Abnormal uterine and vaginal bleeding, unspecified Category: Medical Plan: Pap smear taken, GC and chlamydia taken CBC, TSH, HCG, and pelvic ultrasound ordered. Discussed with the patient the different causes of abnormal bleeding including thyroid disorders, uterine and ovarian pathology and other potential causes. Discussed with the patient the work up including CBC (to r/o anemia), TSH, pelvic Ultrasound. All questions answered and the patient verbalized understanding. Instructed the patient to schedule a follow-up appointment in 2 weeks. Orders: Orders TSH reflex Free T4 Today N93.9 - Abnormal uterine and vaginal bleeding, unspecified US pelvic and transvaginal Today N93.9 - Abnormal uterine and vaginal bleeding, unspecified AMB HCG Urine Test Today Z32.02 - Encounter for test, result negative Pap Smear Today N93.9 - Abnormal uterine and vaginal bleeding, unspecified Complete Blood Count no Diff Today N93.9 - Abnormal uterine and vaginal bleeding, unspecified HCG Quantitative Today N93.9 - Abnormal uterine and vaginal bleeding, unspecified Bacterial Vaginosis Panel Today N93.9 - Abnormal uterine and vaginal bleeding, unspecified Coding Level of Care Code New Pt Level 3 (68494) Diagnoses Abnormal uterine bleeding (AUB) N93.9
[2024-11-10 13:02] VITALS: BMI 26.0
--- OUTSIDE RECORDS SUMMARY | 2024-11-10 13:09 | XMS_ITS | Clinical Summary ---
Author Organization [facility] Address [address] [place] [address] Phone Care Team Providers Care Shirt Closer Name Role Phone Ian Bell NP Primary Care Provider [phone] Allergies Active Allergy Reactions Criticality Noted Date [...] 10/20/2024 Telephone Gastroenterology - [address] [facility] [address] [place] [address] Mishel Matthews MA 10/19/2024 7:43 AM EDT - 10/19/2024 11:59 PM EDT Hospital Encounter [facility] Nuclear Medicine [address] [place] [address] Nausea and vomiting, unspecified vomiting type Discharge Disposition: Home or Self Care 10/12/2024 8:20 AM EDT Anesthesia Event [facility] Endoscopy [address] [place] [address] Colby Landa MD 10/12/2024 7:13 AM EDT - 10/12/2024 11:59 PM EDT Hospital Encounter [facility] Endoscopy [address] [place] [address] Yung Son MD Chang, Daniel J, MD Nausea and vomiting, unspecified vomiting type; Gastroesophageal reflux disease, unspecified whether esophagitis present; Oropharyngeal dysphagia Discharge Disposition: Home or Self Care 10/11/2024 Telephone Gastroenterology - [address] [phone] Yung Son MD 10/06/2024 8:47 AM EDT - 10/06/2024 11:59 PM EDT Hospital Encounter [facility] Neurodiagnostic [address] [place] [phone] Discharge Disposition: Home or Self Care 10/05/2024 8:40 AM EDT - 10/05/2024 11:59 PM EDT Hospital Encounter [facility] Neurodiagnostic [address] [place] [phone] Discharge Disposition: Home or Self Care 10/04/2024 11:00 AM EDT Consult Gastroenterology - [address] [place] [phone] Sulema Segundo PA Nausea and vomiting, unspecified vomiting type (Primary Dx); Gastroesophageal reflux disease, unspecified whether esophagitis present; Oropharyngeal dysphagia 10/04/2024 7:23 AM EDT - 10/04/2024 11:59 PM EDT Hospital Encounter [facility] Neurodiagnostic [address] [place] [phone] Discharge Disposition: Home or Self Care 10/04/2024 Telephone Gastroenterology - 299 [facility] [address] [address] Pro Mir MD 08/26/2024 Telephone Gastroenterology - [place] 175 [facility] 175 [place] [facility] 200 [place] [address] Shawanda Lancaster MD appintment from Last 3 Months Surgical History Surgery Date Site/Laterality Comments WISDOM TOOTH EXTRACTION HAND SURGERY CHOLECYSTECTOMY 01/08/2024 laparoscopic HAND SURGERY Medical History Medical History Date Comments Back pain Weakness Hx of headache Difficulty swallowing Vomiting and diarrhea Numbness Covid-19 Periumbilical pain Anxiety Depression Adhd Scoliosis Akt-Danlos syndrome, type 5 POTS (postural orthostatic tachycardia [...] Office Visit Gastroenterology - [address] [facility] [address] [place] [phone] Sulema Segundo PA [address] [place] [address] Health Maintenance Due Date Last Done Comments [...] Signed Date: 10/19/2024 13:53 ET Workstation ID: [id number] Transcribed By: Self Edit Transcribed Date: 10/19/2024 [...] Signed Date: 10/19/2024 13:53 ET Workstation ID: [id number] Transcribed By: Self Edit Transcribed Date: 10/19/2024 13:50 ET Sulema CARTER IMG RI PROCEDURES Final Result * EGD Anesthesia - MAC; [facility] ENDOSCOPY (10/12/2024 8:29 AM EDT) Anatomical Region [...] previously scheduled. Narrative 10/12/2024 8:31 AM EDT [facility] GI Patient Name: La Nena Stewart [...] was minimal. Procedure Code(s): --- Professional --- 67606, Esophagogastroduodenoscopy, flexible, transoral; with biopsy, single or multiple Diagnosis Code(s): --- Professional --- R10.13, Epigastric pain R11.2, Nausea with vomiting, unspecified R63.4, Abnormal weight loss CPT copyright 2020 [employer]. All rights reserved. The codes documented in this report are preliminary and upon v belt skiver review may be revised to meet current compliance requirements. Yung Son MD 10/12/2024 8:31:15 AM This report has been signed electronically.Yung Son MD Number of Addenda: 0 Note Initiated On: 10/12/2024 8:11 AM Scope In: Scope Out: Endoscopy Department at [facility] - [address] [place] [phone] Procedure Note Yung Son MD - 10/12/2024 [facility] GI Patient Name: La Nena Stewart [...] was minimal. Procedure Code(s): --- Professional --- 19977, Esophagogastroduodenoscopy, flexible, transoral; with biopsy, single or multiple Diagnosis Code(s): --- Professional --- R10.13, Epigastric pain R11.2, Nausea with vomiting, unspecified R63.4, Abnormal weight loss CPT copyright 2020 [employer]. All rights reserved. The codes documented in this report are preliminary and upon v belt skiver reviewmay be revised to meet current compliance requirements. Yung Son MD 10/12/2024 8:31:15 AM This report has been signed electronically.Yung Son MD Number of Addenda: 0 Note Initiated On: 10/12/2024 8:11 AM Scope In: Scope Out: Endoscopy Department at [facility] - [address] [place] [phone] IMPRESSION: - Z-line regular, 35 cm from [...] for intestinal metaplasia. 10/13/2024 9:30 AM EDT [facility] ([facility]) [facility] Gross Description A. Small Intestine, Duodenum, [...] multiple levels. JH 10/13/2024 9:30 AM EDT [facility] Disclaimer Unless otherwise specified, all tissue is 10% NB formalin fixed and paraffin embedded. 10/13/2024 9:30 AM EDT [facility] Tissue Duodenal structure / Unknown 10/12/2024 8:24 AM EDT 10/12/2024 9:40 AM EDT Tissue specimen (specimen) Pyloric antrum structure / Unknown 10/12/2024 8:26 AM EDT 10/12/2024 9:40 AM EDT Tissue specimen (specimen) Esophageal structure / Unknown 10/12/2024 8:27 AM EDT 10/12/2024 9:40 AM EDT Yung Son MD LAB PATHOLOGY ORDERABLES Morelia l Result [facility]) [facility] [address] [place] [address], * POC , urine NO CHARGE screening [...] result were not included. Neurodiagnostic Lab [address] [place] [address] Ambulatory Electroencephalogram Report Date of service: 10/06/24 [...] report with final results. Neurodiagnostic Lab [address] [place] [address] Ambulatory Electroencephalogram Report Date of service: 10/06/24 [...] result were not included. Neurodiagnostic Lab [address] [place] [address] Ambulatory Electroencephalogram Report Date of service: 10/05/24 [...] original result were not included. Neurodiagnostic Lab [address] [place] [address] Ambulatory Electroencephalogram Report Date of service: 10/04/24 Patient Name: La Nena Stewart Date of : 1995 Age: 29 y.o. Gender: female Procedure Order: Continuous EEG Ordering Provider: Juanjo Merrill MD Reason for Exam: Order Questions Answers Type of monitoring Unmonitored With video? No Diagnosis listed on Order: Complex partial seizure (CMS/[facility] V24, CMS/HCC V28) This is a recurrent day study. Please see report with final results. Juanjo Merrill MD NEUROLOGY ORDERABLES Final Result from Last 3 Months Insurance [facility] Care Teams Shirt Closer Relationship Specialty Start Date End Date Ian Bell NP [address] [place], [place] PCP - General Family Medicine 10/12/24
--- OUTSIDE RECORDS SUMMARY | 2024-11-10 13:09 | XMS_ITS | Clinical Summary ---
Author Organization [facility] Address [address] [place] [address] Care Team Providers Care Morning Nanny Name Role Phone Ian Bell MD Primary Care Provider + [phone] Kerwin Joyce PA-C Unavailable [phone] Allergies No known active allergies Medications cetirizine [...] Upcoming Encounters Date Type Department Care Team ([facility] st Contact Info) Description 06/01/2025 2:30 PM EST Appointment [facility] Heart & Vascular [place] at [facility] - Cardiology [address] [place] [address] Kerwin Joyce PA-C [address] [place] [address] Health Maintenance Due Date Last Done Comments [...] patient's age to complete this topic Insurance [id number] [place] [address] [facility] Care Teams Morning Nanny Relationship Specialty Start Date End Date Ian Bell MD [address] [place] [address] [place] [address] PCP - General Family Medicine 11/13/23 Kerwin Joyce PA-C [address] [place] [address] Physician Warehouse Handler Cardiac Electrophysiology 04/21/24
--- OUTSIDE RECORDS SUMMARY | 2024-11-10 13:09 | XMS_ITS | Referral Summary ---
Author Organization [facility] Address [address] [place] [address] Care Team Providers Care Gameplay Engineer Name Role Phone Ian Bell Primary Care Provider Social History Tobacco Use Types Packs/Day Years [...] Not on file Insurance [employer] Care Teams Gameplay Engineer Relationship Specialty Start Date End Date Ian Bell [address] [place], [place] [id number] PCP - General 04/22/24
--- OUTSIDE RECORDS SUMMARY | 2024-11-10 13:09 | XMS_ITS | Encounter Summary ---
Author Organization [facility] Address [address] [place] [address] Phone Care Team Providers Care Senior Web Engineer Name Role Phone Nick Lauren Primary Care Provider [phone] Encounter Details Date Type Department Care Team (Late st Contact Info) Description 11/14/2016 Conversion Encounter [facility] - [address] [address] Social History Tobacco Use Types Packs/Day Years [...] on filedocumented in this encounter Care Teams Senior Web Engineer Relationship Specialty Start Date End Date Nick Lauren [address] [place] [address] PCP - General 11/08/16 documented as of this encounter
== END 2024-11-10 13:41 | disposition home or self-care (01) ==
LOC: HO.HWS 12:31
PROVIDERS: PCP Nurse Practitioner Family; Visit Provider Obstetrics & Gynecology
DX: N93.9 Abnormal uterine and vaginal bleeding, unspecified (principal); Z32.02 Encounter for pregnancy test, result negative
CPT/HCPCS: 99203

== ENCOUNTER 2024-11-11 14:15 | Outpatient (REF) | payer OTHER, SELFPAY ==
--- NOTE | ~2024-11-11 | US_ITS ---
CLINICAL HISTORY: R31.29 - Other microscopic hematuria US Renal Comparison: None provided Findings: Right kidney normal size and echotexture, 9.7 cm length. Left kidney normal size and echotexture, 10.4 cm length. No hydronephrosis of either kidney. Normal color Doppler. Urinary bladder is unremarkable. Prevoid volume 308 mL. Postvoid volume 0 mL. Bilateral ureteral jets are visualized. IMPRESSION: 1. Normal kidneys. This document has been electronically signed by: Blake Gaona MD on 11/12/2024 08:47:25
--- OUTSIDE RECORDS SUMMARY | 2024-11-11 15:02 | XMS_ITS | Clinical Summary ---
Author Organization [facility] Address [address] [place] [address] Care Team Providers Care Senior Dot Net Developer Name Role Phone Ian Bell MD Primary Care Provider + [phone] Kerwin Joyce PA-C Unavailable [phone] Allergies No known active allergies Medications cetirizine [...] Upcoming Encounters Date Type Department Care Team ([facility] st Contact Info) Description 06/01/2025 2:30 PM EST Appointment [facility] Heart & Vascular [place] at [facility] - Cardiology [address] [place] [address] Kerwin Joyce PA-C [address] [place] [address] Health Maintenance Due Date Last Done Comments Hepatitis C Virus Screening 1995 HIV Screening 2010 DTaP/Tdap/Td Vaccines (1 - Tdap) 2016 Hepatitis B Vaccines (1 of 3 - 19+ 3-dose series) 2016 Pap Smear (Ages 21-65) 2018 COVID-19 Vaccine ( - 2023-2 5 season) 2023 HPV Vaccines (1 - 3-dose SCD M series) 2024 Influenza Vaccine 10/29/2024 Pneumococcal Vaccine: Pediat farhat (0-5 Years) and At-Risk Patients (6 to 49 Years) Aged Out No longer eligible b ased on patient's age to complete [place] [phone] [facility] Care Teams Senior Dot Net Developer Relationship Specialty Start Date End Date Ian Bell MD [address] [place] [address] [place] [address] PCP - General Family Medicine 11/13/23 Kerwin Joyce PA-C [address] [place] [address] Physician Cylinder Machine Operator Pulp Drier Cardiac Electrophysiology 04/21/24
--- OUTSIDE RECORDS SUMMARY | 2024-11-11 15:02 | XMS_ITS | Clinical Summary ---
Author Organization [facility] Address [address] [place] [address] Phone Care Team Providers Care Room Clerk Name Role Phone Ian Bell NP Primary Care Provider [phone] Allergies Active Allergy Reactions Criticality Noted Date [...] 10/20/2024 Telephone Gastroenterology - [address] [facility] [address] [place] [address] Mishel Matthews MA 10/19/2024 7:43 AM EDT - 10/19/2024 11:59 PM EDT Hospital Encounter [facility] Nuclear Medicine [address] [place] [address] Nausea and vomiting, unspecified vomiting type Discharge Disposition: Home or Self Care 10/12/2024 8:20 AM EDT Anesthesia Event [facility] Endoscopy [address] [place] [address] Colby Landa MD 10/12/2024 7:13 AM EDT - 10/12/2024 11:59 PM EDT Hospital Encounter [facility] Endoscopy [address] [place] [address] Yung Son MD Chang, Daniel J, MD Nausea and vomiting, unspecified vomiting type; Gastroesophageal reflux disease, unspecified whether esophagitis present; Oropharyngeal dysphagia Discharge Disposition: Home or Self Care 10/11/2024 Telephone Gastroenterology - [address] [phone] Yung oSn MD 10/06/2024 8:47 AM EDT - 10/06/2024 11:59 PM EDT Hospital Encounter [facility] Neurodiagnostic [address] [place] [phone] Discharge Disposition: Home or Self Care 10/05/2024 8:40 AM EDT - 10/05/2024 11:59 PM EDT Hospital Encounter [facility] Neurodiagnostic [address] [place] [phone] Discharge Disposition: Home or Self Care 10/04/2024 11:00 AM EDT Consult Gastroenterology - [address] [place] [phone] Sulema Segundo PA Nausea and vomiting, unspecified vomiting type (Primary Dx); Gastroesophageal reflux disease, unspecified whether esophagitis present; Oropharyngeal dysphagia 10/04/2024 7:23 AM EDT - 10/04/2024 11:59 PM EDT Hospital Encounter [facility] Neurodiagnostic [address] [place] [phone] Discharge Disposition: Home or Self Care 10/04/2024 Telephone Gastroenterology - 299 [facility] [address] [phone] Pro Mir MD 08/26/2024 Telephone Gastroenterology - [place] 175 [facility] 175 [facility] [address] [place] [address] Shawanda [place] MD appintment from [...] Office Visit Gastroenterology - [address] [facility] [address] [place] [phone] Sulema Segundo PA [address] [place] [address] Health Maintenance Due Date Last Done Comments [...] Signed Date: 10/19/2024 13:53 ET Workstation ID: [id number] Transcribed By: Self Edit Transcribed Date: 10/19/2024 [...] Signed Date: 10/19/2024 13:53 ET Workstation ID: [id number] Transcribed By: Self Edit Transcribed Date: 10/19/2024 13:50 ET Sulema CARTER IMG [place] PROCEDURES Final Result * EGD Anesthesia - MAC; [facility] ENDOSCOPY (10/12/2024 8:29 AM EDT) Anatomical [...] previously scheduled. Narrative 10/12/2024 8:31 AM EDT [facility] GI Patient Name: La Nena [...] was minimal. Procedure Code(s): --- Professional --- 32000, Esophagogastroduodenoscopy, flexible, transoral; with biopsy, single or multiple Diagnosis Code(s): --- Professional --- R10.13, Epigastric pain R11.2, Nausea with vomiting, unspecified R63.4, Abnormal weight loss CPT copyright 2020 [employer]. All rights reserved. The codes documented in this report are preliminary and upon budget director review may be revised to meet current compliance requirements. Yung Son MD 10/12/2024 8:31:15 AM This report has been signed electronically.Yung Son MD Number of Addenda: 0 Note Initiated On: 10/12/2024 8:11 AM Scope In: Scope Out: Endoscopy Department at [facility] - [address] [place] [phone] Procedure Note Yung Son MD - 10/12/2024 [facility] GI Patient Name: La Nena [...] was minimal. Procedure Code(s): --- Professional --- 69392, Esophagogastroduodenoscopy, flexible, transoral; with biopsy, single or multiple Diagnosis Code(s): --- Professional --- R10.13, Epigastric pain R11.2, Nausea with vomiting, unspecified R63.4, Abnormal weight loss CPT copyright 2020 [employer]. All rights reserved. The codes documented in this report are preliminary and upon budget director reviewmay be revised to meet current compliance requirements. Yung Son MD 10/12/2024 8:31:15 AM This report has been signed electronically.Yung Son MD Number of Addenda: 0 Note Initiated On: 10/12/2024 8:11 AM Scope In: Scope Out: Endoscopy Department at [facility] - [address] [place] [phone] IMPRESSION: - Z-line regular, 35 cm from [...] for intestinal metaplasia. 10/13/2024 9:30 AM EDT [facility] Gross Description A. Small Intestine, Duodenum, [...] multiple levels. JH 10/13/2024 9:30 AM EDT [facility] Disclaimer Unless otherwise specified, all tissue is 10% NB formalin fixed and paraffin embedded. 10/13/2024 9:30 AM EDT [facility] Tissue Duodenal structure / Unknown 10/12/2024 8:24 AM EDT 10/12/2024 9:40 AM EDT Tissue specimen (specimen) Pyloric antrum structure / Unknown 10/12/2024 8:26 AM EDT 10/12/2024 9:40 AM EDT Tissue specimen (specimen) Esophageal structure / Unknown 10/12/2024 8:27 AM EDT 10/12/2024 9:40 AM EDT Yung Son MD LAB PATHOLOGY ORDERABLES Morelia l Result [facility]) [facility] [address] [place] [address], * POC , urine NO CHARGE screening [...] result were not included. [facility] [address] [place] [address] Ambulatory Electroencephalogram Report Date of service: 10/06/24 [...] report with final results. [facility] [address] [place] [address] Ambulatory Electroencephalogram Report Date of service: 10/06/24 [...] result were not included. [facility] [address] [place] [address] Ambulatory Electroencephalogram Report Date of service: 10/05/24 [...] original result were not included. [facility] [address] [place] [id number] Ambulatory Electroencephalogram Report Date of service: 10/04/24 Patient Name: La Nena Stewart Date of : 1995 Age: 29 y.o. Gender: female Procedure Order: Continuous EEG Ordering Provider: Juanjo Merrill MD Reason for Exam: Order Questions Answers Type of monitoring Unmonitored With video? No Diagnosis listed on Order: Complex partial seizure (CMS/[facility] V24, CMS/HCC V28) This is a recurrent day study. Please see report with final results. Juanjo eMrrill MD NEUROLOGY ORDERABLES Final Result from Last 3 Months Insurance [facility] Care Teams Room Clerk Relationship Specialty Start Date End Date Ian Bell NP [address] [place], [place] PCP - General Family Medicine 10/12/24
--- OUTSIDE RECORDS SUMMARY | 2024-11-11 15:02 | XMS_ITS | Encounter Summary ---
Author Organization [facility] Address [address] [place] [address] Phone Care Team Providers Care Patient Day Coordinator Name Role Phone Nick Lauren Primary Care Provider Encounter Details Date Type Department Care Team (Late st Contact Info) Description 11/14/2016 Conversion Encounter [place] [facility] - [address] [address] Social History Tobacco Use Types Packs/Day Years [...] on filedocumented in this encounter Care Teams Patient Day Coordinator Relationship Specialty Start Date End Date Nick Lauren [address] [place] [address] PCP - General 11/08/16 documented as of this encounter
--- OUTSIDE RECORDS SUMMARY | 2024-11-11 15:02 | XMS_ITS | Clinical Summary ---
Author Organization [facility] Address [address] [place] [address] Care Team Providers Care Sales/Marketing Name Role Phone Ian Bell Primary Care [...] - 2023-2 5 season) 2023 08/02/2020, 07/05/2020 Alcohol/Substance Use Screening 03/31/2024 Depression Screening and Follow-Up 03/31/2024 Social Drivers of Health Annual Screening 03/31/2024 Influenza Vaccine (#1) 2024 02/15/2019 RSV Vaccine (60+ years old and patients) (1 - 1-dose 75+ series) 2072 Pneumococcal Vaccine: Pediatric (0-5 Years) and At-Risk Patients (6-50 Years) Aged Out No longer eligible based on patient's age to complete this topic Insurance [address] [place] [address] [facility] Care Teams Sales/Marketing Relationship Specialty Start Date End Date Ian Bell [facility] [place], [place] [id number] PCP - General 04/22/24
== END 2024-11-11 14:16 | disposition home or self-care (01) ==
LOC: HO.HMGCX 14:15
PROVIDERS: PCP Nurse Practitioner Family; Visit Provider Nurse Practitioner Family
DX: R31.29 Other microscopic hematuria (principal)
CPT/HCPCS: 76770

== ENCOUNTER → 2024-11-11 14:35 | Outpatient (BNV) | payer OTHER, SELFPAY | PROVIDERS: PCP Nurse Practitioner Family; Visit Provider Specialist | DX: R31.29 Other microscopic hematuria (principal) | CPT/HCPCS: 76770 ==

== ENCOUNTER 2024-11-26 13:46 | Outpatient (AMB) | payer OTHER, SELFPAY ==
[2024-11-26 13:48] VITALS: BP 138/79; PULSE 94; RESP 16; O2SAT 100; BMI 25.6
--- NOTE | 2024-11-26 13:48 | A.OFFVIS_ITS ---
Vital Signs 11/26/24 13:48 Height 5 ft 2 in Weight 140 lb BMI 25.6 BP 138/79 Blood Pressure Location Lt brachial Position Sitting Respiration 16 Pulse 94 Pulse Source Pulse Oximeter Pulse Oximetry (%) 100 Oxygen Delivery Method Room Air Intake Visit Reasons: Pain in unspecified joint Mirror Department Supervisor Required: No Accompanied by: Life Partner Allergies No Known Allergies (No Known Allergies*) Allergy (Verified 11/26/24 13:56) HPI Comments Details: The patient is a 29-year-old female presenting with chronic pain management related to scoliosis and a connective tissue disorder. The patient reports experiencing pain since the age of 14 or 15, initially attributed to scoliosis. Physical therapy was attempted but did not yield significant improvement. Due to inadequate care during her upbringing, her condition worsened over time. A connective tissue disorder was diagnosed this year, characterized by hypermobility and discomfort due to exceeding normal range of motion. The patient experiences significant pain in her spine, hip, and hands, with the spine and hip being the most affected areas. The patient describes her scoliosis as having progressed to a borderline S curve, causing widespread tenderness and discomfort. She reports that her last spinal x-ray was conducted at age 18, with no recent imaging performed. The patient experiences exacerbation of pain when upright or engaging in activities, leading to nausea and a burning sensation upon touch. Pain relievers, ice packs, and heat have been ineffective, and cannabis use provides no relief. Muscle relaxers induce sleep but do not alleviate pain. The patient has not tried medications such as gabapentin or Lyrica due to lack of prescription. She experiences muscle spasms and tightness, particularly in areas with muscle knots. Physical therapy was last attempted during her teenage years. - Onset: Pain since age 14 or 15, initially due to scoliosis - Quality: Burning sensation, widespread tenderness - Location: Spine, hip, hands; spine and hip most affected - Exacerbating factors: Upright posture, physical activity - Relieving factors: None effective; cannabis, pain relievers, ice, and heat ineffective - Interference: Causes nausea, impacts daily activities - Affect: Pain impacts daily activities and causes discomfort - Analgesia: Pain relievers, cannabis, ice, and heat ineffective; muscle relaxers induce sleep but do not relieve pain - Adverse Effects: Muscle relaxers cause sedation - Activities of Daily Living: Pain limits physical activities, previously active lifestyle now sedentary - Aberrant Drug Related Behaviors: None reported [facility] Medical History (Updated 11/26/24 @ 15:33 by Dorie Schwartz, LAVONNE, TABLE SETTER) PTSD (post-traumatic stress disorder) Anxiety and depression Chronic back pain Scoliosis Migraine without aura Complex partial seizure disorder EDS (Kat-Danlos syndrome) Periumbilical pain COVID-19 Back pain Difficulty swallowing Vomiting and diarrhea History of headache Weakness Numbness Witnessed seizure-like activity Cough Chest pain HTN (hypertension) POTS (postural orthostatic tachycardia syndrome) Fibromyalgia History of cardiac murmur as a child RUQ pain Asthma Surgical History Hx laparoscopic cholecystectomy (01/08/24) H/O hand surgery History of wisdom tooth extraction Family History Paternal Grandmother History of ovarian cancer Mental health disorder Paternal Grandfather History of melanoma Father Mental health disorder Mother Mental health disorder Sister Mental health disorder Other Family history of autoimmune disorder Social History [facility] Are you a primary care mgr to a significant other at home: No Do you presently have visiting nurse or other home services: No Alcohol intake: never Patient Tobacco Use Status: Never used Tobacco e-Cigarette/Vaping Use: Never Used Second Hand Smoke Exposure: No Substance Use Type: Marijuana service: No Current occupational status: unemployed 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 Answers questions appropriately. Fully engaged in examination. Skin: warm, dry, intact HEENT: Normocephalic. Hearing intact. Cardiac: External chest normal in appearance. Respiratory: No cough, audible wheezing or stridor. Abdomen: without gross distension. MS: Scoliosis noted SLR negative bilaterally Diffuse tenderness across the middle and lower back Nontender over bilateral PSIS Bilateral lower extremity strength 5/5 Transitions from sit to stand unassisted Ambulates with steady gait Ambulates with bilaterally normal heel strike and toe off Neurological: Oriented to person, place, time and situation. Thought process intact. No gait abnormalities appreciated. Psychiatric: Appropriate mood and affect. Good judgment and insight. Vital Signs: Last Vital Signs Pulse 94 11/26/24 13:48 Resp 16 11/26/24 13:48 BP 138/79 11/26/24 13:48 Pulse Ox 100 11/26/24 13:48 Oxygen Delivery Method Room Air 11/26/24 13:48 BMI result Body Mass Index 25.6 Assessment & Plan Assessment & Plan (1) Scoliosis: Code(s): M41.9 - Scoliosis, unspecified Category: Medical (2) Chronic back pain: Code(s): M54.9 - Dorsalgia, unspecified; G89.29 - Other chronic pain Category: Medical Plan The plan includes initiating physical therapy to strengthen core muscles and alleviate stress on the back, which may improve posture and reduce pain. X-rays of the middle and lower back will be ordered to update imaging and assess the current state of scoliosis. A prescription for methocarbamol will be provided as a muscle relaxant, deemed safe given the patient's other conditions and medications. The patient is advised to use the medication judiciously, reserving it for days with significant pain to avoid tolerance. Follow-up will occur after physical therapy to evaluate progress and consider further interventions such as injections if necessary. The patient is encouraged to continue gentle stretching and avoid activities that may exacerbate her condition. Patient was informed and verbally consented to the use of an ambient scribe for clinic note documentation during this visit. Orders: Orders XR lumbar spine 4V min Today M54.9 - Dorsalgia, unspecified PT Evaluation and Treatment Today G89.29 - Other chronic pain, M41.9 - Scoliosis, unspecified, M54.9 - Dorsalgia, unspecified XR thoracic spine 3V Today M54.9 - Dorsalgia, unspecified Medications: New methocarbamol No driving while taking this medication. Do no take with alcohol or other BILINGUAL CASE MANAGER Depressants 500 mg PO TID PRN 90 tabs 1RF muscle spasm Patient Instructions: - Begin physical therapy to strengthen core muscles and improve posture. - Obtain x-rays of the middle and lower back for updated imaging. - Use methocarbamol as prescribed, reserving for days with significant pain. - Continue gentle stretching and avoid activities that may worsen pain. - Follow up after physical therapy to assess progress and consider further treatment options. Coding Level of Care Code New Pt Level 4 (34135) Complex EM visit Add On G2211 Diagnoses Scoliosis M41.9 Chronic back pain M54.9; G89.29
--- OUTSIDE RECORDS SUMMARY | 2024-11-26 13:50 | XMS_ITS | Encounter Summary ---
Author Organization [facility] Address [address] [place] [address] Phone Care Team Providers Care Clinical Applications Specialist Name Role Phone Nick Lauren Primary Care Provider [phone] Encounter Details Date Type Department Care Team (Late st Contact Info) Description 11/14/2016 Conversion Encounter [place] [facility] - [address] [address] Social History Tobacco Use Types Packs/Day Years [...] on filedocumented in this encounter Care Teams Clinical Applications Specialist Relationship Specialty Start Date End Date Nick Lauren [address] [place] [address] PCP - General 11/08/16 documented as of this encounter
--- OUTSIDE RECORDS SUMMARY | 2024-11-26 13:50 | XMS_ITS | Clinical Summary ---
Author Organization [facility] Address [address] [place] [phone] Phone Care Team Providers Care Supervisor Telephone Clerks Name Role Phone Nick Lauren Primary Care Provider [phone] Family History Relation Name Status Comments Father [...] of 3 - 19+ 3-dose series) 2016 COVID-19 Vaccine (1 - 2023-2 5 season) 2023 HPV Vaccines (1 - 3-dose SCD M series) 2024 Influenza Vaccines (#1) 2024 HIB Vaccines Aged Out No longer [...] age to complete this topic Care Teams Supervisor Telephone Clerks Relationship Specialty Start Date End Date Nick Lauren [address] [place] [phone] PCP - General 11/08/16
--- OUTSIDE RECORDS SUMMARY | 2024-11-26 13:50 | XMS_ITS | Clinical Summary ---
Author Organization [facility] Address [address] [place] [address] Care Team Providers Care Braid Pattern Setter Name Role Phone Ian Bell Primary [...] age to complete this topic Insurance [address] [place] [address] [facility] Care Teams Braid Pattern Setter Relationship Specialty Start Date End Date Ian Bell [facility] [place], [place] [phone] PCP - General 04/22/24
--- OUTSIDE RECORDS SUMMARY | 2024-11-26 13:50 | XMS_ITS | Clinical Summary ---
Author Organization [facility] Address [address] [place] [id number] Care Team Providers Care Bit Tripoler Name Role Phone Ian Bell MD Primary Care Provider [phone] Kerwin Joyce PA-C Unavailable [phone] Allergies No known active allergies Medications cetirizine [...] Info) Description 06/01/2025 2:30 PM EST Appointment [facility] - Cardiology [address] [place] [address] Kerwin Joyce PA-C [address] [place] [address] Health Maintenance Due Date Last Done Comments [...] to complete this [place] [id number] [facility] Care Teams Bit Tripoler Relationship Specialty Start Date End Date Ian Bell MD [address] [place] [address] [place] [address] PCP - General Family Medicine 11/13/23 Kerwin Joyce PA-C [address] [place] [address] Physician [facility] Cardiac Electrophysiology 04/21/24
--- OUTSIDE RECORDS SUMMARY | 2024-11-26 13:50 | XMS_ITS | Clinical Summary ---
Author Organization [facility] Address [address] [place] [address] Phone Care Team Providers Care Hull Grinder Name Role Phone Ian Bell NP Primary Care Provider [phone] Allergies Active Allergy Reactions Criticality Noted Date [...] mg tablet Take by mouth. Active norethindrone (CHARLY,JAILENE, ROSSI,MICRON OR) 0.35 mg tablet Take 1 tablet (0.35 mg total) by mouth 1 (one) time each day. Active COMP.STOCKING, THIGH,LONG,LAR GE MISC Active atomoxetine (STRATTERA) 40 mg capsule Take 1 capsule (40 mg total) by mouth 1 (one) time each day in the morning. Active divalproex (DEPAKOTE ER) 500 mg 24 hr tablet Take 1 tablet (500 mg total) by mouth 2 (two) times a day. 5 Active divalproex (DEPAKOTE ER) 250 mg 24 hr tablet Take 1 tablet (250 mg total) by mouth 2 (two) times a day. Active hydrOXYzine HCL (ATARAX) 25 mg tablet TAKE 1/2 TO 1 TABLET BY MOUTH TWICE DAILY NEEDED FOR ANXIETY OR INSOMNIA 5 Active Depo-subQ provera 104 104 mg/0.65 mL injection SHAKE WELL. INJECT ENTIRE SYRINGE UNDER THE SKIN OF STOMACH OR THIGH EVERY 84 DAYS 5 Active prednisoLONE acetate (PRED FORTE) 1 % ophthalmic suspension 1 drop 4 times daily. Active metoclopramide (REGLAN) 5 mg tabletIndicati ons:Gastropare sis Take 1 tablet (5 mg total) by mouth 3 (three) times a day with meals. 90 each 2 5 025 Active metoclopramide (REGLAN) 5 mg tabletIndicati ons:Gastropare sis Take 1 tablet (5 mg total) by mouth 3 (three) times a day. 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 POTS (postural orthostatic tachycardia [...] Encounters Date Type Department Care Team Description 11/17/2024 11:00 AM EDT Office Visit Gastroenterology - [address] [phone] Sulema Segundo PA Gastroparesis (Primary Dx); Nausea; Hematochezia; Slow transit constipation 10/20/2024 Telephone Gastroenterology - [address] [phone] Mishel Matthews MA 10/19/2024 7:43 AM EDT - 10/19/2024 11:59 PM EDT Hospital Encounter [facility] [address] [place] [phone] Nausea and vomiting, unspecified vomiting type Discharge Disposition: Home or Self Care 10/12/2024 8:20 AM EDT Anesthesia Event [facility] Endoscopy [address] [place] [phone] Colby Landa MD 10/12/2024 7:13 AM EDT - 10/12/2024 11:59 PM EDT Hospital Encounter [facility] [address] [place] [phone] Yung Son MD Chang, Daniel J, MD Nausea and vomiting, unspecified vomiting type; Gastroesophageal reflux disease, unspecified whether esophagitis present; Oropharyngeal dysphagia Discharge Disposition: Home or Self Care 10/11/2024 Telephone Gastroenterology - [address] [phone] Yung Son MD 10/06/2024 8:47 AM EDT - 10/06/2024 11:59 PM EDT Hospital Encounter [facility] Neurodiagnostic [address] [place] [phone] Discharge Disposition: Home or Self Care 10/05/2024 8:40 AM EDT - 10/05/2024 11:59 PM EDT Hospital Encounter [facility] [address] [place] [phone] Discharge Disposition: Home or Self Care 10/04/2024 11:00 AM EDT Consult Gastroenterology - 299 [address] 299 [facility] [address] [place] [address] Sulema Segundo PA Nausea and vomiting, unspecified vomiting type (Primary Dx); Gastroesophageal reflux disease, unspecified whether esophagitis present; Oropharyngeal dysphagia 10/04/2024 7:23 AM EDT - 10/04/2024 11:59 PM EDT Hospital Encounter [facility] [address] [place] [address] Discharge Disposition: Home or Self Care 10/04/2024 Telephone Gastroenterology - 299 [facility] 299 [facility] [address] [place] [phone] Pro Mir MD 08/26/2024 Telephone Gastroenterology - [place] 175 [facility] 175 [facility] [address] [place] [phone] Shawanda Lancaster MD from Last 3 Months Surgical History Surgery [...] Types Packs/Day Years Used Date Smoking Tobacco: Some Days Cigarettes Smokeless Tobacco: Never Tobacco Cessation:Ready to Q uit: Not Asked; Counseling Given: Not Answered Alcohol Use Standard Drinks/Week Comments Not Currently [...] EDT Inhaled Oxygen Concentration - - Weight 64.9 kg (143 lb) 11/17/2024 10:52 AM EDT Height 157.5 cm (5' 2 ) 11/17/2024 10:52 AM EDT Body Mass Index 26.16 11/17/2024 10:52 AM EDT Plan of Treatment Upcoming Encounters Date Type Department Care Team (Late st Contact Info) Description 03/08/2025 8:00 AM EST Office Visit Gastroenterology - 299 [place] 299 [facility] [address] [place] [phone] Pro Mir MD [address] [place] [phone] Health Maintenance Due Date Last Done Comments DTaP,Tdap,and Td Vaccines (1 - Tdap) 2016 Hepatitis B Vaccines (1 of 3 - 19+ 3-dose series) 2016 Pneumococcal Vaccine: Pediatrics (0 to 5 Years) and At-Risk Patients (6 to 49 Years) (1 of 2 - PCV) 2016 Cervical Cancer Screening: P ap Smear 2018 COVID-19 Vaccine ( - 2023-2 5 season) 2023 08/02/2020, 07/05/2020 Depression Screening 03/31/2024 Cholesterol Screening (Lipid Panel) 07/09/2024 HIV Screening 07/09/2024 Hepatitis C Screening [...] Signed Date: 10/19/2024 13:53 ET Workstation ID: [id number] Transcribed By: Self Edit Transcribed Date: 10/19/2024 [...] Signed Date: 10/19/2024 13:53 ET Workstation ID: [id number] Transcribed By: Self Edit Transcribed Date: 10/19/2024 13:50 ET Sulema ALONZO NM PROCEDURES Final Result * EGD Anesthesia - MAC; SP ENDOSCOPY (10/12/2024 8:29 AM EDT) Anatomical Region [...] scheduled. Narrative 10/12/2024 8:31 AM EDT [facility] GI Patient Name: La Nena Neil Procedure Date: 10/12/2024 8:11 AM Date of [...] was minimal. Procedure Code(s): --- Professional --- 40120, Esophagogastroduodenoscopy, flexible, transoral; with biopsy, single or multiple Diagnosis Code(s): --- Professional --- R10.13, Epigastric pain R11.2, Nausea with vomiting, unspecified R63.4, Abnormal weight loss CPT copyright 2020 [employer]. All rights reserved. The codes documented in this report are preliminary and upon shipping receiving clerk review may be revised to meet current compliance requirements. Yung Son MD 10/12/2024 8:31:15 AM This report has been signed electronically.Yung Son MD Number of Addenda: 0 Note Initiated On: 10/12/2024 8:11 AM Scope In: Scope Out: Endoscopy Department at [facility] - [address] [place] [phone] Procedure Note Yung Son MD - 10/12/2024 [facility] GI Patient Name: La Nena Neil Procedure Date: 10/12/2024 8:11 AM Date of [...] was minimal. Procedure Code(s): --- Professional --- 66652, Esophagogastroduodenoscopy, flexible, transoral; with biopsy, single or multiple Diagnosis Code(s): --- Professional --- R10.13, Epigastric pain R11.2, Nausea with vomiting, unspecified R63.4, Abnormal weight loss CPT copyright 2020 [employer]. All rights reserved. The codes documented in this report are preliminary and upon shipping receiving clerk reviewmay be revised to meet current compliance requirements. Yung Son MD 10/12/2024 8:31:15 AM This report has been signed electronically.Yung Son MD Number of Addenda: 0 Note Initiated On: 10/12/2024 8:11 AM Scope In: Scope Out: Endoscopy Department at [facility] - [address] [place] [phone] IMPRESSION: - Z-line regular, 35 cm from [...] for intestinal metaplasia. 10/13/2024 9:30 AM EDT [facility] Gross Description A. Small Intestine, Duodenum, [...] pieces, multiple levels. 10/13/2024 9:30 AM EDT [facility] Disclaimer Unless otherwise specified, all tissue is 10% NB formalin fixed and paraffin embedded. 10/13/2024 9:30 AM EDT [facility] Tissue Duodenal structure / Unknown 10/12/2024 8:24 AM EDT 10/12/2024 9:40 AM EDT Tissue specimen (specimen) Pyloric antrum structure / Unknown 10/12/2024 8:26 AM EDT 10/12/2024 9:40 AM EDT Tissue specimen (specimen) Esophageal structure / Unknown 10/12/2024 8:27 AM EDT 10/12/2024 9:40 AM EDT us Yung Son MD LAB PATHOLOGY ORDERABLES Morelia carpenter Result [facility] [address] [place] [address], * POC , urine NO CHARGE screening manually resulted (10/12/2024 7:36 AM EDT) HCG, Ur POC Negative Negative POC hCG Int QC Pass? Yes Yes Urine Urine specimen obtained by clean catch procedure / Unknown 10/12/2024 7:36 AM EDT us Colby Landa MD POINT OF CARE TEST ENTER/EDIT ORDERABLES Final Result * Continuous EEG (10/06/2024 10:36 AM EDT) Narrative Juanjo Merrill MD - 10/07/2024 12:43 PM EDT Table formatting from the original result was not included. Images from the original result were not included. [facility] [address] [place] [address] Ambulatory Electroencephalogram Report Date of service: 10/06/24 Patient Name: La Nena Neil Date of : 1995 Age: 29 y.o. Gender: female Procedure Order: Continuous EEG Ordering Provider: Juanjo Merrill MD Reason for Exam: Order Questions Answers Type of monitoring Unmonitored With video? No Diagnosis listed on Order: Complex partial seizure (CMS/HCC V24, CMS/HCC V28) This is a recurrent day study. Please see report with final results. [facility] [address] [place] [address] Ambulatory Electroencephalogram Report Date of service: 10/06/24 Patient Name: La Nena Neil Date of : 1995 Age: 29 y.o. Gender: female Procedure Order: Continuous EEG Ordering Provider: Juanjo eMrrill MD Reason for Exam: Order Questions Answers [...] original result were not included. [facility] [address] [place] [phone] Ambulatory Electroencephalogram Report Date of service: 10/05/24 Patient Name: La Nena Neil Date of : 1995 Age: 29 y.o. [...] symptoms. 1 possible bifrontal spike was noted. us Juanjo Merrill MD NEUROLOGY ORDERABLES Final Result * Continuous EEG (10/04/2024 10:14 AM EDT) Narrative Juanjo Merrill MD - 11/02/2024 4:50 PM EDT Table formatting from the original result was not included. Images from the original result were not included. [facility] [address] [place] [address] Ambulatory Electroencephalogram Report Date of service: 10/04/24 Patient Name: La Nena Neil Date of : 1995 Age: 29 y.o. Gender: female Procedure Order: Continuous EEG Ordering Provider: Juanjo Merrill MD Reason for Exam: Order Questions Answers Type of monitoring Unmonitored With video? No Diagnosis listed on Order: Complex partial seizure ([facility] V24, [facility] V28) This is a recurrent day study. Please see report with final results. us Juanjo Merrill MD NEUROLOGY ORDERABLES Final Result from Last 3 Months Insurance [facility] Care Teams Hull Grinder Relationship Specialty Start Date End Date Ian Bell NP [address] [place], [place] PCP - General Family Medicine 10/12/24
== END 2024-11-26 14:32 | disposition home or self-care (01) ==
LOC: HO.PMC 13:47
PROVIDERS: PCP Nurse Practitioner Family; Visit Provider Nurse Practitioner Family
DX: M41.9 Scoliosis, unspecified (principal); M54.9 Dorsalgia, unspecified; G89.29 Other chronic pain
CPT/HCPCS: 99204; G2211

== ENCOUNTER 2024-12-09 13:01 | Outpatient (REF) | payer OTHER, SELFPAY ==
[2024-12-09 15:03] LABS: Lipase 20 U/L (8-78)
[2024-12-09 15:30] LABS: Folate 5.9 ng/mL (> or = 4.0); Vitamin B12 485 pg/mL (200-900)
[2024-12-10 08:09] LABS: Class Almond 0; Class Brazil Nut 0; Class Cashew 0; Class Codfish 0; Class Cow's Milk 0; Class Egg white 0; Class Hazelnut 0; Class Macadamia Nut 0; Class Peanut 0; Class Salmon 0; Class Scallop 0; Class Sesame Seed 0; Class Shrimp 0; Class Soybean 0; Class Tuna 0; Class Walnut 0; Class Wheat 0; F345-IgE Macadmia Nut <0.10 kU/L
[2024-12-10 21:33] LABS: Transglutaminase Ab IgG <1.0 U/mL
[2024-12-14 16:18] LABS: Vitamin D 25-OH, D2 <4 ng/mL; Vitamin D 25-OH, D3 26 ng/mL; Vitamin D 25-OH, Total 26 ng/mL (30-100)
== END 2024-12-09 13:02 | disposition home or self-care (01) ==
LOC: HO.LAB 13:01
PROVIDERS: PCP Nurse Practitioner Family; Visit Provider Nurse Practitioner Family
DX: R11.10 Vomiting, unspecified (principal); K82.8 Other specified diseases of gallbladder; R19.8 Other specified symptoms and signs involving the digestive system and abdomen; R10.11 Right upper quadrant pain; R14.0 Abdominal distension (gaseous); K52.9 Noninfective gastroenteritis and colitis, unspecified; R10.13 Epigastric pain; K21.9 Gastro-esophageal reflux disease without esophagitis; R13.10 Dysphagia, unspecified; Z90.49 Acquired absence of other specified parts of digestive tract
CPT/HCPCS: 36415; 82306; 82607; 82746; 83690; 86003; 86364

== ENCOUNTER 2024-12-09 13:01 | Outpatient (AMB) | payer OTHER, SELFPAY ==
--- NOTE | 2024-12-09 13:02 | MHC.OFFVIS ---
Vital Signs 12/09/24 13:07 Height 5 ft 2 in Weight 140 lb BMI 25.6 BP 144/90 H Blood Pressure Location Lt brachial Position Sitting Pulse 68 Pulse Source Pulse Oximeter Pulse Oximetry (%) 100 Oxygen Delivery Method Room Air Intake Visit Reasons: Vomiting and Abd pain Intake Note: New pt for initial eval of chronic abd pain + N+V. CC: C.O. severe gastroparesis sx. Transfer of care from [facility]. N+V, severely limited food intake. Installation Manager Required: No Accompanied by: Self / Same As Patient Allergies No Known Allergies (No Known Allergies*) Allergy (Verified 01/19/25 11:07) HPI HPI Vomiting and Abd pain: Details: 29-year-old female with past medical history of EDS, chronic back pain, psychogenic nonepileptic seizures, migraine headaches,POTS, anxiety, depression, stop his post cholecystectomy, TMJ is here for 2nd opinion. Patient was previously seen by GI in [place]. Last appointment visit was in October of this year. Patient reports frequent nausea and vomiting worse lately. Patient is on able to confirm more than checked couple small meals a day. Patient reports also postprandial diarrhea, generally struggling with constipation. Bowel movements every 2-3 days. Incomplete emptying of her bowels. Patient had gastric emptying study in September that showed 14% retention with normal being 10%. Delayed gastric emptying seen. Mild, however patient continues to have nausea and vomiting. She also is not empty her bowels very well. Patient reports occasional hematochezia and melena. Patient had upper endoscopy October 12 this year. Biopsies showed duodenal preserved relying with no specific pathologic changes. Gastric mucosa showed chronic gastritis with H pylori. Esophageal mucosa with intraepithelial eosinophils, negative for intestinal metaplasia. [facility] Medical History PTSD (post-traumatic stress disorder) Anxiety and depression Chronic back pain Scoliosis Migraine without aura Complex partial seizure disorder EDS (Kat-Danlos syndrome) Periumbilical pain COVID-19 Back pain Difficulty swallowing Vomiting and diarrhea History of headache Weakness Numbness Witnessed seizure-like activity Cough Chest pain HTN (hypertension) POTS (postural orthostatic tachycardia syndrome) Fibromyalgia History of cardiac murmur as a child RUQ pain Asthma Surgical History Hx laparoscopic cholecystectomy (01/08/24) H/O hand surgery History of wisdom tooth extraction Family History Paternal Grandmother History of ovarian cancer Mental health disorder Paternal Grandfather History of melanoma Father Mental health disorder Mother Mental health disorder Sister Mental health disorder Other Family history of autoimmune disorder Social History Housing: Condominium Are you a primary home care provider to a significant other at home: No Do you presently have visiting nurse or other home services: No Alcohol intake: never Patient Tobacco Use Status: Never used Tobacco e-Cigarette/Vaping Use: Never Used Second Hand Smoke Exposure: No Substance Use Type: Marijuana service: No Current occupational status: unemployed 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 Current occupational exposures/hazards: No Gender identity: Female Cognitive needs: No Hearing needs: No Vision needs: Yes Female Reproductive History Menstrual Age of Menarche: 13 Review of Systems Const Denies weight gain and Denies weight loss ENT Reports no additional complaints, Reports dysphagia and Denies odynophagia Card Reports no additional complaints Resp Reports no additional complaints GI Reports abdominal pain, Denies belching, Denies melena, Denies bloating, Denies change in bowel habits, Reports constipation, Reports dysphagia, Denies excessive flatus, Reports dyspepsia, Reports heartburn, Denies diarrhea, Reports loose stools, Reports nausea, Denies odynophagia and Reports vomiting Musc Reports no additional complaints Neuro Reports no additional complaints Psych Reports no additional complaints Endo Reports no additional complaints Physical Exam Vital Signs: Last Vital Signs Pulse 68 12/09/24 13:07 BP 144/90 H 12/09/24 13:07 Pulse Ox 100 12/09/24 13:07 Oxygen Delivery Method Room Air 12/09/24 13:07 BMI result Body Mass Index 25.6 Const General: healthy appearing, no acute distress and well developed Nutritional Appearance: well nourished Orientation/consciousness: patient oriented x3 Resp Effort & Inspection: normal respiratory effort, able to speak in complete sentences, no tracheal deviation and symmetric chest movement Auscultation: clear to auscultation bilaterally Cardio Rate: regular rate GI Inspection: Yes normal to inspection and No distended Palpation (GI): Soft to palpation, not firm, nontender and No hepatosplenomegaly present Auscultation: normal bowel sounds General: Yes no CVA tenderness Back/Spine/Pelvis Back: no CVA tenderness Skin General skin exam: elasticity normal, turgor normal and dry skin Neuro General: patient oriented x3 Psych Appearance: grossly normal Mental Status: mental status grossly normal Assessment & Plan Assessment & Plan (1) Vomiting: Code(s): R11.10 - Vomiting, unspecified Category: Medical (2) Biliary dyskinesia: Code(s): K82.8 - Other specified diseases of gallbladder Category: Surgical (3) Status post laparoscopic cholecystectomy: Code(s): Z90.49 - Acquired absence of other specified parts of digestive tract Category: Surgical (4) Alternating constipation and diarrhea: Code(s): R19.8 - Other specified symptoms and signs involving the digestive system and abdomen Category: Medical (5) RUQ pain: Code(s): R10.11 - Right upper quadrant pain Category: Medical (6) Postprandial abdominal bloating: Code(s): R14.0 - Abdominal distension (gaseous) (7) Postprandial diarrhea: Code(s): K52.9 - Noninfective gastroenteritis and colitis, unspecified (8) Postprandial epigastric pain: Code(s): R10.13 - Epigastric pain Plan Patient will stop Reglan as she felt that Reglan was not helping her. Patient continues to have epigastric pain despite taking the medication. She can start pantoprazole. Avoid dietary triggers late night snacking. Discussed with patient low FODMAP diet. Staying upright for 2 minute to 3 hours after meals discussed with patient. List of food recommended as list of food to avoid given to patient. Patient will go for upper GI with barium swallow. Transglutaminase lipase, vitamin B12, folate and vitamin D levels ordered. Patient will take Senokot to help her move her bowels better. Increase fluid intake and activity to promote better bowel motility. Patient will follow-up in our office in 3 months. She will call us if she will have any GI concerning symptoms. He is agreeable to this plan and verbalizes understanding of instructions. She was given the opportunity to ask questions and all questions answered. Thank you for allowing me to participate in her care Orders: Orders Transglutaminase IgA 12/09/24 R10.9 - Unspecified abdominal pain Transglutaminase Ab IgG 12/09/24 R10.9 - Unspecified abdominal pain FL upper GI w air w Ba Swallow 12/09/24 K21.9 - Gastro-esophageal reflux disease without esophagitis Lipase 12/09/24 R10.9 - Unspecified abdominal pain Vitamin B12 and Folate 12/09/24 R19.7 - Diarrhea, unspecified Vitamin D 25-OH (D2 and D3) 12/09/24 E55.9 - Vitamin D deficiency, unspecified Medications: New pantoprazole 20 mg PO DAILY 30 tabs 3RF Senokot (sennosides) 17.2 mg (2 x 8.6 mg) PO DAILY 180 tabs 3RF NS K59.04 - Chronic idiopathic constipation Coding Level of Care Code New Pt Level 4 (83033) Diagnoses Vomiting R11.10 Biliary dyskinesia K82.8 Status post laparoscopic cholecystectomy Z90.49 Alternating constipation and diarrhea R19.8 RUQ pain R10.11 Postprandial abdominal bloating R14.0 Postprandial diarrhea K52.9 Postprandial epigastric pain R10.13 Time Spent (min) 50 Comment 35 minutes spent with patient and additional 15 minutes spent reviewing her records
[2024-12-09 13:07] VITALS: BP 144/90; PULSE 68; O2SAT 100; BMI 25.6
--- OUTSIDE RECORDS SUMMARY | 2024-12-09 17:04 | XMS_ITS | Encounter Summary ---
Author Organization [facility] Address [address] [place] [address] Phone Care Team Providers Care Director Regulatory Agency Name Role Phone Nick Lauren Primary Care Provider Encounter Details Date Type Department Care Team (Late st Contact Info) Description 11/14/2016 Conversion Encounter [place] [facility] - [address] [address] Social History Tobacco Use Types Packs/Day Years [...] on filedocumented in this encounter Care Teams Director Regulatory Agency Relationship Specialty Start Date End Date Nick Lauren [address] [place] [address] PCP - General 11/08/16 documented as of this encounter
--- OUTSIDE RECORDS SUMMARY | 2024-12-09 17:04 | XMS_ITS | Clinical Summary ---
Author Organization [facility] Address [address] [place] [phone] Phone Care Team Providers Care Studio Grip Name Role Phone Nick Lauren Primary Care Provider [phone] Family History Relation Name Status Comments Father [...] of 3 - 19+ 3-dose series) 2016 HPV Vaccines (1 - 3-dose SCD M series) 2024 Influenza Vaccines (#1) 2024 COVID-19 Vaccine ( - 2023-2 5 season) 2024 HIB Vaccines Aged Out No longer [...] age to complete this topic Care Teams Studio Grip Relationship Specialty Start Date End Date Nick Lauren [address] [place] [id number] PCP - General 11/08/16
--- OUTSIDE RECORDS SUMMARY | 2024-12-09 17:04 | XMS_ITS | Clinical Summary ---
Author Organization [facility] Address [address] [place] [address] Care Team Providers Care Filter Filler Name Role Phone Ian Bell MD Primary Care Provider [phone] Kerwin Joyce PA-C Unavailable [phone] Allergies No known active allergies Medications cetirizine [...] Upcoming Encounters Date Type Department Care Team ([facility] st Contact Info) Description 06/01/2025 2:30 PM EST Appointment [facility] Heart & V[facility] [place] [facility] - Cardiology [address] [place] [address] Kerwin Joyce PA-C [address] [place] [address] Health Maintenance Due Date Last Done Comments [...] to complete this [place] [id number] [facility] Care Teams Filter Filler Relationship Specialty Start Date End Date Ian Bell MD [address] [place] [address] [place] [address] PCP - General Family Medicine 11/13/23 Kerwin Joyce PA-C [address] [place] [address] Physician Senior Sales Executive Cardiac Electrophysiology 04/21/24
--- OUTSIDE RECORDS SUMMARY | 2024-12-09 17:04 | XMS_ITS | Clinical Summary ---
Author Organization [facility] Address [address] [place] [address] Care Team Providers Care Merchandise Director Name Role Phone Ian Bell Primary Care [...] DTaP,Tdap,and Td Vaccines (1 - Tdap) 2019 Alcohol/Substance Use Screening 03/31/2024 Depression Screening and Follow-Up 03/31/2024 Social Drivers of Health Annual Screening 03/31/2024 COVID-19 Vaccine (3 - 2024-2 6 season) 2024 08/02/2020, 07/05/2020 Influenza Vaccine (#1) 2024 02/15/2019 RSV Vaccine (60+ years old and patients) (1 - 1-dose 75+ series) 2072 Pneumococcal Vaccine: Pediatric (0-5 Years) and At-Risk Patients (6-50 Years) Aged Out No longer eligible based on patient's age to complete this topic Insurance [address] [place] [address] [facility] Care Teams Merchandise Director Relationship Specialty Start Date End Date Ian Bell [facility] [place], [place] [id number] PCP - General 04/22/24
== END 2024-12-09 13:38 | disposition home or self-care (01) ==
LOC: HO.HGI 13:01
PROVIDERS: PCP Nurse Practitioner Family; Visit Provider Nurse Practitioner Family
DX: R11.10 Vomiting, unspecified (principal); K82.8 Other specified diseases of gallbladder; Z90.49 Acquired absence of other specified parts of digestive tract; R19.8 Other specified symptoms and signs involving the digestive system and abdomen; R10.11 Right upper quadrant pain; R14.0 Abdominal distension (gaseous); K52.9 Noninfective gastroenteritis and colitis, unspecified; R10.13 Epigastric pain
CPT/HCPCS: 99204

== ENCOUNTER 2024-12-17 09:21 | Outpatient (REF) | payer OTHER, SELFPAY ==
--- NOTE | ~2024-12-17 | XR_ITS ---
Exam: Five-view lumbar spine x-ray TECHNIQUE: AP, lateral, lateral spot, bilateral oblique x-rays INDICATION: Dorsalgia COMPARISON: 01/16/2023 FINDINGS: There are clips in right upper quadrant consistent with cholecystectomy. There is mild levoscoliosis. Vertebral body height and alignment is preserved. Disc spaces are maintained. No pars interarticularis defects are identified. XR/XR lumbar spine 4V min IMPRESSION: Unremarkable lumbar spine aside from mild levoscoliosis Electronically signed by: Rafa Oreilly MD 12/17/2024 10:36 AM EDT
--- NOTE | ~2024-12-17 | XR_ITS ---
EXAMINATION: XR THORACIC SPINE CLINICAL INFORMATION: M54.9 - Dorsalgia, unspecified COMPARISON: None available. TECHNIQUE: 3 views of the thoracic spine were obtained. FINDINGS: There is a mild to moderate1 dextroconvex scoliosis, apex at T7, estimated Cruz angle of 19 degrees. There is a normal kyphosis. There is no subluxation. There is no fracture, compression deformity, or suspicious bone lesion. Disc spaces appear preserved throughout. Normal appearing facets. There are cholecystectomy clips. The paravertebral soft tissues appear normal. The imaged heart and lungs appear normal. XR/XR thoracic spine 2V IMPRESSION: 19 degree right convex scoliosis. Otherwise normal thoracic spine. No acute findings Electronically signed by: Jomar Ansari MD 12/17/2024 10:35 AM EDT
--- OUTSIDE RECORDS SUMMARY | 2024-12-17 09:56 | XMS_ITS | Clinical Summary ---
Author Organization [facility] Address [address] [place] [address] Phone Care Team Providers Care Php Programmer Name Role Phone Nick Lauren Primary Care Provider [phone] Family History Relation Name Status Comments Father [...] age to complete this topic Care Teams Php Programmer Relationship Specialty Start Date End Date Nick Lauren [address] [place] [id number] PCP - General 11/08/16
--- OUTSIDE RECORDS SUMMARY | 2024-12-17 09:56 | XMS_ITS | Clinical Summary ---
Author Organization [facility] Address [address] [place] [address] Care Team Providers Care Bridges And Buildings Supervisor Name Role Phone Ian Bell Primary [...] age to complete this topic Insurance [address] [place] [address] [facility] Care Teams Bridges And Buildings Supervisor Relationship Specialty Start Date End Date Ian Bell [facility] [place], [place] [id number] PCP - General 04/22/24
--- OUTSIDE RECORDS SUMMARY | 2024-12-17 09:56 | XMS_ITS | Clinical Summary ---
Author Organization [facility] Address [address] [place] [address] Phone Care Team Providers Care Lime Filter Operator Name Role Phone Ian Bell NP Primary Care Provider [phone] Allergies Active Allergy Reactions Criticality Noted Date [...] times daily. Active metoclopramide (REGLAN) 5 mg tabletIndicatio ns:Gastroparesi s Take 1 tablet (5 mg total) by mouth 3 (three) times a day with meals. 90 each 2 11/17/2024 02/16/20 25 Active Active Problems Problem Noted Date Diagnosed [...] Office Visit Gastroenterology - [address] [facility] [address] [place] [phone] Sulema Segundo PA Gastroparesis (Primary Dx); Nausea; Hematochezia; Slow transit constipation 10/20/2024 Telephone Gastroenterology - [address] [address] Mishel Matthews MA 10/19/2024 7:43 AM EDT - 10/19/2024 11:59 PM EDT Hospital Encounter [facility] Nuclear Medicine [address] [place] [phone] Nausea and vomiting, unspecified vomiting type Discharge Disposition: Home or Self Care 10/12/2024 8:20 AM EDT Anesthesia Event [facility] Endoscopy [address] [place] [phone] Colby Landa MD 10/12/2024 7:13 AM EDT - 10/12/2024 11:59 PM EDT Hospital Encounter [facility] Endoscopy [address] [place] [phone] Yung Son MD Chang, Daniel J, MD Nausea and vomiting, unspecified vomiting type; Gastroesophageal reflux disease, unspecified whether esophagitis present; Oropharyngeal dysphagia Discharge Disposition: Home or Self Care 10/11/2024 Telephone Gastroenterology - [address] [phone] Yung Son MD 10/06/2024 8:47 AM EDT - 10/06/2024 11:59 PM EDT Hospital Encounter [facility] Neurodiagnostic [address] [place] [phone] Discharge Disposition: Home or Self Care 10/05/2024 8:40 AM EDT - 10/05/2024 11:59 PM EDT Hospital Encounter [facility] Neurodiagnostic [address] [place] [phone] Discharge Disposition: Home or Self Care 10/04/2024 11:00 AM EDT Consult Gastroenterology - [address] [phone] Segundo, Sulema, PA Nausea and vomiting, unspecified vomiting type (Primary Dx); Gastroesophageal reflux disease, unspecified whether esophagitis present; Oropharyngeal dysphagia 10/04/2024 7:23 AM EDT - 10/04/2024 11:59 PM EDT Hospital Encounter [facility] Neurodiagnostic [address] [place] [phone] Discharge Disposition: Home or Self Care 10/04/2024 Telephone Gastroenterology - [address] [facility] [address] [place] [phone] Pro Mir MD from Last 3 Months Surgical History [...] Office Visit Gastroenterology - [address] [phone] Pro Mir MD [address] [address] Health Maintenance Due Date Last Done Comments DTaP,Tdap,and Td Vaccines (1 - Tdap) 2016 Hepatitis B Vaccines (1 of 3 - 19+ 3-dose series) 2016 Pneumococcal Vaccine: Pediatrics (0 to 5 Years) and At-Risk Patients (6 to 49 Years) (1 of 2 - PCV) 2016 Cervical Cancer Screening: P ap Smear 2018 Depression Screening 03/31/2024 Cholesterol Screening (Lipid Panel) 07/09/2024 HIV Screening 07/09/2024 Hepatitis C Screening 07/09/2024 Social Influencers of Health Screening 07/09/2024 COVID-19 Vaccine (3 - 2024-2 6 season) 2024 08/02/2020, 07/05/2020 Influenza Vaccine (#1) 2024 02/15/2019 RSV Immunization Adult Patients (1 - 1-dose 75+ series) 2072 HPV Vaccines Completed 06/07/2018, 12/04/2017, 10/30/2017 HIB [...] Signed Date: 10/19/2024 13:53 ET Workstation ID: [id number] Transcribed By: Self Edit Transcribed Date: 10/19/2024 [...] Signed Date: 10/19/2024 13:53 ET Workstation ID: [id number] Transcribed By: Self Edit Transcribed Date: 10/19/2024 13:50 ET Sulema CARTER IMG NM PROCEDURES Final Result * EGD Anesthesia - MAC; [facility] (10/12/2024 8:29 AM EDT) Anatomical Region [...] previously scheduled. Narrative 10/12/2024 8:31 AM EDT [facility] GI Patient Name: La Nena Neil Procedure [...] was minimal. Procedure Code(s): --- Professional --- 95975, Esophagogastroduodenoscopy, flexible, transoral; with biopsy, single or multiple Diagnosis Code(s): --- Professional --- R10.13, Epigastric pain R11.2, Nausea with vomiting, unspecified R63.4, Abnormal weight loss CPT copyright 2020 [employer]. All rights reserved. The codes documented in this report are preliminary and upon health practice manager review may be revised to meet current compliance requirements. Yung Son MD 10/12/2024 8:31:15 AM This report has been signed electronically.Yung Son MD Number of Addenda: 0 Note Initiated On: 10/12/2024 8:11 AM Scope In: Scope Out: Endoscopy Department at [facility] - [address] [place] [phone] Procedure Note Yung Son MD - 10/12/2024 [facility] GI Patient Name: La Nena Neil Procedure [...] was minimal. Procedure Code(s): --- Professional --- 81359, Esophagogastroduodenoscopy, flexible, transoral; with biopsy, single or multiple Diagnosis Code(s): --- Professional --- R10.13, Epigastric pain R11.2, Nausea with vomiting, unspecified R63.4, Abnormal weight loss CPT copyright 2020 [employer]. All rights reserved. The codes documented in this report are preliminary and upon health practice manager reviewmay be revised to meet current compliance requirements. Yung Son MD 10/12/2024 8:31:15 AM This report has been signed electronically.Yung oSn MD Number of Addenda: 0 Note Initiated On: 10/12/2024 8:11 AM Scope In: Scope Out: Endoscopy Department at [facility] - [address] [place] [phone] IMPRESSION: - Z-line regular, 35 cm from [...] for intestinal metaplasia. 10/13/2024 9:30 AM EDT [facility] Gross Description A. Small Intestine, Duodenum, [...] pieces, multiple levels. 10/13/2024 9:30 AM EDT [facility] Disclaimer Unless otherwise specified, all tissue is 10% NB formalin fixed and paraffin embedded. 10/13/2024 9:30 AM EDT [facility] Tissue Duodenal structure / Unknown 10/12/2024 8:24 AM EDT 10/12/2024 9:40 AM EDT Tissue specimen (specimen) Pyloric antrum structure / Unknown 10/12/2024 8:26 AM EDT 10/12/2024 9:40 AM EDT Tissue specimen (specimen) Esophageal structure / Unknown 10/12/2024 8:27 AM EDT 10/12/2024 9:40 AM EDT Yung Son MD LAB PATHOLOGY ORDERABLES Morelia carpenter Result [facility] [address] [place] [address], * POC , urine NO CHARGE screening manually resulted (10/12/2024 7:36 AM EDT) HCG, Ur POC Negative Negative POC hCG Int QC Pass? Yes Yes Urine Urine specimen obtained by clean catch procedure / Unknown 10/12/2024 7:36 AM EDT us Colby Landa MD POINT OF CARE TEST ENTER/EDIT ORDERABLES Final Result * Continuous EEG (10/06/2024 10:36 AM EDT) Juanjo Hannah MD - 10/07/2024 12:43 PM EDT Table formatting from the original result was not included. Images from the original result were not included. [facility] [address] [place] [address] Ambulatory Electroencephalogram Report Date of service: 10/06/24 [...] see report with final results. [facility] [address] [place] [address] Ambulatory Electroencephalogram Report Date of service: 10/06/24 [...] * Continuous EEG (10/05/2024 9:46 AM EDT) Juanjo Hannah MD - 10/07/2024 12:43 PM EDT Table formatting from the original result was not included. Images from the original result were not included. [facility] [address] [place] [address] Ambulatory Electroencephalogram Report Date of service: 10/05/24 [...] result were not included. [facility] [address] [place] [address] Ambulatory Electroencephalogram Report Date of service: 10/04/24 Patient Name: La Nena Neil Date of : 1995 Age: 29 y.o. Gender: female Procedure Order: Continuous EEG Ordering Provider: Juanjo Merrill MD Reason for Exam: Order Questions Answers Type of monitoring Unmonitored With video? No Diagnosis listed on Order: Complex partial seizure ([facility] V24, CMS/[facility] V28) This is a recurrent day study. Please see report with final results. Juanjo Merrill MD NEUROLOGY ORDERABLES Final Result from [place] [id number] [facility] Care Teams Lime Filter Operator Relationship Specialty Start Date End Date Ian Bell NP [address] [facility] [place] PCP - General Family Medicine 10/12/24
--- OUTSIDE RECORDS SUMMARY | 2024-12-17 09:56 | XMS_ITS | Encounter Summary ---
Author Organization [facility] Address [address] [place] [address] Phone Care Team Providers Care Ship Yard Electrical Person Name Role Phone Nick Lauren Primary Care Provider [phone] Encounter Details Date Type Department Care Team (Late st Contact Info) Description 11/14/2016 Conversion Encounter [place] [facility] - [address] [address] Social History Tobacco Use Types Packs/Day Years [...] on filedocumented in this encounter Care Teams Ship Yard Electrical Person Relationship Specialty Start Date End Date Nick Lauren [address] [place] [address] PCP - General 11/08/16 documented as of this encounter
--- OUTSIDE RECORDS SUMMARY | 2024-12-17 09:56 | XMS_ITS | Clinical Summary ---
Author Organization [facility] Address [address] [place] [address] Care Team Providers Care Fish Fryer Name Role Phone Ian Bell MD Primary Care Provider [phone] Kerwin Joyce PA-C Unavailable [phone] Allergies No known active allergies Medications cetirizine [...] Upcoming Encounters Date Type Department Care Team ([facility] st Contact Info) Description 06/01/2025 2:30 PM EST Appointment [facility] Heart & Vascular [place] [facility] - Cardiology [address] [place] [address] Kerwin Joyce PA-C [address] [place] [address] Health Maintenance Due Date Last Done Comments Hepatitis C Virus Screening 1995 HIV Screening 2010 DTaP/Tdap/Td Vaccines (1 - Tdap) 2016 Hepatitis B Vaccines (1 of 3 - 19+ 3-dose series) 2016 Pap Smear (Ages 21-65) 2018 HPV Vaccines (1 - 3-dose SCD M series) 2024 Influenza Vaccine 10/29/2024 COVID-19 Vaccine (1 - 2023-2 5 season) 2024 Pneumococcal Vaccine: Pediat farhat (0-5 Years) and At-Risk Patients (6 to 49 Years) Aged Out No longer eligible b ased on patient's age to complete [place] [id number] [facility] Care Teams Fish Fryer Relationship Specialty Start Date End Date Ian Bell MD [address] [place] [address] [place] [address] PCP - General Family Medicine 11/13/23 Kerwin Joyce PA-C [address] [place] [address] Physician Payable Representative Cardiac Electrophysiology 04/21/24
[2024-12-17 13:39] LABS: MANUAL DIFF FLAG NO
[2024-12-17 13:42] LABS: Hematocrit 40.8 % (37.0-47.0); Hemoglobin 13.9 g/dl (12.0-16.0); Imm Gran Abs Auto 0.01 X10*3/uL (0.00-0.03); Imm Gran Pct Auto 0.2 % (0.0-0.4); Lymphocytes Absolute Auto 2.1 X10*3/uL (1.2-4.9); Mean Corpuscular HGB Conc 34.1 g/dl (31.0-35.0); Mean Corpuscular Hemoglobin 30.4 pg (27.0-33.0); Mean Corpuscular Volume 89.3 fL (80.0-98.0); NRBC Abs Auto 0.000 X10*3/uL (0.0-0.012); NRBC Pct Auto 0.0 /100WBC (0.0-0.2); Platelet Count 243 X10*3/uL (160-400); Red Blood Count 4.57 X10*6/uL (4.20-5.50); White Blood Count 5.5 X10*3/uL (4.8-10.8)
[2024-12-17 13:57] LABS: Alanine Aminotransferase 13 U/L (0-31); Albumin Level 4.5 g/dL (3.5-5.0); Alkaline Phosphatase 50 U/L (39-117); Anion Gap 10 (12-20); Aspartate Amino Transferase 20 U/L (5-31); Blood Urea Nitrogen 11 mg/dL (9-16); Calcium 8.8 mg/dL (8.4-10.2); Carbon Dioxide 26 mmol/L (22-29); Chloride 108 mmol/L (96-108); Estimated Glomerular Filt Rate > 60; Potassium 4.4 mmol/L (3.3-5.1); Sodium 140 mmol/L (135-145); Total Protein 7.1 g/dL (6.5-8.0)
[2024-12-17 14:11] LABS: Free T4 (Free Thyroxine) 1.01 ng/dL (0.71-1.85)
[2024-12-17 14:17] LABS: Thyroid Stimulating Hormone 1.21 uIU/mL (0.32-4.0)
[2024-12-17 14:40] LABS: Vitamin B12 520 pg/mL (200-900)
== END 2024-12-17 09:22 | disposition home or self-care (01) ==
LOC: HO.HMGCX 09:21
PROVIDERS: Nurse Practitioner Psychiatric/Mental Health; PCP Nurse Practitioner Family; Referring Provider Registered Nurse Emergency; Visit Provider Nurse Practitioner Family
DX: F33.2 Major depressive disorder, recurrent severe without psychotic features (principal); F41.1 Generalized anxiety disorder; F90.1 Attention-deficit hyperactivity disorder, predominantly hyperactive type; M54.9 Dorsalgia, unspecified; R00.2 Palpitations
CPT/HCPCS: 36415; 72070; 72110; 80053; 80164; 82607; 84439; 84443; 84481; 85025

== ENCOUNTER → 2024-12-17 09:26 | Outpatient (BNV) | payer OTHER, SELFPAY | PROVIDERS: PCP Nurse Practitioner Family; Referring Provider Registered Nurse Emergency; Visit Provider Radiology Diagnostic Radiology | DX: M54.9 Dorsalgia, unspecified (principal); M41.9 Scoliosis, unspecified | CPT/HCPCS: 72070; 72110 ==

== ENCOUNTER 2024-12-29 13:03 | Outpatient (REF) | payer OTHER, SELFPAY ==
--- NOTE | ~2024-12-29 | US_ITS ---
CLINICAL HISTORY: N93.9 - Abnormal uterine and vaginal bleeding, unspecified Transabdominal and transvaginal pelvic ultrasound Comparison: None Findings: Uterus 6.5 x 3.4 x 4.2 cm. Endometrium 3 mm. No significant free fluid. Right ovary 2.8 x 2.2 x 2.7 cm. Left ovary 3.6 x 1.6 x 2.3 cm. No significant focal abnormality. Impression: No significant abnormality This document has been electronically signed by: Ken Gil MD on 12/29/2024 22:24:32
--- OUTSIDE RECORDS SUMMARY | 2024-12-29 14:22 | XMS_ITS | Clinical Summary ---
Author Organization [facility] Address [address] [place] [address] Care Team Providers Care Grade Recorder Name Role Phone Ian Bell Primary Care [...] age to complete this topic Insurance [address] [place] [address] [facility] Care Teams Grade Recorder Relationship Specialty Start Date End Date Ian Bell [facility] [place], [place] [id number] PCP - General 04/22/24
--- OUTSIDE RECORDS SUMMARY | 2024-12-29 14:22 | XMS_ITS | Clinical Summary ---
Author Organization [facility] Address [address] [place] [address] Phone Care Team Providers Care Universal Branch Consultant Name Role Phone Nick Lauren Primary Care Provider Family History Relation Name Status Comments Father [...] Vaccines (#1) 2024 COVID-19 Vaccine ( - 2024-2 6 season) 2024 HIB Vaccines Aged Out No [...] age to complete this topic Care Teams Universal Branch Consultant Relationship Specialty Start Date End Date Nick Lauren [address] [place] [id number] PCP - General 11/08/16
--- OUTSIDE RECORDS SUMMARY | 2024-12-29 14:22 | XMS_ITS | Encounter Summary ---
Author Organization [facility] Address [address] [place] [address] Phone Care Team Providers Care Patient Relations Director Name Role Phone Nick Lauren Primary Care Provider [phone] Encounter Details Date Type Department Care Team (Late st Contact Info) Description 11/14/2016 Conversion Encounter [place] [facility] - [address] [address] Social History Tobacco Use Types Packs/Day Years [...] filedocumented in this encounter Care Teams Patient Relations Director Relationship Specialty Start Date End Date Nick Lauren [address] [place] [address] PCP - General 11/08/16 documented as of this encounter
--- OUTSIDE RECORDS SUMMARY | 2024-12-29 14:22 | XMS_ITS | Clinical Summary ---
Author Organization [facility] Address [address] [place] [address] Phone Care Team Providers Care Turf Farm Worker Name Role Phone Ian Bell NP Primary Care Provider [phone] Allergies Active Allergy Reactions Criticality Noted Date [...] Office Visit Gastroenterology - [address] [facility] [address] [place] [phone] Sulema Segundo PA Gastroparesis (Primary Dx); Nausea; Hematochezia; Slow transit constipation 10/20/2024 Telephone Gastroenterology - [address] [phone] Mishel Matthews [place] 10/19/2024 7:43 AM EDT - 10/19/2024 11:59 PM EDT Hospital Encounter [facility] Nuclear Medicine [address] [place] [phone] Nausea and vomiting, unspecified vomiting type Discharge Disposition: Home or Self Care 10/12/2024 8:20 AM EDT Anesthesia Event [facility] Endoscopy [address] [place] [phone] Colby Landa MD 10/12/2024 7:13 AM EDT - 10/12/2024 11:59 PM EDT Hospital Encounter [facility] Endoscopy [address] [place] [phone] Yung Son MD Chang, Daniel J, MD Nausea and vomiting, unspecified vomiting type; Gastroesophageal reflux disease, unspecified whether esophagitis present; Oropharyngeal dysphagia Discharge Disposition: Home or Self Care 10/11/2024 Telephone Gastroenterology - [address] [phone] Yung Son MD 10/06/2024 8:47 AM EDT - 10/06/2024 11:59 PM EDT Hospital Encounter [facility] Neurodiagnostic [address] [place] [phone] Discharge Disposition: Home or Self Care 10/05/2024 8:40 AM EDT - 10/05/2024 11:59 PM EDT Hospital Encounter [facility] Neurodiagnostic [address] [place] [phone] Discharge Disposition: Home or Self Care 10/04/2024 11:00 AM EDT Consult Gastroenterology - [address] [address] Segundo, Sulema, PA Nausea and vomiting, unspecified vomiting type (Primary Dx); Gastroesophageal reflux disease, unspecified whether esophagitis present; Oropharyngeal dysphagia 10/04/2024 7:23 AM EDT - 10/04/2024 11:59 PM EDT Hospital Encounter [facility] Neurodiagnostic [address] [place] [phone] Discharge Disposition: Home or Self Care 10/04/2024 Telephone Gastroenterology - [address] [facility] [address] [place] [phone] Pro Mir MD from Last 3 Months [...] Safety Answer Date Record ed Physical Abuse Unrecognized value 10/12/2024 Verbal Abuse Unrecognized value 10/12/2024 Comments No Sex and Gender Information [...] Office Visit Gastroenterology - [address] [facility] [address] [place] [address] Pro Mir MD [address] [address] Health Maintenance Due Date Last Done Comments [...] esophagitis present Oropharyngeal dysphagia POC PREGANCY, URINE NO CHARGE SCREENING MANUALLY RESULTED Routine 10/12/2024 7:36 AM EDT CONTINUOUS EEG [...] Signed Date: 10/19/2024 13:53 ET Workstation ID: [id number] Transcribed By: Self Edit Transcribed Date: 10/19/2024 [...] Signed Date: 10/19/2024 13:53 ET Workstation ID: [id number] Transcribed By: Self Edit Transcribed Date: 10/19/2024 13:50 ET Sulema CARTER IMG NM PROCEDURES Final Result * EGD Anesthesia - MAC; [facility] ENDOSCOPY (10/12/2024 8:29 AM EDT) Anatomical [...] previously scheduled. Narrative 10/12/2024 8:31 AM EDT [facility] GI Patient Name: La Nena Stewart [...] was minimal. Procedure Code(s): --- Professional --- 40225, Esophagogastroduodenoscopy, flexible, transoral; with biopsy, single or multiple Diagnosis Code(s): --- Professional --- R10.13, Epigastric pain R11.2, Nausea with vomiting, unspecified R63.4, Abnormal weight loss CPT copyright 2020 [employer]. All rights reserved. The codes documented in this report are preliminary and upon solutions sales executive review may be revised to meet current compliance requirements. Yung Son MD 10/12/2024 8:31:15 AM This report has been signed electronically.Yung Son MD Number of Addenda: 0 Note Initiated On: 10/12/2024 8:11 AM Scope In: Scope Out: Endoscopy Department at [facility] - [address] [place] [phone] Procedure Note Yung Son MD - 10/12/2024 [facility] GI Patient Name: La Nena Stewart [...] was minimal. Procedure Code(s): --- Professional --- 37441, Esophagogastroduodenoscopy, flexible, transoral; with biopsy, single or multiple Diagnosis Code(s): --- Professional --- R10.13, Epigastric pain R11.2, Nausea with vomiting, unspecified R63.4, Abnormal weight loss CPT copyright 2020 [employer]. All rights reserved. The codes documented in this report are preliminary and upon solutions sales executive reviewmay be revised to meet current compliance requirements. Yung Son MD 10/12/2024 8:31:15 AM This report has been signed electronically.Yung Son MD Number of Addenda: 0 Note Initiated On: 10/12/2024 8:11 AM Scope In: Scope Out: Endoscopy Department at [facility] - [address] [place] [phone] IMPRESSION: - Z-line regular, 35 cm from [...] for intestinal metaplasia. 10/13/2024 9:30 AM EDT [facility] Gross Description A. Small Intestine, [...] pieces, multiple levels. 10/13/2024 9:30 AM EDT [facility] Disclaimer Unless otherwise specified, all tissue is 10% NB formalin fixed and paraffin embedded. 10/13/2024 9:30 AM EDT [facility] Tissue Duodenal structure / Unknown 10/12/2024 8:24 AM EDT 10/12/2024 9:40 AM EDT Tissue specimen (specimen) Pyloric antrum structure / Unknown 10/12/2024 8:26 AM EDT 10/12/2024 9:40 AM EDT Tissue specimen (specimen) Esophageal structure / Unknown 10/12/2024 8:27 AM EDT 10/12/2024 9:40 AM EDT us Yung Son MD LAB PATHOLOGY ORDERABLES Morelia carpenter Result [facility] [address] [place] [address], * POC , urine NO CHARGE screening [...] original result were not included. [facility] [address] [place] [address] Ambulatory Electroencephalogram Report Date of service: 10/06/24 [...] see report with final results. [facility] [address] [place] [address] Ambulatory Electroencephalogram Report Date of service: 10/06/24 [...] original result were not included. [facility] [address] [place] [address] Ambulatory Electroencephalogram Report Date of service: 10/05/24 [...] result were not included. [facility] [address] [place] [address] Ambulatory Electroencephalogram Report Date of service: 10/04/24 Patient Name: La Nena Stewart Date of : 1995 Age: 29 y.o. Gender: female Procedure Order: Continuous EEG Ordering Provider: Juanjo Merrill MD Reason for Exam: Order Questions Answers Type of monitoring Unmonitored With video? No Diagnosis listed on Order: Complex partial seizure (CMS/[facility] V24, CMS/[facility] V28) This is a recurrent day study. Please see report with final results. Juanjo Merrill MD NEUROLOGY ORDERABLES Final Result from Last 3 Months Insurance [facility] Care Teams Turf Farm Worker Relationship Specialty Start Date End Date Ian Bell NP [address] [facility] [place] PCP - General Family Medicine 10/12/24
--- OUTSIDE RECORDS SUMMARY | 2024-12-29 14:22 | XMS_ITS | Clinical Summary ---
Author Organization [facility] Address [address] [place] [address] Care Team Providers Care Diesel Electrician Name Role Phone Ian Bell MD Primary Care Provider [phone] Kerwin Joyce PA-C Unavailable [phone] Allergies No known active allergies Medications cetirizine [...] Upcoming Encounters Date Type Department Care Team ([facility] st Contact Info) Description 06/01/2025 2:30 PM EST Appointment [facility] Heart & Vascular [place] [facility] - Cardiology [address] [place] [address] Kerwin Joyce PA-C [address] [place] [address] Health Maintenance Due Date Last Done Comments Hepatitis C Virus Screening 1995 HIV Screening 2010 DTaP/Tdap/Td Vaccines (1 - Tdap) 2016 Hepatitis B Vaccines (1 of 3 - 19+ 3-dose series) 2016 Pap Smear (Ages 21-65) 2018 Influenza Vaccine 10/29/2024 COVID-19 Vaccine (2023-2 5 season) 2024 HPV Vaccines (No Doses Required) Completed Pneumococcal Vaccine: Pediat farhat (0-5 Years) and At-Risk Patients (6 to 49 Years) Aged Out No longer eligible b ased on patient's age to complete this topic Insurance [address] [id number] [facility] Care Teams Diesel Electrician Relationship Specialty Start Date End Date Ian Bell MD [address] [place] [address] [address] PCP - General Family Medicine 11/13/23 Kerwin Joyce PA-C [address] [place] [address] Physician Production Illustrator Cardiac Electrophysiology 04/21/24
== END 2024-12-29 13:04 | disposition home or self-care (01) ==
LOC: HO.US 13:03
PROVIDERS: PCP Nurse Practitioner Family; Visit Provider Obstetrics & Gynecology
DX: N93.9 Abnormal uterine and vaginal bleeding, unspecified (principal)
CPT/HCPCS: 76830; 76856

== ENCOUNTER → 2024-12-29 13:04 | Outpatient (BNV) | payer OTHER, SELFPAY | PROVIDERS: PCP Nurse Practitioner Family; Visit Provider Radiology Diagnostic Radiology | DX: N93.9 Abnormal uterine and vaginal bleeding, unspecified (principal) | CPT/HCPCS: 76830; 76856 ==

== ENCOUNTER 2025-01-04 13:01 | Outpatient (AMB) | payer OTHER, SELFPAY ==
[2025-01-04 13:14] VITALS: BMI 25.6
--- NOTE | 2025-01-04 13:14 | MHC.OFFVIS ---
Vital Signs 01/04/25 13:14 Height 5 ft 2 in Weight 140 lb BMI 25.6 Intake Visit Reasons: New prob- rt hand pain Intake Note: Dimple is a 29 year old right hand dominant female who presents today for a new problem visit for her right hand. States she had surgery done in [address] Gallego, she is S/P Right Scapholunate ligament repair 03/19/21 [place]. States she felt no pain after recovering from her surgery and has no concerns. As of 2-3 months ago, she started to have pain at base of her thumb. States pain is worsen with gripping, twisting and with heavy lifting. No injury she cab recall. She is also having numbness and tingling in both hands. States symptoms are daily, on & off through out the day and occurs when she is playing video games. No EMG done. Allergies No Known Allergies (No Known Allergies*) Allergy (Verified 01/04/25 13:31) HPI HPI New prob- rt hand pain : Details: Dimple is a 29 year old right hand dominant woman who presents with complaints of right hand & wrist pain. She complains of pain in her right hand, over the dorsum of the 1st metacarpal, to the back of her hand, index, and middle fingers. She describes this pain as burning. She also feels a painful tightness in these fingers with ROM. She denies any falls or known injury. She also complains of bilateral hand numbness. Her numbness is primarily the ring & small fingers, but she does have constant numbness & burning in the dorsal aspect of her right index & middle fingers, and her hand. Symptoms intermittent, but daily, worse at night. She says this has been present for several months. She was recently diagnosed with Kat-Danlos syndrome and says every morning she has to pop her wrists back into place . She demonstrated she has to hyperflex the dorsal & ulnar aspect of her wrists in the morning. She has a Hx of a right scapholunate ligament repair, DOS: 03/19/21. She says this is doing well. [facility] Medical History (Updated 01/04/25 @ 14:07 by Taiwo De Luna) PTSD (post-traumatic stress disorder) Anxiety and depression Chronic back pain Scoliosis Migraine without aura Complex partial seizure disorder EDS (Kat-Danlos syndrome) Periumbilical pain COVID-19 Back pain Difficulty swallowing Vomiting and diarrhea History of headache Weakness Numbness Witnessed seizure-like activity Cough Chest pain HTN (hypertension) POTS (postural orthostatic tachycardia syndrome) Fibromyalgia History of cardiac murmur as a child RUQ pain Asthma Surgical History Hx laparoscopic cholecystectomy (01/08/24) H/O hand surgery History of wisdom tooth extraction Family History Paternal Grandmother History of ovarian cancer Mental health disorder Paternal Grandfather History of melanoma Father Mental health disorder Mother Mental health disorder Sister Mental health disorder Other Family history of autoimmune disorder Social History [facility] Are you a primary childcare attendant to a significant other at home: No Do you presently have visiting nurse or other home services: No Alcohol intake: never Patient Tobacco Use Status: Never used Tobacco e-Cigarette/Vaping Use: Never Used Second Hand Smoke Exposure: No Substance Use Type: Marijuana service: No Current occupational status: unemployed 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 Current occupational exposures/hazards: No Gender identity: Female Cognitive needs: No Hearing needs: No Vision needs: Yes Female Reproductive History Menstrual Age of Menarche: 13 Review of Systems Const All systems reviewed & are unremarkable except as noted in HPI and below Physical Exam Vital Signs: BMI result Body Mass Index 25.6 Const General: cooperative, healthy appearing and no acute distress Orientation/consciousness: patient oriented x3 HEENT Head: Yes normocephalic and Yes atraumatic Eyes EOM: EOMs intact bilaterally Resp Effort & Inspection: normal respiratory effort and able to speak in complete sentences Cardio Jugular venous distension: no JVD Skin General skin exam: turgor normal Rashes: no rashes Neuro General: patient oriented x3 Extrem Other: Evaluation of Right Upper Extremity: The patient is alert, oriented, and in no acute distress Neuro: Median, Ulnar, Radial nerves motor and sensory intact and sensation is normal to the tips of all digits Numbness today in the superficial radial nerve distribution, to the dorsal aspect of the index & middle fingers, and dorsal aspect of the hand Vascular: Cap refill brisk ROM: She can make a fist and extend all her digits Ful & symmetrical wrist pronosupination Full & symmetrical wrist flexion & extension No ECU subluxation DRUJ stable on exam Skin: No lacerations or abrasions. General: No Ecchymosis. No Erythema or evidence of infection. Pain over the dorsal aspect of the 1st metacarpal, extending from the radial aspect of her wrist to the dorsal hand, thumb, index, and middle fingers She describes this as burning and skin deep Negative Nancy test Psych Appearance: grossly normal Affect: normal affect Attitude: cooperative Assessment & Plan Assessment & Plan (1) Neuritis: Comment: Right superficial radial nerve distribution Code(s): M79.2 - Neuralgia and neuritis, unspecified Category: Medical (2) Numbness and tingling in both hands: Code(s): R20.0 - Anesthesia of skin; R20.2 - Paresthesia of skin Category: Medical (3) EDS (Kat-Danlos syndrome): Code(s): Q79.60 - Kat-Danlos syndrome, unspecified Category: Medical Plan Assessment and plan: 1. Right superficial radial nerve neuritis Burning sensation to the dorsal hand, index, middle fingers, and over the 1st metacarpal 2. Bilateral hand numbness Numbness in the right superficial radial nerve distribution, dorsal index & middle fingers, and dorsal hand Symptoms intermittent, but daily, worse at night She complains of intermittent numbness primarily in the ulnar nerve distribution I educated them about carpal & cubital tunnel syndrome and about the superficial radial nerve neuritis I ordered a NCS to assess for peripheral nerve compression They will follow up when completed for review 3. Right scapholunate intercarpal ligament tear S/P repair Date of surgery 03/19/2021 K-wires removed 05/01/2021 Recovered very well. 4. Left dorsal wrist pain This has resolved Scribed for Joi Gallego MD by Taiwo De Luna senior medical writer, on 01/04/25 at 1:40 PM, EST. Orders: Orders NE nerve conduction velocity Today R20.0 - Anesthesia of skin, R20.2 - Paresthesia of skin NE electromyogram (EMG) Today R20.0 - Anesthesia of skin, R20.2 - Paresthesia of skin Coding Level of Care Code Est Pt Level 4 (36904) Diagnoses Neuritis M79.2 Numbness and tingling in both hands R20.0; R20.2 EDS (Kat-Danlos syndrome) Q79.60
--- OUTSIDE RECORDS SUMMARY | 2025-01-04 15:59 | XMS_ITS | Clinical Summary ---
Author Organization [facility] Address [address] [place] [address] Phone Care Team Providers Care Internet Consultant Name Role Phone Ian Bell NP Primary Care Provider [phone] Allergies Active Allergy Reactions Criticality Noted Date [...] Office Visit Gastroenterology - [address] [facility] [address] [place] [phone] Sulema Segundo PA Gastroparesis (Primary Dx); Nausea; Hematochezia; Slow transit constipation 10/20/2024 Telephone Gastroenterology - [address] [phone] Mishel Matthews MA 10/19/2024 7:43 AM EDT - 10/19/2024 11:59 PM EDT Hospital Encounter [facility] Nuclear Medicine [address] [place] [phone] Nausea and vomiting, unspecified vomiting type Discharge Disposition: Home or Self Care 10/12/2024 8:20 AM EDT Anesthesia Event [facility] Endoscopy [address] [place] [phone] Colby Landa MD 10/12/2024 7:13 AM EDT - 10/12/2024 11:59 PM EDT Hospital Encounter [facility] Endoscopy [address] [place] [phone] Yung Son MD Chang, Daniel J, MD Nausea and vomiting, unspecified vomiting type; Gastroesophageal reflux disease, unspecified whether esophagitis present; Oropharyngeal dysphagia Discharge Disposition: Home or Self Care 10/11/2024 Telephone Gastroenterology - [address] [phone] Yung Son MD 10/06/2024 8:47 AM EDT - 10/06/2024 11:59 PM EDT Hospital Encounter [facility] Neurodiagnostic [address] [place] [phone] Discharge Disposition: Home or Self Care 10/05/2024 8:40 AM EDT - 10/05/2024 11:59 PM EDT Hospital Encounter [facility] Neurodiagnostic [address] [place] [phone] Discharge Disposition: Home or Self Care 10/04/2024 11:00 AM EDT Consult Gastroenterology - [address] [phone] Segundo, Sulema, PA Nausea and vomiting, unspecified vomiting type (Primary Dx); Gastroesophageal reflux disease, unspecified whether esophagitis present; Oropharyngeal dysphagia 10/04/2024 7:23 AM EDT - 10/04/2024 11:59 PM EDT Hospital Encounter [facility] Neurodiagnostic [address] [place] [phone] Discharge Disposition: Home or Self Care 10/04/2024 Telephone Gastroenterology - [address] [facility] [address] [place] [phone] Pro Mir MD from Last 3 Months [...] Office Visit Gastroenterology - [address] [facility] [address] [place] [address] Pro Mir MD [address] [address] Health Maintenance Due Date Last Done Comments [...] Signed Date: 10/19/2024 13:53 ET Workstation ID: [id number] Transcribed By: Self Edit Transcribed Date: 10/19/2024 [...] Signed Date: 10/19/2024 13:53 ET Workstation ID: [id number] Transcribed By: Self Edit Transcribed Date: 10/19/2024 13:50 ET Sulema CARTER IMG NM PROCEDURES Final Result * EGD Anesthesia - MAC; [facility] ENDOSCOPY (10/12/2024 8:29 AM EDT) [...] previously scheduled. Narrative 10/12/2024 8:[address] [facility] GI Patient Name: La Nena Stewart [...] was minimal. Procedure Code(s): --- Professional --- 69227, Esophagogastroduodenoscopy, flexible, transoral; with biopsy, single or multiple Diagnosis Code(s): --- Professional --- R10.13, Epigastric pain R11.2, Nausea with vomiting, unspecified R63.4, Abnormal weight loss CPT copyright 2020 [employer]. All rights reserved. The codes documented in this report are preliminary and upon kiln transfer operator review may be revised to meet current compliance requirements. Yung Son MD 10/12/2024 8:31:15 AM This report has been signed electronically.Yung Son MD Number of Addenda: 0 Note Initiated On: 10/12/2024 8:11 AM Scope In: Scope Out: Endoscopy Department at [facility] - [address] [place] [phone] Procedure Note Yung Son MD - 10/12/2024 [facility] GI Patient Name: La Nena Stewart [...] was minimal. Procedure Code(s): --- Professional --- 63409, Esophagogastroduodenoscopy, flexible, transoral; with biopsy, single or multiple Diagnosis Code(s): --- Professional --- R10.13, Epigastric pain R11.2, Nausea with vomiting, unspecified R63.4, Abnormal weight loss CPT copyright 2020 [employer]. All rights reserved. The codes documented in this report are preliminary and upon kiln transfer operator reviewmay be revised to meet current compliance requirements. Yung Son MD 10/12/2024 8:31:15 AM This report has been signed electronically.Yung Son MD Number of Addenda: 0 Note Initiated On: 10/12/2024 8:11 AM Scope In: Scope Out: Endoscopy Department at [facility] - [address] [place] [phone] IMPRESSION: - Z-line regular, 35 cm from [...] for intestinal metaplasia. 10/13/2024 9:30 AM EDT [facility] Gross Description A. Small [...] pieces, multiple levels. 10/13/2024 9:30 AM EDT [facility] Disclaimer Unless otherwise specified, all tissue is 10% NB formalin fixed and paraffin embedded. 10/13/2024 9:30 AM EDT [facility] Tissue Duodenal structure / Unknown 10/12/2024 8:24 AM EDT 10/12/2024 9:40 AM EDT Tissue specimen (specimen) Pyloric antrum structure / Unknown 10/12/2024 8:26 AM EDT 10/12/2024 9:40 AM EDT Tissue specimen (specimen) Esophageal structure / Unknown 10/12/2024 8:27 AM EDT 10/12/2024 9:40 AM EDT us Yung Son MD LAB PATHOLOGY ORDERABLES Morelia carpenter Result [facility]) [facility] [address] [place] [address], * POC , urine NO CHARGE screening [...] original result were not included. [facility] [address] [place] [address] Ambulatory Electroencephalogram Report Date of service: 10/06/24 [...] see report with final results. [facility] [address] [place] [address] Ambulatory Electroencephalogram Report Date of service: 10/06/24 [...] result were not included. [facility] [address] [place] [id number] Ambulatory Electroencephalogram Report Date of service: 10/05/24 [...] result were not included. [facility] [address] [place] [address] Ambulatory Electroencephalogram Report Date of service: 10/04/24 Patient Name: La Nena Stewart Date of : 1995 Age: 29 y.o. Gender: female Procedure Order: Continuous EEG Ordering Provider: Juanjo Merrill MD Reason for Exam: Order Questions Answers Type of monitoring Unmonitored With video? No Diagnosis listed on Order: Complex partial seizure (CMS/[facility] V24, CMS/[facility] V28) This is a recurrent day study. Please see report with final results. Juanjo Merrill MD NEUROLOGY ORDERABLES Final Result from Last 3 Months Insurance [facility] Care Teams Internet Consultant Relationship Specialty Start Date End Date Ian Bell NP [address] [facility] [place] PCP - General Family Medicine 10/12/24
--- OUTSIDE RECORDS SUMMARY | 2025-01-04 15:59 | XMS_ITS | Clinical Summary ---
Author Organization [facility] Address [address] [place] [phone] Phone Care Team Providers Care Ambulatory Service Representative Name Role Phone Nick Lauren Primary Care Provider [phone] Family History Relation Name Status Comments Father [...] 2024 Influenza Vaccines (#1) 2024 COVID-19 Vaccine (1 - 2024-2 6 season) 2024 HIB Vaccines [...] age to complete this topic Care Teams Ambulatory Service Representative Relationship Specialty Start Date End Date Nick Lauren [address] [place] [id number] PCP - General 11/08/16
--- OUTSIDE RECORDS SUMMARY | 2025-01-04 15:59 | XMS_ITS | Clinical Summary ---
Author Organization [facility] Address [address] [place] [address] Care Team Providers Care Bend Sorter Name Role Phone Ian Bell Primary Care Provider [phone] Social History Tobacco Use Types Packs/Day Years [...] age to complete this topic Insurance [address] [place] [address] [facility] Care Teams Bend Sorter Relationship Specialty Start Date End Date Ian Bell [facility] [place], [place] [phone] PCP - General 04/22/24
--- OUTSIDE RECORDS SUMMARY | 2025-01-04 15:59 | XMS_ITS | Encounter Summary ---
Author Organization [facility] Address [address] [place] [address] Phone Care Team Providers Care Rescue Worker Name Role Phone Nick Lauren Primary Care Provider [phone] Encounter Details Date Type Department Care Team (Late st Contact Info) Description 11/14/2016 Conversion Encounter [facility] - [address] [address] Social History Tobacco Use Types Packs/Day Years [...] on filedocumented in this encounter Care Teams Rescue Worker Relationship Specialty Start Date End Date Nick Lauren [address] [place] [address] PCP - General 11/08/16 documented as of this encounter
--- OUTSIDE RECORDS SUMMARY | 2025-01-04 15:59 | XMS_ITS | Clinical Summary ---
Author Organization [facility] Address [address] [place] [address] Care Team Providers Care Care Manager Cna Name Role Phone Ian Bell MD Primary Care Provider [phone] Kerwin Joyce PA-C Unavailable [phone] Allergies No known active allergies Medications cetirizine [...] Info) Description 06/01/2025 2:30 PM EST Appointment [facility] Heart & V[facility] [place] [facility] - Cardiology [address] [place] [address] Kerwin Joyce PA-C [address] [place] [address] Health Maintenance Due Date Last Done Comments [...] patient's age to complete this topic Insurance [address] [id number] [facility] Care Teams Care Manager Cna Relationship Specialty Start Date End Date Ian Bell MD [address] [place] [address] [address] PCP - General Family Medicine 11/13/23 Kerwin Joyce PA-C [address] [place] [address] Physician Carpet Inspector Finished Cardiac Electrophysiology 04/21/24
== END 2025-01-04 14:01 | disposition home or self-care (01) ==
PROVIDERS: PCP Nurse Practitioner Family; Visit Provider Orthopaedic Surgery
DX: M79.2 Neuralgia and neuritis, unspecified (principal); R20.0 Anesthesia of skin; R20.2 Paresthesia of skin; Q79.60 Ehlers-Danlos syndrome, unspecified
CPT/HCPCS: 99213

== ENCOUNTER 2025-01-17 13:41 | Outpatient (AMB) | payer OTHER, SELFPAY ==
--- NOTE | 2025-01-17 13:44 | MHC.OFFVIS ---
Intake Visit Reasons: Microhematuria, pelvic and perineal pain Intake Note: patient presents today for: new pt micohematuria, pelvic and perineal pain urology medications: none blood thinners: none smoker: Cut Off Operator Scorer Required: No Accompanied by: Health Care Proxy Allergies No Known Allergies (No Known Allergies*) Allergy (Verified 01/17/25 13:48) HPI Comments Details: Dimple is a pleasant 29-year-old female patient of Dr. Herrmann who was accompanied by her significant other at today's office visit. She has a past medical history of PTSD, anxiety, depression, chronic back pain, scoliosis, migraines, complex partial seizure disorder, Kat-Danlos syndrome, hypertension, POTS, fibromyalgia, and asthma. She presents to the office today as a new patient for ongoing lower urinary tract symptoms she has been experiencing. In discussion with the patient and her significant other today she reports a longstanding history of lower urinary tract symptoms (urinary urgency and feeling of incomplete bladder emptying for many years however most recently over the last 6 months has been experiencing ammonia like smelling urine, increased urinary urgency, discolored urine, and bladder pressure. She reports having followed up with her PCP at which time a retroperitoneal ultrasound was ordered for further assessment evaluation and recommendations were made for urology referral. Retroperitoneal ultrasound results were reviewed 11/22 bilateral kidneys are normal in size and echotexture. No hydronephrosis of either kidney. The urinary bladder is unremarkable. The kidneys are normal per radiology report. We did discussed at length potential causes of lower urinary tract symptoms as well as further treatment options and risks and benefits of these treatment options. In office urinalysis results reviewed with the patient today 3+ microscopic hematuria. All questions were answered. She otherwise offers no other issues or concerns at this time. [facility] Medical History PTSD (post-traumatic stress disorder) Anxiety and depression Chronic back pain Scoliosis Migraine without aura Complex partial seizure disorder EDS (Kat-Danlos syndrome) Periumbilical pain COVID-19 Back pain Difficulty swallowing Vomiting and diarrhea History of headache Weakness Numbness Witnessed seizure-like activity Cough Chest pain HTN (hypertension) POTS (postural orthostatic tachycardia syndrome) Fibromyalgia History of cardiac murmur as a child RUQ pain Asthma Surgical History Hx laparoscopic cholecystectomy (01/08/24) H/O hand surgery History of wisdom tooth extraction Family History Paternal Grandmother History of ovarian cancer Mental health disorder Paternal Grandfather History of melanoma Father Mental health disorder Mother Mental health disorder Sister Mental health disorder Other Family history of autoimmune disorder Social History Housing: Condominium Are you a primary child care sitter to a significant other at home: No Do you presently have visiting nurse or other home services: No Alcohol intake: never Patient Tobacco Use Status: Never used Tobacco e-Cigarette/Vaping Use: Never Used Second Hand Smoke Exposure: No Substance Use Type: Marijuana service: No Current occupational status: unemployed 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 Current occupational exposures/hazards: No Gender identity: Female Cognitive needs: No Hearing needs: No Vision needs: Yes Female Reproductive History Menstrual Age of Menarche: 13 Review of Systems Const All systems reviewed & are unremarkable except as noted in HPI and below Physical Exam Const General: cooperative, comfortable, no acute distress, well developed, alert and awake Orientation/consciousness: patient oriented x3 HEENT Head: Yes normal to inspection, Yes normocephalic and Yes atraumatic Ears: hearing grossly normal bilaterally Eyes General: appearance normal, both eyes and all related structures Neck Neck: Yes normal visual inspection and Yes trachea midline Chest Chest palpation & inspection: normal inspection of the chest Resp Effort & Inspection: normal respiratory effort and able to speak in complete sentences Cardio Rate: regular rate GI Inspection: Yes normal to inspection General: Yes no CVA tenderness Back/Spine/Pelvis Back: no CVA tenderness Skin General skin exam: no rashes or lesions noted Neuro General: patient oriented x3 Extrem General: Yes normal to inspection Psych Appearance: grossly normal and well kempt Mental Status: mental status grossly normal Speech and movement: Normal speech and movement present and Clear speech present Affect: normal affect Attitude: cooperative Thought process: Normal thought process present Thought content: Normal thought content present Office Procedures Post Void Residual Post Residual Void Post Void Residual (PVR): 0 60436-Gqth Void Residual by ultrasound Results AMB Urinalysis, Automated UA Leukoctes 0 Madhu/uL Last Edit by ADITI Gaston on 01/17/25 14:11 UA Nitrite Last Edit by [facility] on 01/17/25 14:11 UA Urobilinogen 0.2 mg/dL Last Edit by ADITI Gaston on 01/17/25 14:11 UA Protein 0 mg/dL Last Edit by Janet Pretty [facility] on 01/17/25 14:11 UA pH 6.5 Last Edit by Janet Pretty [facility] on 01/17/25 14:11 UA Blood 200 Nestor/uL Last Edit by Janet Pretty [facility] on 01/17/25 14:11 UA Specific [place] 1.015 Last Edit by Janet Pretty [facility] on 01/17/25 14:11 UA Ketone Last Edit by ADITI Gaston on 01/17/25 14:11 UA Bilirubin 0 mg/dL Last Edit by Janet Pretty [facility] on 01/17/25 14:11 UA Glucose 0 mg/dL Last Edit by Janet Pretty [facility] on 01/17/25 14:11 Results Reviewed Results Reviewed: Laboratory Last Values Urine pH (Auto) 6.5 01/17/25 14:09 Specific [place] (Auto) 1.015 01/17/25 14:09 Urine Protein (Auto) 0 mg/dL 01/17/25 14:09 Glucose (UA)(Auto) 0 mg/dL 01/17/25 14:09 Urine Blood (Auto) 200 Nestor/uL 01/17/25 14:09 Urine Bilirubin (Auto) 0 mg/dL 01/17/25 14:09 Urine Urobilinogen (Auto) 0.2 mg/dL 01/17/25 14:09 Leukocyte Esterase (Auto) 0 Madhu/uL 01/17/25 14:09 Date of Service: 11/11/24 Procedure(s): US retroperitoneal comp Findings: Right kidney normal size and echotexture, 9.7 cm length. Left kidney normal size and echotexture, 10.4 cm length. No hydronephrosis of either kidney. Normal color Doppler. Urinary bladder is unremarkable. Prevoid volume 308 mL. Postvoid volume 0 mL. Bilateral ureteral jets are visualized. IMPRESSION: 1. Normal kidneys. Assessment & Plan Assessment & Plan (1) Microscopic hematuria: Code(s): R31.29 - Other microscopic hematuria Category: Medical (2) Lower urinary tract symptoms: Code(s): R39.9 - Unspecified symptoms and signs involving the genitourinary system Category: Medical Plan In office urinalysis results reviewed with the patient today; as noted above; will send for urine cytology. PVR 0 mL. We discussed potential causes of lower urinary tract symptoms as well as further treatment options and risks and benefits of these treatment options. Will refer to pelvic floor therapy for further assessment evaluation. We discussed obtaining bladder diary for further assessment evaluation. Previous retroperitoneal ultrasound results reviewed with the patient today; as noted above. All questions were answered. Information provided regarding bladder. We did discussed potential near future in office cystoscopy and or urodynamics for further assessment evaluation Follow-up in 3 months with bladder diary; or sooner with any issues, concerns, and or questions. Orders: Orders AMB Urinalysis Automated Today Z13.9 - Encounter for screening, unspecified AMB Post Void Residual by ultrasound Today R31.29 - Other microscopic hematuria PT Evaluation and Treatment Today R39.14 - Feeling of incomplete bladder emptying, R39.9 - Unspecified symptoms and signs involving the genitourinary system Patient Instructions: The patient had an opportunity to ask questions regarding the treatment plan. All questions were answered. Physical exam, labs, and imaging were discussed and reviewed in detail. As well as risks, benefits, and discussion of treatment choices. No major barriers to understanding were identified. The patient expressed understanding and agreement with the above treatment plan. The patient was made aware they should contact our office by phone for worsening of their current condition, the appearance of new symptoms, or with any questions or concerns. Compliance is encouraged with any medications and follow up testing that is ordered. It is a privilege to be allowed the opportunity to participate in? your urological care.? Again, if you have any questions or concerns If you have any questions or concerns please do not hesitate to contact me. The office is [phone]. This note is constructed using voice recognition software. While every effort has been made to ensure accuracy director of casework department errors may have been included. Yours sincerely, KARY Hawley Coding Level of Care Code New Pt Level 3 (80085) Diagnoses Microscopic hematuria R31.29 Lower urinary tract symptoms R39.9 CPT Codes Post Residual Void - PVR CPT Code: 50426-Werx Void Residual by ultrasound ([id number])
--- OUTSIDE RECORDS SUMMARY | 2025-01-17 16:51 | XMS_ITS | Encounter Summary ---
Author Organization [facility] Address [address] [place] [address] Phone Care Team Providers Care Cellular Equipment Installer Name Role Phone Nick Lauren Primary Care Provider [phone] Encounter Details Date Type Department Care Team (Late st Contact Info) Description 11/14/2016 Conversion Encounter [facility] - [address] [address] Social History Tobacco Use Types Packs/Day Years [...] on filedocumented in this encounter Care Teams Cellular Equipment Installer Relationship Specialty Start Date End Date Nick Lauren [address] [place] [address] PCP - General 11/08/16 documented as of this encounter
--- OUTSIDE RECORDS SUMMARY | 2025-01-17 16:51 | XMS_ITS | Clinical Summary ---
Author Organization [facility] Address [address] [place] [address] Phone Care Team Providers Care Mosquito Sprayer Name Role Phone Nick Lauren Primary Care Provider [phone] Family History Relation Name Status Comments Father [...] age to complete this topic Care Teams Mosquito Sprayer Relationship Specialty Start Date End Date Nick Lauren [address] [place] [id number] PCP - General 11/08/16
--- OUTSIDE RECORDS SUMMARY | 2025-01-17 16:51 | XMS_ITS | Clinical Summary ---
Author Organization [facility] Address [address] [place] [address] Care Team Providers Care Fitness Management Director Name Role Phone Ian Bell MD Primary Care Provider + [phone] Kerwin Joyce PA-C Unavailable [phone] Allergies No known active allergies Medications cetirizine [...] Upcoming Encounters Date Type Department Care Team ([facility] st Contact Info) Description 06/01/2025 2:30 PM EST Appointment [facility] Heart & Vascular [place] at [facility] - Cardiology [address] [place] [address] Kerwin Joyce PA-C [address] [place] [address] Health Maintenance Due Date Last Done Comments [...] patient's age to complete this topic Insurance [employer] [id number] [facility] Care Teams Fitness Management Director Relationship Specialty Start Date End Date Ian Bell MD [address] [place], [place] [address] [address] PCP - General Family Medicine 11/13/23 Kerwin Joyce PA-C [address] [place] [address] Physician Transfill Technician Cardiac Electrophysiology 04/21/24
--- OUTSIDE RECORDS SUMMARY | 2025-01-17 16:51 | XMS_ITS | Clinical Summary ---
Author Organization [facility] Address [address] [place] [address] Care Team Providers Care Food Crops Farm Hand Name Role Phone Ian Bell Primary Care [...] age to complete this topic Insurance [address] [place] [address] [facility] Care Teams Food Crops Farm Hand Relationship Specialty Start Date End Date Ian Bell [facility] [place], [place] [phone] PCP - General 04/22/24
== END 2025-01-17 14:25 | disposition home or self-care (01) ==
LOC: HO.HUSH 13:42
PROVIDERS: PCP Nurse Practitioner Family; Visit Provider Nurse Practitioner Family
DX: R31.29 Other microscopic hematuria (principal); R39.9 Unspecified symptoms and signs involving the genitourinary system; Z13.9 Encounter for screening, unspecified
CPT/HCPCS: 99203

== ENCOUNTER 2025-01-17 13:41 | Outpatient (REF) | payer OTHER, SELFPAY | END 2025-01-17 13:42 | disposition home or self-care (01) | LOC: HO.LNP 13:41 | PROVIDERS: PCP Nurse Practitioner Family; Visit Provider Nurse Practitioner Family | DX: R31.29 Other microscopic hematuria (principal); N39.0 Urinary tract infection, site not specified; R39.9 Unspecified symptoms and signs involving the genitourinary system; R39.14 Feeling of incomplete bladder emptying | CPT/HCPCS: 51798; 81003; 88112 ==

== ENCOUNTER 2025-01-19 11:00 | Outpatient (AMB) | payer OTHER, SELFPAY ==
--- NOTE | 2025-01-19 11:04 | MHC.OFFVIS ---
Vital Signs 01/19/25 11:07 Height 5 ft 2 in Weight 140 lb BMI 25.6 BP 118/72 Intake Visit Reasons: ultrasound results Picture Frames Inspector Required: No Information Interpreted: non-clinical & clinical Accompanied by: Spouse Allergies No Known Allergies (No Known Allergies*) Allergy (Verified 01/19/25 11:07) Is last menstrual period known: No (depo provera) HPI Comments Details: The patient is presenting for follow-up to discuss the results of her abnormal uterine bleeding workup and options of treatment. The following workup was done.: H&H with a normal TSH, hCG, GC and chlamydia were negative. Pap smear was done was negative. Pelvic ultrasound was unremarkable The patient has been on Depo-Provera for around 8 months [facility] Medical History PTSD (post-traumatic stress disorder) Anxiety and depression Chronic back pain Scoliosis Migraine without aura Complex partial seizure disorder EDS (Kat-Danlos syndrome) Periumbilical pain COVID-19 Back pain Difficulty swallowing Vomiting and diarrhea History of headache Weakness Numbness Witnessed seizure-like activity Cough Chest pain HTN (hypertension) POTS (postural orthostatic tachycardia syndrome) Fibromyalgia History of cardiac murmur as a child RUQ pain Asthma Surgical History Hx laparoscopic cholecystectomy (01/08/24) H/O hand surgery History of wisdom tooth extraction Family History Paternal Grandmother History of ovarian cancer Mental health disorder Paternal Grandfather History of melanoma Father Mental health disorder Mother Mental health disorder Sister Mental health disorder Other Family history of autoimmune disorder Social History Housing: Condominium Are you a primary career technology teacher to a significant other at home: No Do you presently have visiting nurse or other home services: No Alcohol intake: never Patient Tobacco Use Status: Never used Tobacco e-Cigarette/Vaping Use: Never Used Second Hand Smoke Exposure: No Substance Use Type: Marijuana service: No Current occupational status: unemployed 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 Current occupational exposures/hazards: No Gender identity: Female Cognitive needs: No Hearing needs: No Vision needs: Yes Female Reproductive History Menstrual Age of Menarche: 13 control method: progesterone injection Review of Systems Const All systems reviewed & are unremarkable except as noted in HPI and below Reports as per HPI and Reports no additional complaints GI Reports no additional complaints Reports no additional complaints Physical Exam Vital Signs: Last Vital Signs BP 118/72 01/19/25 11:07 BMI result Body Mass Index 25.6 Assessment & Plan Assessment & Plan (1) Abnormal uterine bleeding (AUB): Comment: On Depo-Provera and valproic acid (Depakote) Code(s): N93.9 - Abnormal uterine and vaginal bleeding, unspecified Category: Medical Plan: Discussed with the patient the results of the workup, options of treatment discussed with the patient include stay on Depo-Provera and if symptoms not improve switch to friend menstrual control versus switching to Mirena IUD in effort to improve the bleeding. All pros and cons, risks and benefits of each were discussed with the patient, the patient decided to proceed with expectant management. Instructions given to patient to call if symptoms persist within 3 to six-month. All questions answered, the patient verbalized understanding Coding Level of Care Code Est Pt Level 3 (28554) Diagnoses Abnormal uterine bleeding (AUB) N93.9
[2025-01-19 11:07] VITALS: BP 118/72; BMI 25.6
--- OUTSIDE RECORDS SUMMARY | 2025-01-19 14:40 | XMS_ITS | Clinical Summary ---
Author Organization [facility] Address [address] [place] [address] Phone Care Team Providers Care Flight Hostess Name Role Phone Nick Lauren Primary Care Provider [phone] Family History Relation Name Status Comments Father [...] age to complete this topic Care Teams Flight Hostess Relationship Specialty Start Date End Date Nick Lauren [address] [place] [phone] PCP - General 11/08/16
--- OUTSIDE RECORDS SUMMARY | 2025-01-19 14:40 | XMS_ITS | Clinical Summary ---
Author Organization [facility] Address [address] [place] [address] Care Team Providers Care Money Counter Name Role Phone Ian Bell Primary Care Provider [phone] Social History Tobacco Use Types Packs/Day Years [...] age to complete this topic Insurance [address] [place] [address] [facility] Care Teams Money Counter Relationship Specialty Start Date End Date Ian Bell [facility] [place], [place] [phone] PCP - General 04/22/24
--- OUTSIDE RECORDS SUMMARY | 2025-01-19 14:40 | XMS_ITS | Clinical Summary ---
Author Organization [facility] Address [address] [place] [address] Phone Care Team Providers Care Accredited Pharmacy Technician Name Role Phone Ian Bell NP Primary Care Provider [phone] Allergies Active Allergy Reactions Criticality Noted Date [...] Office Visit Gastroenterology - [address] [facility] [address] [place] [phone] Sulema Segundo PA Gastroparesis (Primary Dx); Nausea; Hematochezia; Slow transit constipation 10/20/2024 Telephone Gastroenterology - [address] [facility] [address] [place] [address] Mishel Matthews MA 10/19/2024 7:43 AM EDT - 10/19/2024 11:59 PM EDT Hospital Encounter [facility] Nuclear Medicine [address] [place] [address] Nausea and vomiting, unspecified vomiting type Discharge Disposition: Home or Self Care from Last 3 Months Surgical History Surgery [...] AM EST Office Visit Gastroenterology - [address] [phone] Pro Mir MD [address] [address] Health Maintenance Due Date Last Done Comments [...] EDT Nausea and vomiting, unspecified vomiting type from Last 3 Months Results * NM [...] Signed Date: 10/19/2024 13:53 ET Workstation ID: [id number] Transcribed By: Self Edit Transcribed Date: 10/19/2024 [...] Signed Date: 10/19/2024 13:53 ET Workstation ID: [id number] Transcribed By: Self Edit Transcribed Date: 10/19/2024 13:50 ET us Sulema CARTER IMG NM PROCEDURES Final Result from Last 3 Months Insurance [address] [place] [address] [facility] Care Teams Accredited Pharmacy Technician Relationship Specialty Start Date End Date Ian Bell NP [address] [place], [place] PCP - General Family Medicine 10/12/24
--- OUTSIDE RECORDS SUMMARY | 2025-01-19 14:40 | XMS_ITS | Encounter Summary ---
Author Organization [facility] Address [address] [place] [address] Phone Care Team Providers Care Bakery Team Leader Name Role Phone Nick Lauren Primary Care Provider [phone] Encounter Details Date Type Department Care Team (Late st Contact Info) Description 11/14/2016 Conversion Encounter [facility] - [address] [address] Social History Tobacco Use Types Packs/Day Years [...] on filedocumented in this encounter Care Teams Bakery Team Leader Relationship Specialty Start Date End Date Nick Lauren [address] [place] [address] PCP - General 11/08/16 documented as of this encounter
--- OUTSIDE RECORDS SUMMARY | 2025-01-19 14:40 | XMS_ITS | Clinical Summary ---
Author Organization [facility] Address [address] [place] [address] Care Team Providers Care Cloth Weigher Name Role Phone Ian Bell MD Primary Care Provider + [phone] Kerwin Joyce PA-C Unavailable [phone] Allergies No known active allergies Medications cetirizine [...] Upcoming Encounters Date Type Department Care Team ([facility] st Contact Info) Description 06/01/2025 2:30 PM EST Appointment [facility] Heart & Vascular [place] at [facility] - Cardiology [address] [place] [address] Kerwin Joyce PA-C [address] [place] [address] Health Maintenance Due Date Last Done Comments [...] patient's age to complete this topic Insurance [employer] [id number] [facility] Care Teams Cloth Weigher Relationship Specialty Start Date End Date Ian Bell MD [address] [place] [address] [address] PCP - General Family Medicine 11/13/23 Kerwin Joyce PA-C [address] [place] [address] Physician Surface Ship Usw Supervisor Cardiac Electrophysiology 04/21/24
== END 2025-01-19 11:44 | disposition home or self-care (01) ==
LOC: HO.HWS 11:00
PROVIDERS: PCP Nurse Practitioner Family; Visit Provider Obstetrics & Gynecology
DX: N93.9 Abnormal uterine and vaginal bleeding, unspecified (principal)
CPT/HCPCS: 99213

== ENCOUNTER 2025-03-08 14:05 | Outpatient (AMB) | payer OTHER, SELFPAY ==
[2025-03-08 14:11] VITALS: BP 122/84; PULSE 78; RESP 16; O2SAT 100; BMI 31.1
--- NOTE | 2025-03-08 14:11 | A.OFFPC_ITS ---
Vital Signs 03/08/25 14:11 Height 5 ft 2 in Weight 170 lb BMI 31.1 BP 122/84 Blood Pressure Location Lt brachial Position Sitting Respiration 16 Pulse 78 Pulse Source Pulse Oximeter Pulse Oximetry (%) 100 Oxygen Delivery Method Room Air Intake Visit Reasons: 4m follow up Director Of Research Center Required: No Accompanied by: Self / Same As Patient Allergies No Known Allergies (No Known Allergies*) Allergy (Verified 01/19/25 11:07) Tobacco use date assessed: 03/08/25 Dental Screening Dental Screen Date: 03/08/25 Did you have a dental visit in the last 12 months?: No Did you have a dental problem in the last 6 months where you did not have access to dental care?: No Was dental information given to patient?: Patient declined HPI 4m follow up HPI Details Chief Complaint The patient presents for a follow-up on her multiple chronic health issues. History of Present Illness The patient is a 29 year old female presenting for a follow-up for management of multiple chronic conditions. She reports she is feeling much better. The patient was diagnosed with gastroparesis by a business support liaison and has experienced a reduction in vomiting frequency. Previously, she was vomiting frequently, leading to weight loss, but she has since gained some weight. She has also reduced her cannabis intake. She reports not eating regularly, which contributes to concerns about low blood sugar. A prior CAT scan showed no evidence of an insulinoma on her pancreas. Psychiatrically, the patient is followed by a therapist and a psychiatrist for suspected post-traumatic stress disorder, anxiety, and depression. She denies any suicidal or homicidal ideation. Other chronic conditions include possible epilepsy, managed by a neurologist, and postural orthostatic tachycardia syndrome (POTS), which is well-managed by a POTS specialist with fluids and salt tabs. She also sees a urologist and product marketing engineer. Social History - Substance Use: The patient has reduced her cannabis intake. - Family and Social Support: She has a s upportive . - Functional Status: The patient is impl ementing schedules for herself, including alarms for medications and adhering to a consistent sleep-wake cycle, which has been beneficial. - Nutritional Intake: She reports not ea ting regularly. Health Maintenance - The patient sees multiple specialists for chronic condition management, including a business support liaison, therapist, psychiatrist, neurologist, POTS specialist, urologist, and product marketing engineer. Review of Systems - Constitutional: Reports weight gain. - Gastrointestinal: Reports decreased fr equency of vomiting. - Psychiatric: Denies suicidal ideation and homicidal ideation. -no sob or CP Physical Exam General: Cooperative, healthy appearing, comfortable, no acute distress and well developed Orientation: Patient oriented x3 Limitations: No limitations Head: Normal to inspection Ears: Hearing grossly normal bilaterally Nose: Normal external nose present Face and sinus: Normal facial exam Eyes: Appearance normal, both eyes and all related structures Neck: Normal visual inspection and Yes full ROM Respiratory: Normal respiratory effort and able to speak in complete sentences. Clear to auscultation bilaterally Cardiovascular: Regular rate and rhythm. Normal S1 and S2 GI: Hypoactive bowel sounds. Soft to palpation and nontender Skin: No rashes or lesions noted Neuro: Patient oriented x3 Extremities: Normal to inspection Results - Imaging: - CAT scan: Previous scan of her pancrea s did not show any insulinoma. Plan 1. Gastroparesis The patient's gastroparesis is being managed by a business support liaison, and she is undergoing further testing. Her vomiting has decreased, and she has gained some weight. 2. Anxiety And Depression With Suspected Ptsd The patient is doing well from an anxiety and depression standpoint and is stable, denying suicidal or homicidal ideation. She continues to see a therapist and psychiatrist. Neuropsychological testing is recommended to establish a definitive diagnosis for all underlying psych conditions, to guide future management. 3. Hypoglycemia The patient is being monitored for low blood sugar, which is likely related to her not eating regularly. She has been counseled on the importance of regular meals. A prior CAT scan did not reveal an insulinoma. She will cont to track her BS. 4. POTs MD: cont to follow up with, pus tatyana fluids, using salt tabs 5. Follow-Up The patient will have labs drawn in the near future. Continue to follow up (next in 6 months) Discussion Notes I had a follow-up discussion with the patient, who is demonstrating significant improvement. Her diagnosis of gastroparesis from her GI specialist is consistent with her symptoms, and it is positive that her vomiting has reduced. I reinforced the importance of neuropsychological testing to clarify her psychiatric diagnoses, particularly the suspected PTSD, with which her psychiatrist and psychologist concur. We discussed that this would help guide our treatment plan effectively. I also strongly encouraged her efforts to create and adhere to a daily schedule for medications and sleep, praising this as a phenomenal step toward self- management. I advised her to continue with her GI specialist for ongoing testing and management. I informed her that we would be ordering some lab work in the near future to continue monitoring her health. Patient Instructions - Continue to follow up with your specia lists, including your business support liaison, therapist, psychiatrist, neurologist, and POTS specialist. - We recommend proceeding with neuropsyc hological testing to get a clearer picture of your diagnoses. - Keep up the great work with making and sticking to your daily schedules for medications and sleep. - It is very important to eat on a regul ar schedule to help prevent low blood sugar episodes. - We will be ordering some lab tests for you soon and will contact you with the results. [facility] Medical History PTSD (post-traumatic stress disorder) Anxiety and depression Chronic back pain Scoliosis Migraine without aura Complex partial seizure disorder EDS (Kat-Danlos syndrome) Periumbilical pain COVID-19 Back pain Difficulty swallowing Vomiting and diarrhea History of headache Weakness Numbness Witnessed seizure-like activity Cough Chest pain HTN (hypertension) POTS (postural orthostatic tachycardia syndrome) Fibromyalgia History of cardiac murmur as a child RUQ pain Asthma Surgical History Hx laparoscopic cholecystectomy (01/08/24) H/O hand surgery History of wisdom tooth extraction Family History Paternal Grandmother History of ovarian cancer Mental health disorder Paternal Grandfather History of melanoma Father Mental health disorder Mother Mental health disorder Sister Mental health disorder Other Family history of autoimmune disorder Social History Housing: Condominium Are you a primary career placement services counselor to a significant other at home: No Do you presently have visiting nurse or other home services: No Alcohol intake: never Patient Tobacco Use Status: Current someday Tobacco user e-Cigarette/Vaping Use: Never Used Second Hand Smoke Exposure: No Substance Use Type: Marijuana service: No Current occupational status: unemployed 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 Current occupational exposures/hazards: No Gender identity: Female Cognitive needs: No Hearing needs: No Vision needs: Yes Female Reproductive History Menstrual Age of Menarche: 13 Questionnaire Thrive Questionnaire Date Thrive assessed: 05/27/24 I am a: Patient What is your living situation today?: I have a steady place to live Within the past 12 months, did the food you bought not last and you didn't have the money to get more?: I choose not to answer this question Within the past 12 months, did you worry whether your food would run out before you got money to buy more?: I choose not to answer this question Do you have trouble paying for medicines?: No Do you have trouble getting transportation to medical appointments?: No Do you have trouble paying your heating and electricity bill?: No Do you have trouble taking care of your child, family member or friend?: No Do you have trouble with day-to-day activities such as bathing, preparing meals, shopping, managing finances, etc.?: Yes Are you currently unemployed and looking for a job?: No Are you interested in more education?: No Please select the resources that you would like help with: None Currently or been in a relationship where the following occur: No concerns reported THRIVE Score: 0 SEBASTIAN-7 AMB Questionnaire SEBASTIAN-7 Date SEBASTIAN - 7 assessed: 05/27/24 Source: Developed by Drs. Abel Muhammad, America Davies, Vini Esquivel and colleagues, with an educational jabari from [employer]. Physical exam (Primary Care) Vital Signs: Last Vital Signs Pulse 78 03/08/25 14:11 Resp 16 03/08/25 14:11 BP 122/84 03/08/25 14:11 Pulse Ox 100 03/08/25 14:11 Oxygen Delivery Method Room Air 03/08/25 14:11 BMI result Body Mass Index 31.1 Tobacco/Smoking Status: Tobacco use Status Tobacco use date assessed 03/08/25 03/08/25 14:16 Patient Tobacco Use Status Current someday Tobacco 03/08/25 14:16 e-Cigarette/Vaping Use Never Used 03/08/25 14:11 Thrive Assessment: Date of Thrive Assessment Date Thrive assessed 05/27/24 03/08/25 14:11 Currently or been in a relationship where the following occur: No concerns reported Coding Level of Care Code Est Pt Level 4 (96866) Diagnoses Anxiety and depression F41.9; F32.A Biliary dyskinesia K82.8 POTS (postural orthostatic tachycardia syndrome) G90.A Mixed anxiety depressive disorder F41.8 ADHD F90.9 PTSD (post-traumatic stress disorder) F43.10 Assessment & Plan Assessment & Plan (1) Anxiety and depression: Code(s): F41.9 - Anxiety disorder, unspecified; F32.A - Depression, unspecified Category: Medical (2) Biliary dyskinesia: Code(s): K82.8 - Other specified diseases of gallbladder Category: Surgical (3) POTS (postural orthostatic tachycardia syndrome): Code(s): G90.A - Postural orthostatic tachycardia syndrome [POTS] Category: Medical (4) Mixed anxiety depressive disorder: Code(s): F41.8 - Other specified anxiety disorders Category: Medical (5) ADHD: Code(s): F90.9 - Attention-deficit hyperactivity disorder, unspecified type Category: Medical (6) PTSD (post-traumatic stress disorder): Code(s): F43.10 - Post-traumatic stress disorder, unspecified Category: Medical Plan . Orders: Orders UA CC w/rflx Micro + Cult Today F32.A - Depression, unspecified, F41.8 - Other specified anxiety disorders, F41.9 - Anxiety disorder, unspecified, F90.9 - Attention-deficit hyperactivity disorder, unspecified type, G90.A - Postural orthostatic tachycardia syndrome [POTS], K82.8 - Other specified diseases of gallbladder Lipid Panel Today F32.A - Depression, unspecified, F41.8 - Other specified anxiety disorders, F41.9 - Anxiety disorder, unspecified, F90.9 - Attention- deficit hyperactivity disorder, unspecified type, G90.A - Postural orthostatic tachycardia syndrome [POTS], K82.8 - Other specified diseases of gallbladder Complete Blood Count Auto Diff Today F32.A - Depression, unspecified, F41.8 - Other specified anxiety disorders, F41.9 - Anxiety disorder, unspecified, F90.9 - Attention-deficit hyperactivity disorder, unspecified type, G90.A - Postural orthostatic tachycardia syndrome [POTS], K82.8 - Other specified diseases of gallbladder Comprehensive Tye. Panel Fast Today F32.A - Depression, unspecified, F41.8 - Other specified anxiety disorders, F41.9 - Anxiety disorder, unspecified, F90.9 - Attention-deficit hyperactivity disorder, unspecified type, G90.A - Postural orthostatic tachycardia syndrome [POTS], K82.8 - Other specified diseases of gallbladder TSH reflex Free T4 Today F32.A - Depression, unspecified, F41.8 - Other specified anxiety disorders, F41.9 - Anxiety disorder, unspecified, F90.9 - Attention-deficit hyperactivity disorder, unspecified type, G90.A - Postural orthostatic tachycardia syndrome [POTS], K82.8 - Other specified diseases of gallbladder Referrals Neuropsychiatry Referral F32.A - Depression, unspecified, F41.8 - Other specified anxiety disorders, F41.9 - Anxiety disorder, unspecified, F43.10 - Post-traumatic stress disorder, unspecified, F90.9 - Attention-deficit hyper activity disorder, unspecified type
--- OUTSIDE RECORDS SUMMARY | 2025-03-08 20:04 | XMS_ITS | Clinical Summary ---
Author Organization [facility] Address [address] [place] [id number] Phone Care Team Providers Care Doubler Operator Name Role Phone Nick Lauren Primary Care Provider [phone] Family History Relation Name Status Comments Father [...] age to complete this topic Care Teams Doubler Operator Relationship Specialty Start Date End Date Nick Lauren [address] [place] [id number] PCP - General 11/08/16
--- OUTSIDE RECORDS SUMMARY | 2025-03-08 20:04 | XMS_ITS | Encounter Summary ---
Author Organization [facility] Address [address] [place] [address] Phone Care Team Providers Care Mortgage Counselor Name Role Phone Nick Lauren Primary Care Provider [phone] Encounter Details Date Type Department Care Team (Late st Contact Info) Description 11/14/2016 Conversion Encounter [facility] - [address] [id number] Social History Tobacco Use Types Packs/Day Years [...] on filedocumented in this encounter Care Teams Mortgage Counselor Relationship Specialty Start Date End Date Nick Lauren [address] [place] [address] PCP - General 11/08/16 documented as of this encounter
--- OUTSIDE RECORDS SUMMARY | 2025-03-08 20:04 | XMS_ITS | Clinical Summary ---
Author Organization [facility] Address [address] [place] [address] Phone Care Team Providers Care Geology Scientist Name Role Phone Ian Bell NP Primary Care Provider [phone] Allergies Active Allergy Reactions Criticality Noted Date [...] day with meals. 90 each 2 5 02/16/20 25 Active Problems Problem Noted Date Diagnosed Date [...] Numbness Periumbilical pain Vomiting and diarrhea Weakness Surgical History Surgery Date Site/Laterality Comments WISDOM [...] Orientation Straight 10/04/2024 4: 16 PM EDT Last Filed Vital Signs Vital [...] 11/17/2024 10:52 AM EDT Plan of Treatment Health Maintenance Due Date [...] patient's age to complete this topic Insurance [facility] Care Teams Geology Scientist Relationship Specialty Start Date End Date Ian Bell NP [address] [facility] [place] PCP - General Family Medicine 10/12/24
--- OUTSIDE RECORDS SUMMARY | 2025-03-08 20:04 | XMS_ITS | Clinical Summary ---
Author Organization [facility] Address [address] [place] [id number] Care Team Providers Care Spice Miller Name Role Phone Ian Bell NP Primary Care Provider [phone] Kerwin Joyce PA-C Unavailable [phone] Allergies No known active allergies Medications cetirizine [...] Upcoming Encounters Date Type Department Care Team ([facility] st Contact Info) Description 06/01/2025 2:30 PM EST Appointment [facility] [place] [facility] - Cardiology [address] [place] [address] Kerwin Joyce PA-C [address] [place] [phone] Health Maintenance Due Date Last Done Comments Hepatitis C Virus Screening 1997 HIV Screening 2010 DTaP/Tdap/Td Vaccines (1 - Tdap) 2016 Hepatitis B Vaccines (1 of 3 - 19+ 3-dose series) 2016 Pap Smear (Ages 21-65) 2018 Influenza Vaccine 10/29/2024 COVID-19 Vaccine ( - 2024-2 6 season) 2024 HPV Vaccines (No Doses Required) Completed Pneumococcal Vaccine: Pediat farhat (0-5 Years) and At-Risk Patients (6 to 49 Years) Aged Out No longer eligible b ased on patient's age to complete this topic Insurance [facility] [id number] [facility] Care Teams Spice Miller Relationship Specialty Start Date End Date Ian Bell NP [address] [place] [id number] PCP - General Family Medicine 11/13/23 Kerwin Joyce PA-C [address] [place] [phone] Physician Solar Thermal Installer Cardiac Electrophysiology 04/21/24
--- OUTSIDE RECORDS SUMMARY | 2025-03-08 20:04 | XMS_ITS | Clinical Summary ---
Author Organization [facility] Address [address] [place] [address] Care Team Providers Care Mapping Pilot Name Role Phone Ian Bell Primary Care [...] Screening 03/31/2024 Influenza Vaccine (#1) 2024 02/15/2019 COVID-19 Vaccine (3 - 2024-2 6 season) 2024 08/02/2020, 07/05/2020 Pneumococcal Vaccine: Pediatric (0-5 Years) and At-Risk Patients (6-50 Years) Aged Out No longer eligible based on patient's age to complete this topic Insurance [address] [place] [address] [facility] Member Subscriber Plan / Payer (Ef fective 2024-Present) Name:Dimple Stewart Relation to Subscriber:Self Name:Dimple Stewart Payer ID:[id number] Type:HMO Address: [facility] [place] [id number] Care Teams Mapping Pilot Relationship Specialty Start Date End Date Ian Bell: [phone] [place] [address] PCP - General 04/22/24
== END 2025-03-08 14:50 | disposition home or self-care (01) ==
LOC: HO.HMCC 14:06
PROVIDERS: PCP Nurse Practitioner Family; Visit Provider Nurse Practitioner Family
DX: F41.9 Anxiety disorder, unspecified (principal); F32.A Depression, unspecified; K82.8 Other specified diseases of gallbladder; G90.A Postural orthostatic tachycardia syndrome [POTS]; F41.8 Other specified anxiety disorders; F90.9 Attention-deficit hyperactivity disorder, unspecified type; F43.10 Post-traumatic stress disorder, unspecified